=== PATIENT | male | born 1940 | race Caucasian/White ===

== ENCOUNTER → 2016-08-08 | Outpatient (CLI) | payer MEDICARE, MEDICAID ==
[~2016-08-08] MED LIST: AMLODIPINE BES2.5 MG PO; AMOXICILLIN500 MG PO; ARAVA20 MG PO; ASPIRIN81 M1 PO; ATARAX,VISTARIL10 MG PO; CLARITIN10 MG PO; CYCLOBENZAPRINE10 MG PO; DAYPRO600 M1 PO; FLOMAX0.4 MG PO; HCTZ/TRIAMTEREN1 TA2 PO; HYDROCODONE BIT1 T11 PO; INDOCIN50 MG PO; K-DUR 20MEQ20 MEQ PO; KEFLEX250 MG PO; LEUPROLIDE IM; LUPRON5 MG/M1; MAXZIDE 50 MG-71 TA1 PO; MEDROL DOSEPAK4 MG PO; METHOTREXATE2.5 M1 PO; METOPROLOL1 MG/ML PO; NATURE'S BLEND F1 MG PO; OMEPRAZOLE40 MG PO; OXYBUTYNIN5 MG PO; PERCOCET 325 MG1 TA2 PO; PREDNICOT20 MG PO; PREDNISONE10 MG PO; PREDNISONE50 MG PO; RITE AID ACID150 MG PO; ROBITUSSIN AC 110 ML PO; SINGULAIR10 MG PO; TAGAMET400 MG PO; TAMIFLU75 MG PO; TRAMADOL50 MG PO; ULTRAM50 MG PO; VENTOLIN H0.09 MG/AC INH; VESICARE5 MG PO; VITAMIN D31000 IU PO; XYZAL5 M1 PO; XYZAL5 MG PO; ZITHROMAX250 MG PO; ZYRTEC10 M3 PO
== END | disposition home or self-care (01) ==
LOC: US 12:52
DX: R39.15 Urgency of urination (principal); M54.5 Low back pain

== ENCOUNTER → 2016-12-29 | Outpatient (CLI) | payer MEDICARE, MEDICAID ==
[~2016-12-29] MED LIST changes: +PLAQUENIL200 MG PO; +PREDNISONE5 MG PO
[2016-12-29 10:48] LABS: BILIRUBIN NEGATIVE (NEGATIVE); BLOOD NEGATIVE (NEGATIVE); CLARITY CLEAR (CLEAR); COLOR YELLOW (YELLOW); GLUCOSE NEGATIVE (NEGATIVE); KETONE NEGATIVE (NEGATIVE); LEUKO ESTERASE NEGATIVE (NEGATIVE); NITRITE NEGATIVE (NEGATIVE); PROTEIN NEGATIVE (NEGATIVE); UROBILINOGEN 0.2 E.U./dl (0.2-1.0)
[2016-12-29 10:51] LABS: BASO % 0.2 % (0.0-1.0); EOS # 0.1 10*3/uL (0.0-0.4); EOS % 1.7 % (1.0-4.0); HEMATOCRIT 39.1 % (42.0-52.0); HEMOGLOBIN 13.4 g/dl (14.0-18.0); IG # 0.1 10*3/uL (0.0-0.1); LYMPH # 1.4 10*3/uL (1.3-4.4); LYMPH % 17.2 % (27.0-41.0); MEAN CELL VOLUME 92.7 fl (80.0-94.0); MEAN CORPUSCULAR HGB 31.8 pg (27.0-31.0); MEAN CORPUSCULAR HGB CONC 34.3 g/dl (33.0-37.0); MONO # 0.7 10*3/uL (0.1-1.0); NEUT % 72.1 % (47.0-73.0); PLATELET COUNT AUTOMATED 256 10*3/uL (130-400); RED BLOOD COUNT 4.22 10*6/uL (4.50-5.90); RED CELL DISTRI WIDTH 14.6 % (0-14.5); WHITE BLOOD COUNT 8.3 10*3/uL (4.8-10.8)
[2016-12-29 11:23] LABS: BUN 17 mg/dl (7-24); CARBON DIOXIDE 25 mmol/L (21-32); CHLORIDE 107 mmol/L (98-107); EST GLOM FILT AFRICAN AMERICAN > 60 ml/min; GLUCOSE 95 mg/dL (65-99); POTASSIUM 4.2 mmol/L (3.5-5.1); SODIUM 140 mmol/L (136-145)
[2016-12-29 11:29] LABS: INTERNATIONAL NORM RATIO 0.9 (2.0-3.5)
[2016-12-29 12:48] LABS: EPITHELIAL CELLS 0-2; RBC 0-2 rbc/hpf (0-2)
== END | disposition home or self-care (01) ==
LOC: LAB 09:25
PROVIDERS: Surgery
DX: Z01.818 Encounter for other preprocedural examination (principal); K40.90 Unilateral inguinal hernia, without obstruction or gangrene, not specified as recurrent; I10 Essential (primary) hypertension; J98.4 Other disorders of lung; Z98.890 Other specified postprocedural states

== ENCOUNTER → 2017-01-04 | Day surgery (SDC) | payer MEDICARE, MEDICAID ==
[2017-01-04] VITALS (7 sets, daily range): BP systolic 144–158; BP diastolic 76–85
[~2017-01-04] VITALS: Ht 180.3 cm; Wt 88.5 kg
--- NOTE | ~2017-01-04 | O ---
[place], [place] OPERATIVE NOTE NAME: MEG JACK [facility] #: [id number] UNIT #: [id number] ROOM: DOCTOR: PATRICK NIEVES MD BIRTHDATE: [birth year] DOS: 01/04/2017 PREOPERATIVE DIAGNOSIS: Recurrent right inguinal hernia. POSTOPERATIVE DIAGNOSIS: Recurrent right inguinal hernia. PROCEDURE: Repair of recurrent right inguinal hernia with plug and mesh (large). SURGEON: Patrick Nieves MD DETASSELER: MS3. ANESTHESIA: GET. INDICATIONS: This is a 76-year-old gentleman with a history of previous laparoscopic right inguinal hernia repair who is here for a recurrent right inguinal hernia repair with mesh. The procedure and its complications were explained to the patient in detail preoperatively. Complications that were discussed included but were not limited to bleeding, infection, recurrence, prolonged postoperative pain, and damage to underlying vital structures. He agreed to proceed. DESCRIPTION OF PROCEDURE: After identifying the patient, the patient was brought to the operating suite and laid in the supine position. After induction of general anesthesia, the parts were then painted and draped in the usual sterile fashion, and a time-out procedure was called. An incision was made in the right groin parallel to the right inguinal ligament. The skin and the subcutaneous tissue were incised in the line of the incision. The external oblique aponeurosis was incised with the help of a knife in the line of its fibers. The cord structures were identified and away from the underlying recurrent hernial sac with the help of a [place] drain. The cord structures were then carefully dissected away from the sac. The sac was found to be an indirect hernial sac. The sac was then allowed to retract back and a large plug was placed in the internal ring and sutured to the conjoined tendon superiorly and the upturned part of the inguinal ligament inferiorly in order to keep the plug in place. Thereafter, a flat mesh was brought in, and it was encircled around the cord and sutured superiorly to the conjoined tendon and inferiorly to the upturned part of the inguinal ligament with the help of 2-0 Prolene in a running fashion. Thereafter, the [place] drain was removed and the external oblique aponeurosis was approximated with the help of 0 Vicryl in a running fashion. The subcutaneous tissue was approximated with the help of 3-0 Vicryl in a running fashion, and the skin edges were approximated with the help of 4-0 Vicryl in a subcuticular ring fashion, and the edges of the skin were infiltrated with 1% plain lidocaine. A dressing was placed. The patient was extubated uneventfully and brought back to the recovery room in stable fashion. There were no complications. Dr. Patrick Nieves, the attending surgeon, was present throughout the operating case. [place], [place] OPERATIVE NOTE NAME: MEG JACK UNIT #: [id number] ROOM: DOCTOR: PATRICK NIEVES MD BIRTHDATE: [birth year] Patrick Nieves MD CM:OPRECORD:OPERATIVE NOTE [id number] PATRICK NIEVES MD 01/04/17 0946 interface
== END | disposition home or self-care (01) ==
LOC: SDC 12-29 09:30
DX: K40.91 Unilateral inguinal hernia, without obstruction or gangrene, recurrent (principal); I10 Essential (primary) hypertension; K21.9 Gastro-esophageal reflux disease without esophagitis; J44.9 Chronic obstructive pulmonary disease, unspecified; Z87.891 Personal history of nicotine dependence; M06.9 Rheumatoid arthritis, unspecified; Z85.46 Personal history of malignant neoplasm of prostate; Z83.3 Family history of diabetes mellitus; Z82.49 Family history of ischemic heart disease and other diseases of the circulatory system; M10.9 Gout, unspecified

== ENCOUNTER 2017-01-11 23:59 | Emergency (ER) | payer MEDICARE, MEDICAID ==
[~2017-01-11] VITALS: Ht 180.3 cm; Wt 88.5 kg
[2017-01-12 00:17] LABS: BILIRUBIN NEGATIVE (NEGATIVE); BLOOD NEGATIVE (NEGATIVE); CLARITY CLEAR (CLEAR); COLOR YELLOW (YELLOW); GLUCOSE NEGATIVE (NEGATIVE); KETONE NEGATIVE (NEGATIVE); LEUKO ESTERASE NEGATIVE (NEGATIVE); NITRITE NEGATIVE (NEGATIVE); PH 5.5 (5.0-9.0); PROTEIN NEGATIVE (NEGATIVE); UROBILINOGEN 0.2 E.U./dl (0.2-1.0)
[2017-01-12 00:25] LABS: BACTERIA 1+; URINE REFLEX COMMENT NO (NO)
[2017-01-12 00:45] LABS: BASO % 0.1 % (0.0-1.0); EOS # 0.2 10*3/uL (0.0-0.4); EOS % 2.2 % (1.0-4.0); HEMATOCRIT 34.4 % (42.0-52.0); HEMOGLOBIN 12.3 g/dl (14.0-18.0); IG # 0.1 10*3/uL (0.0-0.1); LYMPH # 1.5 10*3/uL (1.3-4.4); LYMPH % 19.9 % (27.0-41.0); MEAN CELL VOLUME 90.5 fl (80.0-94.0); MEAN CORPUSCULAR HGB 32.4 pg (27.0-31.0); MEAN CORPUSCULAR HGB CONC 35.8 g/dl (33.0-37.0); MEAN PLATELET VOLUME 8.9 fl (9.6-12.3); MONO # 0.8 10*3/uL (0.1-1.0); MONO % 11.5 % (3.0-9.0); NEUT # 4.8 10*3/uL (2.3-7.9); NEUT % 65.3 % (47.0-73.0); PLATELET COUNT AUTOMATED 238 10*3/uL (130-400); RED CELL DISTRI WIDTH 14.2 % (0-14.5); WHITE BLOOD COUNT 7.3 10*3/uL (4.8-10.8)
[2017-01-12 01:01] LABS: ALBUMIN 3.1 gm/dl (3.1-4.5); ALKALINE PHOSPHATASE 76 U/L (45-117); BILIRUBIN, TOTAL 0.5 mg/dl (0.2-1.0); BUN 15 mg/dl (7-24); CARBON DIOXIDE 23 mmol/L (21-32); CHLORIDE 104 mmol/L (98-107); EST GLOM FILT AFRICAN AMERICAN > 60 ml/min; GLUCOSE 112 mg/dL (65-99); POTASSIUM 3.9 mmol/L (3.5-5.1); SGOT/AST 20 IU/L (3-35); SGPT/ALT 23 U/L (12-78); SODIUM 137 mmol/L (136-145); TOTAL PROTEIN 6.7 gm/dL (6.4-8.2)
== END 2017-01-12 02:07 | disposition home or self-care (01) ==
LOC: ED 23:59
PROVIDERS: Emergency Medicine
DX: G89.18 Other acute postprocedural pain (principal); R10.31 Right lower quadrant pain; K21.9 Gastro-esophageal reflux disease without esophagitis; J44.9 Chronic obstructive pulmonary disease, unspecified; I10 Essential (primary) hypertension; J45.909 Unspecified asthma, uncomplicated; Z91.040 Latex allergy status; Z88.6 Allergy status to analgesic agent; Z88.8 Allergy status to other drugs, medicaments and biological substances; Z79.899 Other long term (current) drug therapy

== ENCOUNTER 2017-07-30 19:48 | Inpatient (IN) | payer MEDICARE, MEDICAID ==
[~2017-07-30] VITALS: Ht 180.3 cm; Wt 93.0 kg
--- NOTE | ~2017-07-30 | ST ---
[place], [place] EXERCISE STRESS TEST REPORT NAME: MEG JACK [facility] #: [id number] UNIT #: [id number] ROOM: 520 DOCTOR: MARYLOU MARSH,YESSICA BIRTHDATE: [birth year] DOS: 07/31/2017 EXERCISE NURCLEAR TEST. REASON FOR TEST: Chest pain. PHYSICAL EXAMINATION NECK: Supple. LUNGS: Clear anteriorly. HEART: Regular rhythm. PROTOCOL: Gildardo protocol. Total stress time 3 minutes and 17 seconds, maximum heart rate 120 which is 82% of target heart rate. Peak blood pressure 184/80, adequate response. Total mets 4.6 mets. Guan treadmill score +3. SYMPTOMS: The patient is chest pain free, developed shortness of breath and foot pain requiring premature termination of the test. EKG: Resting EKG showed sinus rhythm. Stress EKG showed no ischemia, no arrhythmias. CONCLUSION: Clinically, the patient is chest pain free, developed shortness of breath and leg pain requiring premature termination of the test. EKG showed no ischemia. POST-STRESS COMPLICATIONS: None. YESSICA HICKMAN MD CM:STRESS:EXERCISE STRESS TEST REPORT 1321 1331 YESSICA HICKMAN MD
--- NOTE | ~2017-07-30 | CON ---
[place], [place] REPORT OF CONSULTATION NAME: MEG JACK [facility] #: [id number] UNIT #: [id number] ROOM: 520 DOCTOR: YESSICA HICKMAN MD BIRTHDATE: [birth year] DOS: 07/31/2017 REASON FOR CONSULTATION: Chest pain. HISTORY OF PRESENT ILLNESS: The patient is a 77-year-old gentleman with history of hypertension, COPD, rheumatoid arthritis, who follows with Dr. Dyer, presented to the Emergency Room with left-sided chest pain. Since Dr. Dyer was out of town, [facility] asked me to see the patient in consultation. The patient was complaining of intermittent left-sided chest pain, which is sharp, sometimes heavy, mostly at rest. There is no radiation, no associated nausea, diaphoresis, or shortness of breath. This pain is intermittent and lasts for a few minutes, sometimes several minutes but he denies exertional chest pains or palpitations. No nausea, vomiting, or diarrhea. He did have similar pain a few weeks ago, but did not seek any medical attention. He denies any hemoptysis or cough. No PND or orthopnea. No edema, no palpitations, no headache, no neurological symptoms. REVIEW OF SYSTEMS: Review of the 8 systems negative except as mentioned above. PAST MEDICAL HISTORY: 1. Hypertension. 2. History of sinus bradycardia. 3. Chronic obstructive pulmonary disease. 4. Acid reflux. 5. Rheumatoid arthritis. 6. Overweight. 7. Remote tobacco use. PAST SURGICAL HISTORY: Reviewed. ALLERGIES: Reviewed including LATEX and ARTHROTEC. HOME MEDICATIONS: Reviewed. SOCIAL HISTORY: The patient does not smoke or drink. History of remote tobacco use, currently quit smoking. PHYSICAL EXAMINATION: VITAL SIGNS: Blood pressure 152/78, pulse 66, respiratory rate 20. Weight 92.98 kilos with a BMI 28.6. GENERAL: Alert, comfortable, in no acute distress, currently in some chest pain. HEENT: Pupils are round and equal. No jaundice. Tongue was moist and pharynx was clear. NECK: Supple, no distended neck veins, no carotid bruit. CHEST: Symmetrical, nontender. LUNGS: Clear to auscultation bilaterally. HEART: Regular rhythm, no S3, no palpable thrills. ABDOMEN: Benign, nontender. Bowel sounds normal. EXTREMITIES: Showed no edema. Distal pulses are palpable. [place], [place] REPORT OF CONSULTATION NAME: MEG JACK UNIT #: [id number] ROOM: 520 DOCTOR: MARYLOU MARSH,YESSICA BIRTHDATE: [birth year] SKIN: Warm and dry. No cyanosis, no clubbing. NEUROLOGIC: The patient is alert, oriented. No focal neurologic deficit. RECTAL: Deferred. GENITOURINARY: Deferred. REVIEW OF THE DIAGNOSTIC TESTS: EKG rhythm strips and medications as well as labs reviewed. EKG showed normal sinus rhythm with no acute ST-T changes. IMPRESSION: 1. Chest pain, atypical, myocardial infarction ruled out. 2. History of sinus bradycardia, currently rate stable. 3. Hypertension. 4. Chronic obstructive pulmonary disease. 5. Rheumatoid arthritis. RECOMMENDATIONS: 1. Continue current medications. 2. Exercise nuclear stress test due to his coronary artery disease risk factors. 3. Risk factor modification discussed. 4. He will follow with Dr. Dyer after the discharge. 5. If the stress test is nonischemic, he can be discharged home from the cardiac standpoint. 6. Continue to watch his heart rate and blood pressures as outpatient. YESSICA HICKMAN MD CM:CONSTR:REPORT OF CONSULTATION 1330 07/31/17 1402 interface
[~2017-07-30 19:48] MED LIST changes: +SINGULAIR10 M1 PO
[2017-07-30 19:51] VITALS: BP 150/88
[2017-07-30 20:03] LABS: BASO % 0.2 % (0.0-1.0); EOS # 0.1 10*3/uL (0.0-0.4); EOS % 1.4 % (1.0-4.0); HEMATOCRIT 34.6 % (42.0-52.0); HEMOGLOBIN 12.4 g/dl (14.0-18.0); LYMPH # 1.3 10*3/uL (1.3-4.4); LYMPH % 15.2 % (27.0-41.0); MEAN CELL VOLUME 92.3 fl (80.0-94.0); MEAN CORPUSCULAR HGB 33.1 pg (27.0-31.0); MEAN CORPUSCULAR HGB CONC 35.8 g/dl (33.0-37.0); MEAN PLATELET VOLUME 8.7 fl (9.6-12.3); MONO # 0.7 10*3/uL (0.1-1.0); MONO % 7.9 % (3.0-9.0); NEUT # 6.6 10*3/uL (2.3-7.9); NEUT % 74.7 % (47.0-73.0); PLATELET COUNT AUTOMATED 285 10*3/uL (130-400); RED BLOOD COUNT 3.75 10*6/uL (4.50-5.90); RED CELL DISTRI WIDTH 13.5 % (0-14.5); WHITE BLOOD COUNT 8.8 10*3/uL (4.8-10.8)
[2017-07-30] MEDS ORDERED: ARAVA20 MG PO (20:03)
[2017-07-30] MEDS ORDERED: TRIAMTERENE-HC1 EAC1 PO (20:04)
[2017-07-30] MEDS ORDERED: FLOVENT HFA12 GM INH (20:05)
[2017-07-30 20:06] VITALS: BP 161/83
[2017-07-30 20:13] LABS: ACT PARTIAL THROMBO TIME 25.8 SECONDS (20.8-31.5); INTERNATIONAL NORM RATIO 0.9 (2.0-3.5)
[2017-07-30 20:20] LABS: ALBUMIN 3.5 gm/dl (3.1-4.5); ALKALINE PHOSPHATASE 77 U/L (45-117); BUN 15 mg/dl (7-24); CHLORIDE 101 mmol/L (98-107); CREATININE 1.24 mg/dL (0.70-1.30); SGOT/AST 19 IU/L (3-35); SGPT/ALT 20 U/L (12-78); SODIUM 134 mmol/L (136-145); TOTAL PROTEIN 7.3 gm/dL (6.4-8.2)
[2017-07-30 20:23] LABS: TROPONIN I < 0.015 ng/ml (<0.045)
[2017-07-30 20:27] VITALS: BP 125/70
[2017-07-30 20:51] VITALS: BP 125/70
[2017-07-30 21:15] VITALS: BP 149/75
[2017-07-31 05:42] LABS: ALBUMIN 3.3 gm/dl (3.1-4.5); ALKALINE PHOSPHATASE 69 U/L (45-117); BUN 14 mg/dl (7-24); CHLORIDE 101 mmol/L (98-107); CHOLESTEROL 126 mg/dL (<200); CREATININE 0.87 mg/dL (0.70-1.30); HDL CHOLESTEROL 54 mg/dl (40-60); LDL CHOLESTEROL 55 mg/dL (9-159); PHOSPHOROUS 3.2 mg/dL (2.5-4.9); POTASSIUM 3.7 mmol/L (3.5-5.1); SGOT/AST 19 IU/L (3-35); SGPT/ALT 18 U/L (12-78); SODIUM 134 mmol/L (136-145); TOTAL PROTEIN 6.8 gm/dL (6.4-8.2); TRIGLYCERIDES 83 mg/dl (<150); VLDL CHOLESTEROL 17 mg/dL (6-40)
[2017-07-31 05:48] LABS: TROPONIN I < 0.015 ng/ml (<0.045)
[2017-07-31 06:17] LABS: ACT PARTIAL THROMBO TIME 27.1 SECONDS (20.8-31.5)
[2017-07-31 06:24] LABS: BASO % 0.5 % (0.0-1.0); EOS # 0.1 10*3/uL (0.0-0.4); EOS % 1.7 % (1.0-4.0); HEMATOCRIT 33.3 % (42.0-52.0); HEMOGLOBIN 12.2 g/dl (14.0-18.0); LYMPH # 1.2 10*3/uL (1.3-4.4); MEAN CELL VOLUME 93.3 fl (80.0-94.0); MEAN CORPUSCULAR HGB 34.2 pg (27.0-31.0); MEAN CORPUSCULAR HGB CONC 36.6 g/dl (33.0-37.0); MONO # 0.6 10*3/uL (0.1-1.0); MONO % 9.8 % (3.0-9.0); NEUT # 4.5 10*3/uL (2.3-7.9); NEUT % 68.2 % (47.0-73.0); PLATELET COUNT AUTOMATED 252 10*3/uL (130-400); RED BLOOD COUNT 3.57 10*6/uL (4.50-5.90); RED CELL DISTRI WIDTH 13.6 % (0-14.5); WHITE BLOOD COUNT 6.5 10*3/uL (4.8-10.8)
[2017-07-31 07:15] LABS: VITAMIN D, 25-HYDROXY 23.1 ng/mL (30-100)
[2017-07-31 08:00] VITALS: BP 152/78
[2017-07-31] MEDS ORDERED: LEUCOVORIN CALCI5 MG PO (13:47)
[2017-07-31 14:30] VITALS: BP 152/85
[2017-07-31 16:00] VITALS: BP 152/91
[2017-07-31 20:00] VITALS: BP 158/59
[2017-08-01] VITALS: BP 130/77
[2017-08-01 08:00] VITALS: BP 147/76
== END 2017-08-01 12:39 | disposition home or self-care (01) | DRG 206 ==
LOC: ED 19:48 → EDHOLD 20:50 → 5E 20:50
PROVIDERS: Hospitalist; Student in an Organized Health Care Education/Training Program
PROC: 4A02XM4 Measurement of Cardiac Total Activity, External Approach (ICD-10-PCS; principal; 2017-07-31)
DX: M94.0 Chondrocostal junction syndrome [Tietze] (principal); J44.9 Chronic obstructive pulmonary disease, unspecified; M06.9 Rheumatoid arthritis, unspecified; E66.3 Overweight; J30.2 Other seasonal allergic rhinitis; K21.9 Gastro-esophageal reflux disease without esophagitis; I10 Essential (primary) hypertension; Z80.8 Family history of malignant neoplasm of other organs or systems; Z82.49 Family history of ischemic heart disease and other diseases of the circulatory system; Z88.9 Allergy status to unspecified drugs, medicaments and biological substances; Z91.040 Latex allergy status; Z87.891 Personal history of nicotine dependence

== ENCOUNTER 2017-09-19 19:02 | Inpatient (IN) | payer MEDICARE, MEDICAID ==
[~2017-09-19] VITALS: Ht 180.3 cm; Wt 94.0 kg
[~2017-09-19 19:02] MED LIST changes: +FLOVENT HFA12 GM INH; +LEUCOVORIN CALCI5 MG PO; +TRIAMTERENE-HC1 EAC1 PO
[2017-09-19 19:07] VITALS: BP 151/77
[2017-09-19 20:30] VITALS: BP 160/85
[2017-09-19 20:34] LABS: BILIRUBIN NEGATIVE (NEGATIVE); BLOOD NEGATIVE (NEGATIVE); CLARITY CLEAR (CLEAR); COLOR YELLOW (YELLOW); GLUCOSE NEGATIVE (NEGATIVE); KETONE NEGATIVE (NEGATIVE); LEUKO ESTERASE NEGATIVE (NEGATIVE); NITRITE NEGATIVE (NEGATIVE); UROBILINOGEN 0.2 E.U./dl (0.2-1.0)
[2017-09-19 20:35] LABS: ACT PARTIAL THROMBO TIME 30.8 SECONDS (20.8-31.5)
[2017-09-19 20:41] LABS: ALBUMIN 3.2 gm/dl (3.1-4.5); ALKALINE PHOSPHATASE 95 U/L (45-117); BUN 14 mg/dl (7-24); CHLORIDE 91 mmol/L (98-107); CREATININE 0.93 mg/dL (0.70-1.30); LIPASE 126 U/L (73-393); POTASSIUM 3.6 mmol/L (3.5-5.1); SGOT/AST 20 IU/L (3-35); SGPT/ALT 23 U/L (12-78); SODIUM 125 mmol/L (136-145); TOTAL PROTEIN 7.1 gm/dL (6.4-8.2)
[2017-09-19 20:43] LABS: TROPONIN I < 0.015 ng/ml (<0.045)
[2017-09-19 20:44] LABS: WBC 0-2 wbc/hpf (0-5)
[2017-09-19 20:45] LABS: BACTERIA TRACE; MUCOUS 1+
[2017-09-19 20:51] LABS: BASO % 0.2 % (0.0-1.0); EOS % 0.3 % (1.0-4.0); HEMATOCRIT 32.8 % (42.0-52.0); LYMPH % 8.6 % (27.0-41.0); MEAN CELL VOLUME 91.4 fl (80.0-94.0); MEAN CORPUSCULAR HGB 33.4 pg (27.0-31.0); MEAN CORPUSCULAR HGB CONC 36.6 g/dl (33.0-37.0); MEAN PLATELET VOLUME 8.6 fl (9.6-12.3); MONO # 1.1 10*3/uL (0.1-1.0); MONO % 9.2 % (3.0-9.0); NEUT # 9.6 10*3/uL (2.3-7.9); NEUT % 80.9 % (47.0-73.0); PLATELET COUNT AUTOMATED 313 10*3/uL (130-400); RED BLOOD COUNT 3.59 10*6/uL (4.50-5.90); RED CELL DISTRI WIDTH 14.2 % (0-14.5); WHITE BLOOD COUNT 11.8 10*3/uL (4.8-10.8)
[2017-09-19 22:04] VITALS: BP 143/85
[2017-09-20 01:17] VITALS: BP 146/85
[2017-09-20 02:13] LABS: BASO % 0.3 % (0.0-1.0); EOS % 0.1 % (1.0-4.0); HEMATOCRIT 30.5 % (42.0-52.0); HEMOGLOBIN 11.2 g/dl (14.0-18.0); LYMPH # 0.8 10*3/uL (1.3-4.4); LYMPH % 7.4 % (27.0-41.0); MEAN CELL VOLUME 92.1 fl (80.0-94.0); MEAN CORPUSCULAR HGB 33.8 pg (27.0-31.0); MEAN CORPUSCULAR HGB CONC 36.7 g/dl (33.0-37.0); MEAN PLATELET VOLUME 8.2 fl (9.6-12.3); MONO # 0.9 10*3/uL (0.1-1.0); MONO % 8.1 % (3.0-9.0); NEUT % 83.5 % (47.0-73.0); PLATELET COUNT AUTOMATED 286 10*3/uL (130-400); RED BLOOD COUNT 3.31 10*6/uL (4.50-5.90); RED CELL DISTRI WIDTH 14.3 % (0-14.5); WHITE BLOOD COUNT 10.8 10*3/uL (4.8-10.8)
[2017-09-20 02:27] LABS: BUN 13 mg/dl (7-24); CHLORIDE 93 mmol/L (98-107); CREATININE 0.86 mg/dL (0.70-1.30); POTASSIUM 3.9 mmol/L (3.5-5.1); SODIUM 128 mmol/L (136-145)
[2017-09-20 02:28] LABS: PHOSPHOROUS 3.4 mg/dL (2.5-4.9)
[2017-09-20 04:00] VITALS: BP 170/86
[2017-09-20 07:56] LABS: VITAMIN D, 25-HYDROXY 16.3 ng/mL (30-100)
[2017-09-20 08:00] VITALS: BP 159/82
[2017-09-20] MEDS ORDERED: SULFASALAZINE500 M1 PO (12:59)
[2017-09-20] MEDS ORDERED: VITAMIN D-32000 UNIT PO (13:04)
== END 2017-09-20 08:45 | disposition short-term general hospital (02) | DRG 871 ==
LOC: ED 19:02 → EDHOLD 22:18 → 4E 22:35 → ICCU 09-20 05:12
PROVIDERS: Emergency Medicine Emergency Medical Services; Student in an Organized Health Care Education/Training Program
DX: A41.9 Sepsis, unspecified organism (principal); S06.5X0A Traumatic subdural hemorrhage without loss of consciousness, initial encounter; E44.1 Mild protein-calorie malnutrition; D64.9 Anemia, unspecified; E87.8 Other disorders of electrolyte and fluid balance, not elsewhere classified; E87.1 Hypo-osmolality and hyponatremia; J44.1 Chronic obstructive pulmonary disease with (acute) exacerbation; Z68.29 Body mass index [BMI] 29.0-29.9, adult; E83.51 Hypocalcemia; K21.9 Gastro-esophageal reflux disease without esophagitis; I10 Essential (primary) hypertension; D72.810 Lymphocytopenia; R73.9 Hyperglycemia, unspecified; Y92.231 Patient bathroom in hospital as the place of occurrence of the external cause; W18.39XA Other fall on same level, initial encounter; W18.30XA Fall on same level, unspecified, initial encounter; M43.22 Fusion of spine, cervical region; M06.9 Rheumatoid arthritis, unspecified; Z85.46 Personal history of malignant neoplasm of prostate; Z90.79 Acquired absence of other genital organ(s); Z87.891 Personal history of nicotine dependence; Z80.9 Family history of malignant neoplasm, unspecified; Z82.49 Family history of ischemic heart disease and other diseases of the circulatory system; Z83.3 Family history of diabetes mellitus; Y93.89 Activity, other specified; Z91.040 Latex allergy status; Z88.5 Allergy status to narcotic agent; Z91.09 Other allergy status, other than to drugs and biological substances; Y92.098 Other place in other non-institutional residence as the place of occurrence of the external cause; Z79.899 Other long term (current) drug therapy; Y99.8 Other external cause status

== ENCOUNTER 2017-10-25 10:04 | Emergency (ER) | payer MEDICARE, MEDICAID ==
[~2017-10-25] VITALS: Wt 94.8 kg
[~2017-10-25 10:04] MED LIST changes: +SULFASALAZINE500 M1 PO; +VITAMIN D-32000 UNIT PO
[2017-10-25 10:30] LABS: BASO % 0.2 % (0.0-1.0); EOS % 0.4 % (1.0-4.0); HEMATOCRIT 36.8 % (42.0-52.0); HEMOGLOBIN 13.1 g/dl (14.0-18.0); LYMPH # 1.1 10*3/uL (1.3-4.4); LYMPH % 13.6 % (27.0-41.0); MEAN CELL VOLUME 94.6 fl (80.0-94.0); MEAN CORPUSCULAR HGB 33.7 pg (27.0-31.0); MEAN CORPUSCULAR HGB CONC 35.6 g/dl (33.0-37.0); MEAN PLATELET VOLUME 8.8 fl (9.6-12.3); MONO # 1.1 10*3/uL (0.1-1.0); NEUT % 72.3 % (47.0-73.0); PLATELET COUNT AUTOMATED 235 10*3/uL (130-400); RED BLOOD COUNT 3.89 10*6/uL (4.50-5.90); RED CELL DISTRI WIDTH 14.6 % (0-14.5); WHITE BLOOD COUNT 8.3 10*3/uL (4.8-10.8)
[2017-10-25 10:38] LABS: ACT PARTIAL THROMBO TIME 26.7 SECONDS (20.8-31.5)
[2017-10-25 10:45] LABS: ALBUMIN 3.6 gm/dl (3.1-4.5); ALKALINE PHOSPHATASE 83 U/L (45-117); BUN 9 mg/dl (7-24); CHLORIDE 100 mmol/L (98-107); CREATININE 0.88 mg/dL (0.70-1.30); SGOT/AST 18 IU/L (3-35); SGPT/ALT 18 U/L (12-78); SODIUM 132 mmol/L (136-145); TOTAL PROTEIN 7.2 gm/dL (6.4-8.2)
[2017-10-25 10:50] LABS: TROPONIN I < 0.015 ng/ml (<0.045)
[2017-10-25 12:04] LABS: BILIRUBIN NEGATIVE (NEGATIVE); BLOOD NEGATIVE (NEGATIVE); CLARITY CLOUDY (CLEAR); COLOR YELLOW (YELLOW); GLUCOSE NEGATIVE (NEGATIVE); KETONE NEGATIVE (NEGATIVE); LEUKO ESTERASE NEGATIVE (NEGATIVE); NITRITE NEGATIVE (NEGATIVE); PH 5.5 (5.0-9.0); SPECIFIC GRAVITY >= 1.030 (1.005-1.030); UROBILINOGEN 0.2 E.U./dl (0.2-1.0)
[2017-10-25 12:29] LABS: BACTERIA 1+; MUCOUS 2+; WBC 0-2 wbc/hpf (0-5)
== END 2017-10-25 12:44 | disposition short-term general hospital (02) ==
LOC: ED 10:04
PROVIDERS: Student in an Organized Health Care Education/Training Program
DX: S06.5X0A Traumatic subdural hemorrhage without loss of consciousness, initial encounter (principal); J44.9 Chronic obstructive pulmonary disease, unspecified; K21.9 Gastro-esophageal reflux disease without esophagitis; I10 Essential (primary) hypertension; M06.9 Rheumatoid arthritis, unspecified; Z91.040 Latex allergy status; Z88.8 Allergy status to other drugs, medicaments and biological substances; Z79.899 Other long term (current) drug therapy; Z87.891 Personal history of nicotine dependence; X58.XXXA Exposure to other specified factors, initial encounter; Y93.89 Activity, other specified; Y92.89 Other specified places as the place of occurrence of the external cause; Y99.8 Other external cause status

== ENCOUNTER → 2017-11-14 | Outpatient (CLI) | payer MEDICARE, MEDICAID ==
[~2017-11-14] MED LIST changes: +CRESTOR20 M1 PO; +FLOVENT HFA10.6 GM IH; +ISOSORBIDE DINI30 MG PO; +LISINOPRIL10 M1 PO; +METHOTREXATE2.5 MG PO; +METOPROLOL SUCC25 M2 PO; +NASACORT16.9 ML NAS; +NORVASC2.5 MG PO; +SULFASALAZINE500 MG PO; +TRIAMTERENE & H1 CAP PO; +VITAMIN D32000 UNIT PO; +WELLCOVORIN5 MG PO
--- NOTE | ~2017-11-14 | PROC NOTE ---
[place], [place] PROCEDURE NOTE [id number] #: [id number] ROOM: DOCTOR: TR GRAY BIRTHDATE: [birth year] DOS: 11/14/2017 MODIFIED BARIUM SWALLOW ORDERING PHYSICIAN: Dr. Reyna. RADIOLOGIST: Dr. Mayberry. BACKGROUND INFORMATION: The patient is a 77-year-old male who was seen for modified barium swallow. This test was ordered to determine safety with highest level diet. This is a skilled nursing patient and he is currently receiving a pureed diet and nectar thick liquids. The patient suffered a recent traumatic subdural hemorrhage as well as acute respiratory failure necessitating ventilator placement. The patient reportedly remained on the vent for 2 days and following weaning from the ventilator has been experiencing difficulty swallowing. The patient reports he is undergoing dysphagia therapy at the current time. For today's assessment, he was alert and able to follow commands. Respiratory status was within normal limits. Oral peripheral examination revealed presence of upper and lower dentures. The patient admitted that bottom denture was loose fitting. Lingual, labial, and buccal skills were within normal limits in terms of strength, range of motion, and coordination. The patient was able to volitionally swallow. His volitional cough was weak. Vocal intensity was mildly weak as well. METHODS AND MATERIALS USED FOR THE EXAM: The patient was positioned in the lateral plane and the exam was viewed under fluoroscopy. The patient was presented with a variety of consistencies to assess swallowing skills including applesauce mixed with barium presented in half teaspoon amounts, barium-coated banana, cookie and sandwich given in bite size pieces. The patient was also given nectar thick liquid by cup and thin liquid barium by cup and straw. The patient swallowed in single sip size amounts. ORAL PHASE: Unremarkable. PHARYNGEAL PHASE: Unremarkable. ESOPHAGEAL PHASE: This phase of the swallow was not formally assessed during this exam. IMPRESSIONS AND RECOMMENDATIONS: Based upon assessment results, this 77-year-old patient presents with swallowing skills that are within normal limits in oral and pharyngeal phases. Recommend upgrade to regular diet and thin liquids. Recommend use of safe swallow strategies such as upright positioning for meals, small bites and sips and eating slowly. Results and recommendations were shared with the patient, his spouse and a written copy was provided for education of skilled nursing staff. Continuation of therapy is up to the discretion of the skilled nursing therapist. The patient and spouse verbalized understanding of information provided. Thank you very much for this referral. Should you have any questions regarding [place], [place] PROCEDURE NOTE NAME: MEG JACK Hesham UNIT #: [id number] ROOM: DOCTOR: TR GRAY BIRTHDATE: [birth year] this patient, please contact the speech pathologist at [phone]. TR GRAY CM:PROCNOTE:PROCEDURE NOTE 1536 2350 TR GRAY
--- NOTE | ~2017-11-14 | SLPIE ---
[place], [place] DYNAMICS AX TECHNICAL ARCHITECT INITIAL EVALUATION NAME: MEG JACK UNIT #: [id number] ROOM: DOCTOR: CHRISTOFER BEAL FACP, MD Speech Language Pathology Initial Evaluation Page 1 1 of Patient Name: MEG JACK Date: 11/14/2017 04:02 PM : 1940 SOC Date: 11/14/2017 [facility] Provider #: [id number] Treating Clinician: JAZMYN Salcedo-NATHANAEL Referring Physician: CHRISTOFER MCNAMARA Patient Information Address: [address] Physician: CHRISTOFER MCNAMARA Physician #: City, State, Zip: [place], [place] [address] Occupation: Unknown # of Approved Visits: 0 Gender: Male Medicaid #: [id number] Ticket Taker: ELVIA JACK Medicare #: [id number] Rehabilitation Information / History Onset Date Code Description Primary Diagnosis: 11/14/2017 A0000 NO DIAGNOSIS SENT TO THE [facility] Subjective Comments: Initial evaluation created to initiate the electronic medical record. Please see [employer] for details. Rehabilitation Information / History Clinical Findings Functional Goals Functional Limitation Reporting Swallowing G8996 - Swallowing functional limitation, current status at therapy episode outset and at reporting intervals Current Status: CH - 0 percent impaired, limited or restricted G8997 - Swallowing functional limitation, projected goal status, at therapy episode outset, at reporting intervals, and at discharge or to end reporting Goal Status: CH - 0 percent impaired, limited or restricted G8998 - Swallowing functional limitation, discharge status, at discharge from therapy or to end reporting Discharge Status: CH - 0 percent impaired, limited or restricted 11/14/2017 4:03:20 PM JAZMYN Salcedo-DYNAMICS AX TECHNICAL ARCHITECT Date/Time [place], [place] DYNAMICS AX TECHNICAL ARCHITECT INITIAL EVALUATION NAME: MEG JACK UNIT #: [id number] ROOM: DOCTOR: CHRISTOFER BEAL FACP, MD [facility] License #: [id number] CM:SLPIE 1604 1604 [facility] THER[facility]
--- NOTE | ~2017-11-14 | SLPPN ---
[place], [place] DIGITAL MEDIA INTERN PROGRESS NOTE NAME: MEG JACK UNIT #: [id number] ROOM: DOCTOR: SISSY MCNAMARA MD,CHRISTOFER Speech Language Pathology Treatment Note Page 1 1 of Patient Name: MEG JACK Date: 11/14/2017 04:03 PM : 1940 SOC Date: 11/14/2017 [facility]: [facility] Provider #: [id number] Treating Clinician: JAZMYN Salcedo-DIGITAL MEDIA INTERN Referring Physician: CHRISTOFER MCNAMARA Onset Date Description Code Primary Diagnosis: 11/14/2017 A0000 NO DIAGNOSIS SENT TO THE [facility] Time In: 02:30 PM Time Out: 03:30 PM DIGITAL MEDIA INTERN Interventions and CPT Codes Consisted of: CPT Code Modifiers Minutes Units MOTION FLUOROSCOPY/SWALLOW 75129 60 1 Total Minutes: 60 Total Timed Minutes: 0 Total Untimed Minutes: 60 Total Units: 1 Total Timed Units: 0 Total Untimed Units: 1 11/14/2017 4:04:04 PM JAZMYN Salcedo-DIGITAL MEDIA INTERN Date/Time State License #: [id number] CM:NATI 1609 1609 IS THERAPY [facility]
--- NOTE | ~2017-11-14 | SLPPOC ---
[place], [place] GARBAGE TRUCK HELPER PLAN OF CARE NAME: MEG JACK UNIT #: [id number] ROOM: DOCTOR: CHRISTOFER BEAL FACP, MD Speech Language Pathology Plan of Care Page 1 1 (Initial Evaluation) of Patient Name: MEG JACK Date: 11/14/2017 04:02 PM : 1940 SOC Date: 11/14/2017 Provider: [facility] Provider #: [id number] Treating Clinician: JAZMYN Salcedo-GARBAGE TRUCK HELPER Referring Physician: CHRISTOFER MCNAMARA Medicare #: [id number] Visits From SOC: Medicaid #: [id number] Onset Date Description Code Primary Diagnosis: 11/14/2017 A0000 NO DIAGNOSIS SENT TO THE [facility] Subjective Comments: Initial evaluation created to initiate the electronic medical record. Please see [employer] for details. Initial Level Goals Functional Limitation Reporting Swallowing G8996 - Swallowing functional limitation, current status at therapy episode outset and at reporting intervals Current Status: CH - 0 percent impaired, limited or restricted G8997 - Swallowing functional limitation, projected goal status, at therapy episode outset, at reporting intervals, and at discharge or to end reporting Goal Status: CH - 0 percent impaired, limited or restricted G8998 - Swallowing functional limitation, discharge status, at discharge from therapy or to end reporting Discharge Status: CH - 0 percent impaired, limited or restricted 11/14/2017 4:03:20 PM CHRISTOFER MCNAMARA Date/Time OLLIE Salcedo Date I certify the need for these services furnished under this plan of treatment while under my care. State License #: [id number] CM:SLPPOC 1604 1604 IS THERAPY [facility]
== END | disposition home or self-care (01) ==
LOC: RAD/SH 13:25
DX: K21.9 Gastro-esophageal reflux disease without esophagitis (principal); R13.10 Dysphagia, unspecified

== ENCOUNTER 2017-11-20 11:26 | Emergency (ER) | payer MEDICARE, MEDICAID ==
[~2017-11-20] VITALS: Ht 180.3 cm; Wt 89.8 kg
[~2017-11-20 11:26] MED LIST changes: -CRESTOR20 M1 PO; -FLOVENT HFA10.6 GM IH; -ISOSORBIDE DINI30 MG PO; -LISINOPRIL10 M1 PO; -METHOTREXATE2.5 MG PO; -METOPROLOL SUCC25 M2 PO; -NASACORT16.9 ML NAS; -NORVASC2.5 MG PO; -SULFASALAZINE500 MG PO; -TRIAMTERENE & H1 CAP PO; -VITAMIN D32000 UNIT PO; -WELLCOVORIN5 MG PO
[2017-11-20 13:08] LABS: BASO % 0.1 % (0.0-1.0); EOS % 0.1 % (1.0-4.0); HEMATOCRIT 35.1 % (42.0-52.0); HEMOGLOBIN 12.3 g/dl (14.0-18.0); LYMPH # 0.7 10*3/uL (1.3-4.4); LYMPH % 7.5 % (27.0-41.0); MEAN CELL VOLUME 95.6 fl (80.0-94.0); MEAN CORPUSCULAR HGB 33.5 pg (27.0-31.0); MEAN PLATELET VOLUME 8.7 fl (9.6-12.3); MONO # 0.5 10*3/uL (0.1-1.0); MONO % 5.8 % (3.0-9.0); NEUT # 7.7 10*3/uL (2.3-7.9); NEUT % 85.9 % (47.0-73.0); PLATELET COUNT AUTOMATED 261 10*3/uL (130-400); RED BLOOD COUNT 3.67 10*6/uL (4.50-5.90); RED CELL DISTRI WIDTH 14.6 % (0-14.5)
[2017-11-20 13:19] LABS: BILIRUBIN NEGATIVE (NEGATIVE); BLOOD NEGATIVE (NEGATIVE); CLARITY SL CLOUDY (CLEAR); COLOR YELLOW (YELLOW); GLUCOSE NEGATIVE (NEGATIVE); KETONE NEGATIVE (NEGATIVE); LEUKO ESTERASE NEGATIVE (NEGATIVE); NITRITE NEGATIVE (NEGATIVE); UROBILINOGEN 0.2 E.U./dl (0.2-1.0)
[2017-11-20 13:25] LABS: ALBUMIN 3.6 gm/dl (3.1-4.5); ALKALINE PHOSPHATASE 84 U/L (45-117); BUN 12 mg/dl (7-24); CHLORIDE 99 mmol/L (98-107); CREATININE 0.93 mg/dL (0.70-1.30); POTASSIUM 4.1 mmol/L (3.5-5.1); SGOT/AST 18 IU/L (3-35); SGPT/ALT 25 U/L (12-78); SODIUM 133 mmol/L (136-145); TOTAL PROTEIN 7.2 gm/dL (6.4-8.2)
[2017-11-20 13:28] LABS: BACTERIA TRACE; EPITHELIAL CELLS 0-2; MUCOUS 1+; WBC 0-2 wbc/hpf (0-5)
[2017-11-20] MEDS ORDERED: ASPIRIN81 M1 PO (14:42)
[2017-11-20] MEDS ORDERED: LISINOPRIL10 M1 PO (14:43)
[2017-11-20] MEDS ORDERED: ISOSORBIDE DINI30 MG PO (14:43)
[2017-11-20] MEDS ORDERED: CRESTOR20 M1 PO (14:44)
[2017-11-20] MEDS ORDERED: METOPROLOL SUCC25 M2 PO (14:44)
[2017-11-20] MEDS ORDERED: NASACORT16.9 ML NAS (14:45)
[2017-11-20] MEDS ORDERED: OMEPRAZOLE40 MG PO (14:49)
[2017-11-20] MEDS ORDERED: ARAVA20 MG PO (14:50)
[2017-11-20] MEDS ORDERED: PLAQUENIL200 MG PO (14:50)
[2017-11-20] MEDS ORDERED: FLOVENT HFA10.6 GM IH (14:51)
[2017-11-20] MEDS ORDERED: SULFASALAZINE500 MG PO (14:52)
[2017-11-20] MEDS ORDERED: VITAMIN D32000 UNIT PO (14:52)
[2017-11-20] MEDS ORDERED: WELLCOVORIN5 MG PO (14:52)
[2017-11-20] MEDS ORDERED: METHOTREXATE2.5 MG PO (14:53)
[2017-11-20] MEDS ORDERED: NORVASC2.5 MG PO (14:53)
[2017-11-20] MEDS ORDERED: TRIAMTERENE & H1 CAP PO (14:55)
== END 2017-11-20 15:12 ==
LOC: ED 11:26
PROVIDERS: Family Medicine
DX: G45.9 Transient cerebral ischemic attack, unspecified (principal); J44.9 Chronic obstructive pulmonary disease, unspecified; K21.9 Gastro-esophageal reflux disease without esophagitis; I10 Essential (primary) hypertension; M06.9 Rheumatoid arthritis, unspecified; Z85.46 Personal history of malignant neoplasm of prostate; Z98.890 Other specified postprocedural states; Z90.89 Acquired absence of other organs; Z79.899 Other long term (current) drug therapy; Z79.82 Long term (current) use of aspirin; Z91.040 Latex allergy status; Z88.6 Allergy status to analgesic agent; Z88.8 Allergy status to other drugs, medicaments and biological substances

== ENCOUNTER 2018-01-18 12:50 | Emergency (ER) | payer MEDICARE, MEDICAID ==
[~2018-01-18] VITALS: Wt 93.0 kg
[~2018-01-18 12:50] MED LIST changes: +CRESTOR20 M1 PO; +FLOVENT HFA10.6 GM IH; +ISOSORBIDE DINI30 MG PO; +LISINOPRIL10 M1 PO; +METHOTREXATE2.5 MG PO; +METOPROLOL SUCC25 M2 PO; +NASACORT16.9 ML NAS; +NORVASC2.5 MG PO; +SULFASALAZINE500 MG PO; +TRIAMTERENE & H1 CAP PO; +VITAMIN D32000 UNIT PO; +WELLCOVORIN5 MG PO
[2018-01-18 13:53] LABS: BASO % 0.3 % (0.0-1.0); EOS # 0.1 10*3/uL (0.0-0.4); EOS % 0.8 % (1.0-4.0); HEMATOCRIT 35.2 % (42.0-52.0); HEMOGLOBIN 12.6 g/dl (14.0-18.0); LYMPH # 1.4 10*3/uL (1.3-4.4); LYMPH % 19.3 % (27.0-41.0); MEAN CELL VOLUME 96.7 fl (80.0-94.0); MEAN CORPUSCULAR HGB 34.6 pg (27.0-31.0); MEAN CORPUSCULAR HGB CONC 35.8 g/dl (33.0-37.0); MEAN PLATELET VOLUME 9.2 fl (9.6-12.3); MONO # 0.4 10*3/uL (0.1-1.0); MONO % 5.7 % (3.0-9.0); NEUT # 5.2 10*3/uL (2.3-7.9); NEUT % 73.1 % (47.0-73.0); PLATELET COUNT AUTOMATED 203 10*3/uL (130-400); RED BLOOD COUNT 3.64 10*6/uL (4.50-5.90); RED CELL DISTRI WIDTH 13.9 % (0-14.5); WHITE BLOOD COUNT 7.1 10*3/uL (4.8-10.8)
[2018-01-18 14:04] LABS: ALBUMIN 3.7 gm/dl (3.1-4.5); ALKALINE PHOSPHATASE 55 U/L (45-117); BUN 23 mg/dl (7-24); CHLORIDE 107 mmol/L (98-107); CREATININE 0.99 mg/dL (0.70-1.30); POTASSIUM 4.1 mmol/L (3.5-5.1); SGOT/AST 11 IU/L (3-35); SGPT/ALT 26 U/L (12-78); SODIUM 139 mmol/L (136-145); TOTAL PROTEIN 6.8 gm/dL (6.4-8.2)
== END 2018-01-18 14:55 | disposition home or self-care (01) ==
LOC: ED 12:50
PROVIDERS: Emergency Medicine
DX: I49.3 Ventricular premature depolarization (principal); J44.9 Chronic obstructive pulmonary disease, unspecified; K21.9 Gastro-esophageal reflux disease without esophagitis; I10 Essential (primary) hypertension; E78.00 Pure hypercholesterolemia, unspecified; M06.9 Rheumatoid arthritis, unspecified; Z85.46 Personal history of malignant neoplasm of prostate; Z87.891 Personal history of nicotine dependence; Z86.73 Personal history of transient ischemic attack (TIA), and cerebral infarction without residual deficits; Z98.890 Other specified postprocedural states; Z79.899 Other long term (current) drug therapy; Z88.6 Allergy status to analgesic agent; Z91.040 Latex allergy status

== ENCOUNTER 2018-02-20 11:42 | Emergency (ER) | payer MEDICARE, MEDICAID ==
[~2018-02-20] VITALS: Ht 180.3 cm; Wt 94.3 kg
--- NOTE | ~2018-02-20 | EKG ---
[place], [place] ELECTROCARDIOGRAM REPORT NAME: MEG JACK UNIT #: [id number] ROOM: DOCTOR: EPIPHANY DRAFT REPORT BIRTHDATE: [birth year] [facility] Test Date: 2018-02-20 Test Time: 12:37:01 Pat Name: MEG JACK Department: Room: Gender: Clinical Education Manager: : 1940 Requested By: DEMETRIS PATEL PA-C Order Number: [id number] Reading MD: Genaro Pulliam MD Measurements Intervals [place] Rate: 69 P: 74 [place]: 163 QRS: 15 QRSD: 89 T: 54 QT: 442 QTc: 474 Interpretive Statements Sinus rhythm Atrial bigeminy Baseline wander in lead(s) V2 Electronically Signed On 02-22-2018 11:04:14 PDT by Genaro Pulliam MD CM:EKGRPT:ELECTROCARDIOGRAM REPORT 1237 1104 DEMETRIS PATEL PA-C EPIPHANY DRAFT REPORT DEMETRIS PATEL PA-C
[2018-02-20 12:20] LABS: BASO % 0.1 % (0.0-1.0); EOS # 0.1 10*3/uL (0.0-0.4); HEMATOCRIT 36.1 % (42.0-52.0); HEMOGLOBIN 12.8 g/dl (14.0-18.0); LYMPH # 1.1 10*3/uL (1.3-4.4); LYMPH % 15.6 % (27.0-41.0); MEAN CELL VOLUME 99.4 fl (80.0-94.0); MEAN CORPUSCULAR HGB 35.3 pg (27.0-31.0); MEAN CORPUSCULAR HGB CONC 35.5 g/dl (33.0-37.0); MEAN PLATELET VOLUME 9.1 fl (9.6-12.3); MONO # 0.5 10*3/uL (0.1-1.0); NEUT # 5.5 10*3/uL (2.3-7.9); NEUT % 75.3 % (47.0-73.0); PLATELET COUNT AUTOMATED 182 10*3/uL (130-400); RED BLOOD COUNT 3.63 10*6/uL (4.50-5.90); RED CELL DISTRI WIDTH 14.6 % (0-14.5); WHITE BLOOD COUNT 7.2 10*3/uL (4.8-10.8)
[2018-02-20 12:35] LABS: ACT PARTIAL THROMBO TIME 23.7 SECONDS (20.8-31.5)
[2018-02-20 12:37] LABS: ALBUMIN 3.9 gm/dl (3.1-4.5); ALKALINE PHOSPHATASE 50 U/L (45-117); BUN 24 mg/dl (7-24); CHLORIDE 107 mmol/L (98-107); CREATININE 1.14 mg/dL (0.70-1.30); POTASSIUM 4.4 mmol/L (3.5-5.1); SGOT/AST 10 IU/L (3-35); SGPT/ALT 24 U/L (12-78); SODIUM 139 mmol/L (136-145); TOTAL PROTEIN 6.9 gm/dL (6.4-8.2)
[2018-02-20 12:38] LABS: TROPONIN I < 0.015 ng/ml (<0.045)
[2018-02-20] MEDS ORDERED: AMLODIPINE BESYL5 MG PO (12:47)
[2018-02-20] MEDS ORDERED: CETIRIZINE10 MG PO (12:48)
[2018-02-20] MEDS ORDERED: PREDNISONE5 MG PO (12:48)
[2018-02-20] MEDS ORDERED: COREG6.25 MG PO (12:48)
[2018-02-20 12:49] LABS: BILIRUBIN NEGATIVE (NEGATIVE); BLOOD NEGATIVE (NEGATIVE); CLARITY CLEAR (CLEAR); COLOR YELLOW (YELLOW); GLUCOSE NEGATIVE (NEGATIVE); KETONE NEGATIVE (NEGATIVE); LEUKO ESTERASE NEGATIVE (NEGATIVE); NITRITE NEGATIVE (NEGATIVE); PH 5.5 (5.0-9.0); UROBILINOGEN 0.2 E.U./dl (0.2-1.0)
[2018-02-20] MEDS ORDERED: SINGULAIR10 M1 PO (12:49)
[2018-02-20] MEDS ORDERED: ENBREL50 MG/1 M1 SQ (12:50)
[2018-02-20] MEDS ORDERED: PROAIR HFA8.5 GM INH (12:52)
[2018-02-20 13:02] LABS: EPITHELIAL CELLS 0-2; RBC 0-2 rbc/hpf (0-2)
== END 2018-02-20 14:35 | disposition home or self-care (01) ==
LOC: ED 11:42
PROVIDERS: Physician Assistant
DX: R53.83 Other fatigue (principal); J44.9 Chronic obstructive pulmonary disease, unspecified; I10 Essential (primary) hypertension; Z98.890 Other specified postprocedural states; Z87.891 Personal history of nicotine dependence; Z91.040 Latex allergy status; Z88.6 Allergy status to analgesic agent; Z88.8 Allergy status to other drugs, medicaments and biological substances; Z79.899 Other long term (current) drug therapy; Z85.46 Personal history of malignant neoplasm of prostate

== ENCOUNTER 2018-04-27 10:27 | Inpatient (IN) | payer MEDICARE, MEDICAID ==
[~2018-04-27] VITALS: Ht 180.3 cm; Wt 95.8 kg
--- NOTE | ~2018-04-27 | EKG ---
[place], [place] ELECTROCARDIOGRAM REPORT NAME: MEG JACK UNIT #: [id number] ROOM: 506 DOCTOR: KIRIT DRAFT REPORT BIRTHDATE: [birth year] [facility] Test Date: 2018-04-27 Test Time: 11:01:22 Pat Name: MEG JACK Department: Room: 506 Gender: M Medical Physiologist: DW6 : 1940 Requested By: SAMANTHA WAGNER Order Number: [id number] Reading MD: Chester Soler MD Measurements Intervals [place] Rate: 78 P: 44 [place]: 152 QRS: -1 QRSD: 97 T: 36 QT: 382 QTc: 436 Interpretive Statements Sinus rhythm Supraventricular bigeminy Minimal ST depression, lateral leads Compared to ECG 04/25/2018 12:17:38 Atrial premature complex(es) now present Electronically Signed On 04-28-2018 10:31:27 PDT by Chester Soler MD CM:EKGRPT:ELECTROCARDIOGRAM REPORT 1101 1031 SAMANTHA BETH DRAFT REPORT SAMANTHA WAGNER M.D.
[~2018-04-27 10:27] MED LIST changes: +AMLODIPINE BESYL5 MG PO; +CETIRIZINE10 MG PO; +COREG6.25 MG PO; +ENBREL50 MG/1 M1 SQ; +PROAIR HFA8.5 GM INH
[2018-04-27 10:30] VITALS: BP 131/59
[2018-04-27 11:12] LABS: BASO % 0.1 % (0.0-1.0); EOS # 0.1 10*3/uL (0.0-0.4); HEMATOCRIT 33.3 % (42.0-52.0); HEMOGLOBIN 11.5 g/dl (14.0-18.0); LYMPH # 0.6 10*3/uL (1.3-4.4); LYMPH % 9.1 % (27.0-41.0); MEAN CELL VOLUME 97.9 fl (80.0-94.0); MEAN CORPUSCULAR HGB 33.8 pg (27.0-31.0); MEAN CORPUSCULAR HGB CONC 34.5 g/dl (33.0-37.0); MEAN PLATELET VOLUME 9.1 fl (9.6-12.3); MONO # 0.8 10*3/uL (0.1-1.0); MONO % 11.4 % (3.0-9.0); NEUT # 5.2 10*3/uL (2.3-7.9); NEUT % 78.1 % (47.0-73.0); PLATELET COUNT AUTOMATED 191 10*3/uL (130-400); RED CELL DISTRI WIDTH 13.2 % (0-14.5); WHITE BLOOD COUNT 6.7 10*3/uL (4.8-10.8)
[2018-04-27 11:28] LABS: ALBUMIN 3.3 gm/dl (3.1-4.5); ALKALINE PHOSPHATASE 59 U/L (45-117); BUN 12 mg/dl (7-24); CHLORIDE 103 mmol/L (98-107); POTASSIUM 3.7 mmol/L (3.5-5.1); SGOT/AST 17 IU/L (3-35); SGPT/ALT 30 U/L (12-78); SODIUM 135 mmol/L (136-145); TOTAL PROTEIN 6.5 gm/dL (6.4-8.2)
[2018-04-27 12:27] VITALS: BP 122/52
[2018-04-27 12:35] VITALS: BP 122/56
[2018-04-27 12:45] VITALS: BP 122/56
[2018-04-27] MEDS ORDERED: FLOVENT HFA12 GM INH (13:17)
[2018-04-27 16:00] VITALS: BP 121/74
[2018-04-27 20:00] VITALS: BP 137/71
[2018-04-28] VITALS: BP 129/66
[2018-04-28 06:28] LABS: BASO % 0.1 % (0.0-1.0); HEMATOCRIT 32.4 % (42.0-52.0); HEMOGLOBIN 11.6 g/dl (14.0-18.0); LYMPH # 0.7 10*3/uL (1.3-4.4); LYMPH % 9.7 % (27.0-41.0); MEAN CELL VOLUME 96.4 fl (80.0-94.0); MEAN CORPUSCULAR HGB 34.5 pg (27.0-31.0); MEAN CORPUSCULAR HGB CONC 35.8 g/dl (33.0-37.0); MEAN PLATELET VOLUME 9.5 fl (9.6-12.3); MONO # 0.2 10*3/uL (0.1-1.0); MONO % 2.9 % (3.0-9.0); NEUT # 6.3 10*3/uL (2.3-7.9); NEUT % 86.9 % (47.0-73.0); PLATELET COUNT AUTOMATED 207 10*3/uL (130-400); RED BLOOD COUNT 3.36 10*6/uL (4.50-5.90); RED CELL DISTRI WIDTH 12.6 % (0-14.5); WHITE BLOOD COUNT 7.3 10*3/uL (4.8-10.8)
[2018-04-28 06:30] LABS: BUN 17 mg/dl (7-24); CHLORIDE 105 mmol/L (98-107); CHOLESTEROL 161 mg/dL (<200); CREATININE 1.22 mg/dL (0.70-1.30); HDL CHOLESTEROL 47 mg/dl (40-60); LDL CHOLESTEROL 96 mg/dL (9-159); POTASSIUM 3.4 mmol/L (3.5-5.1); SODIUM 139 mmol/L (136-145); TRIGLYCERIDES 89 mg/dl (<150); VLDL CHOLESTEROL 18 mg/dL (6-40)
[2018-04-28 06:38] LABS: THYROID STIM HORMONE (HS) 0.342 uIU/ml (0.358-4.75)
[2018-04-28 06:52] LABS: ACT PARTIAL THROMBO TIME 24.7 SECONDS (20.8-31.5)
[2018-04-28 07:39] LABS: VITAMIN D, 25-HYDROXY 23.8 ng/mL (30-100)
[2018-04-28 08:00] VITALS: BP 142/72
[2018-04-28 12:00] VITALS: BP 112/56
[2018-04-28 16:00] VITALS: BP 134/58
[2018-04-28 20:00] VITALS: BP 148/68
[2018-04-29] VITALS: BP 136/57
[2018-04-29 06:17] LABS: BASO % 0.1 % (0.0-1.0); HEMOGLOBIN 11.3 g/dl (14.0-18.0); LYMPH # 0.8 10*3/uL (1.3-4.4); LYMPH % 6.2 % (27.0-41.0); MEAN CELL VOLUME 98.2 fl (80.0-94.0); MEAN CORPUSCULAR HGB 34.7 pg (27.0-31.0); MEAN CORPUSCULAR HGB CONC 35.3 g/dl (33.0-37.0); MEAN PLATELET VOLUME 9.6 fl (9.6-12.3); MONO # 0.6 10*3/uL (0.1-1.0); MONO % 4.2 % (3.0-9.0); NEUT % 88.8 % (47.0-73.0); PLATELET COUNT AUTOMATED 223 10*3/uL (130-400); RED BLOOD COUNT 3.26 10*6/uL (4.50-5.90); RED CELL DISTRI WIDTH 12.8 % (0-14.5); WHITE BLOOD COUNT 13.5 10*3/uL (4.8-10.8)
[2018-04-29 06:33] LABS: CHLORIDE 110 mmol/L (98-107); CREATININE 1.07 mg/dL (0.70-1.30); POTASSIUM 3.9 mmol/L (3.5-5.1); SODIUM 142 mmol/L (136-145)
[2018-04-29 06:36] LABS: BUN 21 mg/dl (7-24)
[2018-04-29 08:00] VITALS: BP 140/98
[2018-04-29 12:00] VITALS: BP 125/58
[2018-04-29 16:00] VITALS: BP 137/61
[2018-04-29 20:00] VITALS: BP 124/63
[2018-04-30] VITALS: BP 142/59
[2018-04-30 06:15] LABS: BASO % 0.2 % (0.0-1.0); HEMATOCRIT 33.5 % (42.0-52.0); HEMOGLOBIN 11.7 g/dl (14.0-18.0); LYMPH # 0.9 10*3/uL (1.3-4.4); MEAN CELL VOLUME 97.7 fl (80.0-94.0); MEAN CORPUSCULAR HGB 34.1 pg (27.0-31.0); MEAN CORPUSCULAR HGB CONC 34.9 g/dl (33.0-37.0); MEAN PLATELET VOLUME 9.5 fl (9.6-12.3); MONO # 0.5 10*3/uL (0.1-1.0); MONO % 4.2 % (3.0-9.0); NEUT # 11.2 10*3/uL (2.3-7.9); NEUT % 86.7 % (47.0-73.0); PLATELET COUNT AUTOMATED 243 10*3/uL (130-400); RED BLOOD COUNT 3.43 10*6/uL (4.50-5.90); RED CELL DISTRI WIDTH 12.8 % (0-14.5); WHITE BLOOD COUNT 12.9 10*3/uL (4.8-10.8)
[2018-04-30 06:38] LABS: BUN 22 mg/dl (7-24); CHLORIDE 107 mmol/L (98-107); CREATININE 1.06 mg/dL (0.70-1.30); POTASSIUM 3.9 mmol/L (3.5-5.1); SODIUM 139 mmol/L (136-145)
[2018-04-30] MEDS ORDERED: ZITHROMAX250 MG PO (07:58)
[2018-04-30] MEDS ORDERED: PREDNISONE10 MG PO (07:58)
[2018-04-30 08:00] VITALS: BP 136/68
[2018-04-30 12:00] VITALS: BP 153/76
== END 2018-04-30 12:55 | disposition home health service (06) | DRG 193 ==
LOC: ED 10:27 → 5E 11:40 → EDHOLD 11:40 → 5E 12:03
PROVIDERS: Emergency Medicine; Internal Medicine
DX: J18.9 Pneumonia, unspecified organism (principal); J96.01 Acute respiratory failure with hypoxia; J44.0 Chronic obstructive pulmonary disease with (acute) lower respiratory infection; E44.1 Mild protein-calorie malnutrition; J44.1 Chronic obstructive pulmonary disease with (acute) exacerbation; R73.9 Hyperglycemia, unspecified; D64.9 Anemia, unspecified; E87.6 Hypokalemia; I49.3 Ventricular premature depolarization; I49.9 Cardiac arrhythmia, unspecified; E55.9 Vitamin D deficiency, unspecified; I10 Essential (primary) hypertension; K21.9 Gastro-esophageal reflux disease without esophagitis; F17.210 Nicotine dependence, cigarettes, uncomplicated; M06.9 Rheumatoid arthritis, unspecified; Z86.73 Personal history of transient ischemic attack (TIA), and cerebral infarction without residual deficits; Z88.8 Allergy status to other drugs, medicaments and biological substances; Z88.6 Allergy status to analgesic agent; Z91.040 Latex allergy status; Z92.3 Personal history of irradiation; Z85.46 Personal history of malignant neoplasm of prostate; Z90.49 Acquired absence of other specified parts of digestive tract; Z82.49 Family history of ischemic heart disease and other diseases of the circulatory system; Z83.3 Family history of diabetes mellitus; Z80.9 Family history of malignant neoplasm, unspecified; Z87.440 Personal history of urinary (tract) infections; Z68.29 Body mass index [BMI] 29.0-29.9, adult

== ENCOUNTER 2018-05-15 06:29 | Inpatient (IN) | payer OTHER ==
[2018-05-15] VITALS (8 sets, daily range): BP systolic 102–149; BP diastolic 58–87
[~2018-05-15] VITALS: Ht 180.3 cm; Wt 96.2 kg
--- NOTE | ~2018-05-15 | PR ---
[place], [place] PROGRESS NOTE NAME: MEG JACK UNIT #: [id number] ROOM: 510 DOCTOR: JEAN-PAUL STEWART MD BIRTHDATE: [birth year] DOS: 05/19/2018 I agree with the assessment and plan made by the nurse practitioner, Katelyn Pulliam. I reviewed the labs, imaging and made the necessary changes in the note. Ana Stewart MD CM:PNTRANS 1647 2229 JEAN-PAUL STEWART MD 05/22/18 0458 interface
--- NOTE | ~2018-05-15 | PR ---
[place], [place] PROGRESS NOTE [id number] UN[facility] #: [id number] ROOM: 510 DOCTOR: BILL VIGIL BIRTHDATE: [birth year] DOS: SUBJECTIVE: The patient is a 78-year-old male being followed for an ESBL E. coli septicemia with positive urine and blood cultures. He remains on Zosyn. He is tolerating the antibiotic. Denies fever, chills, nausea, vomiting or diarrhea. No cough or shortness of breath. He is not having dysuria and he does not feel that he is having urinary retention, although he does state since his prostate radiation approximately 10 years ago, he has retained small amounts of urine, but he has not had issues with recurrent urinary infections and does not feel that he is retaining at this point. He denies any pelvic pain. He has been afebrile. VITAL SIGNS: Temperature 96.9, pulse 108, respirations 20, BP 125/72. LABORATORY DATA: WBC 6.2, platelets 111. BUN 22, creatinine 1.0. IMAGING: Renal ultrasound showed no acute abnormality. PHYSICAL EXAMINATION: GENERAL: A 78-year-old male, in no acute distress, nontoxic in appearance. HEENT: Normocephalic. No thrush. LUNGS: Clear to auscultation bilaterally. HEART: Irregular rhythm, no murmur appreciated. ABDOMEN: Soft, nontender, mild distention. EXTREMITIES: No edema, deformity or cyanosis. Does have varicosities of the lower extremities. SKIN: Warm, dry, free of rashes. ASSESSMENT: Urinary tract infection with an extended-spectrum beta-lactamase Escherichia coli bacteremia. PLAN: At this point, we will check a PSA. His states that it is normally low to rule out prostatitis. Continue the Zosyn and is to be changed to ertapenem upon discharge. He is to go to rehab. NOVEMBER YARITZA KHAN [place], [place] PROGRESS NOTE NAME: MEG JACK Hesham UNIT #: [id number] ROOM: 510 DOCTOR: BILL VIGIL BIRTHDATE: [birth year] Ana Dowd MD CM:PNJESSE 1559 21 [facility] 05/19/18 1619 interface
--- NOTE | ~2018-05-15 | EKG ---
[place], [place] ELECTROCARDIOGRAM REPORT NAME: MEG JACK UNIT #: [id number] ROOM: 510 DOCTOR: KIRIT DRAFT REPORT BIRTHDATE: [birth year] [facility] Test Date: 2018-05-15 Test Time: 06:53:06 Pat Name: MEG JACK Department: Room: 510 Gender: M Non Profit Job Titles: Nidia Serrano : 1940 Requested By: ELIZABETH KRAUSE Order Number: [id number] Reading MD: Trino Nogueira MD Measurements Intervals [place] Rate: 105 P: 67 FL: 147 QRS: 27 QRSD: 87 T: 40 QT: 342 QTc: 453 Interpretive Statements Sinus tachycardia Minimal ST depression, lateral leads Compared to ECG 04/27/2018 11:01:22 Sinus rhythm no longer present Atrial premature complex(es) no longer present ST (T wave) deviation still present Electronically Signed On 05-15-2018 18:39:19 PDT by Trino Nogueira MD CM:EKGRPT:ELECTROCARDIOGRAM REPORT [id number] 1839 ELIZABETH VAN DRAFT REPORT ELIZABETH KRAUSE DO
[2018-05-15 07:06] LABS: BASO % 0.1 % (0.0-1.0); EOS % 0.1 % (1.0-4.0); HEMATOCRIT 38.3 % (42.0-52.0); HEMOGLOBIN 13.8 g/dl (14.0-18.0); LYMPH # 1.1 10*3/uL (1.3-4.4); LYMPH % 6.3 % (27.0-41.0); MEAN CELL VOLUME 97.2 fl (80.0-94.0); MEAN PLATELET VOLUME 9.6 fl (9.6-12.3); MONO # 0.8 10*3/uL (0.1-1.0); MONO % 4.7 % (3.0-9.0); NEUT # 14.8 10*3/uL (2.3-7.9); NEUT % 88.2 % (47.0-73.0); PLATELET COUNT AUTOMATED 126 10*3/uL (130-400); RED BLOOD COUNT 3.94 10*6/uL (4.50-5.90); RED CELL DISTRI WIDTH 13.6 % (0-14.5); WHITE BLOOD COUNT 16.8 10*3/uL (4.8-10.8)
[2018-05-15 07:28] LABS: ALBUMIN 3.1 gm/dl (3.1-4.5); ALKALINE PHOSPHATASE 65 U/L (45-117); BUN 15 mg/dl (7-24); CHLORIDE 105 mmol/L (98-107); CREATININE 1.32 mg/dL (0.70-1.30); POTASSIUM 3.4 mmol/L (3.5-5.1); SGOT/AST 10 IU/L (3-35); SGPT/ALT 30 U/L (12-78); SODIUM 138 mmol/L (136-145); TOTAL PROTEIN 6.6 gm/dL (6.4-8.2)
[2018-05-15 07:33] LABS: TROPONIN I < 0.015 ng/ml (<0.045)
[2018-05-15 08:29] LABS: BILIRUBIN NEGATIVE (NEGATIVE); BLOOD 3+ (NEGATIVE); CLARITY CLOUDY (CLEAR); COLOR YELLOW (YELLOW); GLUCOSE NEGATIVE (NEGATIVE); KETONE NEGATIVE (NEGATIVE); LEUKO ESTERASE 3+ (NEGATIVE); NITRITE POSITIVE (NEGATIVE); SPECIFIC GRAVITY 1.015 (1.005-1.030); UROBILINOGEN 0.2 E.U./dl (0.2-1.0)
[2018-05-15 08:33] LABS: WBC TNTC wbc/hpf (0-5)
[2018-05-15] MEDS ORDERED: OMEPRAZOLE40 MG PO (13:07)
[2018-05-15] MEDS ORDERED: SYMB160 INH (13:30)
[2018-05-16] VITALS: BP 111/63
[2018-05-16 06:26] LABS: HEMATOCRIT 32.7 % (42.0-52.0); MEAN CELL VOLUME 96.5 fl (80.0-94.0); MEAN CORPUSCULAR HGB 34.2 pg (27.0-31.0); MEAN CORPUSCULAR HGB CONC 35.5 g/dl (33.0-37.0); MEAN PLATELET VOLUME 9.9 fl (9.6-12.3); RED BLOOD COUNT 3.39 10*6/uL (4.50-5.90); RED CELL DISTRI WIDTH 13.5 % (0-14.5); WHITE BLOOD COUNT 11.8 10*3/uL (4.8-10.8)
[2018-05-16 06:38] LABS: ALBUMIN 2.4 gm/dl (3.1-4.5); ALKALINE PHOSPHATASE 61 U/L (45-117); BUN 17 mg/dl (7-24); CHLORIDE 109 mmol/L (98-107); CHOLESTEROL 105 mg/dL (<200); CREATININE 1.19 mg/dL (0.70-1.30); FREE T4 1.25 ng/dl (0.76-1.46); HDL CHOLESTEROL 12 mg/dl (40-60); LDL CHOLESTEROL 54 mg/dL (9-159); PHOSPHOROUS 2.7 mg/dL (2.5-4.9); POTASSIUM 3.5 mmol/L (3.5-5.1); SGOT/AST 13 IU/L (3-35); SGPT/ALT 23 U/L (12-78); SODIUM 141 mmol/L (136-145); TOTAL PROTEIN 5.8 gm/dL (6.4-8.2); TRIGLYCERIDES 194 mg/dl (<150); VLDL CHOLESTEROL 39 mg/dL (6-40)
[2018-05-16 06:40] LABS: HEMOGLOBIN 11.6 g/dl (14.0-18.0); PLATELET COUNT AUTOMATED 84 10*3/uL (130-400)
[2018-05-16 06:43] LABS: THYROID STIM HORMONE (HS) 0.381 uIU/ml (0.358-4.75)
[2018-05-16 07:06] LABS: ACT PARTIAL THROMBO TIME 26.6 SECONDS (20.8-31.5); INTERNATIONAL NORM RATIO 1.1 (2.0-3.5)
[2018-05-16 07:24] LABS: PLATELET SUFFICIENCY LOW (NORMAL); TOTAL CELLS COUNTED 100 #CELLS
[2018-05-16 07:54] LABS: VITAMIN D, 25-HYDROXY 14.1 ng/mL (30-100)
[2018-05-16 08:00] VITALS: BP 126/72
[2018-05-16 12:00] VITALS: BP 140/85
[2018-05-16 16:00] VITALS: BP 114/65
[2018-05-16 20:00] VITALS: BP 131/62
[2018-05-17] VITALS: BP 142/75
[2018-05-17 08:00] VITALS: BP 138/72
[2018-05-17 12:00] VITALS: BP 142/76
[2018-05-17] MEDS ORDERED: ERTAPENEM1 GM IV (12:03)
[2018-05-17 16:00] VITALS: BP 132/62
[2018-05-17 20:00] VITALS: BP 135/68
[2018-05-18] VITALS: BP 156/79
[2018-05-18 05:58] LABS: BASO % 0.2 % (0.0-1.0); HEMATOCRIT 30.8 % (42.0-52.0); HEMOGLOBIN 10.7 g/dl (14.0-18.0); LYMPH # 0.3 10*3/uL (1.3-4.4); LYMPH % 2.5 % (27.0-41.0); MEAN CELL VOLUME 97.8 fl (80.0-94.0); MEAN CORPUSCULAR HGB CONC 34.7 g/dl (33.0-37.0); MEAN PLATELET VOLUME 10.6 fl (9.6-12.3); MONO # 0.5 10*3/uL (0.1-1.0); MONO % 4.5 % (3.0-9.0); NEUT # 9.1 10*3/uL (2.3-7.9); PLATELET COUNT AUTOMATED 88 10*3/uL (130-400); RED BLOOD COUNT 3.15 10*6/uL (4.50-5.90); RED CELL DISTRI WIDTH 13.4 % (0-14.5); WHITE BLOOD COUNT 10.2 10*3/uL (4.8-10.8)
[2018-05-18 06:21] LABS: BUN 19 mg/dl (7-24); CHLORIDE 108 mmol/L (98-107); POTASSIUM 3.7 mmol/L (3.5-5.1); SODIUM 139 mmol/L (136-145)
[2018-05-18 08:00] VITALS: BP 145/67
[2018-05-18 12:00] VITALS: BP 136/60
[2018-05-18 16:00] VITALS: BP 132/74
[2018-05-18 20:00] VITALS: BP 143/79
[2018-05-19] VITALS: BP 159/69
[2018-05-19 07:54] LABS: BASO % 0.2 % (0.0-1.0); HEMOGLOBIN 11.8 g/dl (14.0-18.0); LYMPH # 0.5 10*3/uL (1.3-4.4); LYMPH % 7.6 % (27.0-41.0); MEAN CELL VOLUME 96.9 fl (80.0-94.0); MEAN CORPUSCULAR HGB 33.6 pg (27.0-31.0); MEAN CORPUSCULAR HGB CONC 34.7 g/dl (33.0-37.0); MONO # 0.2 10*3/uL (0.1-1.0); MONO % 3.2 % (3.0-9.0); NEUT # 5.4 10*3/uL (2.3-7.9); NEUT % 88.4 % (47.0-73.0); PLATELET COUNT AUTOMATED 111 10*3/uL (130-400); RED BLOOD COUNT 3.51 10*6/uL (4.50-5.90); RED CELL DISTRI WIDTH 13.1 % (0-14.5); WHITE BLOOD COUNT 6.2 10*3/uL (4.8-10.8)
[2018-05-19 08:00] VITALS: BP 144/82
[2018-05-19 08:08] LABS: BUN 22 mg/dl (7-24); CHLORIDE 107 mmol/L (98-107); SODIUM 139 mmol/L (136-145)
[2018-05-19] MEDS ORDERED: FLONASE ALLERG9.9 ML NAS (11:01)
[2018-05-19 12:00] VITALS: BP 125/72
[2018-05-19 16:00] VITALS: BP 154/94
[2018-05-19 20:00] VITALS: BP 148/89
[2018-05-20] VITALS: BP 160/85
[2018-05-20 06:39] LABS: BASO % 0.2 % (0.0-1.0); HEMATOCRIT 35.8 % (42.0-52.0); HEMOGLOBIN 12.3 g/dl (14.0-18.0); LYMPH # 0.7 10*3/uL (1.3-4.4); LYMPH % 10.8 % (27.0-41.0); MEAN CELL VOLUME 97.8 fl (80.0-94.0); MEAN CORPUSCULAR HGB 33.6 pg (27.0-31.0); MEAN CORPUSCULAR HGB CONC 34.4 g/dl (33.0-37.0); MEAN PLATELET VOLUME 10.2 fl (9.6-12.3); MONO # 0.4 10*3/uL (0.1-1.0); MONO % 6.7 % (3.0-9.0); NEUT # 5.1 10*3/uL (2.3-7.9); NEUT % 81.2 % (47.0-73.0); RED BLOOD COUNT 3.66 10*6/uL (4.50-5.90); RED CELL DISTRI WIDTH 13.1 % (0-14.5); WHITE BLOOD COUNT 6.3 10*3/uL (4.8-10.8)
[2018-05-20 06:42] LABS: PLATELET COUNT AUTOMATED 145 10*3/uL (130-400)
[2018-05-20 07:13] LABS: ALBUMIN 2.8 gm/dl (3.1-4.5); ALKALINE PHOSPHATASE 66 U/L (45-117); BUN 23 mg/dl (7-24); CHLORIDE 103 mmol/L (98-107); CREATININE 1.18 mg/dL (0.70-1.30); POTASSIUM 4.5 mmol/L (3.5-5.1); SGOT/AST 14 IU/L (3-35); SGPT/ALT 39 U/L (12-78); SODIUM 137 mmol/L (136-145); TOTAL PROTEIN 6.3 gm/dL (6.4-8.2)
[2018-05-20 08:00] VITALS: BP 150/90
[2018-05-20 12:00] VITALS: BP 116/85
[2018-05-20 16:00] VITALS: BP 146/68
[2018-05-20 20:00] VITALS: BP 130/84
[2018-05-21] VITALS: BP 138/88
[2018-05-21 06:50] LABS: HEMATOCRIT 37.2 % (42.0-52.0); HEMOGLOBIN 13.2 g/dl (14.0-18.0); MEAN CELL VOLUME 96.1 fl (80.0-94.0); MEAN CORPUSCULAR HGB 34.1 pg (27.0-31.0); MEAN CORPUSCULAR HGB CONC 35.5 g/dl (33.0-37.0); MEAN PLATELET VOLUME 10.1 fl (9.6-12.3); RED BLOOD COUNT 3.87 10*6/uL (4.50-5.90); WHITE BLOOD COUNT 7.4 10*3/uL (4.8-10.8)
[2018-05-21 06:59] LABS: PLATELET COUNT AUTOMATED 209 10*3/uL (130-400)
[2018-05-21 07:04] LABS: ALBUMIN 2.8 gm/dl (3.1-4.5); ALKALINE PHOSPHATASE 64 U/L (45-117); BUN 22 mg/dl (7-24); CHLORIDE 102 mmol/L (98-107); CREATININE 1.07 mg/dL (0.70-1.30); POTASSIUM 4.2 mmol/L (3.5-5.1); SGOT/AST 9 IU/L (3-35); SGPT/ALT 42 U/L (12-78); SODIUM 136 mmol/L (136-145); TOTAL PROTEIN 6.6 gm/dL (6.4-8.2)
[2018-05-21 07:38] LABS: ATYPICAL LYMPHS 3 % (0-0); TOTAL CELLS COUNTED 100 #CELLS
[2018-05-21 07:39] LABS: PLATELET SUFFICIENCY NORMAL (NORMAL)
[2018-05-21 08:00] VITALS: BP 154/78
[2018-05-21 12:00] VITALS: BP 127/72
[2018-05-21 16:00] VITALS: BP 136/67
[2018-05-21 20:00] VITALS: BP 118/68
[2018-05-22] VITALS: BP 124/71
[2018-05-22 06:09] LABS: HEMATOCRIT 39.5 % (42.0-52.0); HEMOGLOBIN 13.8 g/dl (14.0-18.0); MEAN CELL VOLUME 96.8 fl (80.0-94.0); MEAN CORPUSCULAR HGB 33.8 pg (27.0-31.0); MEAN CORPUSCULAR HGB CONC 34.9 g/dl (33.0-37.0); MEAN PLATELET VOLUME 9.5 fl (9.6-12.3); PLATELET COUNT AUTOMATED 215 10*3/uL (130-400); RED BLOOD COUNT 4.08 10*6/uL (4.50-5.90); WHITE BLOOD COUNT 11.2 10*3/uL (4.8-10.8)
[2018-05-22 06:31] LABS: ALBUMIN 2.8 gm/dl (3.1-4.5); ALKALINE PHOSPHATASE 63 U/L (45-117); BUN 19 mg/dl (7-24); CHLORIDE 99 mmol/L (98-107); CREATININE 1.06 mg/dL (0.70-1.30); POTASSIUM 3.7 mmol/L (3.5-5.1); SGOT/AST 10 IU/L (3-35); SGPT/ALT 42 U/L (12-78); SODIUM 136 mmol/L (136-145)
[2018-05-22 07:03] LABS: PLATELET SUFFICIENCY NORMAL (NORMAL); TOTAL CELLS COUNTED 100 #CELLS
[2018-05-22 07:04] LABS: TOXIC GRANULATION MODERATE
[2018-05-22 08:00] VITALS: BP 150/73
[2018-05-22 12:00] VITALS: BP 155/89
[2018-05-22 16:00] VITALS: BP 120/81
[2018-05-22 20:00] VITALS: BP 119/78
[2018-05-23] VITALS: BP 110/82
[2018-05-23 06:22] LABS: HEMATOCRIT 38.8 % (42.0-52.0); HEMOGLOBIN 13.4 g/dl (14.0-18.0); MEAN CELL VOLUME 98.7 fl (80.0-94.0); MEAN CORPUSCULAR HGB 34.1 pg (27.0-31.0); MEAN CORPUSCULAR HGB CONC 34.5 g/dl (33.0-37.0); MEAN PLATELET VOLUME 9.6 fl (9.6-12.3); PLATELET COUNT AUTOMATED 196 10*3/uL (130-400); RED BLOOD COUNT 3.93 10*6/uL (4.50-5.90); RED CELL DISTRI WIDTH 13.5 % (0-14.5)
[2018-05-23 06:42] LABS: ALBUMIN 2.6 gm/dl (3.1-4.5); ALKALINE PHOSPHATASE 64 U/L (45-117); BUN 17 mg/dl (7-24); CHLORIDE 101 mmol/L (98-107); POTASSIUM 3.8 mmol/L (3.5-5.1); SGOT/AST 11 IU/L (3-35); SGPT/ALT 35 U/L (12-78); SODIUM 138 mmol/L (136-145); TOTAL PROTEIN 5.9 gm/dL (6.4-8.2)
[2018-05-23 07:28] LABS: PLATELET SUFFICIENCY NORMAL (NORMAL); TOTAL CELLS COUNTED 100 #CELLS; TOXIC GRANULATION SLIGHT
[2018-05-23 08:00] VITALS: BP 125/89
[2018-05-23 12:00] VITALS: BP 119/88
[2018-05-23 17:03] VITALS: BP 123/86
== END 2018-05-23 17:35 | disposition other institution (70) | DRG 871 ==
LOC: ED 06:29 → 5E 09:05 → EDHOLD 09:05 → 5E 09:30
PROVIDERS: Emergency Medicine; Internal Medicine; Nurse Practitioner; Student in an Organized Health Care Education/Training Program
DX: A41.51 Sepsis due to Escherichia coli [E. coli] (principal); G93.41 Metabolic encephalopathy; N17.0 Acute kidney failure with tubular necrosis; N39.0 Urinary tract infection, site not specified; J44.0 Chronic obstructive pulmonary disease with (acute) lower respiratory infection; E44.1 Mild protein-calorie malnutrition; J44.1 Chronic obstructive pulmonary disease with (acute) exacerbation; R65.20 Severe sepsis without septic shock; J20.9 Acute bronchitis, unspecified; R31.9 Hematuria, unspecified; D69.6 Thrombocytopenia, unspecified; D53.9 Nutritional anemia, unspecified; K21.9 Gastro-esophageal reflux disease without esophagitis; I10 Essential (primary) hypertension; M06.9 Rheumatoid arthritis, unspecified; E87.6 Hypokalemia; E55.9 Vitamin D deficiency, unspecified; R73.9 Hyperglycemia, unspecified; Z16.12 Extended spectrum beta lactamase (ESBL) resistance; Z82.49 Family history of ischemic heart disease and other diseases of the circulatory system; Z80.9 Family history of malignant neoplasm, unspecified; Z86.73 Personal history of transient ischemic attack (TIA), and cerebral infarction without residual deficits; Z87.891 Personal history of nicotine dependence; Z88.8 Allergy status to other drugs, medicaments and biological substances; Z88.6 Allergy status to analgesic agent; Z91.040 Latex allergy status; Z79.899 Other long term (current) drug therapy; Z68.29 Body mass index [BMI] 29.0-29.9, adult

== ENCOUNTER 2018-06-03 17:27 | Inpatient (IN) | payer OTHER ==
[~2018-06-03] VITALS: Ht 180.3 cm; Wt 94.9 kg
--- NOTE | ~2018-06-03 | EKG ---
[place], [place] ELECTROCARDIOGRAM REPORT NAME: MEG JACK UNIT #: [id number] ROOM: 521 DOCTOR: KIRIT DRAFT REPORT BIRTHDATE: [birth year] [facility] Test Date: 2018-06-05 Test Time: 19:01:15 Pat Name: MEG JACK Department: Room: 521 1 Gender: M Iap Displays Analyst: Ellen Pulliam : 1940 Requested By: EB SPRING Order Number: [id number] Reading MD: Ray Molina MD Measurements Intervals [place] Rate: 68 P: 49 NV: 140 QRS: 26 QRSD: 88 T: 33 QT: 431 QTc: 459 Interpretive Statements Sinus rhythm Multiple ventricular premature complexes Compared to ECG 06/03/2018 18:18:13 Ventricular premature complex(es) now present Sinus tachycardia no longer present Atrial premature complex(es) no longer present T-wave abnormality no longer present Electronically Signed On 06-06-2018 8:30:27 PDT by Ray Molina MD CM:EKGRPT:ELECTROCARDIOGRAM REPORT [id number] EB VAN DRAFT REPORT EB SPRING DO
--- NOTE | ~2018-06-03 | EKG ---
[place], [place] ELECTROCARDIOGRAM REPORT NAME: MEG JACK UNIT #: [id number] ROOM: 521 DOCTOR: KIRIT DRAFT REPORT BIRTHDATE: [birth year] [facility] Test Date: 2018-06-03 Test Time: 18:18:13 Pat Name: MEG JACK Department: 5E Room: 521 Gender: M Mineral Engineer: Trino Olivares : 1940 Requested By: AKASH FAJARDO Order Number: [id number] Reading MD: Trino Nogueira MD Measurements Intervals [place] Rate: 121 P: 61 [place]: 136 QRS: 9 QRSD: 78 T: 96 QT: 312 QTc: 443 Interpretive Statements Sinus tachycardia Atrial premature complexes Nonspecific T abnormalities, lateral leads Compared to ECG 05/15/2018 06:53:06 Atrial premature complex(es) now present T-wave abnormality now present Electronically Signed On 06-04-2018 7:56:18 PDT by Trino Nogueira MD CM:EKGRPT:ELECTROCARDIOGRAM REPORT [id number] 0756 AKASH FAJARDO EPIPHANY DRAFT REPORT AKASH FAJARDO
[~2018-06-03 17:27] MED LIST changes: +ERTAPENEM1 GM IV; +FLONASE ALLERG9.9 ML NAS; +SYMB160 INH
[2018-06-03 17:29] VITALS: BP 154/87
[2018-06-03 17:51] LABS: BILIRUBIN NEGATIVE (NEGATIVE); BLOOD 2+ (NEGATIVE); CLARITY CLOUDY (CLEAR); COLOR YELLOW (YELLOW); GLUCOSE NEGATIVE (NEGATIVE); KETONE NEGATIVE (NEGATIVE); LEUKO ESTERASE 2+ (NEGATIVE); NITRITE POSITIVE (NEGATIVE); UROBILINOGEN 0.2 E.U./dl (0.2-1.0)
[2018-06-03 18:04] LABS: WBC TNTC wbc/hpf (0-5)
[2018-06-03 18:05] LABS: BACTERIA 4+
[2018-06-03 18:36] VITALS: BP 140/65
[2018-06-03 18:36] LABS: BASO % 0.2 % (0.0-1.0); EOS % 0.2 % (1.0-4.0); HEMATOCRIT 37.1 % (42.0-52.0); HEMOGLOBIN 12.5 g/dl (14.0-18.0); LYMPH # 0.9 10*3/uL (1.3-4.4); LYMPH % 6.6 % (27.0-41.0); MEAN CELL VOLUME 98.4 fl (80.0-94.0); MEAN CORPUSCULAR HGB 33.2 pg (27.0-31.0); MEAN CORPUSCULAR HGB CONC 33.7 g/dl (33.0-37.0); MONO # 0.5 10*3/uL (0.1-1.0); MONO % 3.6 % (3.0-9.0); NEUT # 11.4 10*3/uL (2.3-7.9); NEUT % 88.5 % (47.0-73.0); PLATELET COUNT AUTOMATED 236 10*3/uL (130-400); RED BLOOD COUNT 3.77 10*6/uL (4.50-5.90); RED CELL DISTRI WIDTH 14.5 % (0-14.5); WHITE BLOOD COUNT 12.8 10*3/uL (4.8-10.8)
[2018-06-03 19:07] VITALS: BP 133/59
[2018-06-03 19:38] LABS: ALBUMIN 3.1 gm/dl (3.1-4.5); ALKALINE PHOSPHATASE 97 U/L (45-117); BUN 16 mg/dl (7-24); CHLORIDE 104 mmol/L (98-107); CREATININE 1.21 mg/dL (0.70-1.30); POTASSIUM 4.4 mmol/L (3.5-5.1); SGOT/AST 21 IU/L (3-35); SGPT/ALT 43 U/L (12-78); SODIUM 137 mmol/L (136-145); TOTAL PROTEIN 7.4 gm/dL (6.4-8.2)
[2018-06-03 19:41] LABS: TROPONIN I < 0.015 ng/ml (<0.045)
[2018-06-03 20:00] VITALS: BP 133/67
[2018-06-03 20:50] VITALS: BP 133/67
[2018-06-04] VITALS: BP 92/61
[2018-06-04 07:00] LABS: BASO % 0.2 % (0.0-1.0); EOS % 0.1 % (1.0-4.0); LYMPH # 1.6 10*3/uL (1.3-4.4); LYMPH % 15.3 % (27.0-41.0); MEAN CELL VOLUME 99.7 fl (80.0-94.0); MEAN CORPUSCULAR HGB 33.2 pg (27.0-31.0); MEAN CORPUSCULAR HGB CONC 33.3 g/dl (33.0-37.0); MEAN PLATELET VOLUME 9.3 fl (9.6-12.3); MONO # 1.1 10*3/uL (0.1-1.0); MONO % 10.7 % (3.0-9.0); NEUT # 7.8 10*3/uL (2.3-7.9); PLATELET COUNT AUTOMATED 189 10*3/uL (130-400); RED BLOOD COUNT 3.07 10*6/uL (4.50-5.90); RED CELL DISTRI WIDTH 14.9 % (0-14.5); WHITE BLOOD COUNT 10.7 10*3/uL (4.8-10.8)
[2018-06-04 07:22] LABS: HEMATOCRIT 30.6 % (42.0-52.0); HEMOGLOBIN 10.2 g/dl (14.0-18.0)
[2018-06-04 07:30] LABS: CHLORIDE 107 mmol/L (98-107); SODIUM 140 mmol/L (136-145)
[2018-06-04 07:40] LABS: BUN 17 mg/dl (7-24); CREATININE 1.17 mg/dL (0.70-1.30)
[2018-06-04 08:00] VITALS: BP 128/74
[2018-06-04] MEDS ORDERED: GOOD NEIGHBOR650 MG PO (09:32)
[2018-06-04] MEDS ORDERED: BIOFREEZE118 ML T (09:33)
[2018-06-04] MEDS ORDERED: Ipratropium Brom3 ML INH (09:35)
[2018-06-04] MEDS ORDERED: ENBREL50 MG/1 ML SQ (09:36)
[2018-06-04] MEDS ORDERED: NYST SUSP PO (09:39)
[2018-06-04 12:00] VITALS: BP 136/62
[2018-06-04 16:00] VITALS: BP 119/47
[2018-06-04 20:00] VITALS: BP 151/69
[2018-06-05] VITALS: BP 112/90
[2018-06-05 06:27] LABS: BASO % 0.1 % (0.0-1.0); EOS % 0.2 % (1.0-4.0); HEMATOCRIT 27.3 % (42.0-52.0); HEMOGLOBIN 9.5 g/dl (14.0-18.0); LYMPH # 1.7 10*3/uL (1.3-4.4); LYMPH % 20.4 % (27.0-41.0); MEAN CORPUSCULAR HGB 33.5 pg (27.0-31.0); MEAN CORPUSCULAR HGB CONC 34.8 g/dl (33.0-37.0); MEAN PLATELET VOLUME 9.5 fl (9.6-12.3); MONO # 1.1 10*3/uL (0.1-1.0); NEUT # 5.4 10*3/uL (2.3-7.9); NEUT % 65.7 % (47.0-73.0); PLATELET COUNT AUTOMATED 186 10*3/uL (130-400); RED BLOOD COUNT 2.84 10*6/uL (4.50-5.90); RED CELL DISTRI WIDTH 14.2 % (0-14.5); WHITE BLOOD COUNT 8.2 10*3/uL (4.8-10.8)
[2018-06-05 06:31] LABS: MEAN CELL VOLUME 96.1 fl (80.0-94.0)
[2018-06-05 06:38] LABS: BUN 12 mg/dl (7-24); CHLORIDE 107 mmol/L (98-107); CREATININE 0.95 mg/dL (0.70-1.30); POTASSIUM 3.8 mmol/L (3.5-5.1); SODIUM 138 mmol/L (136-145)
[2018-06-05 08:00] VITALS: BP 144/70
[2018-06-05 13:33] VITALS: BP 124/69
[2018-06-05 16:00] VITALS: BP 145/64
[2018-06-05 18:35] LABS: BUN 13 mg/dl (7-24); CHLORIDE 107 mmol/L (98-107); CREATININE 0.96 mg/dL (0.70-1.30); POTASSIUM 4.7 mmol/L (3.5-5.1); SODIUM 138 mmol/L (136-145)
[2018-06-05 20:00] VITALS: BP 149/68
[2018-06-06] VITALS: BP 114/53; BP 138/70
[2018-06-06 08:00] VITALS: BP 152/72
[2018-06-06 12:00] VITALS: BP 164/70
[2018-06-06 16:00] VITALS: BP 138/69
[2018-06-06 20:00] VITALS: BP 138/72
[2018-06-07] VITALS: BP 160/83
[2018-06-07] MEDS ORDERED: ACETAMINOPHEN325 M2 PO (02:47)
[2018-06-07 06:31] LABS: BASO % 0.3 % (0.0-1.0); EOS % 0.5 % (1.0-4.0); HEMATOCRIT 30.1 % (42.0-52.0); HEMOGLOBIN 10.1 g/dl (14.0-18.0); LYMPH # 2.2 10*3/uL (1.3-4.4); LYMPH % 28.5 % (27.0-41.0); MEAN CELL VOLUME 95.9 fl (80.0-94.0); MEAN CORPUSCULAR HGB 32.2 pg (27.0-31.0); MEAN CORPUSCULAR HGB CONC 33.6 g/dl (33.0-37.0); MEAN PLATELET VOLUME 9.2 fl (9.6-12.3); MONO # 0.8 10*3/uL (0.1-1.0); MONO % 10.7 % (3.0-9.0); NEUT # 4.6 10*3/uL (2.3-7.9); NEUT % 58.9 % (47.0-73.0); PLATELET COUNT AUTOMATED 220 10*3/uL (130-400); RED BLOOD COUNT 3.14 10*6/uL (4.50-5.90); WHITE BLOOD COUNT 7.9 10*3/uL (4.8-10.8)
[2018-06-07 07:03] LABS: BUN 11 mg/dl (7-24); CHLORIDE 107 mmol/L (98-107); POTASSIUM 3.9 mmol/L (3.5-5.1); SODIUM 141 mmol/L (136-145)
[2018-06-07 08:00] VITALS: BP 152/78
[2018-06-07 12:00] VITALS: BP 118/82
[2018-06-07 16:00] VITALS: BP 126/57
[2018-06-07 20:00] VITALS: BP 130/62
[2018-06-08] VITALS: BP 132/65
[2018-06-08 06:39] LABS: BASO % 0.5 % (0.0-1.0); EOS # 0.1 10*3/uL (0.0-0.4); EOS % 1.5 % (1.0-4.0); HEMATOCRIT 33.5 % (42.0-52.0); HEMOGLOBIN 11.6 g/dl (14.0-18.0); LYMPH # 1.9 10*3/uL (1.3-4.4); LYMPH % 24.9 % (27.0-41.0); MEAN CELL VOLUME 96.3 fl (80.0-94.0); MEAN CORPUSCULAR HGB 33.3 pg (27.0-31.0); MEAN CORPUSCULAR HGB CONC 34.6 g/dl (33.0-37.0); MEAN PLATELET VOLUME 9.2 fl (9.6-12.3); MONO # 0.9 10*3/uL (0.1-1.0); MONO % 11.7 % (3.0-9.0); NEUT # 4.3 10*3/uL (2.3-7.9); NEUT % 58.4 % (47.0-73.0); PLATELET COUNT AUTOMATED 261 10*3/uL (130-400); RED BLOOD COUNT 3.48 10*6/uL (4.50-5.90); RED CELL DISTRI WIDTH 14.2 % (0-14.5); WHITE BLOOD COUNT 7.4 10*3/uL (4.8-10.8)
[2018-06-08 06:53] LABS: BUN 12 mg/dl (7-24); CHLORIDE 104 mmol/L (98-107); CREATININE 0.93 mg/dL (0.70-1.30); POTASSIUM 4.1 mmol/L (3.5-5.1); SODIUM 139 mmol/L (136-145)
[2018-06-08 08:00] VITALS: BP 124/67
[2018-06-08 12:00] VITALS: BP 116/60
[2018-06-08 16:00] VITALS: BP 137/69
[2018-06-08 20:00] VITALS: BP 148/83
[2018-06-09] VITALS: BP 135/76
[2018-06-09 08:00] VITALS: BP 146/74
[2018-06-09 12:00] VITALS: BP 109/61
[2018-06-09 16:00] VITALS: BP 141/63
[2018-06-09 20:00] VITALS: BP 130/66
[2018-06-10] VITALS: BP 123/47
[2018-06-10 08:00] VITALS: BP 148/75
[2018-06-10 12:00] VITALS: BP 135/71
[2018-06-10] MEDS ORDERED: ERTAPENEM1 GM IV (13:31)
[2018-06-10 16:00] VITALS: BP 159/73
[2018-06-10 20:00] VITALS: BP 115/67
[2018-06-11] VITALS: BP 141/69
[2018-06-11 06:25] LABS: HEMATOCRIT 34.6 % (42.0-52.0); HEMOGLOBIN 11.8 g/dl (14.0-18.0); MEAN CELL VOLUME 94.8 fl (80.0-94.0); MEAN CORPUSCULAR HGB 32.3 pg (27.0-31.0); MEAN CORPUSCULAR HGB CONC 34.1 g/dl (33.0-37.0); PLATELET COUNT AUTOMATED 291 10*3/uL (130-400); RED BLOOD COUNT 3.65 10*6/uL (4.50-5.90); RED CELL DISTRI WIDTH 14.5 % (0-14.5); WHITE BLOOD COUNT 6.8 10*3/uL (4.8-10.8)
[2018-06-11 06:52] LABS: ATYPICAL LYMPHS 1 % (0-0); TOTAL CELLS COUNTED 100 #CELLS
[2018-06-11 06:53] LABS: PLATELET SUFFICIENCY NORMAL (NORMAL); POLYCHROMASIA SLIGHT
[2018-06-11 08:00] VITALS: BP 129/80
[2018-06-11 12:00] VITALS: BP 115/67
[2018-06-11 16:00] VITALS: BP 126/78
[2018-06-11 20:00] VITALS: BP 137/70
[2018-06-12] VITALS: BP 147/86
[2018-06-12 07:54] LABS: BASO # 0.1 10*3/uL (0.0-0.1); BASO % 0.7 % (0.0-1.0); EOS # 0.1 10*3/uL (0.0-0.4); EOS % 1.1 % (1.0-4.0); HEMATOCRIT 34.5 % (42.0-52.0); HEMOGLOBIN 11.6 g/dl (14.0-18.0); MEAN CELL VOLUME 95.6 fl (80.0-94.0); MEAN CORPUSCULAR HGB 32.1 pg (27.0-31.0); MEAN CORPUSCULAR HGB CONC 33.6 g/dl (33.0-37.0); MEAN PLATELET VOLUME 9.2 fl (9.6-12.3); MONO # 0.8 10*3/uL (0.1-1.0); MONO % 10.9 % (3.0-9.0); NEUT # 4.4 10*3/uL (2.3-7.9); NEUT % 57.9 % (47.0-73.0); PLATELET COUNT AUTOMATED 307 10*3/uL (130-400); RED BLOOD COUNT 3.61 10*6/uL (4.50-5.90); RED CELL DISTRI WIDTH 14.6 % (0-14.5); WHITE BLOOD COUNT 7.5 10*3/uL (4.8-10.8)
[2018-06-12 08:00] VITALS: BP 144/75
[2018-06-12 08:12] LABS: BUN 18 mg/dl (7-24); CHLORIDE 103 mmol/L (98-107); CREATININE 0.99 mg/dL (0.70-1.30); POTASSIUM 3.9 mmol/L (3.5-5.1); SODIUM 139 mmol/L (136-145)
[2018-06-12 12:00] VITALS: BP 137/72
== END 2018-06-12 14:43 | disposition other institution (70) | DRG 871 ==
LOC: ED 17:27 → 5E 20:00 → EDHOLD 20:00 → 5E 20:22
PROVIDERS: Emergency Medicine; Family Medicine; Internal Medicine; Nurse Practitioner Family; Student in an Organized Health Care Education/Training Program
DX: A41.9 Sepsis, unspecified organism (principal); J96.00 Acute respiratory failure, unspecified whether with hypoxia or hypercapnia; G93.41 Metabolic encephalopathy; B37.0 Candidal stomatitis; N30.01 Acute cystitis with hematuria; D53.9 Nutritional anemia, unspecified; R65.20 Severe sepsis without septic shock; D72.9 Disorder of white blood cells, unspecified; D72.810 Lymphocytopenia; R73.9 Hyperglycemia, unspecified; R80.9 Proteinuria, unspecified; M06.9 Rheumatoid arthritis, unspecified; J45.909 Unspecified asthma, uncomplicated; K21.9 Gastro-esophageal reflux disease without esophagitis; Z16.12 Extended spectrum beta lactamase (ESBL) resistance; I10 Essential (primary) hypertension; B96.20 Unspecified Escherichia coli [E. coli] as the cause of diseases classified elsewhere; E55.9 Vitamin D deficiency, unspecified; E78.1 Pure hyperglyceridemia; Z88.8 Allergy status to other drugs, medicaments and biological substances; Z88.6 Allergy status to analgesic agent; Z91.040 Latex allergy status; Z92.3 Personal history of irradiation; Z85.46 Personal history of malignant neoplasm of prostate; Z86.73 Personal history of transient ischemic attack (TIA), and cerebral infarction without residual deficits; Z87.891 Personal history of nicotine dependence; Z82.49 Family history of ischemic heart disease and other diseases of the circulatory system; Z80.9 Family history of malignant neoplasm, unspecified; Z83.3 Family history of diabetes mellitus; Z79.899 Other long term (current) drug therapy; Z79.52 Long term (current) use of systemic steroids

== ENCOUNTER → 2018-08-07 | Outpatient (CLI) | payer OTHER ==
[~2018-08-07] MED LIST changes: +ACETAMINOPHEN325 M2 PO; +BACTRIM 400-801 EACH PO; +BIOFREEZE118 ML T; +ENBREL50 MG/1 ML SQ; +GOOD NEIGHBOR650 MG PO; +IMODIUM A-D2 M2 PO; +Ipratropium Brom3 ML INH; +METFORMIN HYDR500 MG PO; +NORVASC5 MG PO; +NOVOLOG10 ML SQ; +NYST SUSP PO; +RAPAFLO8 MG PO
[2018-08-07 13:27] LABS: PTH INTACT 101.5 pg/mL (18.5-88.0); VITAMIN D, 25-HYDROXY 28.2 ng/mL (30-100)
== END | disposition home or self-care (01) ==
PROVIDERS: Nurse Practitioner Family
DX: R05 Cough (principal); R06.02 Shortness of breath; R53.83 Other fatigue; M06.9 Rheumatoid arthritis, unspecified; E83.51 Hypocalcemia; J34.89 Other specified disorders of nose and nasal sinuses

== ENCOUNTER 2018-08-17 14:34 | Emergency (ER) | payer OTHER ==
[~2018-08-17] VITALS: Ht 180.3 cm; Wt 95.3 kg
[~2018-08-17 14:34] MED LIST changes: -BACTRIM 400-801 EACH PO; -IMODIUM A-D2 M2 PO; -METFORMIN HYDR500 MG PO; -NORVASC5 MG PO; -NOVOLOG10 ML SQ; -RAPAFLO8 MG PO
[2018-10-19] MEDS ORDERED: METFORMIN HYDR500 MG PO (16:22)
[2018-10-19] MEDS ORDERED: PREDNISONE5 MG PO (20:07)
[2018-10-19] MEDS ORDERED: RAPAFLO8 MG PO (20:08)
[2018-10-19] MEDS ORDERED: NATURE'S BLEND F1 MG PO (20:08)
== END 2018-08-17 15:44 | disposition home or self-care (01) ==
LOC: ED 14:34
DX: R51 Headache (principal); R06.02 Shortness of breath; R35.8 Other polyuria; R26.9 Unspecified abnormalities of gait and mobility; I10 Essential (primary) hypertension; J44.9 Chronic obstructive pulmonary disease, unspecified; M06.9 Rheumatoid arthritis, unspecified; K21.9 Gastro-esophageal reflux disease without esophagitis; F17.200 Nicotine dependence, unspecified, uncomplicated; Z91.040 Latex allergy status; Z88.9 Allergy status to unspecified drugs, medicaments and biological substances; Z88.8 Allergy status to other drugs, medicaments and biological substances; Z79.899 Other long term (current) drug therapy; Z86.718 Personal history of other venous thrombosis and embolism

== ENCOUNTER 2018-11-26 20:16 | Inpatient (IN) | payer OTHER ==
[~2018-11-26] VITALS: Ht 180.3 cm; Wt 95.8 kg
--- NOTE | ~2018-11-26 | EKG ---
[place], [place] ELECTROCARDIOGRAM REPORT NAME: MEG JACK UNIT #: [id number] ROOM: 425 DOCTOR: KRIIT DRAFT REPORT BIRTHDATE: [birth year] [facility] Test Date: 2018-11-26 Test Time: 20:48:33 Pat Name: MEG JACK Department: Room: 425 Gender: M Billiard Table Repairer: Christie Benitez : 1940 Requested By: CARRIE BRIGGS Order Number: [id number] Reading MD: Kimberly Arriaza MD Measurements Intervals [place] Rate: 116 P: 37 DC: 134 QRS: 10 QRSD: 77 T: 152 QT: 265 QTc: 369 Interpretive Statements Sinus tachycardia Borderline repolarization abnormality Compared to ECG 10/19/2018 22:32:29 Sinus rhythm no longer present Electronically Signed On 11-27-2018 16:04:34 PDT by Kimberly Arriaza MD CM:EKGRPT:ELECTROCARDIOGRAM REPORT [id number] 1604 CARRIE VAN DRAFT REPORT CARRIE BRIGGS DO
[~2018-11-26 20:16] MED LIST changes: +METFORMIN HYDR500 MG PO; +RAPAFLO8 MG PO
--- NOTE | 2018-11-26 20:20 | NUR ---
PT DENIES URGE TO VOID AT THIS TIME
[2018-11-26 20:24] VITALS: BP 155/95
[2018-11-26 20:54] LABS: HEMATOCRIT 45.5 % (42.0-52.0); MEAN CELL VOLUME 98.1 fl (80.0-94.0); MEAN CORPUSCULAR HGB 34.5 pg (27.0-31.0); MEAN CORPUSCULAR HGB CONC 35.2 g/dl (33.0-37.0); PLATELET COUNT AUTOMATED 166 10*3/uL (130-400); RED BLOOD COUNT 4.64 10*6/uL (4.50-5.90); RED CELL DISTRI WIDTH 13.7 % (0-14.5); WHITE BLOOD COUNT 10.5 10*3/uL (4.8-10.8)
[2018-11-26 21:00] VITALS: BP 190/110
[2018-11-26 21:08] LABS: ALBUMIN 3.4 gm/dl (3.1-4.5); ALKALINE PHOSPHATASE 55 U/L (45-117); BUN 23 mg/dl (7-24); CHLORIDE 101 mmol/L (98-107); CREATININE 1.02 mg/dL (0.70-1.30); SGOT/AST 17 IU/L (3-35); SGPT/ALT 49 U/L (12-78); SODIUM 135 mmol/L (136-145); TOTAL PROTEIN 6.6 gm/dL (6.4-8.2)
[2018-11-26 21:14] LABS: TROPONIN I < 0.015 ng/ml (<0.045)
[2018-11-26 21:16] LABS: TOTAL CELLS COUNTED 100 #CELLS
[2018-11-26 21:17] LABS: BURR CELLS FEW; PLATELET SUFFICIENCY NORMAL (NORMAL); VACUOLATION OF NEUTROPHILS SLIGHT
[2018-11-26 22:00] VITALS: BP 175/103
[2018-11-26 22:11] LABS: BILIRUBIN NEGATIVE (NEGATIVE); BLOOD NEGATIVE (NEGATIVE); CLARITY CLEAR (CLEAR); COLOR YELLOW (YELLOW); GLUCOSE NEGATIVE (NEGATIVE); KETONE NEGATIVE (NEGATIVE); LEUKO ESTERASE NEGATIVE (NEGATIVE); NITRITE NEGATIVE (NEGATIVE); UROBILINOGEN 0.2 E.U./dl (0.2-1.0)
[2018-11-26 22:30] VITALS: BP 170/89
[2018-11-26 22:44] LABS: EPITHELIAL CELLS 0-5
[2018-11-26 23:05] VITALS: BP 180/86
[2018-11-26 23:36] VITALS: BP 190/77
[2018-11-27] VITALS (7 sets, daily range): BP systolic 105–164; BP diastolic 57–90
--- NOTE | 2018-11-27 00:15 | NUR ---
A 78, admitted to , under the services of OLI Santos DO with a diagnosis of AMBULATORY DYSFUNCTION, GEN WEAKNESS, HTN URGENCY. Chief complaint is AMS, GEN WEAKNESS. Patient arrived via bed from ER. Monitor applied. Initial assessment completed. Vital signs taken and recorded. OLI SANTOS DO notified of admission to the unit. Orders received. See assessment for past medical history, medications and allergies. Patient and/or family oriented to unit. [facility] visitation policy reviewed. Clothing/patient valuable form completed. AMY PAYTON
--- NOTE | 2018-11-27 00:39 | NUR ---
MED REC COMPLETED WITH LIST FROM HOME
--- NOTE | 2018-11-27 01:24 | NUR ---
NOTIFIED DR SPRING OF PATIENTS HR STAYING 125S AND APPEARS AGGITATED. PATIENT DENIES SOB/PAIN OR OTHER SYMPTOMS. 2L NC APPLIED FOR COMFORT. STATED HE WILL PUT IN FOT A CTA. WILL CONTINUE TO MONITOR.
--- NOTE | 2018-11-27 01:53 | NUR ---
20 G IV STARTED IN PATIENTS RIGHT AC AT THIS TIME.
--- NOTE | 2018-11-27 03:21 | NUR ---
NOTIFIED DR SPRING OF PATIENT INCONTINENT AND UNABLE TO OBTAIN URINE FOR URINE DRUG SCREEN AND WONDERING IF NEEDING TO STRAIGHT CATH. NO NEW ORDERS AT THIS TIME.
[2018-11-27 06:23] LABS: BASO % 0.3 % (0.0-1.0); EOS % 0.1 % (1.0-4.0); HEMATOCRIT 45.5 % (42.0-52.0); HEMOGLOBIN 16.2 g/dl (14.0-18.0); LYMPH % 10.1 % (27.0-41.0); MEAN CELL VOLUME 96.2 fl (80.0-94.0); MEAN CORPUSCULAR HGB 34.2 pg (27.0-31.0); MEAN CORPUSCULAR HGB CONC 35.6 g/dl (33.0-37.0); MEAN PLATELET VOLUME 9.6 fl (9.6-12.3); MONO # 0.5 10*3/uL (0.1-1.0); MONO % 5.7 % (3.0-9.0); NEUT # 7.8 10*3/uL (2.3-7.9); NEUT % 82.8 % (47.0-73.0); PLATELET COUNT AUTOMATED 172 10*3/uL (130-400); RED BLOOD COUNT 4.73 10*6/uL (4.50-5.90); RED CELL DISTRI WIDTH 13.4 % (0-14.5); WHITE BLOOD COUNT 9.4 10*3/uL (4.8-10.8)
[2018-11-27 06:48] LABS: ALBUMIN 3.1 gm/dl (3.1-4.5); ALKALINE PHOSPHATASE 53 U/L (45-117); BUN 22 mg/dl (7-24); CHLORIDE 103 mmol/L (98-107); CHOLESTEROL 160 mg/dL (<200); FREE T4 1.26 ng/dl (0.76-1.46); HDL CHOLESTEROL 44 mg/dl (40-60); LDL CHOLESTEROL 74 mg/dL (9-159); PHOSPHOROUS 2.4 mg/dL (2.5-4.9); POTASSIUM 3.7 mmol/L (3.5-5.1); SGOT/AST 19 IU/L (3-35); SGPT/ALT 43 U/L (12-78); SODIUM 136 mmol/L (136-145); TOTAL PROTEIN 6.3 gm/dL (6.4-8.2); TRIGLYCERIDES 211 mg/dl (<150); VLDL CHOLESTEROL 42 mg/dL (6-40)
[2018-11-27 07:56] LABS: VITAMIN D, 25-HYDROXY 17.5 ng/mL (30-100)
--- NOTE | 2018-11-27 09:00 | NUR ---
Patient Resource Specialist in to talk to patient. Patient states lives at home with . There are few steps in the home. Physician: beto galloway [facility] Home health services: none Patient's level of ADLs: MINIMAL ASSIST Patient has working utilities: all working DME: walker, cane and wheelchair Follow-up physician's appointment after d/c: will be made by hospitalist nurse director upon discharge Does patient want to access PORTAL?: no Discharge plan discussed with patient, patient lives at home with , he is having difficulty ambulating at home. discussed with them a short term fpc for rehab prior to going back home, both were inagreement, given choice of facilities they chose [facility]. asked for a second choice in case [facility] did not have an available bed, she stated she would think about a second choice. field service coordinator will send referral to [facility] for when patient is medically stable for discharge. patient will need an insurance precert prior to discharging to a SNF. NERI CORBIN
[2018-11-27 10:16] LABS: ABG BASE EXCESS -1.7 mmol/L (-2.0-2.0); ABG HCO3 20.1 mmol/l (22-26); ABG O2 SATURATION 96.9 % (95-97); ARTERIAL BLOOD GAS PCO2 28.6 mmHg (35-45); ARTERIAL BLOOD GAS PH 7.463 (7.35-7.45); ARTERIAL BLOOD GAS PO2 83.1 mmHg (80-90)
[2018-11-27 10:31] LABS: URINE AMPHETAMINES < 1000 (1000ng/ml); URINE BARBITURATES < 200 (200ng/ml); URINE BENZODIAZEPINES < 200 (200ng/ml); URINE CANNABINOIDS (THC) < 50 (50ng/ml); URINE COCAINE < 300 (300ng/ml); URINE METHADONE < 300 (300ng/ml); URINE OPIATES < 300 (300ng/ml)
[2018-11-27 10:34] LABS: URINE PHENCYCLIDINE < 25 (25ng/ml)
--- NOTE | 2018-11-27 11:27 | NUR ---
reports that patient is not able to participate in OT evaluation as patient only remains awake for a minute or so and falls back asleep. OTR will attempt at a later time. Sydni Riggins OTR/L
--- NOTE | 2018-11-27 12:26 | NUR ---
SPEECH PATHOLOGY Swallowing evaluation completed as per orders. Patient was admitted with weakness, ambulatory dysfunction and metabolic encephalopathy. Medical history is also significant for COPD, GERD, subdural hematoma and TIA. Patient was alert, answered questions appropriately and followed commands throughout assessment. He was noted to be sweaty and complained of feeling too warm. Family members were present and reported that he has recently been displaying what appeared to be difficulty swallowing food and liquid. Pt. is ordered a regular diet and thin liquids and was assessed with puree, coarse solid and thin liquid by straw. Patient displayed safe swallowing for all items given. He swallowed within a timely manner with no cough, wet vocal quality or residue. He had no reports of difficulty swallowing. Recommend that patient remain on regular diet and thin liquid. Also recommend universal safe swallow precautions to ensure safety such as upright positioning for meals, small bites and sips and eating slowly. Short term follow up is recommended to ensure safe tolerance of meal as patient's medical status places him at risk for aspiration. Results and damaris. were shared with patient and family and they verbalized understanding. Nursing was also informed of recommendations and medical condition during the assessment. Refer to report in [employer] for further information. Thank you for this referral. TR GRAY MSCCC-THREAD SEPARATOR
--- NOTE | 2018-11-27 13:16 | NUR ---
TALKED TO REGARDING PATIENT AT THIS TIME; PATIENT HAS DROP IN BLOOD PRESSURE FROM THIS MORNING AND APPEARS VERY DIAPHORETIC AND LETHARGIC. PT'S BP 105/66. BSG WAS 191. NO NEW ORDERS AT THIS TIME.
--- NOTE | 2018-11-27 14:16 | NUR ---
Patient requesting referral to the [facility]. (Rehab suites is full). Contacted facility and faxed referral, will require PT and OT evals when available. Also requires precert. waiting on review/acceptance.
--- NOTE | 2018-11-27 14:20 | NUR ---
Patient not available for Occupational Therapy evaluation. and family present and patient is asleep and reports he has not been able to remain awake more that a few minutes at a time since admission. OTR will attempt at a later date. Sydni Riggins OTR/reyes
--- NOTE | 2018-11-27 15:50 | NUR ---
NOTIFIED PHYSICIAN THAT PT FAMILY IS CONCERNED REGARDING PT INTAKE AND OUTPUT. PHYSICIAN STATES THAT HE WILL TAKE A LOOK AT THINGS.
--- NOTE | 2018-11-27 20:00 | NUR ---
PATIENT RESTING IN BED. FAMILY STATES PATIENT IS MUCH MORE ALERT THIS EVENING THEN FROM LAST NIGHT AND THIS MORNING. PATIENTS FAMILY WAS EDUCATED ON THE PATIENTS CONDITION AND TREATMENT PLAN.
[2018-11-28] VITALS (7 sets, daily range): BP systolic 115–169; BP diastolic 58–80
--- NOTE | 2018-11-28 04:23 | NUR ---
PATIENT RESTING IN BED WITH EYES CLOSED RESPIRATIONS ARE EASY AND REGULAR. NO DISTRESS IS NOTED. CALL LIGHT IS WITHIN REACH. WILL MONITOR.
[2018-11-28 06:43] LABS: BASO % 0.2 % (0.0-1.0); HEMATOCRIT 40.7 % (42.0-52.0); LYMPH # 0.6 10*3/uL (1.3-4.4); LYMPH % 9.5 % (27.0-41.0); MEAN CELL VOLUME 97.8 fl (80.0-94.0); MEAN CORPUSCULAR HGB 33.7 pg (27.0-31.0); MEAN CORPUSCULAR HGB CONC 34.4 g/dl (33.0-37.0); MEAN PLATELET VOLUME 9.5 fl (9.6-12.3); MONO # 0.3 10*3/uL (0.1-1.0); NEUT # 5.4 10*3/uL (2.3-7.9); NEUT % 85.5 % (47.0-73.0); PLATELET COUNT AUTOMATED 144 10*3/uL (130-400); RED BLOOD COUNT 4.16 10*6/uL (4.50-5.90); RED CELL DISTRI WIDTH 13.5 % (0-14.5); WHITE BLOOD COUNT 6.3 10*3/uL (4.8-10.8)
[2018-11-28 06:46] LABS: BUN 17 mg/dl (7-24); CHLORIDE 101 mmol/L (98-107); SODIUM 136 mmol/L (136-145)
[2018-11-28 06:47] LABS: CREATININE 0.95 mg/dL (0.70-1.30); PHOSPHOROUS 3.7 mg/dL (2.5-4.9)
[2018-11-28 06:54] LABS: POTASSIUM 4.7 mmol/L (3.5-5.1)
--- NOTE | 2018-11-28 09:00 | NUR ---
case management visits with patient, patient will be going to [facility] when insurance precert is approved and patient is medically stable for discharge, no other needs at this time
--- NOTE | 2018-11-28 09:34 | NUR ---
SPEECH PATHOLOGY Patient was seen for treatment this am. Patient was alert and oriented in all spheres. He reported that he felt much better today. Clinician reviewed results from yesterday's clinical swallowing evaluation and safety precautions recommended. He verbalized understanding of information provided and denied any difficulty swallowing during breakfast meal. He was able to state what he had eaten for breakfast and reported good intake. His tray was present and the information he provided was found to be correct. Patient swallowed thin liquids by straw during therapy session. No overt difficulty was displayed. He has been afebrile and WBC is within normal range. Patient demonstrates safe tolerance for regular foods and thin liquids and implements safe swallow precautions. Patient has improved overall. No further speech services are warranted at this time. Patient will be discharged. Thank you for this referral. TR GRAY MSCCC-AUTOMOTIVE SERVICE PROFESSIONAL
--- NOTE | 2018-11-28 10:50 | NUR ---
Patient not available for Occupational Therapy evaluation as the ultrasonic hand solderer is visiting with the patient and then housekeeping was waiting to clean the room. OTR will recheck at a later time. Sydni Riggins OTR/l
--- NOTE | 2018-11-28 10:53 | NUR ---
PHYSICAL THERAPY PAtient with patoral care and housekeeping mopping floor. Belén Foy,PT
--- NOTE | 2018-11-28 11:15 | NUR ---
PHYSICAL THERAPY Patient evaluated on 4, full evaluation to follow. Continue with PT as per plan of care with fall, 02, alarm, confusion at times and acute debility precautions. Will require SNF. PAtient is moderate complexity via chart review, tests and evaluation: [id number]. Thank you for this referral. Belén Foy,PT
--- NOTE | 2018-11-28 12:00 | NUR ---
Occupational Therapy evaluation completed on 4 with full eval to follow. Precautions include fall risk history with bed/chair alarm, unsteady in standing,lethargy until today, slow rate of response at times, RA, moderate complexity level 04800 via chart review, testing and evaluation. Recommend OT per POC and SNF to enable max safety and ADls for return home w/ . Thank you for this referral. Sydni Tatum OTR/L
--- NOTE | 2018-11-28 13:39 | NUR ---
Patient has been accepted to the [facility], (rehab suites is full). Faxed referral with PT/OT/speech and asked to start precert. waiting for auth.
[2018-11-29] VITALS: BP 134/66
[2018-11-29 08:00] VITALS: BP 148/76
--- NOTE | 2018-11-29 10:05 | NUR ---
PHYSICAL THERAPY informed consent given, pt identified by name and . pt presented supine in bed. supine to sit SBA. sitting EOB spO2 97% 1L.STS and stand to sit from EOB CGA. static standing balance 1min without AD SBA pt able to correct self with LOB. Walked 60ft x2, 20ft x1 wh walker CGA seated rests in between. STS and stand to sit from chair x2 trials Jonathan. TUG test 43 sec CGA v/c for direction, spO2 97% 1L. Ended treatment pt sitting in chair spO2 98% 1L, call light and belongings in reach, chair alarm on. 1:1 treatment with FABRIC CUTTER 15min. HAJA ALVAREZ FABRIC CUTTER
[2018-11-29 12:00] VITALS: BP 137/54
--- NOTE | 2018-11-29 12:18 | NUR ---
OT NOTE PATIENT IDENTIFIED BY NAME AND DATE OF THIS DATE. PATIENT TREATED 1:1 OT THIS DATE FOR 30 MINUTES. PATIENT IN BED. COMPLETED SUPINE TO SIT EOB MIN A. COMPLETED FUNCTIONAL AMBULATION TO BATHROOM WITH PORTAL 02 TANK MIN A AND USE FWW VERBAL CUES SAFETY. PATIENT COMPLETED TOILETING TASK MOD A CLOTHES MANAGAMENT. COMPLETED SIT TO STAND FROM TOILET MIN A USE GRABBAR. COMPLETED FUNCTIONAL AMBULATION FROM BATHROOM TO BED MIN A. COMPLETED SIT TO SUPINE MIN A. PATIENT'S LUNCH ARRIVED AND PATIENT REQUESTED TO SIT UP IN RECLINER WITH MIN A STAND PIVOT TRANSFER BED TO RECLINER THIS DATE. PATIENT SEATED IN RECLINER WITH CALLIGHT WITHIN REACH, O2 DONNED, AND CHAIR ALARM IN TACT.CONSULTED NURSING REGARDING PATIENT WOULD BENEFIT FROM BEDSIDE COMMODE WHEN A BEDSIDE COMMODE IS AVAILABLE.NO FURTHER NEEDS VERBALIZED.PATIENT'S PRESENT THROUGHOUT SESSION THIS DATE CONTINUE TOWARDS PLAN OF CARE. MEGAN COON
--- NOTE | 2018-11-29 14:00 | NUR ---
Patient has received auth to go to [facility]. Patient is ok to go if medically stable for discharge.
[2018-11-29] MEDS ORDERED: PREDNISONE10 MG PO (14:49)
--- NOTE | 2018-11-29 15:11 | NUR ---
Patient is discharged to [facility]. [place] info faxed. intake clerk, nursing, all notified. Transportation scheduled for 5 PM with [facility]
--- NOTE | 2018-11-29 16:26 | NUR ---
REPORT GIVEN TO DEMETRIS AT [facility].
--- NOTE | 2018-11-29 17:00 | NUR ---
PATIENT DISCHARGED TO [facility]. IV DISCONTINUED. [facility] PACKET GIVEN TO [facility]. ALL PERSONAL BELONGINGS SENT WITH PATIENT.
--- NOTE | 2018-12-02 17:21 | NUR ---
OCCUPATIONAL THERAPY CO-SIGN I approve of the Occupational Therapy notes written above. VIMAL RIGGS OTR/Yosi
[2018-12-06] MEDS ORDERED: ERTAPENEM1 GM IV ×2 (09:28→11:01)
[2018-12-06] MEDS ORDERED: BACTRIM 400-801 EACH PO (12:28)
[2018-12-06] MEDS ORDERED: PREDNISONE10 MG PO (12:28)
[2018-12-14] MEDS ORDERED: NOVOLOG10 ML SQ (09:05)
[2018-12-18] MEDS ORDERED: PREDNISONE10 MG PO (14:31)
== END 2018-11-29 17:00 | disposition other institution (70) | DRG 304 ==
LOC: ED 20:16 → 4E 21:52 → EDHOLD 21:52 → 4E 23:56
PROVIDERS: Internal Medicine; Student in an Organized Health Care Education/Training Program; ADMIT Internal Medicine
DX: I16.1 Hypertensive emergency (principal); G93.41 Metabolic encephalopathy; E87.1 Hypo-osmolality and hyponatremia; E44.1 Mild protein-calorie malnutrition; J44.9 Chronic obstructive pulmonary disease, unspecified; K21.9 Gastro-esophageal reflux disease without esophagitis; I10 Essential (primary) hypertension; R26.2 Difficulty in walking, not elsewhere classified; I16.0 Hypertensive urgency; M06.9 Rheumatoid arthritis, unspecified; R00.0 Tachycardia, unspecified; E55.9 Vitamin D deficiency, unspecified; E11.65 Type 2 diabetes mellitus with hyperglycemia; Z91.040 Latex allergy status; Z88.9 Allergy status to unspecified drugs, medicaments and biological substances; Z91.09 Other allergy status, other than to drugs and biological substances; Z85.46 Personal history of malignant neoplasm of prostate; Z87.891 Personal history of nicotine dependence; Z82.49 Family history of ischemic heart disease and other diseases of the circulatory system; Z80.8 Family history of malignant neoplasm of other organs or systems; Z83.3 Family history of diabetes mellitus; Z68.29 Body mass index [BMI] 29.0-29.9, adult; Z79.84 Long term (current) use of oral hypoglycemic drugs

== ENCOUNTER 2018-12-28 17:28 | Inpatient (IN) | payer OTHER ==
[~2018-12-28] VITALS: Ht 180.3 cm; Wt 97.1 kg
--- NOTE | ~2018-12-28 | CON ---
[place], [place] REPORT OF CONSULTATION NAME: MEG JACK UNIT #: [id number] ROOM: 427 DOCTOR: BILL VIGIL,NOVEMBER BIRTHDATE: [birth year] DOS: 12/29/2018 HISTORY OF PRESENT ILLNESS: The patient is a 78-year-old male who was admitted from an area rehab facility with fever and chills, which came on abruptly according to his . He was fine yesterday morning. She left the facility, came back and he had shaking chills at that point in time. His temperature topped out at 102.9 at the time of admission with tachycardia at 120, lactic acid of 3.9. His urinalysis showed pyuria. He now has positive blood cultures for gram-negative rods. The antibiotics ordered are Merrem. He has also been receiving Bactrim as an outpatient. Reviewing his old charts, the patient has had positive blood cultures for ESBL E. coli on 05/15/2018, 06/03/2018, 12/02/2018 and now again he has positive blood cultures for gram-negative rods have yet to be identified. I also reviewed older charts. Radiology studies, he did have a CT of the abdomen and pelvis on the December 12 that was unremarkable. No stones or hydronephrosis, etc. His only implanted device is an E-stim bladder stimulator that was implanted by Dr. Guillen in 2017. He has nothing else implanted. He had been having some issues with lower extremity edema at his rehab facility a week or so ago that has since improved according to his . He denies any pain, denies any dysuria. He is usually incontinent of urine. The bladder stimulator was originally put in for recurrent nocturia, but at this point, he is mostly continent. Urine cultures currently is pending. Historically, his urine cultures have also grown ESBL E. coli. Again, he denies any pain. He also states he feels that he is emptying, although his states that Dr. Guillen has advised he does have some urinary retention. PAST MEDICAL HISTORY: As above as well as bigeminy, COPD, GERD, radiation, hypertension, prostate CA, rheumatoid arthritis for which he is on chronic prednisone, seasonal allergies, subdural hematoma, TIA, diabetes, vitamin D deficiency, hernia repair, left spermatocelectomy. SOCIAL HISTORY: Has history of heavy drinking, but no longer, a reformed smoker, smoked 3-4 packs a day for 40 years. No illicit drug use. He is . FAMILY MEDICAL HISTORY: Father in his 60s due to cancer. Mother in her 60s due to heart attack. ALLERGIES: Include DICLOFENAC, MISOPROSTOL, LATEX and NATURAL RUBBER, which causes itching. LABORATORY DATA: Cultures as reviewed above. WBC is 13.5, platelets 148. BUN 16, creatinine 1.09. His last lactic acid was 2.4 that was last night. Urinalysis, positive nitrites, +1 leukocyte esterase, wbc's too numerous to count per high power field. REVIEW OF SYSTEMS: As above in history of present illness, otherwise unremarkable. PHYSICAL EXAMINATION: [place], [place] REPORT OF CONSULTATION NAME: MEG JACK UNIT #: [id number] ROOM: 427 DOCTOR: BILL VIGILNOVEMBER BIRTHDATE: [birth year] VITAL SIGNS: Temperature 98.0, pulse 68, respirations 20, BP 116/58. GENERAL: A 78-year-old male, in no acute distress, nontoxic in appearance. HEAD, EYES, EARS, NOSE AND THROAT: Normocephalic. Pupils equal and reactive to light. Mouth: No thrush. Edentulous. NECK: Supple. LUNGS: Clear to auscultation bilaterally. Respirations even and unlabored. HEART: Regular rhythm. No murmur appreciated. ABDOMEN: Soft, mild distention, positive bowel sounds, nontender. GENITOURINARY: Scrotum and genitalia are grossly unremarkable. EXTREMITIES: No edema or deformity. He does have varicosities noted of lower extremities. SKIN: Warm, dry, free of rashes. BACK: No CVA tenderness below the right CVA area. He does have a site where his E-stimulator is, is nontender. There is no erythema. 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 If this again proves to be extended-spectrum beta-lactamases Escherichia coli, which I suspect it will, he needs to be worked up further for more deep seated infection than a simple urinary tract infection. There is possibility that his E-stimulator could be infected. WBC tagged ceretec scan may be of benefit to help localize an infection. I would also recommend a 2D echocardiogram given his recurrent bacteremia and recent peripheral edema, etc. It also may be that he has significant prostatitis, which can also cause a recurrence. We will check a PSA. ADDENDUM I agree with the assessment and plan made by the nurse practitioner, Katelyn Khan. I reviewed the labs and imaging and made the necessary changes in the note. KATELYN KHAN, INDUSTRIAL CLEANING TECHNICIAN Antonette Dowd MD CM:CONSTR:REPORT OF CONSULTATION 1826 01/12/19 0437 interface
--- NOTE | ~2018-12-28 | EKG ---
[place], [place] ELECTROCARDIOGRAM REPORT NAME: MEG JACK UNIT #: [id number] ROOM: 427 DOCTOR: KIRIT DRAFT REPORT BIRTHDATE: [birth year] [facility] Test Date: 2018-12-28 Test Time: 19:14:24 Pat Name: EMG JACK Department: ER Room: 427 Gender: M Cotton Chopper: EKGBearIA : 1940 Requested By: AKASH FAJARDO Order Number: [id number] Reading MD: Chester Soler Measurements Intervals [place] Rate: 106 P: 44 UT: 142 QRS: 39 QRSD: 89 T: 34 QT: 331 QTc: 440 Interpretive Statements Sinus tachycardia Compared to ECG 12/12/2018 20:15:35 Sinus arrhythmia no longer present Electronically Signed On 01-01-2019 13:05:41 PDT by Chester Soler CM:EKGRPT:ELECTROCARDIOGRAM REPORT 13 1305 AKASH FAJARDO EPIPHANY DRAFT REPORT AKASH FAJARDO
[~2018-12-28 17:28] MED LIST changes: +BACTRIM 400-801 EACH PO; +NOVOLOG10 ML SQ
[2018-12-28 17:35] VITALS: BP 135/83
[2018-12-28 18:01] LABS: HEMATOCRIT 41.8 % (42.0-52.0); HEMOGLOBIN 14.5 g/dl (14.0-18.0); MEAN CORPUSCULAR HGB 33.6 pg (27.0-31.0); MEAN CORPUSCULAR HGB CONC 34.7 g/dl (33.0-37.0); PLATELET COUNT AUTOMATED 213 10*3/uL (130-400); RED BLOOD COUNT 4.31 10*6/uL (4.50-5.90); RED CELL DISTRI WIDTH 13.5 % (0-14.5); WHITE BLOOD COUNT 12.3 10*3/uL (4.8-10.8)
[2018-12-28 18:13] LABS: ACT PARTIAL THROMBO TIME 21.4 SECONDS (20.0-32.1); INTERNATIONAL NORM RATIO 0.9 (2.0-3.5)
[2018-12-28 18:19] LABS: ALBUMIN 3.3 gm/dl (3.1-4.5); ALKALINE PHOSPHATASE 96 U/L (45-117); BUN 20 mg/dl (7-24); CHLORIDE 103 mmol/L (98-107); CREATININE 1.23 mg/dL (0.70-1.30); LIPASE 68 U/L (73-393); POTASSIUM 4.2 mmol/L (3.5-5.1); SGOT/AST 54 IU/L (3-35); SGPT/ALT 66 U/L (12-78); SODIUM 135 mmol/L (136-145); TOTAL PROTEIN 6.6 gm/dL (6.4-8.2)
[2018-12-28 18:50] LABS: PLATELET SUFFICIENCY NORMAL (NORMAL); POLYCHROMASIA SLIGHT; TOTAL CELLS COUNTED 100 #CELLS
--- NOTE | 2018-12-28 19:00 | NUR ---
PT NOTED TO HAVE SLIGHT REDDENED EXCORIATION TO PENILE AREA.
[2018-12-28 19:08] VITALS: BP 138/79
--- NOTE | 2018-12-28 19:48 | NUR ---
PT PROVIDED URINAL AND PROMPTED FOR URINE SPECIMEN.FAMILY AT BEDSIDE.SECOND LITER NS INFUSING AT THIS TIME.
[2018-12-28 19:49] VITALS: BP 112/64
--- NOTE | 2018-12-28 20:08 | NUR ---
LAB CALLED WITH LACTIC ACID LEVEL 3.2.FLORENCIO ACHARYA NOTIFIED.
[2018-12-28 21:13] VITALS: BP 107/71
--- NOTE | 2018-12-28 21:13 | NUR ---
PT LINENS AND BRIEF CHANGED.
[2018-12-28 21:22] LABS: BILIRUBIN NEGATIVE (NEGATIVE); BLOOD NEGATIVE (NEGATIVE); CLARITY CLEAR (CLEAR); COLOR YELLOW (YELLOW); GLUCOSE NEGATIVE (NEGATIVE); KETONE NEGATIVE (NEGATIVE); LEUKO ESTERASE 1+ (NEGATIVE); NITRITE POSITIVE (NEGATIVE); UROBILINOGEN 0.2 E.U./dl (0.2-1.0)
[2018-12-28 21:27] LABS: BACTERIA 2+; EPITHELIAL CELLS 0-2; RBC 0-2 rbc/hpf (0-2); WBC TNTC wbc/hpf (0-5)
[2018-12-28 22:51] VITALS: BP 137/79
--- NOTE | 2018-12-28 22:51 | NUR ---
CRITICAL LAB LACTIC ACID 2.4. YOBANI NAVARRETE NOTIFIED AND NOTIFIED
[2018-12-29] VITALS (14 sets, daily range): BP systolic 88–179; BP diastolic 50–91
--- NOTE | 2018-12-29 01:51 | NUR ---
SERVICENOW ADMINISTRATOR CONTACTED FOR EMAR ORDER OF VANCOMYCIN.
--- NOTE | 2018-12-29 02:37 | NUR ---
SECOND DOSE OF MEROPENEM INITIATED.
--- NOTE | 2018-12-29 02:50 | NUR ---
PT LINENS CHANGED.
--- NOTE | 2018-12-29 03:23 | NUR ---
MRSA SWAB SENT TO LAB.
--- NOTE | 2018-12-29 04:06 | NUR ---
PT SHAKING AND STATES HE IS COLD.PT PROVIDED WARM BLANKETS.TEMP REASSESSED WITH ORAL TEMP OF 97.7.LUNGS ARE CLEAR.
--- NOTE | 2018-12-29 04:06 | NUR ---
PT SHAKING AND STATES HE IS COLD.PT PROVIDED WARM BLANKETS.TEMP REASSESSED WITH ORAL TEMP 97.7.LUNGS CLEAR.
--- NOTE | 2018-12-29 04:14 | NUR ---
MD KRAUSE AT BEDSIDE TO ASSESS PT WITH THIS RN.DR SOTO CONTACTED.
--- NOTE | 2018-12-29 04:21 | NUR ---
DR SOTO AT BEDSIDE TO ASSESS PT.PER DR OSTO VERBAL ORDER, HOLD ATIVAN AT THIS TIME.CHEST XRAY BEING ORDERED AT THIS TIME.
--- NOTE | 2018-12-29 04:25 | NUR ---
PER DR SOTO VERBAL ORDER,VANCOMYCIN ON HOLD AT THIS TIME.
--- NOTE | 2018-12-29 04:36 | NUR ---
PT RESTLESS AND THIS RN HAVING TO REORIENT PT.PT REPOSITIONED IN BED.XRAY AT BEDSIDE.
--- NOTE | 2018-12-29 04:45 | NUR ---
PER MD SOTO VERBAL ORDER, PT MEDICATED 0.5MG ATIVAN IV AND 3RD LITER NS INFUSING AT THIS TIME.
--- NOTE | 2018-12-29 05:17 | NUR ---
PT RESTING MORE COMFORTABLY IN BED.WILL CONTINUE TO MONITOR.
--- NOTE | 2018-12-29 05:40 | NUR ---
3rd liter ns completed.
[2018-12-29 05:47] LABS: BUN 16 mg/dl (7-24); CHLORIDE 108 mmol/L (98-107); CREATININE 1.09 mg/dL (0.70-1.30); PHOSPHOROUS 3.7 mg/dL (2.5-4.9); POTASSIUM 4.6 mmol/L (3.5-5.1); SODIUM 138 mmol/L (136-145)
[2018-12-29 06:13] LABS: BASO % 0.2 % (0.0-1.0); EOS % 0.1 % (1.0-4.0); HEMATOCRIT 40.6 % (42.0-52.0); HEMOGLOBIN 13.6 g/dl (14.0-18.0); LYMPH # 0.8 10*3/uL (1.3-4.4); LYMPH % 5.6 % (27.0-41.0); MEAN CORPUSCULAR HGB 33.5 pg (27.0-31.0); MEAN CORPUSCULAR HGB CONC 33.5 g/dl (33.0-37.0); MEAN PLATELET VOLUME 9.5 fl (9.6-12.3); MONO # 0.6 10*3/uL (0.1-1.0); MONO % 4.6 % (3.0-9.0); NEUT # 11.9 10*3/uL (2.3-7.9); NEUT % 88.3 % (47.0-73.0); NUCLEATED RED BLOOD CELL 0.1 % (0.0-0.0); RED BLOOD COUNT 4.06 10*6/uL (4.50-5.90); RED CELL DISTRI WIDTH 13.8 % (0-14.5); WHITE BLOOD COUNT 13.5 10*3/uL (4.8-10.8)
[2018-12-29 06:15] LABS: PLATELET COUNT AUTOMATED 148 10*3/uL (130-400)
--- NOTE | 2018-12-29 07:27 | NUR ---
DR SOTO NOTIFIED OF +BLOOD CULTURES.
--- NOTE | 2018-12-29 07:58 | NUR ---
BREAKFAST TRAY ORDERED FAMILY AT BEDSIDE.
--- NOTE | 2018-12-29 08:00 | NUR ---
VANC THAT WAS ORIGINALLY SCANNED IN AT 0356 BY ROSALBA, PREVIOUS RN WAS ACTUALLY INITIATED AND STARTED AT 0800 AM.
--- NOTE | 2018-12-29 08:12 | NUR ---
TEMP 103.0 RECTALLY, PT WAS HOT TO TOUCH WHILE CHANGING HIS BRIEF AND LINENS. EVERYTHING CHANGED AND PT CLEANSED AFTER INC URINE.
--- NOTE | 2018-12-29 08:24 | NUR ---
MEDICATED PER EMAR WITH PRN TYLENOL FOR FEVER. HE IS SITTING UP RIGHT IN BED, MORE ALERT. FAMILY IS AT BEDSIDE. VSS. JAYSON WAS HELD OVER NIGHT PER ROSALBA BERNARD RN AND DR. SOTO. WILL START THIS .
--- NOTE | 2018-12-29 09:06 | NUR ---
CALL PLACED TO INFECTIOUS DISEASE ANSWERING SERVICE FOR CONSULT. PER ANSWERING SERVICE, DR. NAYLOR IS COVERING.
--- NOTE | 2018-12-29 13:19 | NUR ---
PT IS MUCH MORE ALERT AT THIS TIME. HE HAS HAD LUNCH. BGL 176, WHICH REQUIRES 2 UNITS OF COVERAGE. WILL PASS THIS ON TO INPATIENT NURSE. PT IS STABLE AND READY FOR ADMISSION.
--- NOTE | 2018-12-29 14:30 | NUR ---
A 78, admitted to , under the services of OLI Santos DO with a diagnosis of UTI. Chief complaint is sepsis. Patient arrived via stretcher from ER. Monitor applied. Initial assessment completed. Vital signs taken and recorded. OLI SANTOS DO notified of admission to the unit. Orders received. See assessment for past medical history, medications and allergies. Patient and/or family oriented to unit. [address] visitation policy reviewed. Clothing/patient valuable form completed. ZECHARIAH LAMBERT
[2018-12-29] MEDS ORDERED: NORVASC5 MG PO (18:16)
[2018-12-29] MEDS ORDERED: IMODIUM A-D2 M2 PO (18:17)
--- NOTE | 2018-12-29 18:21 | NUR ---
Notified Dr. Ha that patients medication reconciliation is up to date and complete.
--- NOTE | 2018-12-29 19:50 | NUR ---
RESTING IN BED ON LEFT SIDE. DROWSY, PULSE OX 100% ON 2L. NO EDEMA NOTED.
[2018-12-30] VITALS: BP 135/70
--- NOTE | 2018-12-30 00:58 | NUR ---
RESTING IN BED ON RIGHT SIDE. AWAKENS EASILY. RESPONDS APPROPRIATELY. FALLS BACK ASLEEP QUICKLY. RESPIRATIONS ARE EASY AND REGULAR. O2 IN USE VIA NC. BED ALARM IS ACTIVE. BED IS IN LOWEST POSITION WITH WHEELS LOCKED. SIDE RAILS UP X2. CALL LIGHT IS WITHIN REACH. ENCOURAGED TO USE CALL LIGHT FOR NEEDS. WILL CONTINUE TO MONITOR.
[2018-12-30 06:40] LABS: BASO % 0.2 % (0.0-1.0); HEMATOCRIT 36.2 % (42.0-52.0); HEMOGLOBIN 12.3 g/dl (14.0-18.0); LYMPH # 0.6 10*3/uL (1.3-4.4); LYMPH % 8.8 % (27.0-41.0); MEAN CELL VOLUME 97.8 fl (80.0-94.0); MEAN CORPUSCULAR HGB 33.2 pg (27.0-31.0); MEAN PLATELET VOLUME 9.5 fl (9.6-12.3); MONO # 0.4 10*3/uL (0.1-1.0); MONO % 5.6 % (3.0-9.0); NEUT # 5.6 10*3/uL (2.3-7.9); NEUT % 83.7 % (47.0-73.0); PLATELET COUNT AUTOMATED 146 10*3/uL (130-400); RED CELL DISTRI WIDTH 13.2 % (0-14.5); WHITE BLOOD COUNT 6.6 10*3/uL (4.8-10.8)
[2018-12-30 06:51] LABS: BUN 13 mg/dl (7-24); CHLORIDE 105 mmol/L (98-107); CREATININE 0.86 mg/dL (0.70-1.30); POTASSIUM 4.7 mmol/L (3.5-5.1); SODIUM 138 mmol/L (136-145)
[2018-12-30 08:00] VITALS: BP 114/59
--- NOTE | 2018-12-30 08:45 | NUR ---
PHYSICAL THERAPY Patient evaluated on 4, full evaluation to follow. Continue with PT as per plan of care with fall, 02 and acute debility precautions. Will require SNF. PAtient is moderate complexity via chart review, tests and evaluation: [id number]. Thank you for this referral. Belén Foy,PT
[2018-12-30 08:50] VITALS: BP 122/66
[2018-12-30 12:00] VITALS: BP 121/67
--- NOTE | 2018-12-30 12:03 | NUR ---
Grupo Ramirez was evaluated by occupational therapy on 12/30/18. He requires increased assist with ADL's and functional transfers secondary to decreased balance, decreased endurance, and decreased strength. Continued occupational therapy is recommended in a SNF when Grupo is D/C. Milka Downing OTR/Yosi
[2018-12-30 16:00] VITALS: BP 119/64
--- NOTE | 2018-12-30 19:43 | NUR ---
Shift chart check completed.24 HR chart check completed.
[2018-12-30 20:00] VITALS: BP 133/65
[2018-12-31] VITALS: BP 140/76
--- NOTE | 2018-12-31 03:38 | NUR ---
SLEEPING AT LONG INTERVALS. NO RESPIRATORY DISTRESS. BED EXIT ALARM IS ACTIVATED.
[2018-12-31 06:19] LABS: BASO % 0.1 % (0.0-1.0); HEMOGLOBIN 12.5 g/dl (14.0-18.0); LYMPH # 0.9 10*3/uL (1.3-4.4); LYMPH % 10.9 % (27.0-41.0); MEAN CELL VOLUME 96.6 fl (80.0-94.0); MEAN CORPUSCULAR HGB 32.6 pg (27.0-31.0); MEAN CORPUSCULAR HGB CONC 33.8 g/dl (33.0-37.0); MEAN PLATELET VOLUME 9.9 fl (9.6-12.3); MONO # 0.6 10*3/uL (0.1-1.0); MONO % 7.2 % (3.0-9.0); NEUT # 6.7 10*3/uL (2.3-7.9); NEUT % 81.1 % (47.0-73.0); PLATELET COUNT AUTOMATED 160 10*3/uL (130-400); RED BLOOD COUNT 3.83 10*6/uL (4.50-5.90); RED CELL DISTRI WIDTH 13.1 % (0-14.5); WHITE BLOOD COUNT 8.3 10*3/uL (4.8-10.8)
[2018-12-31 06:22] LABS: BUN 20 mg/dl (7-24); CHLORIDE 104 mmol/L (98-107); CREATININE 0.85 mg/dL (0.70-1.30); POTASSIUM 4.3 mmol/L (3.5-5.1); SODIUM 138 mmol/L (136-145)
--- NOTE | 2018-12-31 07:39 | NUR ---
DR RODRIGUEZ NOTIFIED OF POSITIVE BLOOD CULTURES ESBL.
--- NOTE | 2018-12-31 07:46 | NUR ---
DR RODRIGUEZ INFORMED OF ESBL BLOOD CULTURES DRAWN 12/28
[2018-12-31 08:00] VITALS: BP 146/82
--- NOTE | 2018-12-31 08:39 | NUR ---
Patient comes from the [facility] where he is short term care. He requires a precert to return.
[2018-12-31 12:00] VITALS: BP 127/69
--- NOTE | 2018-12-31 12:09 | NUR ---
Updated clinicals/therapy evals and notes all faxed to the [facility] for review and precert. Patient is short term and requires auth to return.
--- NOTE | 2018-12-31 14:33 | NUR ---
case management visits with patient, present, stated patient is from [facility] and will be returning when medically stable, community development planner will contact [facility] and ensure patient can return when stable
[2018-12-31 16:00] VITALS: BP 149/75
--- NOTE | 2018-12-31 18:22 | NUR ---
SPOKE WITH DR STEWART ABOUT CT ORDERS, PT HAS JUST EATEN DINNER. STATES OK TO DO FIRST THING IN AM.
[2018-12-31 20:00] VITALS: BP 108/55
[2019-01-01] VITALS: BP 140/75
[2019-01-01 07:07] LABS: BASO % 0.2 % (0.0-1.0); EOS % 0.1 % (1.0-4.0); LYMPH # 2.1 10*3/uL (1.3-4.4); LYMPH % 22.6 % (27.0-41.0); MEAN CORPUSCULAR HGB 32.9 pg (27.0-31.0); MEAN CORPUSCULAR HGB CONC 33.9 g/dl (33.0-37.0); MEAN PLATELET VOLUME 9.7 fl (9.6-12.3); MONO # 0.7 10*3/uL (0.1-1.0); MONO % 7.9 % (3.0-9.0); NEUT # 6.4 10*3/uL (2.3-7.9); NEUT % 68.3 % (47.0-73.0); RED BLOOD COUNT 4.71 10*6/uL (4.50-5.90); RED CELL DISTRI WIDTH 13.1 % (0-14.5); WHITE BLOOD COUNT 9.4 10*3/uL (4.8-10.8)
[2019-01-01 07:08] LABS: HEMATOCRIT 45.7 % (42.0-52.0); HEMOGLOBIN 15.5 g/dl (14.0-18.0); PLATELET COUNT AUTOMATED 241 10*3/uL (130-400)
[2019-01-01 07:13] LABS: BUN 19 mg/dl (7-24); CHLORIDE 101 mmol/L (98-107); POTASSIUM 3.9 mmol/L (3.5-5.1); SODIUM 135 mmol/L (136-145)
--- NOTE | 2019-01-01 07:40 | NUR ---
PT OFF FLOOR FOR CT AT THIS TIME.
[2019-01-01 08:00] VITALS: BP 139/87
--- NOTE | 2019-01-01 09:00 | NUR ---
case management visits with patient, patient will be going back to [facility] when medically stable, product planner will follow
--- NOTE | 2019-01-01 09:08 | NUR ---
Patient is short term at the [facility]. Requires precert to return.
--- NOTE | 2019-01-01 11:10 | NUR ---
PHYSICAL THERAPY Patient seen this am 1:1 for therapy visit and was resting supine in bed upon therapist arrival. Patient was very pleasant, reporting no new c/o's at this time. Patient transfers supine to sit EOB with MIN A and needed a minute or so to collect himself. Patient then performed several sit to stand transfers at bedside CGA, demonstrating slow rise and WBOS. Patient ambulates with use of wh walker, Min A, 40'x 1, demonstating very slow coy, "slouched" upright posture and decreased stride. Patient also unsteady during 180 turns and needed v/c for improved walker safety / navigation. Patient returned to bedside chair with mild fatigue noted and remained with call light, tray table, telephone and body alarm. Will continue per POC as tolerated, total treatment time 14 minutes. Sampson Cheema, GRANITE CUTTER APPRENTICE
--- NOTE | 2019-01-01 11:30 | NUR ---
OT NOTE Pt was seen this A.M. 1:1 for 15 minute OT session. Upon arrival pt was supine in bed. Pt identified by name and and had no complaints at this time other than generalized weakness and fatigue. Pt transferred supine to sit EOB with SBA. While sitting EOB pt donned B socks and slippers with SBA. Multiple sit to stand transfers completed from bed level with Jonathan and use of w/w for UE support. Pt's rise from bed level was completed with quick movements and attempting to "go" as soon as he stood. Educated pt on importance and benefits of a slow rise and "collecting" himself before completing task. Challenged pt's static standing tolerance needed for increased I in self care tasks and functional transfers needed for increased I in self care tasks and functional transfers. Pt was able to tolerate aprox 3 minutes at a time before sitting due to fatigue. Functional mobility completed to the recliner with CGA and use of w/w. There he was left sitting upright in recliner with call light in hand, tray table in place, and body alarm on for safety. Continue with rec D/C plan to SNF. CHARLY Vila/Yosi
[2019-01-01 12:00] VITALS: BP 115/97
--- NOTE | 2019-01-01 14:07 | NUR ---
PT OFF FLOOR FOR NUCLEAR WHOLE BODY SCAN.
[2019-01-01 16:00] VITALS: BP 120/66
--- NOTE | 2019-01-01 17:10 | NUR ---
PT UNHAPPY ABOUT BEING PLACED ON DIABETIC DIET, ASKING IF I COULD CHECK WITH DOCTOR ABOUT GOING BACK TO REGULAR DIET. SPOKE WITH DR RODRIGUEZ REGARDING THIS, STATES FOR PT TO REMAIN ON DIABETIC DIET.
[2019-01-01 20:00] VITALS: BP 132/61
[2019-01-02] VITALS: BP 149/82
[2019-01-02 08:00] VITALS: BP 136/80
--- NOTE | 2019-01-02 08:00 | NUR ---
PT UP IN CHAIR, DENIES ANY COMPLAINTS, STATES DIARRHEA FROM YESTERDAY HAS SUBSIDED. STATES HE FEELS BETTER THAN HE HAS IN DAYS. CALL LIGHT WITHIN REACH.
--- NOTE | 2019-01-02 10:00 | NUR ---
IV SITE IN RIGHT HAND LEAKING, D/C.
--- NOTE | 2019-01-02 10:05 | NUR ---
PT COMPLAINING OF A SORE MOUTH, DR DE LEÓN NOTIFIED.
--- NOTE | 2019-01-02 14:08 | NUR ---
OT Note Pt was seen this PM 1:1 for 15 minute OT session. Upon arrival pt was supine in bed with bed alarm on. Pt was identified by name and and had no complaints at this time. Throughout entire session, pt was impulsive due to rushing and had poor safety with w/w. Pt completed supine-sit bed mobility with stand by assist. LB dressing performed at bedside consisting of donning slippers with stand by assist. Sit-to stand completed from EOB with contact guard due to being impulsive. Contact guard assist required for functional mobility with w/w into bathroom due to safety precations due to picking w/w off all four corners to get over ledges. Self-care task completed at sink side tolerating approximately 3 minutes while washing hands. Pt required verbal and tactile prompts to bring w/w with him to sink side for safety. Pt performed functional mobility to recliner chair where he was left sitting with bed alarm on and tray table and call light within reach. Continue with rec D/C to SNF. Zeeshan SANTACRUZ/student CHARLY Vila/Yosi
--- NOTE | 2019-01-02 14:10 | NUR ---
PHYSICAL THERAPY Patient seen this pm 1:1 for therapy visit and was supine in bed upon therapist arrival. Patient voices no c/o's pain and records SpO2 97% on RA and HR 72 bpm prior to treatment. Patient transfers supine to sit EOB, Min A and sit to stand CGA, then ambulates with use of wh walker, 10'x 1 to bathroom, CGA. Patient completed additional gait 40'x 1, CGA, wh walker, demonstrating decreased stride due to WBOS. Patient received v/c to take BIG steps and returned to bedside chair with increased fatigue. Patient also was a little impulsive with intial gait, but was able to focus on task to control gait velocity to promote increased safety awareness. Patient remained in bedside chair with call light, tray table, telephone and body alarm for safety. Will continue per POC as toleratated, total treatment time 14 minutes. Sampson Cheema, HUMAN RESOURCES INTERN
[2019-01-02 16:00] VITALS: BP 141/72
--- NOTE | 2019-01-02 17:34 | NUR ---
SPOKE WITH DR RODRIGUEZ REGARDING D/C ORDER. STATES PT WILL NOT BE GOING TO [facility] AND SHE WILL SPEAK WITH DR DE LEÓN.
[2019-01-02 20:00] VITALS: BP 140/84
[2019-01-03] VITALS: BP 135/72
[2019-01-03 08:00] VITALS: BP 132/82
--- NOTE | 2019-01-03 08:32 | NUR ---
Received auth for patient to return to the [facility]. Patient can go today if medically stable for discharge.
[2019-01-03 12:00] VITALS: BP 136/84
--- NOTE | 2019-01-03 12:00 | NUR ---
ATTEMPTED TO CALL ID REGARDING CHANGE TO ANTIBIOTIC REGIMEN, AWAITING RETURN PHONECALL.
--- NOTE | 2019-01-03 14:18 | NUR ---
Patients auth was only good until end of day today (Sunday01/03/19) and then precert must be restarted. Patient is unable to return to [facility] the [place] 3 times per day for 4 weeks due to the expense of the medication. Vangie JACINTO is looking into this patient for the long goods drier antibiotics. Will follow
--- NOTE | 2019-01-03 15:27 | NUR ---
Patient is discharged to the [facility]. Transportation scheduled for 6 PM with [facility]. NH, nursing notified.
[2019-01-03 16:00] VITALS: BP 150/76
--- NOTE | 2019-01-03 17:33 | NUR ---
REPORT CALLED TO [facility].
--- NOTE | 2019-01-03 18:09 | NUR ---
PATIENT TAKEN BY AMBULANCE COMPANY TO [facility]. PATIENT BELONGINGS WITH SPOUSE, IV REMOVED. PICC INTACT. READING RECOVERY TEACHER REMOVED.
--- NOTE | 2019-01-06 07:36 | NUR ---
PHYSICAL THERAPY CO-SIGN I approve of the Phyical Therapy notes written above. JANETH GRANDA PT
--- NOTE | 2019-01-06 08:08 | NUR ---
OCCUPATIONAL THERAPY CO-SIGN I approve of the Occupational Therapy notes written above. VIMAL RIGGS OTR/Yosi
--- NOTE | 2019-01-06 12:54 | NUR ---
patient was admitted from [facility] where he was skilled care. patient did not wear oxygen at [facility]
== END 2019-01-03 18:13 | disposition other institution (70) | DRG 698 ==
LOC: ED 17:28 → EDHOLD 22:58 → 4E 22:58
PROVIDERS: Internal Medicine; Nurse Practitioner Family; Student in an Organized Health Care Education/Training Program; ADMIT Internal Medicine
PROC: 02H633Z Insertion of Infusion Device into Right Atrium, Percutaneous Approach (ICD-10-PCS; principal; 2019-01-03)
DX: T83.590A Infection and inflammatory reaction due to implanted urinary neurostimulation device, initial encounter (principal); A41.51 Sepsis due to Escherichia coli [E. coli]; R65.20 Severe sepsis without septic shock; E87.1 Hypo-osmolality and hyponatremia; E44.0 Moderate protein-calorie malnutrition; N30.00 Acute cystitis without hematuria; Z68.41 Body mass index [BMI] 40.0-44.9, adult; Z16.12 Extended spectrum beta lactamase (ESBL) resistance; B95.2 Enterococcus as the cause of diseases classified elsewhere; D75.89 Other specified diseases of blood and blood-forming organs; R74.0 Nonspecific elevation of levels of transaminase and lactic acid dehydrogenase [LDH]; M06.9 Rheumatoid arthritis, unspecified; J41.0 Simple chronic bronchitis; K21.9 Gastro-esophageal reflux disease without esophagitis; E55.9 Vitamin D deficiency, unspecified; E11.65 Type 2 diabetes mellitus with hyperglycemia; I25.10 Atherosclerotic heart disease of native coronary artery without angina pectoris; K76.0 Fatty (change of) liver, not elsewhere classified; K57.30 Diverticulosis of large intestine without perforation or abscess without bleeding; I11.9 Hypertensive heart disease without heart failure; Y83.8 Other surgical procedures as the cause of abnormal reaction of the patient, or of later complication, without mention of misadventure at the time of the procedure; Y92.89 Other specified places as the place of occurrence of the external cause; Z92.3 Personal history of irradiation; Z85.46 Personal history of malignant neoplasm of prostate; Z86.73 Personal history of transient ischemic attack (TIA), and cerebral infarction without residual deficits; Z82.49 Family history of ischemic heart disease and other diseases of the circulatory system; Z87.891 Personal history of nicotine dependence; Z80.8 Family history of malignant neoplasm of other organs or systems; Z91.040 Latex allergy status; Z88.8 Allergy status to other drugs, medicaments and biological substances; Z91.09 Other allergy status, other than to drugs and biological substances; Z79.899 Other long term (current) drug therapy; Z83.3 Family history of diabetes mellitus; Z87.440 Personal history of urinary (tract) infections

== ENCOUNTER → 2019-02-10 | Outpatient (CLI) | payer OTHER ==
[~2019-02-10] MED LIST changes: +COREG12.5 M1 PO; +GABAPENTIN100 M2 PO; +GLUCOPHAGE500 M1 PO; +IMODIUM A-D2 M2 PO; +LASIX20 MG PO; +LEVAQUIN500 M2 PO; +LOPRESSOR25 MG PO; +LOSARTAN POTAS100 M1 PO; +LOSARTAN POTASS25 M1 PO; +Lidoderm 5% Patch T; +MYRBETRIQ50 M1 PO; +NORVASC5 MG PO; +POTASSIUM CHLOR8 MEQ PO; +PROPAFENONE HC150 MG PO; +TRULICITY0.75 MG/0. SC
== END | disposition home or self-care (01) ==
LOC: LAB 11:10
DX: N30.00 Acute cystitis without hematuria (principal)

== ENCOUNTER → 2019-02-26 | Outpatient (CLI) | payer OTHER | END | disposition home or self-care (01) | LOC: RAD 12:15 | DX: J44.9 Chronic obstructive pulmonary disease, unspecified (principal) ==

== ENCOUNTER 2019-03-26 11:11 | Inpatient (IN) | payer OTHER ==
[~2019-03-26] VITALS: Ht 180.3 cm; Wt 96.7 kg
--- NOTE | ~2019-03-26 | EKG ---
[place], [place] ELECTROCARDIOGRAM REPORT NAME: MEG JACK UNIT #: [id number] ROOM: 401 DOCTOR: KIRIT DRAFT REPORT BIRTHDATE: [birth year] [place] Test Date: 2019-03-26 Test Time: 11:13:08 Pat Name: MEG JACK Department: Room: 401 Gender: M Creative Services Designer: Christie Benitez : 1940 Requested By: LAMAR FERNANDEZ Order Number: [id number] Reading MD: Chester Sloer Measurements Intervals [place] Rate: 93 P: 63 NM: 134 QRS: 30 QRSD: 90 T: 56 QT: 351 QTc: 437 Interpretive Statements Sinus rhythm Compared to ECG 12/28/2018 19:14:24 Sinus tachycardia no longer present Electronically Signed On 03-27-2019 4:18:42 PDT by Chester Soler CM:EKGRPT:ELECTROCARDIOGRAM REPORT [id number] LAMAR VAN DRAFT REPORT LAMAR FERNANDEZ DO
--- NOTE | ~2019-03-26 | EKG ---
[place], [place] ELECTROCARDIOGRAM REPORT NAME: MEG JACK UNIT #: [id number] ROOM: 401 DOCTOR: KIRIT DRAFT REPORT BIRTHDATE: [birth year] [facility] Test Date: 2019-03-26 Test Time: 17:46:02 Pat Name: MEG JACK Department: Room: 401 Gender: M Global Logistics Analyst: ANT : 1940 Requested By: LAMAR FERNANDEZ Order Number: [id number] Reading MD: Chester Soler Measurements Intervals [place] Rate: 96 P: 65 [place]: 143 QRS: 44 QRSD: 86 T: 59 QT: 355 QTc: 449 Interpretive Statements Sinus rhythm Atrial premature complex Abnormal R-wave progression, early transition Compared to ECG 12/28/2018 19:14:24 Atrial premature complex(es) now present Sinus tachycardia no longer present Electronically Signed On 03-27-2019 4:19:43 PDT by Chester Soler CM:EKGRPT:ELECTROCARDIOGRAM REPORT [id number] LAMAR VAN DRAFT REPORT LAMAR FERNANDEZ DO
--- NOTE | ~2019-03-26 | EKG ---
[place], [place] ELECTROCARDIOGRAM REPORT NAME: MEG JACK UNIT #: [id number] ROOM: 401 DOCTOR: KIRIT DRAFT REPORT BIRTHDATE: [birth year] [facility] Test Date: 2019-03-26 Test Time: 14:34:37 Pat Name: MEG JACK Department: Room: 401 Gender: M Preservationist: ANT : 1940 Requested By: LAMAR FERNANDEZ Order Number: [id number] Reading MD: Chester Soler Measurements Intervals [place] Rate: 73 P: 65 [place]: 136 QRS: 22 QRSD: 91 T: 38 QT: 392 QTc: 432 Interpretive Statements Sinus rhythm Atrial premature complexes Baseline wander in lead(s) V6 Compared to ECG 12/28/2018 19:14:24 Atrial premature complex(es) now present Sinus tachycardia no longer present Electronically Signed On 03-27-2019 4:19:32 PDT by Chester Soler CM:EKGRPT:ELECTROCARDIOGRAM REPORT [id number] LAMAR VAN DRAFT REPORT LAMAR FERNANDEZ DO
[~2019-03-26 11:11] MED LIST changes: -COREG12.5 M1 PO; -GABAPENTIN100 M2 PO; -GLUCOPHAGE500 M1 PO; -LASIX20 MG PO; -LEVAQUIN500 M2 PO; -LOPRESSOR25 MG PO; -LOSARTAN POTAS100 M1 PO; -LOSARTAN POTASS25 M1 PO; -Lidoderm 5% Patch T; -MYRBETRIQ50 M1 PO; -POTASSIUM CHLOR8 MEQ PO; -PROPAFENONE HC150 MG PO; -TRULICITY0.75 MG/0. SC
[2019-03-26 11:35] LABS: BASO % 0.4 % (0.0-1.0); EOS % 0.1 % (1.0-4.0); HEMATOCRIT 36.1 % (42.0-52.0); HEMOGLOBIN 12.8 g/dl (14.0-18.0); LYMPH # 1.4 10*3/uL (1.3-4.4); LYMPH % 19.1 % (27.0-41.0); MEAN CELL VOLUME 96.8 fl (80.0-94.0); MEAN CORPUSCULAR HGB 34.3 pg (27.0-31.0); MEAN CORPUSCULAR HGB CONC 35.5 g/dl (33.0-37.0); MEAN PLATELET VOLUME 9.6 fl (9.6-12.3); MONO # 0.6 10*3/uL (0.1-1.0); MONO % 7.6 % (3.0-9.0); NEUT # 5.1 10*3/uL (2.3-7.9); NEUT % 70.2 % (47.0-73.0); PLATELET COUNT AUTOMATED 183 10*3/uL (130-400); RED BLOOD COUNT 3.73 10*6/uL (4.50-5.90); RED CELL DISTRI WIDTH 15.1 % (0-14.5); WHITE BLOOD COUNT 7.3 10*3/uL (4.8-10.8)
[2019-03-26 11:37] VITALS: BP 163/71
[2019-03-26 11:52] LABS: ALBUMIN 3.4 gm/dl (3.1-4.5); ALKALINE PHOSPHATASE 45 U/L (45-117); BUN 21 mg/dl (7-24); CHLORIDE 106 mmol/L (98-107); CREATININE 1.25 mg/dL (0.70-1.30); LIPASE 111 U/L (73-393); POTASSIUM 3.7 mmol/L (3.5-5.1); SGOT/AST 13 IU/L (3-35); SGPT/ALT 43 U/L (12-78); SODIUM 137 mmol/L (136-145); TOTAL PROTEIN 6.3 gm/dL (6.4-8.2); TROPONIN I 0.031 ng/ml (<0.045)
[2019-03-26 11:53] LABS: ACT PARTIAL THROMBO TIME 21.4 SECONDS (20.0-32.1); INTERNATIONAL NORM RATIO 0.9 (2.0-3.5)
[2019-03-26 12:40] VITALS: BP 156/78
--- NOTE | 2019-03-26 13:10 | NUR ---
ADMISSION ORDER PLACED, AWAITING BED ASSIGNMENT.
--- NOTE | 2019-03-26 13:50 | NUR ---
BED ASSIGNED 401. AWAITING OPPORTUNITY TO CALL NURSE REPORT/TRANSPORT.
--- NOTE | 2019-03-26 14:03 | NUR ---
[facility] REQUESTS 15 DELAY FOR TRANSPORT OF PT. DONE. NO CHANGE IN CONDITION OR COMPLAINT. VITALS STABLE (SEE).
[2019-03-26 14:28] VITALS: BP 130/80
[2019-03-26] MEDS ORDERED: LASIX20 MG PO (14:53)
[2019-03-26] MEDS ORDERED: TRULICITY0.75 MG/0. SC (14:56)
[2019-03-26] MEDS ORDERED: POTASSIUM CHLOR8 MEQ PO (14:56)
[2019-03-26] MEDS ORDERED: LOSARTAN POTAS100 M1 PO (14:57)
--- NOTE | 2019-03-26 15:02 | NUR ---
A 79, admitted to 4E, under the services of JETT Grace DO with a diagnosis of COPD EXACERBATION. Chief complaint is SHORTNESS OF BREATH. Patient arrived via ambulatory from ER. Monitor applied. Initial assessment completed. Vital signs taken and recorded. JETT GRACE DO notified of admission to the unit. Orders received. See assessment for past medical history, medications and allergies. Patient and/or family oriented to unit. [facility] visitation policy reviewed. Clothing/patient valuable form completed. OZZY HANNAH
[2019-03-26 16:00] VITALS: BP 135/61
--- NOTE | 2019-03-26 17:51 | NUR ---
LACTIC ACID 4.2 DR FELDMAN NOTIFIED.
[2019-03-26 20:00] VITALS: BP 109/52
--- NOTE | 2019-03-26 22:00 | NUR ---
PATIENT IS RESTIING IN BED WITH EASY AND REGULAR RESPERS ON ROOM AIR. ASSESSMENT IS COMPLETE WITH NO C/O OR S/S OF DISTRESS NOTED AT THIS TIME. BED IS LOW, LOCKED, ALARMED, AND CALL LIGHT IS WITHIN REACH. WILL CONTINUE TO MONITOR, SEE SHIFT ASSESSMENT.
[2019-03-27] VITALS: BP 120/63
--- NOTE | 2019-03-27 02:16 | NUR ---
24 HR chart check completed.
[2019-03-27 06:50] LABS: HEMATOCRIT 32.5 % (42.0-52.0); HEMOGLOBIN 11.4 g/dl (14.0-18.0); MEAN CELL VOLUME 96.7 fl (80.0-94.0); MEAN CORPUSCULAR HGB 33.9 pg (27.0-31.0); MEAN CORPUSCULAR HGB CONC 35.1 g/dl (33.0-37.0); MEAN PLATELET VOLUME 9.9 fl (9.6-12.3); PLATELET COUNT AUTOMATED 162 10*3/uL (130-400); RED BLOOD COUNT 3.36 10*6/uL (4.50-5.90); RED CELL DISTRI WIDTH 14.7 % (0-14.5); WHITE BLOOD COUNT 7.3 10*3/uL (4.8-10.8)
--- NOTE | 2019-03-27 07:00 | NUR ---
ARRIVED ON SHIFT, INTRODUCED TO PATIENT, BEDSIDE REPORT RECEIVED, WHITE BOARD UPDATED NO NEEDS VOICED AT THIS TIME.
[2019-03-27 07:25] LABS: ALBUMIN 2.9 gm/dl (3.1-4.5); CHLORIDE 106 mmol/L (98-107); SODIUM 138 mmol/L (136-145)
[2019-03-27 07:39] LABS: ALKALINE PHOSPHATASE 43 U/L (45-117); BUN 19 mg/dl (7-24); CREATININE 1.13 mg/dL (0.70-1.30); PHOSPHOROUS 2.5 mg/dL (2.5-4.9); SGOT/AST 15 IU/L (3-35); SGPT/ALT 42 U/L (12-78); THYROID STIM HORMONE (HS) 0.194 uIU/ml (0.358-4.75); TOTAL PROTEIN 5.5 gm/dL (6.4-8.2)
[2019-03-27 07:50] LABS: PLATELET SUFFICIENCY NORMAL (NORMAL); TOTAL CELLS COUNTED 100 #CELLS
[2019-03-27 08:00] VITALS: BP 120/70
--- NOTE | 2019-03-27 08:55 | NUR ---
PHYSICAL THERAPY Physical therapy evaluation complete, 4E. Full evaluation/details to follow. Low evaluation complexity per chart review and evaluation, [id number]. PT to progress with transfers, gait, and LE strength per POC. Recommend home with home health PT services at discharge. Thank you. Sowmya Elizondo,PT,DPT.
--- NOTE | 2019-03-27 08:55 | NUR ---
Occupational Therapy evaluation completed on 4 with full eval to follow.PRecautions include fall risk, SOB w/ min exertion, h/o MRSA nares,IV UE, moderate complexity level 79307 via chart review, testing and evaluation. Recommend OT per POC and rethrn home w/ and home health SN, OT,PT. Thank you. Sydni Riggins OTR/l
--- NOTE | 2019-03-27 09:00 | NUR ---
Store Stocker in to talk to patient. Patient states lives at home with . There are few steps in the home. Physician: beto galloway Pharmacy: [facility] health services: [facility] Patient's level of ADLs: MINIMAL ASSIST Patient has working utilities: all working DME: walker, cane and wheelchair Follow-up physician's appointment after d/c: will be made by hospitalist nurse director upon discharge Does patient want to access PORTAL?: no Discharge plan discussed with patient, he lives at home with , he requires minimal assistance with ambulation, has a a cane, walker and wheelchair, he is independent in adls. he currently has OV, phyiscal therapy at home. patient stated he would be returning home and would like current services resumed, was present in room and agreed with patient's decision, case management will follow, will notify [facility] when patient is medically stable for discharge. NERI CORBIN
--- NOTE | 2019-03-27 09:46 | NUR ---
Shift chart check completed.
[2019-03-27 12:00] VITALS: BP 120/60
--- NOTE | 2019-03-27 12:10 | NUR ---
Spoke to Farzana Rico, palliative care nurse practitioner, who states palliative care will follow on discharge.
--- NOTE | 2019-03-27 14:22 | NUR ---
Pt was seen for OT x 15 minutes beginning sit to stand from bedside chair with CGA. Pt transferred to bed with CGA due to hx of falls. Supine to sit to EOB without difficulty. Educated/demonstration of breathing techniques to enhance ADL tasks follwed by pt performing exercises with 2 cues for correct procedures. present. Call light within reach & O2 in place. Continue with OT POC. Also, continue with recommendations for discharge plan to SNF. Dorothy SANTACRUZ/Yosi
--- NOTE | 2019-03-27 15:48 | NUR ---
SPOKE WITH DR. UMAÑA, REGARDING PATIENT WANTING TO SHOWER, PER DR UMAÑA IT WAS OKAY TO SHOWER, WIRH DRESSING TO BE CHAMGED AFTER SHOWER. PATIENT IS ALSO ON TELEMETRY AND WILL NEED ORDER FROM [facility].
[2019-03-27 16:00] VITALS: BP 116/64
--- NOTE | 2019-03-27 19:30 | NUR ---
24 HOUR CHART CHECK COMPLETE.
[2019-03-27 20:00] VITALS: BP 140/68
[2019-03-28] VITALS: BP 155/79
[2019-03-28 08:00] VITALS: BP 148/82
--- NOTE | 2019-03-28 09:00 | NUR ---
case management visits with patient, patient states he will be discharged home today. he will have [facility] resume services, no other needs at this time, case management notified [facility] that patient is being discharged to home today
--- NOTE | 2019-03-28 10:42 | NUR ---
PT WAS ASSESSED FOR HOME OXYGEN. PT DID NOT QUALIFY PT AT REST SPO2 96% RA, HR 85, RR 16, B/P 139/74 PT AMBULATED SPO2 92-97% RA PT AT REST SPO2 98% RA, HR 67, RR 22, B/ 142/72 RN NOTIFIED AND NOTIFIED
[2019-03-28] MEDS ORDERED: LEVAQUIN500 M2 PO (10:47)
[2019-03-28] MEDS ORDERED: BACTRIM 400-801 EACH PO (10:47)
[2019-03-28] MEDS ORDERED: PREDNISONE10 MG PO ×2 (10:47)
--- NOTE | 2019-03-28 12:30 | NUR ---
Discharge instructions reviewed with patient/family. Patient receptive and verbalizes understanding. Follow-up care arranged. Written instructions given to patient/family. KATARINA MARLEY
--- NOTE | 2019-03-31 16:34 | NUR ---
PHYSICAL THERAPY CO-SIGN I approve of the Physical Therapy notes written above. JOANNA HALL, PT,DPT
== END 2019-03-28 12:30 | disposition home health service (06) | DRG 190 ==
LOC: ED 11:11 → 4E 13:06 → EDHOLD 13:06 → 4E 13:42
PROVIDERS: Emergency Medicine; Student in an Organized Health Care Education/Training Program; ADMIT Internal Medicine
DX: J44.1 Chronic obstructive pulmonary disease with (acute) exacerbation (principal); N17.0 Acute kidney failure with tubular necrosis; E87.2 Acidosis; E44.1 Mild protein-calorie malnutrition; M06.9 Rheumatoid arthritis, unspecified; K21.9 Gastro-esophageal reflux disease without esophagitis; I10 Essential (primary) hypertension; E78.5 Hyperlipidemia, unspecified; E78.1 Pure hyperglyceridemia; E55.9 Vitamin D deficiency, unspecified; E11.65 Type 2 diabetes mellitus with hyperglycemia; D64.9 Anemia, unspecified; E66.3 Overweight; R23.3 Spontaneous ecchymoses; Z79.52 Long term (current) use of systemic steroids; Z86.73 Personal history of transient ischemic attack (TIA), and cerebral infarction without residual deficits; Z85.46 Personal history of malignant neoplasm of prostate; Z87.891 Personal history of nicotine dependence; Z80.8 Family history of malignant neoplasm of other organs or systems; Z82.49 Family history of ischemic heart disease and other diseases of the circulatory system; Z88.6 Allergy status to analgesic agent; Z91.040 Latex allergy status; Z88.8 Allergy status to other drugs, medicaments and biological substances; Z91.048 Other nonmedicinal substance allergy status; Z79.899 Other long term (current) drug therapy; Z68.29 Body mass index [BMI] 29.0-29.9, adult

== ENCOUNTER 2019-03-30 21:01 | Inpatient (IN) | payer OTHER ==
[~2019-03-30] VITALS: Ht 180.3 cm; Wt 100.4 kg
--- NOTE | ~2019-03-30 | PR ---
[place], [place] PROGRESS NOTE [id number] UNIT #: [id number] ROOM: 524 DOCTOR: DARA DASILVA MD BIRTHDATE: [birth year] DOS: 04/08/2019 SUBJECTIVE: The patient was seen and evaluated, alert, awake, responsive, not in any acute distress. No nausea, vomiting, diarrhea, lightheadedness or dizziness. The patient was seen by transportation aid yesterday, saturation is excellent. OBJECTIVE: VITAL SIGNS: Blood pressure is 114/60, 117/52 repeat, heart rate is 72 and regular, I's and O's positive 1470. HEAD, EYES, EARS, NOSE, AND THROAT: Unremarkable. Mild distress. NECK: Supple, no JVD. LUNGS: Diminished air entry. HEART: No gallops. EXTREMITIES: No edema. ABDOMEN: Soft, nontender. NEUROLOGIC: Significantly improved. Gross intact. No deficits. LABORATORY DATA: Hemoglobin 10.2, hematocrit 29.6. Electrolytes are normal. Creatinine is 1.1. IMPRESSION: Lactic acidosis, hyperglycemia, dyspnea, tachycardia, paroxysmal atrial fibrillation, diabetes mellitus and hypertension. RECOMMENDATIONS: Continue the present medications. Urine cultures have a Gram-negative bacteria. Continue the metoprolol as ordered. Neurontin has been increased. Antibiotics have been started. Lopressor has been decreased. Heart rate and blood pressure are much better. Continue the present care and we will follow up. DARA DASILVA MD CM:PNTRANS [id number] DARA DASILVA MD 04/08/19 1645 interface
--- NOTE | ~2019-03-30 | PR ---
[place], [place] PROGRESS NOTE [id number] UNIT #: [id number] ROOM: 518 DOCTOR: PENNY LARSEN MD,SHANTELL BIRTHDATE: [birth year] DOS: 04/01/2019 PULMONARY PROGRESS NOTE SUBJECTIVE: The patient was complaining of some shortness of breath this morning. Denies symptoms of fever, chills, coughing or any hemoptysis at present time. Denies any pain of the lower extremities. He was currently lying in the bed this morning of assessment. OBJECTIVE: VITAL SIGNS: Normal temperature, respiratory rate of 18, heart rate 64, blood pressure 120/74. Pulse oxygen saturation on room air 95% saturation. HEENT: Moderate obesity. Head was atraumatic. Eyes nonicterus. NECK: Supple. CARDIOVASCULAR: S1, S2 audible. LUNGS: The patient was noted with decreased breath sounds, mild to moderately without any wheezing or crackles. ABDOMEN: Soft, nontender. Bowel sounds present. EXTREMITIES: No new change. LABORATORY DATA: BNP was noted as normal. BMP: Glucose 103. IMPRESSION: 1. The patient with shortness of breath, multifactorial, seem to be stable at the present time, uncontrolled diabetes, resolving progressively and gradually. Other medical illnesses, the patient remains stable. 2. The pulmonary nodule, most likely benign. PLAN OF MANAGEMENT: No changes in plan of management, continue the patient on current therapy as in progress. All other previous treatment changes will be made based on progression of the illness. Usual care. P.r.n. short-acting bronchodilators. SHANTELL FRANCIS MD CM:PNTRANS 1121 08 SHANTELL LARSEN MD 04/01/19 180 interface
--- NOTE | ~2019-03-30 | PR ---
[place], [place] PROGRESS NOTE NAME: MEG JACK [facility] #: [id number] UNIT #: [id number] ROOM: 524 DOCTOR: PENNY LARSEN MD,SHANTELL BIRTHDATE: [birth year] DOS: 04/10/2019 PULMONARY PROGRESS NOTE SUBJECTIVE: The patient noted comfortable, resting in the bed, stated reduction in respiratory symptoms of patient's shortness of breath. Overall, strength, which was described physically was somewhat better. Denies symptoms of chest pain. There were no symptoms of coughing stated by the patient. OBJECTIVE: GENERAL: This morning, the patient is lying in the bed this morning of assessment with normal temperature, respiratory rate 20, heart rate 63, blood pressure 142/60 recorded. Pulse oxygen saturation recorded on 2 liters nasal cannula 96% saturation. HEENT: Examination shows head was atraumatic. Eyes nonicterus. NECK: Supple. CARDIOVASCULAR: S1, S2 audible. LUNGS: Noted without any wheeze or crackles at the present time. ABDOMEN: Soft, nontender. EXTREMITIES: Mild edema. IMPRESSION: Urinary tract infection, generally weak and fatigued, muscle decondition, which is improving. Stable respiratory status otherwise noted. PLAN OF MANAGEMENT: The patient has been considered possible discharge today by the primary care physician. No additional recommendation or changes in the treatment will be needed. SHANTELL FRANCIS MD CM:PNTRANS 1127 [id number] SHANTELL LARSEN MD 04/10/19 1255 interface
--- NOTE | ~2019-03-30 | PR ---
[place], [place] PROGRESS NOTE [id number] UNIT #: [id number] ROOM: 518 DOCTOR: PENNY LARSEN MD,SHANTELL BIRTHDATE: [birth year] DOS: 04/03/2019 PULMONARY PROGRESS NOTE SUBJECTIVE: The patient has been still noted with general weakness and fatigue. Does not have any specific respiratory complaints except shortness of breath at times. Denies symptoms of chest pain or hemoptysis. There were no symptoms of coughing or wheezing stated by the patient. OBJECTIVE: VITAL SIGNS: This morning noted normal temperature, respiratory rate 18, heart rate 64, pulse 138/66. The pulse oxygen saturation on 2 liters nasal cannula 93% saturation. HEENT: Examination shows head was atraumatic. Eyes nonicterus. NECK: Supple. CARDIOVASCULAR: S1, S2 audible. LUNGS: Noted clear. ABDOMEN: Soft, nontender. Bowel sounds present. EXTREMITIES: Without any new changes. LABORATORY DATA: Arterial blood gas this morning on 2 liters, pH of 7.42, pCO2 of 38, pO2 of 55.6. IMPRESSION: The patient with shortness of breath, muscle deconditioned and other medical illnesses. Overall debility remains persistent. Elevation of CRP suggestive of inflammatory condition in the body at the present time. PLAN OF MANAGEMENT: Physical therapy, occupational therapy to maximize the cardiac management. Other therapy, plan of management, and additional treatment changes will be made based on progression of his illness. SHANTELL FRANCIS MD CM:PNTRANS [id number] SHANTELL LARSEN MD 04/03/19 1338 interface
--- NOTE | ~2019-03-30 | PR ---
[place], [place] PROGRESS NOTE NAME: [facility]G [facility] [id number] UNIT #: [id number] ROOM: 524 DOCTOR: PENNY LARSEN MD,SHANTELL BIRTHDATE: [birth year] DOS: 04/09/2019 SUBJECTIVE: The patient noted comfortable at this time, resting in the bed. The patient was noted partial reduction of the overt debility. Denies any specific complaints. There were no symptoms of shortness of breath, stated by the patient. OBJECTIVE: VITAL SIGNS: Normal temperature, respiratory rate 20, heart rate 74, blood pressure 136/74. Pulse oxygen saturation recorded on 2 liters nasal cannula 98% saturation. HEAD, EYES, EARS, NOSE, AND THROAT: Examination shows head was atraumatic. Eyes nonicterus. NECK: Supple. CARDIOVASCULAR SYSTEM: S1, S2 audible. LUNGS: Without any wheeze or crackles at the present time. Lungs are noted clear to auscultation bilaterally. ABDOMEN: Soft, nontender. Bowel sounds present. EXTREMITIES: No acute change. IMPRESSION: The patient with ongoing acute urinary tract infection or debility with stable chronic obstructive pulmonary disease. PLAN OF MANAGEMENT: No changes in plan of care at this time. Continue the patient's current plan of management, therapy care and other treatments. SHANTELL FRANCIS MD CM:PNTRANS 1031 [id number] SHANTELL LARSEN MD 04/09/19 1609 interface
--- NOTE | ~2019-03-30 | PR ---
[place], [place] PROGRESS NOTE [id number] UNIT #: [id number] ROOM: 524 DOCTOR: PENNY LARSEN MD,SHANTELL BIRTHDATE: [birth year] DOS: 04/11/2019 SUBJECTIVE: He has been noted comfortable at this time. Reported reduction in symptoms of shortness of breath. Severe debility of patient still remains. Denies symptoms of fever, chills, coughing or sputum expectoration this morning. OBJECTIVE: VITAL SIGNS: This morning, normal temperature, respiratory rate 20, blood pressure 124/59. Pulse oxygen saturation on 2 liters nasal cannula was 92-96% saturation. HEENT: Examination shows head was atraumatic. Eyes nonicterus. NECK: Supple. CARDIOVASCULAR: S1, S2 is audible. LUNGS: Noted without any wheezing or crackles. ABDOMEN: Soft, nontender. EXTREMITIES: Shows mild edema. IMPRESSION: Stable respiratory status, urinary tract infection, general weakness and fatigue, which has been gradually improving and resolving. PLAN OF MANAGEMENT: No changes in the plan of care at this time. Continuation of the current plan of treatment as in progress. Usual care, other supportive plan of management as well. SHANTELL FRANCIS MD CM:PNTRANS 1009 [id number] SHANTELL LARSEN MD 04/11/19 1724 interface
--- NOTE | ~2019-03-30 | CON ---
[place], [place] REPORT OF CONSULTATION NAME: MEG JACK UNIT #: [id number] ROOM: 518 DOCTOR: DARA DASILVA MD BIRTHDATE: [birth year] DOS: 04/01/2019 HISTORY OF PRESENT ILLNESS: The patient is very well known to me with a known history of atrial fibrillation in the past and history of intracerebral bleed a year ago. Unfortunately, I am not able to anticoagulate, admitted with increasing shortness of breath and the patient went into rapid atrial fibrillation. Hence, I was consulted. I have started the patient on a Cardizem drip and the patient converted back into sinus rhythm. The patient denies any chest discomfort. Does have significant progressive shortness of breath. CT of the chest showed no pulmonary embolism. PAST MEDICAL HISTORY: Significant for hypertension, COPD, hyperlipidemia, paroxysmal atrial fibrillation, history of a subdural hematoma, TIA, and type 2 diabetes mellitus. SOCIAL HISTORY: Previous history of significant alcohol abuse, smoked 3-4 packs per day for 40 years, a former smoker. FAMILY HISTORY: Positive for coronary artery disease. ALLERGIES: LATEX AND DICLOFENAC. HOME MEDICATIONS: Amlodipine, losartan, metformin, and omeprazole. PHYSICAL EXAMINATION: GENERAL: The patient is alert, oriented x 3. REVIEW OF SYSTEMS: CONSTITUTIONAL: No fever, no chills. HEENT: No visual disturbances. CARDIOVASCULAR: No chest pain. RESPIRATORY: Does have shortness of breath. GASTROINTESTINAL: No nausea, no vomiting. GENITOURINARY: No dysuria. PHYSICAL EXAMINATION: VITAL SIGNS: Blood pressure is 104/70, heart rate is 70. HEENT: Unremarkable. NECK: Supple, no JVD. LUNGS: Diminished breath sounds. HEART: Sounds are regular. NEUROLOGICAL: Stable. DIAGNOSTIC DATA: EKG, sinus with PACs. LABORATORY DATA: Electrolytes are normal. Creatinine is normal. Hemoglobin 12 and hematocrit 34. IMPRESSION: The patient admitted with paroxysmal atrial fibrillation, significant dyspnea on exertion, history of chronic obstructive pulmonary [place], [place] REPORT OF CONSULTATION NAME: MEG JACK UNIT #: [id number] ROOM: 518 DOCTOR: DARA DASILVA MD BIRTHDATE: [birth year] disease, hypertension, and tobacco abuse. RECOMMENDATIONS: Agree with a small dose of selective beta blockers. Unfortunately, unable to anticoagulate. Continue the baby aspirin. We will get an echocardiogram and I will follow up. DARA DASILVA MD CM:CONSTR:REPORT OF CONSULTATION 1056 04/01/19 1621 interface
--- NOTE | ~2019-03-30 | PR ---
[place], [place] PROGRESS NOTE NAME: MEG JACK [facility] #: [id number] UNIT #: [id number] ROOM: 518 DOCTOR: PENNY LARSEN MDSHANTELL BIRTHDATE: [birth year] DOS: 04/02/2019 SUBJECTIVE: He was complaining of generalized weakness, fatigue with mild shortness of breath that occurs with exertion. There were no symptoms of fever or chills or hemoptysis stated by the patient. He has not been reporting any symptoms of nausea or vomiting. Denies symptoms of abdominal pain. Denies symptoms of coughing or any sputum expectoration. He denies symptoms of headache or diplopia. Denies symptoms of headache. Remaining systems were reviewed, they were noted all negative. OBJECTIVE: GENERAL: A 79-year-old white male patient currently comfortably lying in the bed. The patient was complaining general weakness, fatigue without any distress this morning of assessment. VITAL SIGNS: Normal temperature, respiratory rate 18, heart rate 104, blood pressure 122/75 were recorded. Pulse ox saturation on room air was 94-100% saturation. HEAD, EYES, EARS, NOSE, AND THROAT: Examination shows head was atraumatic. Eyes nonicterus. NECK: Supple. CARDIOVASCULAR SYSTEM: S1, S2 is audible. LUNGS: Noted with decreased breath sounds in the lungs bilaterally. ABDOMEN: Soft, nontender. Bowel sounds present. EXTREMITIES: No acute change. MUSCULOSKELETAL: Without acute deformities. CENTRAL NERVOUS SYSTEM: Intact. LABORATORY DATA: BMP this morning noted normal BUN and creatinine. CBC this morning: WBC count normal, hemoglobin 13.2. Platelet count was normal. IMPRESSION: 1. General weakness and fatigue at this time stated by unclear etiology. 2. The patient with paroxysmal atrial fibrillation. 3. Chronic obstructive pulmonary disease, which has been noted stable. Pulmonary embolism exclude current cause of assessment. Shortness of breath on this admission with a CTA of the chest, which was completed on 03/30/2019. 4. Pulmonary nodule at this time significance unknown, most likely benign intraparenchymal lymph node. PLAN OF MANAGEMENT: The patient needs to be assessed for physical therapy, occupation therapy possibly. Continue other therapy, plan of management as in progress. Usual care, other therapy, plan of management. Additional treatment changes will be made based on the progression of the illness. [place], [place] PROGRESS NOTE NAME: MEG JACK UNIT #: [id number] ROOM: 518 DOCTOR: SHANTELL CHUNG MD BIRTHDATE: [birth year] SHANTELL FRANCIS MD CM:PNJESSE [phone] SHANTELL LARSEN MD 04/04/19 1355 interface
--- NOTE | ~2019-03-30 | PR ---
[place], [place] PROGRESS NOTE [id number] UN[facility] #: [id number] ROOM: 518 DOCTOR: SRIRAM CEDILLO MD BIRTHDATE: [birth year] DOS: SUBJECTIVE: The patient's daughter believes he is in the room. He is alert, comfortable. He has not had any chest pain or any fever or chills, no palpitations. He has been eating reasonably well. The patient has not been sat much in the chair and has been walked at all for the last 4 days and this elderly man normally walks around at home. PHYSICAL EXAMINATION: GENERAL: This is a patient who is alert, fairly oriented. He is pale looking. VITAL SIGNS: Temperature is 98.3 degrees, pulse is 80 and regular, blood pressure 137/61. NECK: JVP is normal. EXTREMITIES: He has 1+ left leg and trace right leg edema. These are both much less than 3 days ago. LUNGS: Left lung is fairly clear. Right-sided crackles with reduced breath sounds are noted in the lower zone. LABORATORY DATA: Monitor shows normal sinus rhythm with a heart rate in the 60s and 70s. IMPRESSION: This patient has paroxysmal atrial fibrillation, was placed on propafenone 150 every 8 hours 7 days ago and he is maintaining normal sinus rhythm. He is still on I believe Cardizem drip and this can be discontinued. There is no evidence of cardiac decompensation at this time. RECOMMENDATIONS: Continue with propafenone. Anticoagulation is contraindicated. SRIRAM CEDILLO MD CM:PNTRANS [phone] SRIRAM CEDILLO MD 04/05/19 0117 interface
--- NOTE | ~2019-03-30 | PR ---
[place], [place] PROGRESS NOTE NAME: MEG JACK [facility] #: [id number] UNIT #: [id number] ROOM: 518 DOCTOR: PENNY LARSEN MD,SHANTELL BIRTHDATE: [birth year] DOS: 04/04/2019 SUBJECTIVE: somewhat better yesterday without any symptoms of acute shortness of breath, still noted significant fatigue and tired. As per spouse the patient has not been ambulating, the patient noted general weakness and fatigue. He does have symptoms of chest pain. OBJECTIVE: GENERAL: The patient this morning, currently resting comfortably on the bed. He has not been noted any symptoms of hemoptysis or headache. VITAL SIGNS: This morning, blood pressure 98/58, respiratory rate of 18, heart rate 78, temperature normal. Pulse oxygen saturation recorded on 2 liters at 100% saturation. HEENT: Examination shows head was atraumatic. Eyes nonicterus. NECK: Supple. CARDIOVASCULAR: S1, S2 is audible. LUNGS: The patient without any wheeze or crackles. ABDOMEN: Soft, nontender. EXTREMITIES: Mild edema of the upper extremity. IMPRESSION: The patient with finding of congestive heart failure, general weakness and fatigue, history of obstructive lung disease without any acute exacerbation. PLAN OF THERAPY: No changes from the pulmonary standpoint. Continue the patient's current therapy, plan of management as in progress and other treatment of nonrespiratory illnesses. SHANTELL FRANCIS MD CM:PNTRANS [phone] SHANTELL LARSEN MD 04/04/19 1733 interface
--- NOTE | ~2019-03-30 | PR ---
[place], [place] PROGRESS NOTE NAME: MEG JACK UNIT #: [id number] ROOM: 518 DOCTOR: SRIRAM CEDILLO MD BIRTHDATE: [birth year] DOS: 04/02/2019 I am seeing this patient for Dr. Dyer. SUBJECTIVE: This patient was admitted with increasing shortness of breath and breathing difficulty. He was in atrial fibrillation with rapid ventricular rate. He was given IV Cardizem and heart rate slowed down and then he went into normal sinus rhythm with PACs. He does not complain of any chest pain or palpitations. His main complaint is difficulty breathing, which is chronic with some exacerbation. No fever or chills. Appetite is poor. Daughter was in the room and I discussed this with her too. PHYSICAL EXAMINATION: GENERAL: This is a patient who is alert. He is moderately tachypneic and was receiving his bronchodilator treatment. He is not cyanotic, not jaundiced. VITAL SIGNS: Pulse is irregular, rate about 76 beats per minute, blood pressure 112/82. NECK: Normal JVP. EXTREMITIES: There is no carotid bruit. He had 1+ edema in the lower extremity with some varicosities. RESPIRATORY: Breath sounds are severely diminished with crackles and rhonchi. LABORATORY DATA: I reviewed his chest x-ray done 2 days ago, which did not demonstrate any acute changes, i.e., no pulmonary edema. Monitor shows a normal sinus rhythm with intermittent PACs. IMPRESSION: This patient has recurrent/paroxysmal atrial fibrillation and anticoagulation is contraindicated because of previous intracranial hemorrhage and now that he is in normal sinus rhythm with PACs, I think the best thing would be to start an antiarrhythmic drug to maintain normal sinus rhythm, which is likely to reduce the risk of embolic event. He had an echocardiogram in December 2018, which demonstrated an LV ejection fraction of 65%. I discussed this plan with the patient's nurse. [place], [place] PROGRESS NOTE NAME: GUEROMEG Hesham UNIT #: [id number] ROOM: 518 DOCTOR: SRIRAM CEDILLO MD BIRTHDATE: [birth year] SRIRAM CEDILLO MD CM:PNTRANS [phone] SRIRAM CEDILLO MD 04/03/19 0144 interface
--- NOTE | ~2019-03-30 | PR ---
[place], [place] PROGRESS NOTE NAME: MEG JACK [facility] #: [id number] UNIT #: [id number] ROOM: 524 DOCTOR: SRRIAM CEDILLO MD BIRTHDATE: [birth year] DOS: 04/09/2019 SUBJECTIVE: The patient has been in the hospital many days now. He had paroxysmal atrial fibrillation and anticoagulation is contraindicated. I placed him on amiodarone because he had been in normal sinus rhythm and has maintained rhythm. He has not had any problems with the medication. No nausea, vomiting or breathing difficulty, has swelling in the legs, more so on the left one and he has not been able to weight on his left leg that much at home. He does walk with a walker. PHYSICAL EXAMINATION: GENERAL: He is alert, pale looking. VITAL SIGNS: Pulse is 76 with occasional irregularity. Blood pressure 105/88. NECK: Normal JVP. LUNGS: Few crackles in the lungs with reduced breath sounds. EXTREMITIES: He has trace right leg and 1 to 2+ left leg edema. IMPRESSION: 1. The patient has paroxysmal atrial fibrillation. He is in normal sinus rhythm now. 2. Edema in the lower extremities is noncardiac. No new recommendations. SRIRAM CEDILLO MD CM:PNTRANS [phone] SRIRAM CEDILLO MD 04/10/19 0117 interface
--- NOTE | ~2019-03-30 | PR ---
[place], [place] PROGRESS NOTE [id number] UN[facility] #: [id number] ROOM: 518 DOCTOR: PENNY LARSEN MD,SHANTELL BIRTHDATE: [birth year] DOS: 04/07/2019 SUBJECTIVE: The patient has been noted with some improvement in the overall general weakness, still complaining of some weakness, which was more in the lower extremity including the right lower extremity per . He has been getting physical therapy. Denies symptoms of acute shortness of breath, chest pain. Shortness of breath, previously seemed to be resolving. OBJECTIVE: VITAL SIGNS: Normal temperature, respiratory rate , . Pulse ox saturation on 2 liters nasal cannula 98% saturation noted at rest. HEENT: Examination shows head was atraumatic. Eyes nonicterus. NECK: Supple. CARDIOVASCULAR: S1, S2 audible. LUNGS: Without any wheeze or crackles. ABDOMEN: Soft, nontender. Bowel sounds present. EXTREMITIES: No new change. LABORATORY DATA: Urine culture noted heavy growth of Gram-negative bacilli with pending identification, sensitivities of the organisms. IMPRESSION: Overall, general weakness and fatigue with congestive heart failure, possible urinary tract infection, stable chronic obstructive pulmonary disease without any evidence of acute exacerbation. PLAN OF MANAGEMENT: Continue current plan of management, the adjustments in antibiotic and others per primary care physician. Continue bronchodilators, physical therapy, other plan of management and care plan. SHANTELL FRANCIS MD CM:PNTRANS [phone] SHANTELL LARSEN MD 04/07/19 1724 interface
--- NOTE | ~2019-03-30 | EKG ---
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
--- NOTE | ~2019-03-30 | PR ---
[place], [place] PROGRESS NOTE [id number] #: [id number] ROOM: 524 DOCTOR: DARA DASILVA MD BIRTHDATE: [birth year] DOS: 04/11/2019 SUBJECTIVE: A 24-hour events noted. Discussed with the nursing staff. The patient is hemodynamically stable. PHYSICAL EXAMINATION: VITAL SIGNS: Blood pressure today is 130/50, heart rate is 66. I's and O's is positive 1380. The patient is in sinus rhythm. NECK: Supple, no JVD. LUNGS: Diminished breath sounds. HEART: Sounds are regular. NEUROLOGIC: Stable. LABORATORY DATA: Shows last hemoglobin 10.2, hematocrit of 29.6. Electrolytes are normal. Unfortunately, unable to anticoagulate, history of intracerebral bleed. IMPRESSION AND PLAN: Paroxysmal atrial fibrillation, now in sinus rhythm. Continue the metoprolol as ordered. Continue the Lasix as ordered. The patient is already on losartan also. The patient is on propafenone 150 q. 8 hours and he is maintaining sinus rhythm. Hemodynamically much more stable. Infectious Disease was consulted, requested to see if further discharge plans are made, seen by the Infectious Disease doctors today and the recommendations are still pending and we will follow up. DARA DASILVA MD CM:PNTRANS [phone] DARA DASILVA MD 04/11/19 1618 interface
--- NOTE | ~2019-03-30 | PR ---
[place], [place] PROGRESS NOTE [id number] UNIT #: [id number] ROOM: 524 DOCTOR: PENNY LARSEN MD,SHANTELL BIRTHDATE: [birth year] DOS: 04/08/2019 PULMONARY PROGRESS NOTE SUBJECTIVE: The patient has been noted comfortable at this time without any acute distress this morning of assessment, has not been reported any symptoms of fever or chills at the present time. General weakness and fatigue for the patient was still noted. Urine culture was noted positive for ESBL species. He has been started on meropenem yesterday for the management of current ESBL UTI. OBJECTIVE: VITAL SIGNS: This morning, normal temperature, respiratory rate 16, heart rate of 61, blood pressure 115/70, pulse oxygen saturation on 2 liters nasal cannula 95% saturation recorded. HEENT: Examination shows head was atraumatic. Eyes nonicterus. NECK: Supple. CARDIOVASCULAR: S1, S2 is audible. LUNGS: The patient was noted clear of any wheezing or crackles. ABDOMEN: Soft, nontender. EXTREMITIES: Mild edema. IMPRESSION: Extended-spectrum beta-lactamase urinary tract infection, noted general weakness and fatigue with symptoms of shortness of breath, most likely related to that and stable chronic obstructive pulmonary disease. PLAN OF MANAGEMENT: No change in plan of treatment. Continue antibiotics, bronchodilators, physical therapy, other plan of management. SHANTELL FRANCIS MD CM:PNJESSE [phone] SHANTELL LARSEN MD 04/08/192046 interface
--- NOTE | ~2019-03-30 | CON ---
[place], [place] REPORT OF CONSULTATION NAME: MEG JACK [facility] #: [id number] UNIT #: [id number] ROOM: 515 DOCTOR: PENNY LARSEN MDSHANTELL BIRTHDATE: [birth year] DOS: 03/31/2019 PULMONARY CONSULTATION, EVALUATION AND MANAGEMENT CONSULTATION REQUESTED BY: Hospitalist services. REASON FOR CONSULTATION: For the assessment of acute on chronic respiratory failure management. HISTORY OF PRESENT ILLNESS: This is a 79-year-old white male patient who has been known from the office with history of chronic obstructive pulmonary disease, uncomplicated moderate persistent bronchial asthma, has been regularly managed in the office for his current pulmonary illness. The patient has been noted stable for current disease. He has been admitted to the hospital by the hospitalist services on the date of 03/31/2019. He has been admitted to the hospital previously as well from 03/26/2019 until 03/28/2019 and treated for acute exacerbation of chronic obstructive pulmonary disease on that admission. He presented back to the Emergency Room after the recent discharge on 03/28/2019, as he has been reporting increased symptoms of shortness of breath that occurs with exertion. The symptoms of shortness of breath has been noted with gradual worsening. He was also complaining of rash, which was noted previously on his last admission as well. He does have some symptoms of nonproductive cough. There were no symptoms of wheezing or chest pain reported by the patient. During the hospitalization, the patient underwent a CT of the chest as well for the assessment of symptoms of shortness of breath. He has reported no significant changes in the respiratory symptom since admission to the hospital. REVIEW OF SYSTEMS: CONSTITUTIONAL: Fatigue and tiredness reported without any fever or chills. EYES: Denied burning, redness, discharge or diplopia. EAR, NOSE, THROAT SYMPTOMS: No sore throat, hoarseness, otalgia, postnasal drainage or epistaxis. CARDIOVASCULAR: Denies angina pain, palpitation, noted edema of the lower extremity on previous admission, which has been resolved. GASTROINTESTINAL: Denies dysphagia, nausea, vomiting, diarrhea, abdominal pain, hematemesis, melena, or hematochezia. SKIN: Denies abnormal lesions. Noted a skin rash, which was itching. GENITOURINARY SYMPTOMS: No dysuria, suprapubic pain, or hematuria. CENTRAL NERVOUS SYSTEM: No dizziness, headache, diplopia or syncopal episode. MUSCULOSKELETAL: No acute joint pain, redness, or tenderness. Remaining systems were reviewed with the patient, they were noted all negative. PAST MEDICAL HISTORY: Reported with history of: 1. Uncomplicated moderate persistent bronchial asthma. 2. Chronic obstructive pulmonary disease. 3. Allergic rhinitis. 4. Type 2 diabetes mellitus. 5. Rheumatoid arthritis. [place], [place] REPORT OF CONSULTATION NAME: MEG JACK UNIT #: [id number] ROOM: [facility] DOCTOR: DUSTIN CHUNG MDM BIRTHDATE: [birth year] 6. Moderate obesity. PAST SURGICAL HISTORY: 1. Umbilical hernia repair. 2. Bilateral inguinal hernia repair as well. SOCIAL HISTORY: The patient is , has no children, lives at home. He has been noted tobacco use from the age of [age] years old, smoked up to 4 packs of cigarettes per day, discontinued in 1998. 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 No history of alcohol use, illicit drug use. FAMILY HISTORY: History about father was unknown. Mother at age 71-year-old with complications related to myocardial infarction. MEDICATIONS: From home listed as use of Coreg, Singulair, omeprazole, Flonase, Norvasc, Lasix, trulicity shots, potassium chloride, losartan, vitamin D, Symbicort, DuoNeb, folic acid, and some other p.r.n. meds. He has been recently prescribed tapering prednisone upon discharge on 03/28/2019. He was also started on Bactrim in the past. CURRENT MEDICATIONS: Administered were noted as omeprazole, Singulair, Coreg, losartan, amlodipine, folic acid, vitamin D, Lovenox for DVT prophylaxis, Pulmicort Respules, DuoNeb q. 8 hours, albuterol sulfate and some other p.r.n. medications. DRUG ALLERGIES: NOTED WITH ALLERGIES OF ARTHROTEC. PHYSICAL EXAMINATION: GENERAL: A 79-year-old male patient who was currently sitting comfortably on the bed without distress this morning of assessment. Height for the patient recorded as 5 feet 11 inches. Weight for this patient was recorded as ____. VITAL SIGNS: The patient's temperature was noted as normal. The respiratory rate 18, heart rate 79, blood pressure 140/83-148/82. Pulse ox saturation on room air was 92-97% saturation, rest was recorded. HEENT: Examination shows head was atraumatic. Eyes nonicterus. NECK: Supple. CARDIOVASCULAR: S1, S2 audible. LUNGS: Noted clear to auscultation bilaterally. ABDOMEN: Soft, nontender. EXTREMITIES: Without any edema, clubbing or cyanosis. MUSCULOSKELETAL: Without acute deformities. CENTRAL NERVOUS SYSTEM: Intact. VISIBLE SKIN: Noted scattered area of macular rash noted in the anterior abdominal wall. LABORATORY DATA: Assessed. Serum ketones were noted negative at 25. Blood glucose was elevated 565 on admission in the ER. The CMP, glucose 565, BUN 27, creatinine 1.44. Sodium 135, chloride of 104, CO2 was 21. Albumin 2.9. Anion gap was noted as 13. The CBC of 03/26/2019, WBC count normal, hemoglobin 12.1, platelet count was normal. The lactic acid noted 4.0, then 3.6. BMP that was [place], [place] REPORT OF CONSULTATION NAME: MEG JACK UNIT #: [id number] ROOM: [facility] DOCTOR: PENNY LARSEN MD,[facility] BIRTHDATE: [birth year] done this morning, normal BUN and creatinine, glucose 232. Chest x-ray was noted without any acute pulmonary infiltration. CT of the chest that was done on 03/30/2019 was personally reviewed for this patient, does not show any significant nodule, which is of any concern. A small nodule in the superior segment of the right lower lobe, which has been seen on previous study as well for the patient comparison to CT scan of 11/27/2018. Dependent area of atelectasis noted in the lower portion of the lungs. Mild centrilobular emphysema changes noted in the upper lungs. There were no significant enlargement of lymph nodes. IMPRESSION: 1. The patient who has been currently admitted to the hospital with symptoms of shortness of breath. The patient does not have any significant acute exacerbation of chronic obstructive pulmonary disease on physical examination. Mild lactic acidosis noted of unclear etiology. 2. Uncontrolled diabetes ____ was noted at that time on admission as well as gradually being controlled, improving. Troponin noted minimally elevated at 0.52 on admission. 3. Shortness of breath, which has been noted assessed for the patient's cardiac etiology with shortness of breath at this time. 4. Pulmonary nodule, right upper lobe. Most likely, intrafissural node for the patient will be considered than to pulmonary nodules. PLAN OF MANAGEMENT: 1. Continue to maximize the management of diabetes mellitus. Advised assessment of the patient by the Cardiology Services. He would not require any corticosteroids at the present time, needs to be just monitored, simple bronchodilators will be advised. The patient will be started on the nebulized bronchodilator, albuterol sulfate q. 4 hours p.r.n. use. Other treatment changes will be made based on progression of the illness. Continue other previous plan of management, care plan from pulmonary standpoint. Pulmonary nodule noted and to be considered benign at this present time. 2. Pulmonary nodules. SHANTELL FRANCIS MD CM:CONSTR:REPORT OF CONSULTATION 1027 04/01/19 0034 interface
--- NOTE | ~2019-03-30 | EKG ---
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
[~2019-03-30 21:01] MED LIST changes: +LASIX20 MG PO; +LEVAQUIN500 M2 PO; +LOSARTAN POTAS100 M1 PO; +POTASSIUM CHLOR8 MEQ PO; +TRULICITY0.75 MG/0. SC
[2019-03-30 21:04] VITALS: BP 143/83
[2019-03-30 21:37] LABS: HEMOGLOBIN 12.1 g/dl (14.0-18.0); MEAN CELL VOLUME 97.4 fl (80.0-94.0); MEAN CORPUSCULAR HGB 34.7 pg (27.0-31.0); MEAN CORPUSCULAR HGB CONC 35.6 g/dl (33.0-37.0); MEAN PLATELET VOLUME 9.5 fl (9.6-12.3); NUCLEATED RED BLOOD CELL 0.4 % (0.0-0.0); PLATELET COUNT AUTOMATED 162 10*3/uL (130-400); RED BLOOD COUNT 3.49 10*6/uL (4.50-5.90); RED CELL DISTRI WIDTH 15.3 % (0-14.5); WHITE BLOOD COUNT 5.5 10*3/uL (4.8-10.8)
[2019-03-30 21:48] LABS: ACT PARTIAL THROMBO TIME 21.4 SECONDS (20.0-32.1); INTERNATIONAL NORM RATIO 0.9 (2.0-3.5)
[2019-03-30 21:54] LABS: ALBUMIN 2.9 gm/dl (3.1-4.5); ALKALINE PHOSPHATASE 63 U/L (45-117); BUN 27 mg/dl (7-24); CHLORIDE 104 mmol/L (98-107); CREATININE 1.44 mg/dL (0.70-1.30); LIPASE 147 U/L (73-393); POTASSIUM 4.5 mmol/L (3.5-5.1); SGOT/AST 47 IU/L (3-35); SGPT/ALT 145 U/L (12-78); SODIUM 135 mmol/L (136-145); TOTAL PROTEIN 5.5 gm/dL (6.4-8.2)
[2019-03-30 21:59] LABS: BILIRUBIN NEGATIVE (NEGATIVE); BLOOD NEGATIVE (NEGATIVE); CLARITY CLEAR (CLEAR); COLOR YELLOW (YELLOW); GLUCOSE 3+ (NEGATIVE); KETONE NEGATIVE (NEGATIVE); LEUKO ESTERASE NEGATIVE (NEGATIVE); NITRITE NEGATIVE (NEGATIVE); PH 5.5 (5.0-9.0); SPECIFIC GRAVITY <= 1.005 (1.005-1.030); UROBILINOGEN 0.2 E.U./dl (0.2-1.0)
[2019-03-30 21:59] LABS: TOTAL CELLS COUNTED 100 #CELLS
[2019-03-30 22:02] LABS: TROPONIN I 0.051 ng/ml (<0.045)
[2019-03-30 22:03] LABS: PLATELET SUFFICIENCY NORMAL (NORMAL)
[2019-03-30 22:06] LABS: RBC 0-2 rbc/hpf (0-2); WBC 0-2 wbc/hpf (0-5)
[2019-03-31] MEDS ORDERED: COREG12.5 M1 PO (01:09)
[2019-03-31] MEDS ORDERED: GLUCOPHAGE500 M1 PO (01:10)
[2019-03-31 06:44] LABS: BUN 22 mg/dl (7-24); CHLORIDE 110 mmol/L (98-107); CREATININE 1.03 mg/dL (0.70-1.30); POTASSIUM 3.9 mmol/L (3.5-5.1); SODIUM 141 mmol/L (136-145)
[2019-03-31 12:00] VITALS: BP 129/94
[2019-03-31 16:00] VITALS: BP 102/65
[2019-03-31 20:00] VITALS: BP 116/75
[2019-04-01] VITALS (8 sets, daily range): BP systolic 100–137; BP diastolic 50–84
[2019-04-01 07:23] LABS: BUN 20 mg/dl (7-24); CHLORIDE 107 mmol/L (98-107); POTASSIUM 3.9 mmol/L (3.5-5.1); SODIUM 143 mmol/L (136-145)
[2019-04-01 07:26] LABS: CREATININE 0.95 mg/dL (0.70-1.30); PHOSPHOROUS 3.9 mg/dL (2.5-4.9)
[2019-04-01 08:07] LABS: HEPATITIS B SURFACE AG Negative (Negative); HEPATITIS C VIRUS ANTIBODY <0.1 s/co (0.0-0.9)
[2019-04-02] VITALS: BP 110/87
[2019-04-02 06:32] LABS: BASO % 0.2 % (0.0-1.0); EOS # 0.1 10*3/uL (0.0-0.4); EOS % 0.6 % (1.0-4.0); HEMATOCRIT 37.8 % (42.0-52.0); HEMOGLOBIN 13.2 g/dl (14.0-18.0); LYMPH # 2.4 10*3/uL (1.3-4.4); MEAN CELL VOLUME 97.9 fl (80.0-94.0); MEAN CORPUSCULAR HGB 34.2 pg (27.0-31.0); MEAN CORPUSCULAR HGB CONC 34.9 g/dl (33.0-37.0); MEAN PLATELET VOLUME 9.7 fl (9.6-12.3); MONO # 0.8 10*3/uL (0.1-1.0); MONO % 8.7 % (3.0-9.0); NEUT # 5.5 10*3/uL (2.3-7.9); NEUT % 61.8 % (47.0-73.0); PLATELET COUNT AUTOMATED 165 10*3/uL (130-400); RED BLOOD COUNT 3.86 10*6/uL (4.50-5.90); RED CELL DISTRI WIDTH 15.3 % (0-14.5); WHITE BLOOD COUNT 8.9 10*3/uL (4.8-10.8)
[2019-04-02 06:43] LABS: BUN 16 mg/dl (7-24); CHLORIDE 104 mmol/L (98-107); CREATININE 1.16 mg/dL (0.70-1.30); POTASSIUM 3.9 mmol/L (3.5-5.1); SODIUM 139 mmol/L (136-145)
[2019-04-02 08:00] VITALS: BP 112/82; BP 123/75
[2019-04-02 12:00] VITALS: BP 109/59
[2019-04-02] MEDS ORDERED: MYRBETRIQ50 M1 PO (12:19)
[2019-04-02 16:00] VITALS: BP 118/71
[2019-04-02 20:00] VITALS: BP 92/48
[2019-04-02 21:00] VITALS: BP 100/64
[2019-04-03] VITALS (7 sets, daily range): BP systolic 86–153; BP diastolic 51–74
[2019-04-03 06:20] LABS: BASO % 0.1 % (0.0-1.0); EOS % 0.4 % (1.0-4.0); HEMATOCRIT 35.1 % (42.0-52.0); HEMOGLOBIN 12.4 g/dl (14.0-18.0); LYMPH # 1.4 10*3/uL (1.3-4.4); LYMPH % 18.7 % (27.0-41.0); MEAN CELL VOLUME 96.4 fl (80.0-94.0); MEAN CORPUSCULAR HGB 34.1 pg (27.0-31.0); MEAN CORPUSCULAR HGB CONC 35.3 g/dl (33.0-37.0); MEAN PLATELET VOLUME 9.5 fl (9.6-12.3); MONO # 0.7 10*3/uL (0.1-1.0); MONO % 9.6 % (3.0-9.0); NEUT # 5.2 10*3/uL (2.3-7.9); NEUT % 69.9 % (47.0-73.0); PLATELET COUNT AUTOMATED 126 10*3/uL (130-400); RED BLOOD COUNT 3.64 10*6/uL (4.50-5.90); WHITE BLOOD COUNT 7.5 10*3/uL (4.8-10.8)
[2019-04-03 06:45] LABS: BUN 12 mg/dl (7-24); CHLORIDE 103 mmol/L (98-107); CREATININE 1.03 mg/dL (0.70-1.30); POTASSIUM 3.6 mmol/L (3.5-5.1); SODIUM 138 mmol/L (136-145)
[2019-04-03 09:18] LABS: ABG BASE EXCESS 1.1 mmol/L (-2.0-2.0); ABG HCO3 25.1 mmol/l (22-26); ABG O2 SATURATION 90.1 % (95-97); ARTERIAL BLOOD GAS PCO2 38.8 mmHg (35-45); ARTERIAL BLOOD GAS PH 7.424 (7.35-7.45); ARTERIAL BLOOD GAS PO2 55.6 mmHg (80-90)
[2019-04-04] VITALS: BP 93/57
[2019-04-04 06:31] VITALS: BP 94/56
[2019-04-04 07:17] LABS: BASO % 0.1 % (0.0-1.0); EOS % 0.4 % (1.0-4.0); HEMATOCRIT 31.5 % (42.0-52.0); HEMOGLOBIN 11.1 g/dl (14.0-18.0); LYMPH # 1.5 10*3/uL (1.3-4.4); LYMPH % 21.2 % (27.0-41.0); MEAN CELL VOLUME 96.6 fl (80.0-94.0); MEAN CORPUSCULAR HGB CONC 35.2 g/dl (33.0-37.0); MONO # 0.7 10*3/uL (0.1-1.0); MONO % 10.1 % (3.0-9.0); NEUT # 4.6 10*3/uL (2.3-7.9); NEUT % 67.3 % (47.0-73.0); PLATELET COUNT AUTOMATED 153 10*3/uL (130-400); RED BLOOD COUNT 3.26 10*6/uL (4.50-5.90); RED CELL DISTRI WIDTH 15.3 % (0-14.5); WHITE BLOOD COUNT 6.9 10*3/uL (4.8-10.8)
[2019-04-04 07:44] LABS: ALBUMIN 2.4 gm/dl (3.1-4.5); ALKALINE PHOSPHATASE 59 U/L (45-117); BUN 14 mg/dl (7-24); CHLORIDE 102 mmol/L (98-107); CREATININE 1.31 mg/dL (0.70-1.30); POTASSIUM 3.5 mmol/L (3.5-5.1); SGOT/AST 28 IU/L (3-35); SGPT/ALT 82 U/L (12-78); SODIUM 134 mmol/L (136-145)
[2019-04-04 07:45] LABS: TOTAL PROTEIN 5.2 gm/dL (6.4-8.2)
[2019-04-04 08:00] VITALS: BP 98/50
[2019-04-04 12:00] VITALS: BP 95/51
[2019-04-04 16:00] VITALS: BP 137/61
[2019-04-04 20:00] VITALS: BP 111/61
[2019-04-05] VITALS: BP 97/50
[2019-04-05 08:00] VITALS: BP 110/78
[2019-04-05 08:16] VITALS: BP 107/89
[2019-04-05 12:00] VITALS: BP 119/66
[2019-04-05 16:00] VITALS: BP 130/58
[2019-04-05 20:00] VITALS: BP 122/69
[2019-04-06] VITALS: BP 99/55
[2019-04-06 06:23] LABS: BASO % 0.2 % (0.0-1.0); EOS % 0.8 % (1.0-4.0); HEMATOCRIT 26.7 % (42.0-52.0); HEMOGLOBIN 9.4 g/dl (14.0-18.0); LYMPH % 21.5 % (27.0-41.0); MEAN CELL VOLUME 96.7 fl (80.0-94.0); MEAN CORPUSCULAR HGB 34.1 pg (27.0-31.0); MEAN CORPUSCULAR HGB CONC 35.2 g/dl (33.0-37.0); MEAN PLATELET VOLUME 9.4 fl (9.6-12.3); MONO # 0.5 10*3/uL (0.1-1.0); MONO % 10.4 % (3.0-9.0); NEUT # 3.1 10*3/uL (2.3-7.9); NEUT % 65.4 % (47.0-73.0); PLATELET COUNT AUTOMATED 158 10*3/uL (130-400); RED BLOOD COUNT 2.76 10*6/uL (4.50-5.90); RED CELL DISTRI WIDTH 15.4 % (0-14.5); WHITE BLOOD COUNT 4.8 10*3/uL (4.8-10.8)
[2019-04-06 06:56] LABS: ALBUMIN 2.2 gm/dl (3.1-4.5); BUN 8 mg/dl (7-24); CHLORIDE 104 mmol/L (98-107); CREATININE 1.14 mg/dL (0.70-1.30); POTASSIUM 3.8 mmol/L (3.5-5.1); SGOT/AST 22 IU/L (3-35); SGPT/ALT 60 U/L (12-78); SODIUM 135 mmol/L (136-145); TOTAL PROTEIN 5.2 gm/dL (6.4-8.2)
[2019-04-06 06:58] LABS: ALKALINE PHOSPHATASE 66 U/L (45-117)
[2019-04-06 08:00] VITALS: BP 118/60
[2019-04-06 12:00] VITALS: BP 132/82
[2019-04-06 14:19] LABS: BILIRUBIN NEGATIVE (NEGATIVE); BLOOD NEGATIVE (NEGATIVE); CLARITY CLOUDY (CLEAR); COLOR YELLOW (YELLOW); GLUCOSE NEGATIVE (NEGATIVE); KETONE NEGATIVE (NEGATIVE); LEUKO ESTERASE NEGATIVE (NEGATIVE); NITRITE POSITIVE (NEGATIVE)
[2019-04-06 14:36] LABS: BACTERIA 4+
[2019-04-06 16:00] VITALS: BP 107/68
[2019-04-06 20:00] VITALS: BP 101/66
[2019-04-07] VITALS: BP 114/63
[2019-04-07 06:58] LABS: BUN 9 mg/dl (7-24); CHLORIDE 102 mmol/L (98-107); CREATININE 1.18 mg/dL (0.70-1.30); POTASSIUM 3.7 mmol/L (3.5-5.1); SODIUM 134 mmol/L (136-145)
[2019-04-07 07:00] LABS: BASO % 0.2 % (0.0-1.0); EOS # 0.1 10*3/uL (0.0-0.4); EOS % 1.1 % (1.0-4.0); HEMATOCRIT 28.3 % (42.0-52.0); HEMOGLOBIN 9.9 g/dl (14.0-18.0); LYMPH # 1.3 10*3/uL (1.3-4.4); LYMPH % 23.7 % (27.0-41.0); MEAN CELL VOLUME 97.9 fl (80.0-94.0); MEAN CORPUSCULAR HGB 34.3 pg (27.0-31.0); MEAN PLATELET VOLUME 9.6 fl (9.6-12.3); MONO # 0.6 10*3/uL (0.1-1.0); MONO % 10.7 % (3.0-9.0); NEUT # 3.4 10*3/uL (2.3-7.9); NEUT % 63.2 % (47.0-73.0); RED BLOOD COUNT 2.89 10*6/uL (4.50-5.90); RED CELL DISTRI WIDTH 15.6 % (0-14.5); WHITE BLOOD COUNT 5.3 10*3/uL (4.8-10.8)
[2019-04-07 07:02] LABS: PLATELET COUNT AUTOMATED 213 10*3/uL (130-400)
[2019-04-07 08:00] VITALS: BP 100/58
[2019-04-07 12:00] VITALS: BP 108/57
[2019-04-07 16:00] VITALS: BP 112/62
[2019-04-07 20:00] VITALS: BP 116/69
[2019-04-08] VITALS: BP 117/52
[2019-04-08 06:42] LABS: EOS # 0.1 10*3/uL (0.0-0.4); EOS % 1.1 % (1.0-4.0); HEMATOCRIT 29.6 % (42.0-52.0); HEMOGLOBIN 10.2 g/dl (14.0-18.0); LYMPH # 1.1 10*3/uL (1.3-4.4); LYMPH % 16.4 % (27.0-41.0); MEAN CELL VOLUME 99.3 fl (80.0-94.0); MEAN CORPUSCULAR HGB 34.2 pg (27.0-31.0); MEAN CORPUSCULAR HGB CONC 34.5 g/dl (33.0-37.0); MEAN PLATELET VOLUME 9.6 fl (9.6-12.3); MONO # 0.6 10*3/uL (0.1-1.0); MONO % 9.4 % (3.0-9.0); NEUT # 4.6 10*3/uL (2.3-7.9); NEUT % 72.2 % (47.0-73.0); RED BLOOD COUNT 2.98 10*6/uL (4.50-5.90); RED CELL DISTRI WIDTH 15.7 % (0-14.5); WHITE BLOOD COUNT 6.4 10*3/uL (4.8-10.8)
[2019-04-08 06:48] LABS: PLATELET COUNT AUTOMATED 288 10*3/uL (130-400)
[2019-04-08 08:00] VITALS: BP 115/70
[2019-04-08 12:00] VITALS: BP 141/60
[2019-04-08 16:00] VITALS: BP 131/62
[2019-04-08 20:00] VITALS: BP 143/69
[2019-04-09] VITALS: BP 119/51
[2019-04-09 08:00] VITALS: BP 136/74
[2019-04-09 12:00] VITALS: BP 105/88
[2019-04-09 16:00] VITALS: BP 116/51
[2019-04-09 20:00] VITALS: BP 124/58
[2019-04-10] VITALS: BP 110/47
[2019-04-10 06:15] VITALS: BP 130/60
[2019-04-10 08:00] VITALS: BP 142/60
[2019-04-10 12:00] VITALS: BP 139/89
[2019-04-10 16:00] VITALS: BP 121/66
[2019-04-10 20:00] VITALS: BP 128/82
[2019-04-11] VITALS: BP 100/82
[2019-04-11 08:00] VITALS: BP 134/59
[2019-04-11 12:00] VITALS: BP 144/64
[2019-04-11] MEDS ORDERED: PROPAFENONE HC150 MG PO (14:13)
[2019-04-11] MEDS ORDERED: LOSARTAN POTASS25 M1 PO (14:14)
[2019-04-11] MEDS ORDERED: GABAPENTIN100 M2 PO (14:14)
[2019-04-11] MEDS ORDERED: Lidoderm 5% Patch T (14:14)
[2019-04-11] MEDS ORDERED: BACTRIM 400-801 EACH PO (14:14)
[2019-04-11] MEDS ORDERED: LOPRESSOR25 MG PO (14:14)
[2019-04-11] MEDS ORDERED: PREDNISONE5 MG PO (14:14)
== END 2019-04-11 17:20 | disposition other institution (70) | DRG 637 ==
LOC: ED 21:01 → EDHOLD 03-31 00:18 → 5E 03-31 00:18
PROVIDERS: Internal Medicine; Physician Assistant; Student in an Organized Health Care Education/Training Program; ADMIT Emergency Medicine
DX: E11.65 Type 2 diabetes mellitus with hyperglycemia (principal); N17.0 Acute kidney failure with tubular necrosis; E87.2 Acidosis; N39.0 Urinary tract infection, site not specified; J96.10 Chronic respiratory failure, unspecified whether with hypoxia or hypercapnia; I13.0 Hypertensive heart and chronic kidney disease with heart failure and stage 1 through stage 4 chronic kidney disease, or unspecified chronic kidney disease; J45.909 Unspecified asthma, uncomplicated; J44.9 Chronic obstructive pulmonary disease, unspecified; K21.9 Gastro-esophageal reflux disease without esophagitis; F17.210 Nicotine dependence, cigarettes, uncomplicated; E78.5 Hyperlipidemia, unspecified; M06.9 Rheumatoid arthritis, unspecified; R23.3 Spontaneous ecchymoses; R00.0 Tachycardia, unspecified; E78.1 Pure hyperglyceridemia; D64.9 Anemia, unspecified; I48.0 Paroxysmal atrial fibrillation; Z16.12 Extended spectrum beta lactamase (ESBL) resistance; I50.9 Heart failure, unspecified; I49.1 Atrial premature depolarization; R91.1 Solitary pulmonary nodule; M79.605 Pain in left leg; E11.40 Type 2 diabetes mellitus with diabetic neuropathy, unspecified; R41.0 Disorientation, unspecified; B96.89 Other specified bacterial agents as the cause of diseases classified elsewhere; I49.3 Ventricular premature depolarization; B96.20 Unspecified Escherichia coli [E. coli] as the cause of diseases classified elsewhere; N18.3 Chronic kidney disease, stage 3 (moderate); E11.22 Type 2 diabetes mellitus with diabetic chronic kidney disease; Z86.73 Personal history of transient ischemic attack (TIA), and cerebral infarction without residual deficits; Z88.8 Allergy status to other drugs, medicaments and biological substances; Z91.040 Latex allergy status; Z79.899 Other long term (current) drug therapy; Z87.440 Personal history of urinary (tract) infections; Z82.49 Family history of ischemic heart disease and other diseases of the circulatory system; Z83.3 Family history of diabetes mellitus; Z80.8 Family history of malignant neoplasm of other organs or systems; Z79.84 Long term (current) use of oral hypoglycemic drugs; Z92.3 Personal history of irradiation; Z85.46 Personal history of malignant neoplasm of prostate

== ENCOUNTER 2019-06-08 13:41 | Emergency (ER) | payer OTHER ==
[~2019-06-08] VITALS: Ht 182.8 cm; Wt 99.3 kg
[~2019-06-08 13:41] MED LIST changes: +COREG12.5 M1 PO; +GABAPENTIN100 M2 PO; +GLUCOPHAGE500 M1 PO; +LOPRESSOR25 MG PO; +LOSARTAN POTASS25 M1 PO; +Lidoderm 5% Patch T; +MYRBETRIQ50 M1 PO; +PROPAFENONE HC150 MG PO
[2019-06-08 14:10] LABS: BASO % 0.2 % (0.0-1.0); EOS % 0.1 % (1.0-4.0); HEMATOCRIT 41.1 % (42.0-52.0); HEMOGLOBIN 14.6 g/dl (14.0-18.0); MEAN CORPUSCULAR HGB 34.1 pg (27.0-31.0); MEAN CORPUSCULAR HGB CONC 35.5 g/dl (33.0-37.0); MEAN PLATELET VOLUME 9.1 fl (9.6-12.3); MONO # 0.5 10*3/uL (0.1-1.0); NEUT # 6.8 10*3/uL (2.3-7.9); NEUT % 79.5 % (47.0-73.0); PLATELET COUNT AUTOMATED 190 10*3/uL (130-400); RED BLOOD COUNT 4.28 10*6/uL (4.50-5.90); RED CELL DISTRI WIDTH 13.9 % (0-14.5); WHITE BLOOD COUNT 8.5 10*3/uL (4.8-10.8)
[2019-06-08 14:26] LABS: ALBUMIN 3.5 gm/dl (3.1-4.5); ALKALINE PHOSPHATASE 60 U/L (45-117); BUN 22 mg/dl (7-24); CHLORIDE 101 mmol/L (98-107); CREATININE 1.32 mg/dL (0.70-1.30); POTASSIUM 4.1 mmol/L (3.5-5.1); SGOT/AST 23 IU/L (3-35); SGPT/ALT 54 U/L (12-78); SODIUM 135 mmol/L (136-145); TOTAL PROTEIN 6.5 gm/dL (6.4-8.2)
[2019-06-08 14:29] LABS: ACT PARTIAL THROMBO TIME 23.1 SECONDS (20.0-32.1); INTERNATIONAL NORM RATIO 0.9 (2.0-3.5)
== END 2019-06-08 15:10 | disposition short-term general hospital (02) ==
LOC: ED 13:41
PROVIDERS: Emergency Medicine
DX: I82.412 Acute embolism and thrombosis of left femoral vein (principal); J44.9 Chronic obstructive pulmonary disease, unspecified; K21.9 Gastro-esophageal reflux disease without esophagitis; I10 Essential (primary) hypertension; E78.5 Hyperlipidemia, unspecified; E11.40 Type 2 diabetes mellitus with diabetic neuropathy, unspecified; I48.91 Unspecified atrial fibrillation; M19.90 Unspecified osteoarthritis, unspecified site; Z79.899 Other long term (current) drug therapy; Z88.8 Allergy status to other drugs, medicaments and biological substances; Z91.040 Latex allergy status; Z87.891 Personal history of nicotine dependence

== ENCOUNTER 2019-07-11 11:50 | Emergency (ER) | payer OTHER ==
[~2019-07-11] VITALS: Ht 180.3 cm; Wt 95.3 kg
--- NOTE | ~2019-07-11 | EKG ---
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1940 Requested By: SAMANTHA WAGNER Order Number: [id number] Reading MD: Zaire Best MD Measurements Intervals [place] Rate: 71 P: 44 MD: 170 QRS: 9 QRSD: 100 T: 82 QT: 398 QTc: 433 Interpretive Statements Sinus rhythm Ventricular premature complex Nonspecific T abnormalities, lateral leads Compared to ECG 04/01/2019 06:13:19 Ventricular premature complex(es) now present T-wave abnormality now present Atrial fibrillation no longer present ST (T wave) deviation no longer present Electronically Signed On 07-12-2019 6:00:22 PST by Zaire Best MD CM:EKGRPT:ELECTROCARDIOGRAM REPORT [id number] SAMANTHA BETH DRAFT REPORT SAMANTHA WAGNER M.D.
[2019-07-11 12:04] LABS: BASO % 0.3 % (0.0-1.0); EOS % 0.1 % (1.0-4.0); HEMOGLOBIN 15.9 g/dl (14.0-18.0); LYMPH # 1.4 10*3/uL (1.3-4.4); LYMPH % 15.1 % (27.0-41.0); MEAN CELL VOLUME 97.9 fl (80.0-94.0); MEAN CORPUSCULAR HGB 33.8 pg (27.0-31.0); MEAN CORPUSCULAR HGB CONC 34.6 g/dl (33.0-37.0); MEAN PLATELET VOLUME 9.6 fl (9.6-12.3); MONO # 0.6 10*3/uL (0.1-1.0); MONO % 6.3 % (3.0-9.0); NEUT % 76.3 % (47.0-73.0); PLATELET COUNT AUTOMATED 222 10*3/uL (130-400); RED CELL DISTRI WIDTH 14.8 % (0-14.5); WHITE BLOOD COUNT 9.1 10*3/uL (4.8-10.8)
[2019-07-11 12:13] LABS: ACT PARTIAL THROMBO TIME 25.3 SECONDS (20.0-32.1); INTERNATIONAL NORM RATIO 0.9 (2.0-3.5)
[2019-07-11 12:19] LABS: ALBUMIN 3.8 gm/dl (3.1-4.5); ALKALINE PHOSPHATASE 59 U/L (45-117); BUN 22 mg/dl (7-24); CHLORIDE 104 mmol/L (98-107); CREATININE 1.22 mg/dL (0.70-1.30); SGOT/AST 28 IU/L (3-35); SGPT/ALT 61 U/L (12-78); SODIUM 139 mmol/L (136-145); TOTAL PROTEIN 7.3 gm/dL (6.4-8.2)
[2019-07-11 12:20] LABS: POTASSIUM 4.5 mmol/L (3.5-5.1); TROPONIN I < 0.015 ng/ml (<0.045)
[2019-07-11 13:09] LABS: BILIRUBIN NEGATIVE (NEGATIVE); BLOOD NEGATIVE (NEGATIVE); CLARITY CLEAR (CLEAR); COLOR YELLOW (YELLOW); GLUCOSE NEGATIVE (NEGATIVE); KETONE NEGATIVE (NEGATIVE); LEUKO ESTERASE NEGATIVE (NEGATIVE); NITRITE NEGATIVE (NEGATIVE); PH 5.5 (5.0-9.0); SPECIFIC GRAVITY <= 1.005 (1.005-1.030); UROBILINOGEN 0.2 E.U./dl (0.2-1.0)
[2019-07-11 13:18] LABS: BACTERIA TRACE; EPITHELIAL CELLS 0-2; RBC 0-2 rbc/hpf (0-2); WBC 0-2 wbc/hpf (0-5)
== END 2019-07-11 17:15 | disposition home or self-care (01) ==
LOC: ED 11:50
PROVIDERS: Emergency Medicine
DX: J44.9 Chronic obstructive pulmonary disease, unspecified (principal); K21.9 Gastro-esophageal reflux disease without esophagitis; E78.5 Hyperlipidemia, unspecified; I10 Essential (primary) hypertension; I48.0 Paroxysmal atrial fibrillation; E11.43 Type 2 diabetes mellitus with diabetic autonomic (poly)neuropathy; Z91.040 Latex allergy status; Z88.6 Allergy status to analgesic agent; Z88.8 Allergy status to other drugs, medicaments and biological substances; Z79.899 Other long term (current) drug therapy; Z86.718 Personal history of other venous thrombosis and embolism; Z87.891 Personal history of nicotine dependence

== ENCOUNTER 2019-07-13 13:17 | Emergency (ER) | payer OTHER ==
--- NOTE | ~2019-07-13 | EKG ---
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: : 1940 Requested By: RYAN MICHEL Order Number: [id number] Reading MD: Jacque Chamberlain MD Measurements Intervals [place] Rate: 68 P: 39 [place]: 174 QRS: 9 QRSD: 108 T: 3 QT: 419 QTc: 446 Interpretive Statements Sinus rhythm Ventricular trigeminy Low voltage, precordial leads Probable left ventricular hypertrophy Borderline abnrm T, anterolateral leads Compared to ECG 07/11/2019 11:50:22 Low QRS voltage now present T-wave abnormality no longer present Electronically Signed On 07-14-2019 13:45:25 PST by Jacque Chamberlain MD CM:EKGRPT:ELECTROCARDIOGRAM REPORT [id number] RYAN MICHEL MD EPIPHANY DRAFT REPORT RYAN MICHEL MD
[2019-07-13 14:10] LABS: BASO % 0.3 % (0.0-1.0); EOS % 0.3 % (1.0-4.0); HEMATOCRIT 41.2 % (42.0-52.0); HEMOGLOBIN 14.2 g/dl (14.0-18.0); LYMPH # 1.1 10*3/uL (1.3-4.4); MEAN CELL VOLUME 96.5 fl (80.0-94.0); MEAN CORPUSCULAR HGB 33.3 pg (27.0-31.0); MEAN CORPUSCULAR HGB CONC 34.5 g/dl (33.0-37.0); MEAN PLATELET VOLUME 9.5 fl (9.6-12.3); MONO # 0.6 10*3/uL (0.1-1.0); MONO % 7.7 % (3.0-9.0); NEUT # 5.7 10*3/uL (2.3-7.9); NEUT % 75.4 % (47.0-73.0); PLATELET COUNT AUTOMATED 194 10*3/uL (130-400); RED BLOOD COUNT 4.27 10*6/uL (4.50-5.90); RED CELL DISTRI WIDTH 14.7 % (0-14.5); WHITE BLOOD COUNT 7.5 10*3/uL (4.8-10.8)
[2019-07-13 14:26] LABS: INTERNATIONAL NORM RATIO 0.9 (2.0-3.5)
[2019-07-13 14:27] LABS: ALBUMIN 3.2 gm/dl (3.1-4.5); ALKALINE PHOSPHATASE 55 U/L (45-117); BUN 21 mg/dl (7-24); CHLORIDE 102 mmol/L (98-107); CREATININE 1.18 mg/dL (0.70-1.30); POTASSIUM 3.9 mmol/L (3.5-5.1); SGOT/AST 15 IU/L (3-35); SGPT/ALT 49 U/L (12-78); SODIUM 138 mmol/L (136-145); TOTAL PROTEIN 6.2 gm/dL (6.4-8.2)
[2019-07-13 14:29] LABS: TROPONIN I < 0.015 ng/ml (<0.045)
== END 2019-07-13 16:08 | disposition home or self-care (01) ==
LOC: ED 13:17
PROVIDERS: Emergency Medicine
DX: R06.00 Dyspnea, unspecified (principal); R09.89 Other specified symptoms and signs involving the circulatory and respiratory systems; R60.0 Localized edema; R51 Headache; R06.02 Shortness of breath; J44.9 Chronic obstructive pulmonary disease, unspecified; K21.9 Gastro-esophageal reflux disease without esophagitis; E78.5 Hyperlipidemia, unspecified; I10 Essential (primary) hypertension; M10.9 Gout, unspecified; E11.9 Type 2 diabetes mellitus without complications; Z88.6 Allergy status to analgesic agent; Z88.8 Allergy status to other drugs, medicaments and biological substances; Z91.040 Latex allergy status; Z79.899 Other long term (current) drug therapy; Z86.718 Personal history of other venous thrombosis and embolism; Z87.891 Personal history of nicotine dependence

== ENCOUNTER 2019-07-30 17:15 | Emergency (ER) | payer OTHER ==
[~2019-07-30] VITALS: Ht 180.3 cm; Wt 96.6 kg
[2019-07-30 19:11] LABS: BILIRUBIN NEGATIVE (NEGATIVE); BLOOD NEGATIVE (NEGATIVE); CLARITY CLEAR (CLEAR); COLOR YELLOW (YELLOW); GLUCOSE NEGATIVE (NEGATIVE); KETONE NEGATIVE (NEGATIVE); LEUKO ESTERASE NEGATIVE (NEGATIVE); NITRITE NEGATIVE (NEGATIVE); UROBILINOGEN 0.2 E.U./dl (0.2-1.0)
[2019-07-30 19:29] LABS: BASO % 0.1 % (0.0-1.0); HEMOGLOBIN 12.7 g/dl (14.0-18.0); LYMPH # 1.4 10*3/uL (1.3-4.4); LYMPH % 16.8 % (27.0-41.0); MEAN CELL VOLUME 97.8 fl (80.0-94.0); MEAN CORPUSCULAR HGB 34.5 pg (27.0-31.0); MEAN CORPUSCULAR HGB CONC 35.3 g/dl (33.0-37.0); MEAN PLATELET VOLUME 9.4 fl (9.6-12.3); MONO # 0.7 10*3/uL (0.1-1.0); MONO % 8.2 % (3.0-9.0); NEUT # 6.2 10*3/uL (2.3-7.9); NEUT % 73.7 % (47.0-73.0); PLATELET COUNT AUTOMATED 178 10*3/uL (130-400); RED BLOOD COUNT 3.68 10*6/uL (4.50-5.90); RED CELL DISTRI WIDTH 14.9 % (0-14.5); WHITE BLOOD COUNT 8.4 10*3/uL (4.8-10.8)
[2019-07-30 19:36] LABS: BACTERIA 3+; WBC 16-20 wbc/hpf (0-5)
[2019-07-30 19:42] LABS: ACT PARTIAL THROMBO TIME 25.9 SECONDS (20.0-32.1); INTERNATIONAL NORM RATIO 0.9 (2.0-3.5)
[2019-07-30 19:45] LABS: ALKALINE PHOSPHATASE 53 U/L (45-117); BUN 29 mg/dl (7-24); CHLORIDE 107 mmol/L (98-107); CREATININE 1.27 mg/dL (0.70-1.30); LIPASE 80 U/L (73-393); POTASSIUM 4.1 mmol/L (3.5-5.1); SGOT/AST 17 IU/L (3-35); SGPT/ALT 46 U/L (12-78); SODIUM 139 mmol/L (136-145); TOTAL PROTEIN 5.8 gm/dL (6.4-8.2); TROPONIN I < 0.015 ng/ml (<0.045)
[2019-07-30] MEDS ORDERED: DOXYCYCLINE100 M3 PO (22:21)
== END 2019-07-30 22:46 | disposition home or self-care (01) ==
LOC: ED 17:15
PROVIDERS: Emergency Medicine; Nurse Practitioner Family
DX: S51.812A Laceration without foreign body of left forearm, initial encounter (principal); S51.811A Laceration without foreign body of right forearm, initial encounter; L08.9 Local infection of the skin and subcutaneous tissue, unspecified; I48.91 Unspecified atrial fibrillation; I10 Essential (primary) hypertension; J44.9 Chronic obstructive pulmonary disease, unspecified; K21.9 Gastro-esophageal reflux disease without esophagitis; E11.9 Type 2 diabetes mellitus without complications; Z88.8 Allergy status to other drugs, medicaments and biological substances; Z91.040 Latex allergy status; Z79.899 Other long term (current) drug therapy; Z79.01 Long term (current) use of anticoagulants; Z86.73 Personal history of transient ischemic attack (TIA), and cerebral infarction without residual deficits; Z87.891 Personal history of nicotine dependence; W01.198A Fall on same level from slipping, tripping and stumbling with subsequent striking against other object, initial encounter; Y93.89 Activity, other specified; Y92.098 Other place in other non-institutional residence as the place of occurrence of the external cause; Y99.8 Other external cause status

== ENCOUNTER 2019-08-04 13:43 | Emergency (ER) | payer OTHER ==
[~2019-08-04] VITALS: Ht 180.3 cm; Wt 96.2 kg
[~2019-08-04 13:43] MED LIST changes: +DOXYCYCLINE100 M3 PO
[2019-08-04 14:06] LABS: BASO % 0.2 % (0.0-1.0); EOS % 0.1 % (1.0-4.0); HEMATOCRIT 37.8 % (42.0-52.0); HEMOGLOBIN 13.3 g/dl (14.0-18.0); LYMPH # 1.2 10*3/uL (1.3-4.4); LYMPH % 14.2 % (27.0-41.0); MEAN CELL VOLUME 97.4 fl (80.0-94.0); MEAN CORPUSCULAR HGB 34.3 pg (27.0-31.0); MEAN CORPUSCULAR HGB CONC 35.2 g/dl (33.0-37.0); MEAN PLATELET VOLUME 9.4 fl (9.6-12.3); MONO # 0.5 10*3/uL (0.1-1.0); MONO % 5.3 % (3.0-9.0); NEUT # 6.8 10*3/uL (2.3-7.9); NEUT % 77.8 % (47.0-73.0); PLATELET COUNT AUTOMATED 249 10*3/uL (130-400); RED BLOOD COUNT 3.88 10*6/uL (4.50-5.90); RED CELL DISTRI WIDTH 15.4 % (0-14.5); WHITE BLOOD COUNT 8.7 10*3/uL (4.8-10.8)
[2019-08-04 14:21] LABS: ALBUMIN 3.3 gm/dl (3.1-4.5); ALKALINE PHOSPHATASE 58 U/L (45-117); BUN 27 mg/dl (7-24); CHLORIDE 102 mmol/L (98-107); POTASSIUM 4.2 mmol/L (3.5-5.1); SGOT/AST 24 IU/L (3-35); SGPT/ALT 53 U/L (12-78); SODIUM 137 mmol/L (136-145); TOTAL PROTEIN 6.4 gm/dL (6.4-8.2)
[2019-08-04 14:22] LABS: TROPONIN I < 0.015 ng/ml (<0.045)
[2019-08-04] MEDS ORDERED: PREDNISONE50 MG PO (15:47)
[2019-08-04] MEDS ORDERED: CEPHALEXIN500 M1 PO (15:47)
== END 2019-08-04 15:52 | disposition home or self-care (01) ==
LOC: ED 13:43
PROVIDERS: Emergency Medicine
DX: J44.9 Chronic obstructive pulmonary disease, unspecified (principal); K21.9 Gastro-esophageal reflux disease without esophagitis; I10 Essential (primary) hypertension; E78.5 Hyperlipidemia, unspecified; M06.9 Rheumatoid arthritis, unspecified; I48.0 Paroxysmal atrial fibrillation; E11.43 Type 2 diabetes mellitus with diabetic autonomic (poly)neuropathy; M19.90 Unspecified osteoarthritis, unspecified site; M10.9 Gout, unspecified; Z91.040 Latex allergy status; Z88.8 Allergy status to other drugs, medicaments and biological substances; Z79.899 Other long term (current) drug therapy; Z86.718 Personal history of other venous thrombosis and embolism; Z87.891 Personal history of nicotine dependence; Z86.73 Personal history of transient ischemic attack (TIA), and cerebral infarction without residual deficits

== ENCOUNTER 2019-08-18 17:10 | Inpatient (IN) | payer OTHER ==
[~2019-08-18] VITALS: Ht 180.3 cm; Wt 98.2 kg
[~2019-08-18 17:10] MED LIST changes: +CEPHALEXIN500 M1 PO
[2019-08-18 17:11] VITALS: BP 115/63
[2019-08-18 18:05] LABS: BASO % 0.1 % (0.0-1.0); EOS % 0.1 % (1.0-4.0); HEMATOCRIT 34.8 % (42.0-52.0); HEMOGLOBIN 12.1 g/dl (14.0-18.0); LYMPH # 0.8 10*3/uL (1.3-4.4); LYMPH % 6.9 % (27.0-41.0); MEAN CORPUSCULAR HGB 34.1 pg (27.0-31.0); MEAN CORPUSCULAR HGB CONC 34.8 g/dl (33.0-37.0); MEAN PLATELET VOLUME 9.6 fl (9.6-12.3); MONO # 0.8 10*3/uL (0.1-1.0); NEUT % 84.5 % (47.0-73.0); PLATELET COUNT AUTOMATED 219 10*3/uL (130-400); RED BLOOD COUNT 3.55 10*6/uL (4.50-5.90); RED CELL DISTRI WIDTH 15.5 % (0-14.5); WHITE BLOOD COUNT 11.8 10*3/uL (4.8-10.8)
[2019-08-18 18:39] LABS: ALBUMIN 2.8 gm/dl (3.1-4.5); ALKALINE PHOSPHATASE 69 U/L (45-117); BUN 24 mg/dl (7-24); CHLORIDE 100 mmol/L (98-107); CREATININE 1.36 mg/dL (0.70-1.30); SGOT/AST 26 IU/L (3-35); SGPT/ALT 70 U/L (12-78); SODIUM 134 mmol/L (136-145); TOTAL PROTEIN 6.3 gm/dL (6.4-8.2)
[2019-08-18 18:41] LABS: TROPONIN I < 0.015 ng/ml (<0.045)
[2019-08-18 18:49] VITALS: BP 114/68
[2019-08-18 20:25] VITALS: BP 108/66
[2019-08-18 20:55] VITALS: BP 166/66
--- NOTE | 2019-08-18 20:55 | NUR ---
A 79, admitted to , under the services of JETT Grace DO with a diagnosis of COPD EXACERBATION. Chief complaint is SHORTNESS OF BREATH. Patient arrived via bed from ER. Monitor applied. Initial assessment completed. Vital signs taken and recorded. JETT GRACE DO notified of admission to the unit. Orders received. See assessment for past medical history, medications and allergies. Patient and/or family oriented to unit. [address] visitation policy reviewed. Clothing/patient valuable form completed. PT VACCINATED FOR FLU THIS SEASON, WON'T BE RECEIVING DURING HIS STAY. MULTIPLE WOUNDS RIGHT UPPER ARM, RIGHT FOREARM, RIGHT GREAT TOE, LEFT FOREARM. PICTURES TAKEN IN ER. MEASUREMENTS TAKEN ON ARRIVAL TO FLOOR. DRESSINGS REINFORCED. GENERALIZED SCABS/BRUISING ALSO NOTED ON ADMISSION. NEELAM ARCE
[2019-08-18] MEDS ORDERED: FUROSEMIDE40 MG PO (21:10)
[2019-08-18] MEDS ORDERED: PROPAFENONE HC150 MG PO (21:12)
[2019-08-18] MEDS ORDERED: ELIQUIS5 M1 PO (21:13)
[2019-08-18] MEDS ORDERED: OXYBUTYNIN10 MG PO (21:14)
[2019-08-18] MEDS ORDERED: ADVAIR 250/501 EA INH (21:16)
[2019-08-18] MEDS ORDERED: NOVOLOG100 UNIT/1 SQ (21:20)
[2019-08-18 22:31] LABS: BILIRUBIN NEGATIVE (NEGATIVE); BLOOD TRACE-INTACT (NEGATIVE); CLARITY SL CLOUDY (CLEAR); COLOR YELLOW (YELLOW); GLUCOSE NEGATIVE (NEGATIVE); KETONE NEGATIVE (NEGATIVE); LEUKO ESTERASE 2+ (NEGATIVE); NITRITE POSITIVE (NEGATIVE); UROBILINOGEN 0.2 E.U./dl (0.2-1.0)
[2019-08-18 22:42] LABS: BACTERIA 3+
[2019-08-18 22:43] LABS: WBC TNTC wbc/hpf (0-5)
--- NOTE | 2019-08-18 23:30 | NUR ---
DR PEÑA NOTIFIED OF UPDATED MED REC.
--- NOTE | 2019-08-18 23:30 | NUR ---
DR PEÑA NOTIFIED OF NEED FOR WOUND ORDERS. PT COMES TO THE WOUND CARE CLINIC HERE AT [facility]. HE HAS AN APPOINTMENT SCHEDULED FOR TOMORROW AT 9:30 AM.
[2019-08-19] VITALS: BP 146/77
--- NOTE | 2019-08-19 06:06 | NUR ---
ALL WOUNDS CLEANED & REDRESSED AT THIS TIME. PT TOLERATED WELL.
[2019-08-19 06:44] LABS: HEMATOCRIT 34.2 % (42.0-52.0); HEMOGLOBIN 11.7 g/dl (14.0-18.0); MEAN CELL VOLUME 99.1 fl (80.0-94.0); MEAN CORPUSCULAR HGB 33.9 pg (27.0-31.0); MEAN CORPUSCULAR HGB CONC 34.2 g/dl (33.0-37.0); MEAN PLATELET VOLUME 9.7 fl (9.6-12.3); PLATELET COUNT AUTOMATED 214 10*3/uL (130-400); RED BLOOD COUNT 3.45 10*6/uL (4.50-5.90); RED CELL DISTRI WIDTH 15.4 % (0-14.5); WHITE BLOOD COUNT 8.6 10*3/uL (4.8-10.8)
--- NOTE | 2019-08-19 07:14 | NUR ---
WOUND CARE NURSE, DEMETRIS NOTIFIED OF PTS APPOINTMENT IN WOUND CARE CLINIC FOR TODAY AT 0930. STATES SHE WILL TAKE CARE OF IT.
[2019-08-19 07:21] LABS: CHLORIDE 101 mmol/L (98-107); POTASSIUM 4.1 mmol/L (3.5-5.1); SODIUM 136 mmol/L (136-145)
[2019-08-19 07:36] LABS: ALBUMIN 2.6 gm/dl (3.1-4.5); ALKALINE PHOSPHATASE 67 U/L (45-117); BUN 23 mg/dl (7-24); CHOLESTEROL 168 mg/dL (<200); FREE T4 1.19 ng/dl (0.76-1.46); HDL CHOLESTEROL 54 mg/dl (40-60); LDL CHOLESTEROL 91 mg/dL (9-159); PHOSPHOROUS 3.2 mg/dL (2.5-4.9); SGOT/AST 22 IU/L (3-35); SGPT/ALT 73 U/L (12-78); THYROID STIM HORMONE (HS) 0.287 uIU/ml (0.358-4.75); TOTAL PROTEIN 6.2 gm/dL (6.4-8.2); TRIGLYCERIDES 117 mg/dl (<150); VLDL CHOLESTEROL 23 mg/dL (6-40)
--- NOTE | 2019-08-19 07:36 | NUR ---
MEG JACK [id number] Please refer to the physician's history and physical for past medical history, comorbid conditions, and allergies. Diagnosis: COPD EXACERBATION Vincent Score: 16,AT RISK WOUND DESCRIPTIONS: Wound Number: 1 Location of the wound: right upper arm Type of wound: skin tear Thickness: Partial Size: 3.8cm x 3.5cm x 0.1cm Tunneling: none Undermining: none Sinus Tract: none Presence of Exudate: Serosanguineous Amount: Light Color: Red Odor: None Periwound Skin Appearance: Normal Wound edges: approximated Pain (associated with wound): none at time of assessment How does patient state this happened? pt stated this was from his fall Wound Number: 2 Location of the wound: right forearm Type of wound: skin tear Thickness: Partial Size: 2.1cm x 1.4cm x 0.1cm Tunneling: none Undermining: none Sinus Tract: none Presence of Exudate: Serosanguineous Amount: Light Color: Red Odor: None Periwound Skin Appearance: Normal Wound edges: approximated Pain (associated with wound): none at time of assessment How does patient state this happened? pt stated this was from his fall Wound Number: 3 Location of the wound: right great toe Type of wound: abrasion Thickness: Full Size: 2.5cm x 3.0cm x 0.1cm Tunneling: none Undermining: none Sinus Tract: none Presence of Exudate: Serosanguineous Amount: Light Color: Red, yellow Odor: None Periwound Skin Appearance: Normal Wound edges: approximated Pain (associated with wound): none at time of assessment How does patient state this happened? pt stated this was from his fall Wound Number: 4 Location of the wound: left forearm Type of wound: skin tear Thickness: Partial Size: 2.6cm x 3.5cm x 0.1cm Tunneling: none Undermining: none Sinus Tract: none Presence of Exudate: Serosanguineous Amount: Light Color: Red Odor: None Periwound Skin Appearance: Normal Wound edges: approximated Pain (associated with wound): none at time of assessment How does patient state this happened? pt stated this was from his fall Wound Number: 5 Location of the wound: right elbow Type of wound: scab Thickness: Partial Size: 5.3cm x 0.9cm x <0.1cm Tunneling: none Undermining: none Sinus Tract: none Presence of Exudate: none Amount: None Color: Brown, red Odor: None Periwound Skin Appearance: Normal Wound edges: approximated Pain (associated with wound): none at time of assessment How does patient state this happened? pt stated this was from his fall Wound Number: 6 Location of the wound: left forearm Type of wound: scab Thickness: Partial Size: 0.6cm x 1.2cm x <0.1cm Tunneling: none Undermining: none Sinus Tract: none Presence of Exudate: none Amount: None Color: Brown, red Odor: None Periwound Skin Appearance: Normal Wound edges: approximated Pain (associated with wound): none at time of assessment How does patient state this happened? pt stated this was from his fall Surface the patient is resting on: Isoflex SKIN PREVENTION RECOMMENDATION: 1. Pressure redistribution support surface as appropriate 2. Elevate heels 3. Remove boots/TEDS every shift and reapply 4. Head of bed 30 degrees as tolerated 5. Assess nutrition and hydration 6. Manage moisture 7. Avoid the use of containment devices while in bed 8. Use absorptive products on surfaces limit layers of linens on bed 9. Turn and reposition every 1-2 hours in bed and every 1 hour in chair as tolerated 10. Weight shifts every 15 minutes while up in chair 11. Offloading with pillows or device to keep heels elevated off bed 12. Monitor skin at least every shift 13. Inspect under medical devices twice a day WOUND TREATMENT RECOMMENDATIONS: Clarify skin tear guidelines: Cleanse right upper arm. right forearm, left forearm with nss and apply sureprep around the wound hydrogel to wound bed and cover with optifoam gentle. Full thickness guidelines: Cleanse right great toe with nss and apply sureprep around the wound therahoney to wound bed and cover with bandaid daily and prn for soiling. Patient wants to follow up in the wound care center next week same time as this week if able.
[2019-08-19 07:38] LABS: TOTAL CELLS COUNTED 100 #CELLS; TOXIC GRANULATION MODERATE
[2019-08-19 07:39] LABS: PLATELET SUFFICIENCY NORMAL (NORMAL); POLYCHROMASIA SLIGHT
--- NOTE | 2019-08-19 07:55 | NUR ---
PHYSICAL THERAPY Screen and PT eval received will follow Chantal Tapia PT
[2019-08-19 08:12] LABS: VITAMIN D, 25-HYDROXY 24.5 ng/mL (30-100)
--- NOTE | 2019-08-19 08:42 | NUR ---
Dr. Avila notified of wound care recommendations.
--- NOTE | 2019-08-19 08:49 | NUR ---
FOLLOW UP IN THE WOUND CARE CENTER WITH WANDER ESTEVEZ ON 08/26/19 AT 9:30AM CALL [phone] WITH ANY QUESTIONS OR CONCERNS
--- NOTE | 2019-08-19 09:00 | NUR ---
Game Tester in to talk to patient. Patient states lives at home with . There are few steps in the home. Physician: beto galloway [facility] Home health services: states doesn't remember what company Patient's level of ADLs: MINIMAL ASSIST Patient has working utilities: all working DME: cane, walker, wheelchair Follow-up physician's appointment after d/c: will be made by hospitalist nurse director upon discharge Does patient want to access PORTAL?: no Discharge plan discussed with patient, he lives at home with and daughter he uses a cane or walker for ambulation, he also has a wheelchair, he states he has home health but doesn't remember name of company, will contact patient's regarding this and to discuss a discharge plan, case management will follow. NERI CORBIN
[2019-08-19 12:00] VITALS: BP 165/69
--- NOTE | 2019-08-19 15:56 | NUR ---
Nursing screen received as well as occupational therapy orders. Will follow up with patient. Thank you. Lu Espinoza, OTR/L
[2019-08-19 16:00] VITALS: BP 149/70
[2019-08-19 20:00] VITALS: BP 145/58
[2019-08-20] VITALS: BP 134/62
[2019-08-20 07:07] LABS: BASO % 0.1 % (0.0-1.0); HEMATOCRIT 35.3 % (42.0-52.0); HEMOGLOBIN 11.9 g/dl (14.0-18.0); LYMPH # 0.6 10*3/uL (1.3-4.4); LYMPH % 6.3 % (27.0-41.0); MEAN CELL VOLUME 100.6 fl (80.0-94.0); MEAN CORPUSCULAR HGB 33.9 pg (27.0-31.0); MEAN CORPUSCULAR HGB CONC 33.7 g/dl (33.0-37.0); MEAN PLATELET VOLUME 9.6 fl (9.6-12.3); MONO # 0.5 10*3/uL (0.1-1.0); MONO % 5.6 % (3.0-9.0); NEUT # 8.1 10*3/uL (2.3-7.9); NEUT % 86.7 % (47.0-73.0); PLATELET COUNT AUTOMATED 257 10*3/uL (130-400); RED BLOOD COUNT 3.51 10*6/uL (4.50-5.90); RED CELL DISTRI WIDTH 15.2 % (0-14.5); WHITE BLOOD COUNT 9.4 10*3/uL (4.8-10.8)
[2019-08-20 07:44] LABS: CREATININE 1.44 mg/dL (0.70-1.30)
--- NOTE | 2019-08-20 08:15 | NUR ---
PHYSICAL THERAPY Screen and PT eval received will follow Chantal Tapia PT
--- NOTE | 2019-08-20 08:47 | NUR ---
MEG JACK [id number] Please refer to the physician's history and physical for past medical history, comorbid conditions, and allergies. Diagnosis: COPD EXACERBATION Vincent Score: 16,AT RISK WOUND DESCRIPTIONS: Patient has sling intact to left arm at time of assessment. Ecchymotic areas noted to left arm at time of assessment extending toward patient's neck. Patient stated he fell and has an open area underneath the sling. Unable to view at time of assessment due to sling intact. Ortho, PT/OT is consulted and pending at this time. Surface the patient is resting on: Isoflex SKIN PREVENTION RECOMMENDATION: 1. Pressure redistribution support surface as appropriate 2. Elevate heels 3. Remove boots/TEDS every shift and reapply 4. Head of bed 30 degrees as tolerated 5. Assess nutrition and hydration 6. Manage moisture 7. Avoid the use of containment devices while in bed 8. Use absorptive products on surfaces limit layers of linens on bed 9. Turn and reposition every 1-2 hours in bed and every 1 hour in chair as tolerated 10. Weight shifts every 15 minutes while up in chair 11. Offloading with pillows or device to keep heels elevated off bed 12. Monitor skin at least every shift 13. Inspect under medical devices twice a day WOUND TREATMENT RECOMMENDATIONS:
--- NOTE | 2019-08-20 09:00 | NUR ---
case management visits with patient, he will return home when home health company, no other needs at this time
[2019-08-20] MEDS ORDERED: PREDNISONE5 MG PO (10:17)
[2019-08-20] MEDS ORDERED: VITAMIN D32000 UNI1 PO (10:17)
[2019-08-20] MEDS ORDERED: LEVAQUIN750 M1 PO (10:17)
[2019-08-20] MEDS ORDERED: PREDNISONE10 MG PO (10:17)
[2019-08-20 12:00] VITALS: BP 142/70
--- NOTE | 2019-08-20 13:17 | NUR ---
PT REFUSED D/C PHOTOS BECAUSE DRESSING WERE COMPLETED THIS MORNING
--- NOTE | 2019-08-20 13:37 | NUR ---
Discharge instructions reviewed with patient/family. Patient receptive and verbalizes understanding. Follow-up care arranged. Written instructions given to patient/family. ROD GONSALVES
== END 2019-08-20 13:22 | disposition home or self-care (01) | DRG 871 ==
LOC: ED 17:10 → EDHOLD 18:47 → 4E 18:47
PROVIDERS: Emergency Medicine; Family Medicine; Internal Medicine; ADMIT Internal Medicine
DX: A41.9 Sepsis, unspecified organism (principal); J18.9 Pneumonia, unspecified organism; N17.0 Acute kidney failure with tubular necrosis; E43 Unspecified severe protein-calorie malnutrition; J44.1 Chronic obstructive pulmonary disease with (acute) exacerbation; E87.1 Hypo-osmolality and hyponatremia; I48.20 Chronic atrial fibrillation, unspecified; D68.59 Other primary thrombophilia; N39.0 Urinary tract infection, site not specified; M06.9 Rheumatoid arthritis, unspecified; K21.9 Gastro-esophageal reflux disease without esophagitis; I10 Essential (primary) hypertension; E11.65 Type 2 diabetes mellitus with hyperglycemia; E66.3 Overweight; E78.5 Hyperlipidemia, unspecified; E11.42 Type 2 diabetes mellitus with diabetic polyneuropathy; M54.9 Dorsalgia, unspecified; D53.9 Nutritional anemia, unspecified; E83.41 Hypermagnesemia; R65.20 Severe sepsis without septic shock; J30.2 Other seasonal allergic rhinitis; B96.89 Other specified bacterial agents as the cause of diseases classified elsewhere; Z88.8 Allergy status to other drugs, medicaments and biological substances; Z91.040 Latex allergy status; Z87.891 Personal history of nicotine dependence; Z80.9 Family history of malignant neoplasm, unspecified; Z82.49 Family history of ischemic heart disease and other diseases of the circulatory system; Z79.899 Other long term (current) drug therapy; Z79.4 Long term (current) use of insulin; Z68.30 Body mass index [BMI] 30.0-30.9, adult; Z86.73 Personal history of transient ischemic attack (TIA), and cerebral infarction without residual deficits; Z85.46 Personal history of malignant neoplasm of prostate; Z86.718 Personal history of other venous thrombosis and embolism; Z79.01 Long term (current) use of anticoagulants

== ENCOUNTER 2019-09-27 20:35 | Emergency (ER) | payer OTHER ==
[~2019-09-27] VITALS: Ht 180.3 cm; Wt 94.3 kg
[~2019-09-27 20:35] MED LIST changes: +ADVAIR 250/501 EA INH; +ASPIR LOW81 MG PO; +ELIQUIS5 M1 PO; +FUROSEMIDE40 MG PO; +GOOD NEIGHBOR L10 MG PO; +LEVAQUIN750 M1 PO; +NOVOLOG100 UNIT/1 SQ; +OXYBUTYNIN10 MG PO; +PLAVIX75 M1 PO; +VENTOLIN 02.5 MG/3 M NEB; +VITAMIN D32000 UNI1 PO
[2019-09-27 20:55] LABS: BASO % 0.2 % (0.0-1.0); EOS % 0.2 % (1.0-4.0); HEMATOCRIT 32.3 % (42.0-52.0); LYMPH # 1.7 10*3/uL (1.3-4.4); LYMPH % 21.5 % (27.0-41.0); MEAN CELL VOLUME 103.5 fl (80.0-94.0); MEAN CORPUSCULAR HGB 35.3 pg (27.0-31.0); MEAN CORPUSCULAR HGB CONC 34.1 g/dl (33.0-37.0); MEAN PLATELET VOLUME 10.6 fl (9.6-12.3); MONO # 0.6 10*3/uL (0.1-1.0); MONO % 6.8 % (3.0-9.0); NEUT # 5.7 10*3/uL (2.3-7.9); NEUT % 70.1 % (47.0-73.0); PLATELET COUNT AUTOMATED 283 10*3/uL (130-400); RED BLOOD COUNT 3.12 10*6/uL (4.50-5.90); RED CELL DISTRI WIDTH 16.7 % (0-14.5); WHITE BLOOD COUNT 8.1 10*3/uL (4.8-10.8)
[2019-09-27 21:05] LABS: ACT PARTIAL THROMBO TIME 24.2 SECONDS (20.0-32.1); INTERNATIONAL NORM RATIO 0.9 (2.0-3.5)
[2019-09-27 21:12] LABS: ALBUMIN 2.7 gm/dl (3.1-4.5); ALKALINE PHOSPHATASE 74 U/L (45-117); BUN 22 mg/dl (7-24); CHLORIDE 103 mmol/L (98-107); CREATININE 1.43 mg/dL (0.70-1.30); POTASSIUM 4.9 mmol/L (3.5-5.1); SGOT/AST 67 IU/L (3-35); SGPT/ALT 46 U/L (12-78); SODIUM 137 mmol/L (136-145)
[2019-09-27 21:15] LABS: TROPONIN I < 0.015 ng/ml (<0.045)
[2019-09-28 00:34] LABS: BILIRUBIN NEGATIVE (NEGATIVE); BLOOD NEGATIVE (NEGATIVE); CLARITY CLEAR (CLEAR); COLOR YELLOW (YELLOW); GLUCOSE NEGATIVE (NEGATIVE); KETONE NEGATIVE (NEGATIVE); LEUKO ESTERASE NEGATIVE (NEGATIVE); NITRITE NEGATIVE (NEGATIVE); UROBILINOGEN 0.2 E.U./dl (0.2-1.0)
[2019-09-28 00:42] LABS: WBC 0-2 wbc/hpf (0-5)
== END 2019-09-28 02:38 | disposition other institution (70) ==
LOC: ED 20:35
PROVIDERS: Emergency Medicine Emergency Medical Services
DX: J44.9 Chronic obstructive pulmonary disease, unspecified (principal); R41.81 Age-related cognitive decline; I10 Essential (primary) hypertension; E78.1 Pure hyperglyceridemia; G62.9 Polyneuropathy, unspecified; I48.0 Paroxysmal atrial fibrillation; E11.40 Type 2 diabetes mellitus with diabetic neuropathy, unspecified; Z88.8 Allergy status to other drugs, medicaments and biological substances; Z91.040 Latex allergy status; Z79.899 Other long term (current) drug therapy; Z79.2 Long term (current) use of antibiotics; Z86.73 Personal history of transient ischemic attack (TIA), and cerebral infarction without residual deficits; Z87.891 Personal history of nicotine dependence

== ENCOUNTER 2019-10-11 12:57 | Inpatient (IN) | payer OTHER ==
[~2019-10-11] VITALS: Ht 180.3 cm; Wt 94.9 kg
[2019-10-11 13:07] VITALS: BP 112/76
[2019-10-11 13:36] LABS: HEMATOCRIT 34.6 % (42.0-52.0); HEMOGLOBIN 11.2 g/dl (14.0-18.0); MEAN CELL VOLUME 108.1 fl (80.0-94.0); MEAN CORPUSCULAR HGB CONC 32.4 g/dl (33.0-37.0); MEAN PLATELET VOLUME 9.2 fl (9.6-12.3); PLATELET COUNT AUTOMATED 251 10*3/uL (130-400); RED CELL DISTRI WIDTH 15.5 % (0-14.5); WHITE BLOOD COUNT 6.2 10*3/uL (4.8-10.8)
[2019-10-11 13:46] LABS: ACT PARTIAL THROMBO TIME 26.5 SECONDS (20.0-32.1); INTERNATIONAL NORM RATIO 0.9 (2.0-3.5)
[2019-10-11 13:50] LABS: ALBUMIN 2.8 gm/dl (3.1-4.5); ALKALINE PHOSPHATASE 69 U/L (45-117); BUN 13 mg/dl (7-24); CHLORIDE 107 mmol/L (98-107); CREATININE 1.21 mg/dL (0.70-1.30); POTASSIUM 3.7 mmol/L (3.5-5.1); SGOT/AST 12 IU/L (3-35); SGPT/ALT 33 U/L (12-78); SODIUM 142 mmol/L (136-145); TOTAL PROTEIN 5.9 gm/dL (6.4-8.2)
[2019-10-11 13:55] LABS: PLATELET SUFFICIENCY NORMAL (NORMAL); TOTAL CELLS COUNTED 100 #CELLS
[2019-10-11 14:50] VITALS: BP 116/70
--- NOTE | 2019-10-11 15:00 | NUR ---
SKIN TEAR TO LEFT ARM BELOW ELBOW PHOTOGRAPHED, PER PT NO WOUNDS TO BUTTOCK AREA, MULTIPLE INTACT SCAB AREAS NOTED TO BILATERAL ARMS AND LOWER EXTREMITITES.
--- NOTE | 2019-10-11 15:45 | NUR ---
Time: 1544 A 79 year old MALE admitted to 5E under services of MAYNOR TOMAS DO. Pt. arrived via bed from ER. Chief complaint: ANAL BLEEDING. ATUL RALPH
[2019-10-11 16:08] VITALS: BP 129/71
[2019-10-11] MEDS ORDERED: COLACE100 MG PO (16:19)
[2019-10-11] MEDS ORDERED: HUMALOG100 UNIT/2 SC (16:23)
[2019-10-11] MEDS ORDERED: OCEAN104 ML NAS (16:25)
--- NOTE | 2019-10-11 18:04 | NUR ---
PHYSICIAN WAS NOTIFIED OF DR. STONE CONSULT. RESPONSE OF NOTIFICATION WAS DR MURILLO STATED SHE WILL SEE TOMORROW AND NEW ORDERS FOR B/L LE ARTERIAL US AND XRAY LEFT FOOT.. ATUL RALPH
--- NOTE | 2019-10-11 18:08 | NUR ---
PHYSICIAN WAS NOTIFIED OF DR. NUNEZ CONSULT. RESPONSE OF NOTIFICATION WAS CALL HIM WITH RESULTS OF H&H TONIGHT AT 1999. ATUL RALPH
[2019-10-11 19:22] LABS: HEMATOCRIT 33.1 % (42.0-52.0); HEMOGLOBIN 10.5 g/dl (14.0-18.0)
--- NOTE | 2019-10-11 19:25 | NUR ---
ARRIVED ON SHIFT, INTRODUCED TO PATIENT AND FAMILY, BED IN LOW POSITION, WHEEL LOCKS INGAGED, BED ALARM ON, NO NEEDS VOICED AT THIS TIME, WHITE BOARD UPDATED.
--- NOTE | 2019-10-11 19:40 | NUR ---
CALL PLACED TO DR. NUNEZ, REVIEWED H&H RESULTS OF 10.5/33.1 ORDER RECEIVED TO REPEAT IN AM AND CALL DR. NUNEZ WITH RESULTS.
[2019-10-11 20:00] VITALS: BP 122/69; BP 128/70
--- NOTE | 2019-10-11 20:44 | NUR ---
24 HR chart check completed.
[2019-10-12] VITALS: BP 118/57
[2019-10-12 06:29] LABS: HEMATOCRIT 27.2 % (42.0-52.0); HEMOGLOBIN 8.7 g/dl (14.0-18.0); MEAN CELL VOLUME 109.7 fl (80.0-94.0); MEAN CORPUSCULAR HGB 35.1 pg (27.0-31.0); MEAN PLATELET VOLUME 9.2 fl (9.6-12.3); PLATELET COUNT AUTOMATED 213 10*3/uL (130-400); RED BLOOD COUNT 2.48 10*6/uL (4.50-5.90); RED CELL DISTRI WIDTH 15.8 % (0-14.5)
[2019-10-12 06:42] LABS: ACT PARTIAL THROMBO TIME 25.6 SECONDS (20.0-32.1); INTERNATIONAL NORM RATIO 0.9 (2.0-3.5)
[2019-10-12 07:13] LABS: ALBUMIN 2.4 gm/dl (3.1-4.5); BUN 13 mg/dl (7-24); CHLORIDE 111 mmol/L (98-107); CHOLESTEROL 161 mg/dL (<200); CREATININE 0.94 mg/dL (0.70-1.30); FREE T4 1.03 ng/dl (0.76-1.46); POTASSIUM 4.2 mmol/L (3.5-5.1); SGOT/AST 11 IU/L (3-35); SGPT/ALT 26 U/L (12-78); SODIUM 144 mmol/L (136-145); TOTAL PROTEIN 4.8 gm/dL (6.4-8.2); TRIGLYCERIDES 165 mg/dl (<150); VLDL CHOLESTEROL 33 mg/dL (6-40)
[2019-10-12 07:22] LABS: ALKALINE PHOSPHATASE 54 U/L (45-117); HDL CHOLESTEROL 38 mg/dl (40-60); LDL CHOLESTEROL 90 mg/dL (9-159); PHOSPHOROUS 3.7 mg/dL (2.5-4.9); THYROID STIM HORMONE (HS) 0.689 uIU/ml (0.358-4.75)
[2019-10-12 07:24] LABS: PLATELET SUFFICIENCY NORMAL (NORMAL); POLYCHROMASIA SLIGHT; TOTAL CELLS COUNTED 100 #CELLS
[2019-10-12 07:31] LABS: VITAMIN D, 25-HYDROXY 35.2 ng/mL (30-100)
--- NOTE | 2019-10-12 07:55 | NUR ---
CALLED DR NUNEZ AND NOTIFIED OF H&H RESULTS. ORDERS RECEIVED FOR H&H AT 6PM AND CALL WITH RESULTS.
[2019-10-12 08:00] VITALS: BP 110/66
[2019-10-12 11:48] LABS: EOS % 0.3 % (1.0-4.0); HEMATOCRIT 28.6 % (42.0-52.0); HEMOGLOBIN 9.1 g/dl (14.0-18.0); LYMPH # 1.1 10*3/uL (1.3-4.4); LYMPH % 13.9 % (27.0-41.0); MEAN CELL VOLUME 107.9 fl (80.0-94.0); MEAN CORPUSCULAR HGB 34.3 pg (27.0-31.0); MEAN CORPUSCULAR HGB CONC 31.8 g/dl (33.0-37.0); MEAN PLATELET VOLUME 9.2 fl (9.6-12.3); MONO # 0.5 10*3/uL (0.1-1.0); MONO % 6.5 % (3.0-9.0); NEUT % 78.3 % (47.0-73.0); PLATELET COUNT AUTOMATED 235 10*3/uL (130-400); RED BLOOD COUNT 2.65 10*6/uL (4.50-5.90); RED CELL DISTRI WIDTH 15.8 % (0-14.5); WHITE BLOOD COUNT 7.7 10*3/uL (4.8-10.8)
[2019-10-12 12:00] VITALS: BP 107/95
[2019-10-12 16:00] VITALS: BP 130/81
[2019-10-12 18:30] LABS: HEMATOCRIT 24.9 % (42.0-52.0)
--- NOTE | 2019-10-12 18:50 | NUR ---
DR NUNEZ CALLED WITH HH RESULTS, NEW ORDERS RECEIVED
--- NOTE | 2019-10-12 18:58 | NUR ---
PT AND FAMILY NOTIFIED OF ORDERS FOR BLOOD TRANSFUSION. PT AGREEABLE.
[2019-10-12 20:00] VITALS: BP 115/80
--- NOTE | 2019-10-12 20:08 | NUR ---
24 HR chart check completed.
--- NOTE | 2019-10-12 20:55 | NUR ---
Patient is AAOX3 resting in bed with easy and regular respers on 2L O2 via NC. Assessment is complete with no c/o or s/s of distress noted at this time. Bed is low, locked, alarmed, and call light is within reach. Will continue to monitor, see shift assessment.
--- NOTE | 2019-10-12 23:00 | NUR ---
ASSUMED CARE FOR THIS PT AT THIS TIME. PT RESTING QUIETLY IN BED W/EYES CLOSED. MOIST CORRECTIONS SERGEANT COUGH NOTED. SKIN PALE/WARM/DRY W/MULTIPLE SKIN TEARS & ECCHYMOTIC AREAS. GENERALIZED PITTING. TUBIGRIPS TO ALL EXTREMETIES INTACT. PT DENIES PAIN & NO S/S OF DISTRESS NOTED. CALL LIGHT IN REACH W/BED ALARM ON.
[2019-10-13] VITALS (13 sets, daily range): BP systolic 93–163; BP diastolic 49–81
[2019-10-13 00:55] LABS: BASO % 0.2 % (0.0-1.0); EOS % 0.2 % (1.0-4.0); HEMATOCRIT 24.7 % (42.0-52.0); HEMOGLOBIN 7.7 g/dl (14.0-18.0); LYMPH # 0.8 10*3/uL (1.3-4.4); LYMPH % 16.6 % (27.0-41.0); MEAN CELL VOLUME 107.4 fl (80.0-94.0); MEAN CORPUSCULAR HGB 33.5 pg (27.0-31.0); MEAN CORPUSCULAR HGB CONC 31.2 g/dl (33.0-37.0); MEAN PLATELET VOLUME 9.7 fl (9.6-12.3); MONO # 0.3 10*3/uL (0.1-1.0); MONO % 5.8 % (3.0-9.0); NEUT # 3.6 10*3/uL (2.3-7.9); NEUT % 76.1 % (47.0-73.0); PLATELET COUNT AUTOMATED 194 10*3/uL (130-400); RED CELL DISTRI WIDTH 15.6 % (0-14.5); WHITE BLOOD COUNT 4.7 10*3/uL (4.8-10.8)
--- NOTE | 2019-10-13 06:53 | NUR ---
MEG JACK [id number] Please refer to the physician's history and physical for past medical history, comorbid conditions, and allergies. Diagnosis: GI BLEED Vincent Score: 13,MODERATE RISK WOUND DESCRIPTIONS: Wound Number: 1 Location of the wound: Left elbow proximal Type of wound: Skintear Thickness: Partial Size: 1.0CM X 1.0CM X 0.1CM Tunneling: none Undermining: none Sinus Tract: none Presence of Exudate: Serosanguineous Amount: Light Color: Red Odor: None Periwound Skin Appearance: Normal Wound edges: approximated Pain (associated with wound): none at time of assessment How does patient state this happened? pt stated he hit his arm on the bathroom door Wound Number: 2 Location of the wound: Left elbow distal Type of wound: Skintear Thickness: Partial Size: 2.7CM X 1.8CM X 0.1CM Tunneling: none Undermining: none Sinus Tract: none Presence of Exudate: Serosanguineous Amount: Light Color: Red Odor: None Periwound Skin Appearance: Normal Wound edges: approximated Pain (associated with wound): none at time of assessment How does patient state this happened? pt stated he hit his arm on the bathroom door Wound Number: 3 Location of the wound: Left lower extremity Type of wound: Scattered scabs areas Thickness: Partial Size: 11.4CM X 3.0CM X <0.1CM Tunneling: none Undermining: none Sinus Tract: none Presence of Exudate: none Amount: none Color: Red, brown Odor: None Periwound Skin Appearance: Normal Wound edges: erythema Pain (associated with wound): none at time of assessment How does patient state this happened? pt stated he has had these areas for quite sometime and follows with Dr. Gallardo Wound Number: 4 Location of the wound: right great toe lateral Type of wound: unstageable Thickness: Full Size: 0.6CM X 1.4CM X <0.1CM Tunneling: none Undermining: none Sinus Tract: none Presence of Exudate: none Amount: none Color: brown, yellow Odor: None Periwound Skin Appearance: Normal Wound edges: approximated Pain (associated with wound): none at time of assessment How does patient state this happened? pt stated he has had these areas for quite sometime and follows with Dr. Gallardo Wound Number: 5 Location of the wound: Right 3rd toe lateral aspect Type of wound: unstagable Thickness: Full Size: 0.3CM X 0.5CM X 0.1CM Tunneling: none Undermining: none Sinus Tract: none Presence of Exudate: Serosanguineous Amount: Light Color: Red, yellow Odor: None Periwound Skin Appearance: Erythema Wound edges: approximated Pain (associated with wound): none at time of assessment How does patient state this happened? pt stated he has had these areas for quite sometime and follows with Dr. Gallardo Intact scabs areas noted to bilateral upper extremities. No open areas at time of assessment. No drainage noted at time of assessment. Left foot ecchymotic areas noted at time of assessment. No open areas noted at time of assessment. No drainage noted at time of assessment. Patient stated he loss the fight with his walker and tripped and fell a couple of weeks ago. Surface the patient is resting on: Isoflex SKIN PREVENTION RECOMMENDATION: 1. Pressure redistribution support surface as appropriate 2. Elevate heels 3. Remove boots/TEDS every shift and reapply 4. Head of bed 30 degrees as tolerated 5. Assess nutrition and hydration 6. Manage moisture 7. Avoid the use of containment devices while in bed 8. Use absorptive products on surfaces limit layers of linens on bed 9. Turn and reposition every 1-2 hours in bed and every 1 hour in chair as tolerated 10. Weight shifts every 15 minutes while up in chair 11. Offloading with pillows or device to keep heels elevated off bed 12. Monitor skin at least every shift 13. Inspect under medical devices twice a day WOUND TREATMENT RECOMMENDATIONS: Heel raiser pro boots to bilateral feet while in bed. Elbow protector to bilateral elbows for protection. Cleanse right lateral aspect of great toe and right 3rd toe lateral aspect with betadine and cover area with dsd daily and prn for soiling. Continue skin tear guidelines to left elbow. Arterial studies ordered but not completed at this time. Podiatry is already on consult and will follow when discharge pt states already has appointment Patient states he will care for the skin tears when he returns home and doesn't want to follow up in an outpatient setting at this time. Patient states he follow with Dr. Gallardo outpatient.
--- NOTE | 2019-10-13 07:05 | NUR ---
ARRIVED ON SHIFT, INTRODUCED TO PATIENT, BED IN LOW POSITION, WHEEL LOCKS ENGAGED, SR UP X 2 FOR TURNING AND REPOSITIONING, CALL LIGHT WITHIN REACH, NO NEEDS VOICED AT THIS TIME. WHITE BOARD UPDATED.
[2019-10-13 07:08] LABS: EOS % 0.6 % (1.0-4.0); HEMATOCRIT 28.1 % (42.0-52.0); HEMOGLOBIN 9.2 g/dl (14.0-18.0); LYMPH # 1.3 10*3/uL (1.3-4.4); MEAN CELL VOLUME 102.6 fl (80.0-94.0); MEAN CORPUSCULAR HGB 33.6 pg (27.0-31.0); MEAN CORPUSCULAR HGB CONC 32.7 g/dl (33.0-37.0); MONO # 0.4 10*3/uL (0.1-1.0); MONO % 8.5 % (3.0-9.0); NEUT # 3.1 10*3/uL (2.3-7.9); NEUT % 63.5 % (47.0-73.0); PLATELET COUNT AUTOMATED 190 10*3/uL (130-400); RED BLOOD COUNT 2.74 10*6/uL (4.50-5.90); RED CELL DISTRI WIDTH 16.7 % (0-14.5); WHITE BLOOD COUNT 4.9 10*3/uL (4.8-10.8)
[2019-10-13 07:19] LABS: BUN 12 mg/dl (7-24); CHLORIDE 106 mmol/L (98-107); POTASSIUM 4.1 mmol/L (3.5-5.1); SODIUM 140 mmol/L (136-145)
[2019-10-13 07:22] LABS: CREATININE 0.94 mg/dL (0.70-1.30)
--- NOTE | 2019-10-13 08:50 | NUR ---
CALLED DR. NUNEZ ADVISED OF CURRENT H/H RESULTS OF .10/03.1
--- NOTE | 2019-10-13 08:52 | NUR ---
Shift chart check completed.
--- NOTE | 2019-10-13 09:00 | NUR ---
Railway Track Worker in to see patient. He is sitting up in bed eating breakfast. and family are at his bedside. He states he is short term at [facility] and plans to return there upon discharge. When medically stable he will be discharged to [facility]. animal care service worker following.
--- NOTE | 2019-10-13 09:41 | NUR ---
PHYSICAL THERAPY Screen and PT eval received will follow thank you. Chantal Tapia PT
--- NOTE | 2019-10-13 10:41 | NUR ---
Dr. Booker notified of wound care recommendations. Dr. Booker states to leave printouts in the Hospitalist office.
--- NOTE | 2019-10-13 10:45 | NUR ---
Patient not available for occupational therapy as he is in need of nursing care. DEVELOPER EVANGELIST informed. OTR will recheck at a later time. Sydni Riggins OTR/
--- NOTE | 2019-10-13 10:45 | NUR ---
PHYSICAL THERAPY Attempted to see pt for evaluation needing assist/nursing care. Care attendants notified will follow later in the day. Chantal Tapia PT
--- NOTE | 2019-10-13 11:03 | NUR ---
SOCIAL WORKER PALLIATIVE CARE spoke with [facility]. They will take patient back. Updates faxed to [facility] on this date. SOCIAL WORKER PALLIATIVE CARE will continue to follow and address needs as they arise.
--- NOTE | 2019-10-13 11:30 | NUR ---
Occupational Therapy evaluation completed on 5 with full evaluation to follow. Recommend occupational therapy per plan of care and SNF upon discharge. Thank you for this referral. Sydni Riggins OTR/l
--- NOTE | 2019-10-13 11:40 | NUR ---
Physical Therapy evaluation completed with full evaluation to follow. Recommend physical therapy per plan of care and SNF upon discharge. Thank you for this referral. Chantal Tapia PT
--- NOTE | 2019-10-13 13:40 | NUR ---
PHYSICAL THERAPY Patient seen this pm 1;1 for therapy visit and was sitting up in bedside chair upon therapist arrival. Patient identified by name / and presented with continuos O2-2L via NC. Patient request use of BSC and performed sit to stand from low chair surface, MOD A, use of wh walker standing support. Patient demonstrated very slow rise, needing v/c to improve B UE support. Patient MIN A to complete SPT to BSC secondary to increased difficulty picking his feet up and POOR walker safety / navigation. Patient also very impulsive transfering back to bedside chair, secondary to attempting transfer without therapist warning. Patient became very unsteady upon standing and while reaching for bedside chair armrest, experienced LOB x 1, requiring therapist immediate response to prevent risk of falling. When asking patient why he attempted transfer without assistance, patient became very confused and unable to respond. Patient was assisted safely back to bedside chair and remained with call light, tray table, telephone, body alarm for safety. Will continue per POC as tolerated, total treatment time 14 minutes. Sampson Cheema, WAREHOUSE TEAM MEMBER
--- NOTE | 2019-10-13 15:46 | NUR ---
Nursing screen and occupational therapy referral received. Thank you. Sydni Riggins OTR/l
--- NOTE | 2019-10-13 17:30 | NUR ---
RECEIVED CALL FROM DR. NUNEZ, HE CANCELED PATIENTS EGD FOR NOW, AND GAVE ORDERS FOR GERD DIET AND H&H IN AM AND CALL HIM WITH RESULTS.
[2019-10-14] VITALS: BP 125/76
[2019-10-14 04:00] VITALS: BP 148/80
--- NOTE | 2019-10-14 04:40 | NUR ---
24 HR chart check completed.
[2019-10-14 06:33] LABS: BASO % 0.1 % (0.0-1.0); EOS % 0.3 % (1.0-4.0); HEMATOCRIT 28.7 % (42.0-52.0); HEMOGLOBIN 9.5 g/dl (14.0-18.0); LYMPH # 0.9 10*3/uL (1.3-4.4); LYMPH % 13.2 % (27.0-41.0); MEAN CELL VOLUME 103.6 fl (80.0-94.0); MEAN CORPUSCULAR HGB 34.3 pg (27.0-31.0); MEAN CORPUSCULAR HGB CONC 33.1 g/dl (33.0-37.0); MEAN PLATELET VOLUME 9.4 fl (9.6-12.3); MONO # 0.4 10*3/uL (0.1-1.0); MONO % 5.2 % (3.0-9.0); NEUT # 5.4 10*3/uL (2.3-7.9); NEUT % 80.2 % (47.0-73.0); PLATELET COUNT AUTOMATED 221 10*3/uL (130-400); RED BLOOD COUNT 2.77 10*6/uL (4.50-5.90); RED CELL DISTRI WIDTH 16.5 % (0-14.5); WHITE BLOOD COUNT 6.7 10*3/uL (4.8-10.8)
[2019-10-14 07:03] LABS: BUN 12 mg/dl (7-24); CHLORIDE 105 mmol/L (98-107); CREATININE 1.02 mg/dL (0.70-1.30); PHOSPHOROUS 3.3 mg/dL (2.5-4.9); POTASSIUM 3.5 mmol/L (3.5-5.1); SODIUM 139 mmol/L (136-145)
[2019-10-14 08:00] VITALS: BP 141/57
--- NOTE | 2019-10-14 08:00 | NUR ---
Patient resting quietly with no c/o discomfort. Respirations easy and regular. Vital signs stable. No overt distress. AKASH MILLER
--- NOTE | 2019-10-14 09:30 | NUR ---
Tank Wagon Operator in to see patient. No new needs or request at this time. When medically stable and auth is received he will be discharged to [facility]. advertising layout worker following.
--- NOTE | 2019-10-14 09:55 | NUR ---
Nutritional Support Services Note: Pt advanced from a liquid diet to a bland liberal diet. Dx of a GI bleed. Multiple wounds noted. CBW: 209# Ht: 5'10. Recommended glucerna os TID w/ meals. Encourage good PO intakes to support wound healing. Will follow if needed. ROJELIO Sheikh email marketing intern
--- NOTE | 2019-10-14 10:24 | NUR ---
OT NOTE Pt was seen this A.M. 1:1 for 24 minute OT session. Upon arrival pt was supine in bed. Pt identfied by name and and had no complaints at this time. Pt presented to therapy with continuous 2L-O2 via NC which he remained on throughout the entire session. Pt transferred supine to sit EOB with SBA. While seated requested for pt to faviola B socks and pt was unable to complete task due to being unable to forward flex. Educated pt on compensatory technique of bringing his leg up to his knee level and pt was unable complete resulting in maxA for donning of B socks. Pt completed sit to stand transfer from bed level with Jonathan X 2 and use of w/w for UE support. Standing pivot then completed from the EOB to the recliner with Jonathan and use of w/w. Pt then completed multiple sit to stand transfers from chair level with modA X 2 and use of w/w for UE support. Challenged pt's static standing tolerance needed for increased I in self care tasks and functional transfers, pt was able to tolerate aprox 4 minutes then 1 minute before sitting due to fatigue. Standing pivot completed from the recliner <> bedside commode with Jonathan and use of w/w with constant verbal and tactile prompts for safety concerns. Clothing management completed with modA and toilet hygiene completed with Jonathan. Pt was left sitting upright in the recliner with call light in hand, tray table in place, and bed alarm activated for safety. Continue with rec D/C plan to return to SNF. CHARLY Jarquin/Yosi
--- NOTE | 2019-10-14 10:26 | NUR ---
PHYSICAL THERAPY TREATMENT TIME: 10:00 AM - 10:24 AM 24 MINUTES TOTAL Patient presented to therapy in supine with 2 liters of spO2 VIA NASAL CANULA and report of pain in the L foot/toe. Patient gives informed consent for treatment. Patient was identified by name and on wristband. Patient performed supine to sitting on EOB SBA. Patient sat on EOB with SBA. Patient completed sit to stand from EOB with MIN A X 2 and verbal cues for pushing off the bed with hands. Patient stood and SPT with CGA X 2 in front of bedside chair. Patient sat in bedside chair with MIN A X 1 and verbal cues for putting hands back on armrests of chair to slow descent into chair. Patient sit to stand out of bedside chair with MOD A X 2. Patient stood at Walker with CGA for 4 minutes total with verbal cues for upright posture and locking knees into extension to prevent knees from buckling. Patient sit to stand the 2 nd attempt with MOD A X 2 out of bedside chair. Patient stood for < 1 minute with CGA and then had to SPT to the bedside commode with MIN A X 2. Patient transferred sit to stand from BEDSIDE COMMODE with MOD A X 2. Patient SPT into bedside chair with MIN A X 2. Patient was left in bedside chair with call light within reach, chair alarm tested and attached to patient and LEs in low position. 02 connected to wall outlet with 3 liters of spO2. Patient was 1:1 with this STITCHER FEEDER for 24 minutes total. HAJA ALVAREZ STITCHER FEEDER
[2019-10-14 12:00] VITALS: BP 103/50
[2019-10-14 16:00] VITALS: BP 129/66
[2019-10-14 20:00] VITALS: BP 145/83
--- NOTE | 2019-10-14 20:00 | NUR ---
PT. HAS HAD MULTIPLE LOOSE BROWN STOOLS.
--- NOTE | 2019-10-14 22:00 | NUR ---
BLOOD SUGAR 205; COVERAGE PER EMAR.
[2019-10-15] VITALS (9 sets, daily range): BP systolic 91–152; BP diastolic 39–82
--- NOTE | 2019-10-15 00:30 | NUR ---
PT. HAS HAD SEVERAL MORE LOOSE BROWN STOOLS; INCONTINENT CARE PROVIDED.
--- NOTE | 2019-10-15 01:00 | NUR ---
PT. SET OFF BED ALARM; SOMEWHAT CONFUSED AT THIS TIME. REORIENTED & PT. LAID BACK DOWN IN BED. BED ALARM ON; BED IN LOW LOCKED POSITON. CALLL LIGHT WITHIN REACH.
--- NOTE | 2019-10-15 06:00 | NUR ---
FLEETS ENEMA GIVEN. PT. TOLERATED FAIR.
--- NOTE | 2019-10-15 06:15 | NUR ---
TAP WATER ENEMA GIVEN; PT. TOLERATED FAIR.
--- NOTE | 2019-10-15 06:43 | NUR ---
BLOOD SUGAR 146; NO COVERAGE REQUIRED. PT. IS NPO ALSO.
--- NOTE | 2019-10-15 08:00 | NUR ---
Patient resting quietly with no c/o discomfort. Respirations easy and regular. Vital signs stable. No overt distress. AKASH MILLER
[2019-10-15 08:39] LABS: BASO % 0.1 % (0.0-1.0); EOS % 0.1 % (1.0-4.0); HEMOGLOBIN 10.1 g/dl (14.0-18.0); LYMPH # 1.4 10*3/uL (1.3-4.4); LYMPH % 14.3 % (27.0-41.0); MEAN CELL VOLUME 104.4 fl (80.0-94.0); MEAN CORPUSCULAR HGB CONC 32.6 g/dl (33.0-37.0); MEAN PLATELET VOLUME 8.9 fl (9.6-12.3); MONO # 0.5 10*3/uL (0.1-1.0); MONO % 5.1 % (3.0-9.0); NEUT # 7.6 10*3/uL (2.3-7.9); NEUT % 79.9 % (47.0-73.0); PLATELET COUNT AUTOMATED 229 10*3/uL (130-400); RED BLOOD COUNT 2.97 10*6/uL (4.50-5.90); RED CELL DISTRI WIDTH 16.3 % (0-14.5); WHITE BLOOD COUNT 9.5 10*3/uL (4.8-10.8)
[2019-10-15 08:56] LABS: CHLORIDE 106 mmol/L (98-107); POTASSIUM 3.4 mmol/L (3.5-5.1); SODIUM 140 mmol/L (136-145)
[2019-10-15 09:04] LABS: ALBUMIN 2.7 gm/dl (3.1-4.5); ALKALINE PHOSPHATASE 66 U/L (45-117); BUN 9 mg/dl (7-24); SGOT/AST 10 IU/L (3-35); SGPT/ALT 26 U/L (12-78); TOTAL PROTEIN 5.6 gm/dL (6.4-8.2)
--- NOTE | 2019-10-15 09:11 | NUR ---
PHYSICAL THERAPY TREATMENT TIME: OUT 9:11 AM Patient presented to therapy in supine with head of bed elevated and bed alarm activated and report of bleeding from the rectum. Patient reports no pain. Patient was identified by name and on wristband. Patient gives informed consent for treatment. Patient performed supine to sitting at EOB with SBA. Patient sat on EOB with SBA. Patient sit to stand from EOB with MIN A X 2 and verbal cues for hand placement. Patient stand-pivot to in front of bedside chair with Wh Walker and CGA X 2. Patient stood at Walker and CGA for 1 MINUTE and then patient sat in bedside chair with MIN A X 2 with verbal cues for putting hands back on armrests of chair. Patient sit-stand from bedside chair with MOD A X 2 the 1st attempt and MIN A X 2 the 2nd attempt. Patient required verbal cues for pushing off armrests of chair with hands and upright posture upon standing. Patient Standing Tolerance the 1 st attempt for 1 minute and the second attempt for 30 seconds both with CGA X 2. Patient was left in bedside chair with chair alarm tested and attached to patient, call light within reach. Patient was 1:1 with this HEAD OF INTEGRATED MEDIA for 20 minutes. Patient O2 100% and pulse 103. Patient is on 2 liters of spO2. HAJA ALVAREZ HEAD OF INTEGRATED MEDIA
--- NOTE | 2019-10-15 09:11 | NUR ---
OT NOTE Pt was seen this A.M. 1:1 for 20 minute OT session. Upon arrival pt was supine in bed. Pt identified by name and and had no complaints at this time. Pt presented to therapy with continuous 2L-O2 via NC which he remained on throughout the entire session. Pt transferred supine to sit EOB with SBA. While sitting EOB pt donned B socks with modA. Sit to stand completed from bed level with Jonathan X 2 followed by standing pivot to the recliner with Jonathan and use of w/w. Pt then completed multiple sit to stand transfers from chair level with modA X 2 and use of w/w for UE support. Challenged pt's static standing tolerance needed for increased I in self care tasks and functional transfers, pt was able to tolerate aprox 60 seconds at a time before sitting due to fatigue. Pt was left sitting upright in the recliner with call light in hand, tray table in place, and body alarm activated for safety. Continue with rec D/ Cplan to return to SNF. CHARLY Jarquin/Yosi
--- NOTE | 2019-10-15 09:41 | NUR ---
PHYSICAL THERAPY TREATMENT TIME:09:43 AM Patient needed transferred back to supine in bed with assistance of KAI RAYMUNDO. Patient sit to stand from bedside chair with MOD A X 2. Patient SPT to sitting on EOB with MIN A X 2. Patient transferred back to supine in bed with SBA. HAJA ALVAREZ HEAD LIBRARIAN
--- NOTE | 2019-10-15 11:16 | NUR ---
GRAZYNA faxed updated to [place] for precert to return on this date.
[2019-10-15 17:33] LABS: BILIRUBIN NEGATIVE (NEGATIVE); BLOOD TRACE-LYSED (NEGATIVE); CLARITY SL CLOUDY (CLEAR); COLOR YELLOW (YELLOW); GLUCOSE NEGATIVE (NEGATIVE); KETONE NEGATIVE (NEGATIVE); LEUKO ESTERASE 3+ (NEGATIVE); NITRITE POSITIVE (NEGATIVE); PH 7.5 (5.0-9.0); UROBILINOGEN 0.2 E.U./dl (0.2-1.0)
[2019-10-15 17:34] LABS: BACTERIA 3+; MUCOUS 1+; RBC 0-2 rbc/hpf (0-2); WBC 51-100 wbc/hpf (0-5)
--- NOTE | 2019-10-15 18:34 | NUR ---
DR CEDILLO AWARE OF UA.
[2019-10-16] VITALS: BP 91/57
--- NOTE | 2019-10-16 04:40 | NUR ---
24 HR chart check completed.
[2019-10-16 08:00] VITALS: BP 123/79
--- NOTE | 2019-10-16 09:00 | NUR ---
R&D Engineer in to see patient. No new needs or request at this time. When medically stable and auth is received he will be discharged to [facility]. workers compensation administrator following.
--- NOTE | 2019-10-16 10:44 | NUR ---
OT NOTE Pt was seen this A.M. 1:1 for 20 minute OT session. Upon arrival pt was supine in bed. Pt identified by name and and had no complaints at this time other than generalied weakness and fatigue. Pt transferred supine to sit EOB with SBA. While sitting EOB pt donned B socks with maxA. Multiple sit to stand transfers completed from bed level with Jonathan X 2 and use of w/w for UE support. Challenged pt's static standing tolerance needed for increased I and enhanced endurance. Pt was able to tolerate aprox 2 minutes at a time before sitting due to fatigue. Standing pivot then completed from the EOB to the recliner with Jonathan and use of w/w. Pt required constant verbal prompts for safety concerns and slowing down due to being impulsive and increasing risk of falls. Pt was left sitting upright in the recliner with call light in hand, tray table in place, and body alarm activated for safety. COntinue with rec D/C plan to return to SNF. CHARLY Jarquin/Yosi
--- NOTE | 2019-10-16 10:46 | NUR ---
PHYSICAL THERAPY TREATMENT TIME: OUT 10:44 AM 20 MINUTES Patient presented to therapy in supine in bed still in isolation on 2 liters of spO2 via nasal canula. Patient gives informed consent for treatment. Patient was identified by name and on wristband. Patient performed supine to sitting transfer to EOB with SBA. Patient sat on EOB SBA. Patient completed sit to stand from EOB with MIN A X 2. Patient SPT with Wh Walker to bedside chair with CGA. Patient sat in bedside chair with SBA. Patient completed sit to stand from bedside chair with MIN A X 2. Patient performed standing tolerance 1st attempt for 2 minutes and 2 nd attmpt was recorded as 1 min 30 seconds. Patient was left in bedside chair with chair alarm tested and attached to patient, call light within reach and LEs in low position. Patient was 1:1 with this ENVIRONMENTAL INSPECTOR for 20 minutes total. HAJA ALVAREZ ENVIRONMENTAL INSPECTOR
[2019-10-16 12:00] VITALS: BP 120/70
--- NOTE | 2019-10-16 15:19 | NUR ---
Shift chart check completed.
[2019-10-16 16:00] VITALS: BP 138/69
[2019-10-16 20:00] VITALS: BP 120/71
[2019-10-17] VITALS: BP 128/74
[2019-10-17 08:00] VITALS: BP 112/84
--- NOTE | 2019-10-17 09:00 | NUR ---
Milk Runner in to see patient. No new needs or request at this time. When medically stable and auth is received he will be discharged to [facility]. transit survey worker following.
--- NOTE | 2019-10-17 09:49 | NUR ---
PHYSICAL THERAPY TREATMENT TIME: 09:15 AM - 09:32 AM 17 MINUTES TOTAL. Patient presented to therapy in supine in bed with head of bed elevated and bed alarm activated. Patient reports feeling a little better. Patient gives informed consent for treatment. Patient was identified by name and on wristband. Patient is on 2 liters of spO2 via nasal canula. Patient performed supine to sitting on EOB transfer with SBA. Patient sat on EOB SBA. Patient completed sit to stand from EOB with MIN A X 2. Patient standing tolerance at EOB with Wh Walker and CGA X 2 for 4 min 28 seconds. Patient required verbal cues for upright posture, pushing down on walker with hands, and locking knees into extension. Patient ambulated with Wh Walker and CGA with rolling chair follow for 34' x 1 with no LOB and fatigue caused patient to have to sit in chair. Patient sat in chair with CGA with verbal cues for putting hands back on armrests of chair to slow descent into chair. Patient's O2 SAT was recorded as 97% and pulse at 78 post ambulating. Patient was left in bedside chair with call light within reach, chair alarm tested and attached to patient and LEs in low position. Patient was 1:1 with this TAX ASSESSOR for 17 minutes total. HAJA ALVAREZ TAX ASSESSOR
--- NOTE | 2019-10-17 10:23 | NUR ---
OT NOTE PATIENT SEEN 1:1 OT THIS DATE. PATIENT IDENTIFIED BY NAME AND DATE OF . COMPLETED SUPINE TO SIT EOB CGA WITH USE RAIL AND INCREASE TIME. PATIENT COMPELTED GROOMING TASK SEATED EOB THIS DATE WASH FACE SBA AFTER STAPLETON. COMPLETED SIT TO STAND FROM BED MIN A WITH MIN VERBAL CUES SAFETY USE FWW WITH TURNS. PATIENT COMPLETED STAND TOLERANCE ACTIIVITY STATIC/DYNAMIC CGA USE FWW SUPPORT 4/12 MINUTES WITH FATIGUE NOTED AND NEED SEATED REST BREAK. PATIENT DEMONSTRATES INSTABILITY AND VERBAL CUES REQUIRED INCREASE BALANCE AND BASE OF SUPPORT WITH STANDING ACTIVITY USE FWW. PATIENT 02 SATS 97 % ON ROOM AIR. PATIENT SEATED IN RECLINER END OF SESSION THIS DATE. CALL LIGHT IN REACH AND CHAIR ALARM INTACT. CONTINUE TOWARDS PLAN OF CARE. COMPLETED 18 MINUTES OT THIS DATE. MEGAN COON
[2019-10-17 12:00] VITALS: BP 106/57
--- NOTE | 2019-10-17 15:17 | NUR ---
OCCUPATIONAL THERAPY CO-SIGN I approve of the Occupational Therapy notes written above. VIMAL RIGGS OTR/Yosi
--- NOTE | 2019-10-17 15:35 | NUR ---
Dr. Booker notified of receipt of auth on patient for return to [facility].
[2019-10-17] MEDS ORDERED: GABAPENTIN100 M2 PO (15:52)
[2019-10-17] MEDS ORDERED: KLOR-CON M2020 ME1 PO (15:52)
[2019-10-17] MEDS ORDERED: NITROFURANTOIN100 M9 PO (15:52)
[2019-10-17 16:00] VITALS: BP 147/73
--- NOTE | 2019-10-17 16:04 | NUR ---
PATIENT DISCHARGED TO RETURN TO [facility] VIA [facility] @ 6940. DC INFORMATION FAXED, [place], NURSING/MACHINE INSTALLER AND FAMILY NOTIFIED.
--- NOTE | 2019-10-17 16:11 | NUR ---
REPORT CALLED TO ORCHARDS
--- NOTE | 2019-10-17 16:58 | NUR ---
PT DISCHARGED AT THIS TIME VIA AMBULANCE. IV REMOVED AND PRESSURE DRESSING APPLIED.
--- NOTE | 2019-10-20 07:47 | NUR ---
OCCUPATIONAL THERAPY CO-SIGN I approve of the Occupational Therapy notes written above. ANIKA NELSON, OTR/L
--- NOTE | 2019-10-20 07:58 | NUR ---
PHYSICAL THERAPY CO-SIGN I approve of the Physical Therapy notes written above. Chantal Tapia PT
== END 2019-10-17 16:58 | disposition other institution (70) | DRG 380 ==
LOC: ED 12:57 → 5E 15:07 → EDHOLD 15:07 → 5E 15:25
PROVIDERS: Emergency Medicine; Hospitalist; Internal Medicine; Internal Medicine Gastroenterology; Student in an Organized Health Care Education/Training Program; ADMIT Internal Medicine
DX: K22.11 Ulcer of esophagus with bleeding (principal); E43 Unspecified severe protein-calorie malnutrition; N39.0 Urinary tract infection, site not specified; K29.71 Gastritis, unspecified, with bleeding; K57.31 Diverticulosis of large intestine without perforation or abscess with bleeding; D53.9 Nutritional anemia, unspecified; M06.9 Rheumatoid arthritis, unspecified; I10 Essential (primary) hypertension; I48.0 Paroxysmal atrial fibrillation; J44.9 Chronic obstructive pulmonary disease, unspecified; K44.9 Diaphragmatic hernia without obstruction or gangrene; K21.0 Gastro-esophageal reflux disease with esophagitis; K64.9 Unspecified hemorrhoids; E86.0 Dehydration; M21.612 Bunion of left foot; B96.89 Other specified bacterial agents as the cause of diseases classified elsewhere; R58 Hemorrhage, not elsewhere classified; I70.203 Unspecified atherosclerosis of native arteries of extremities, bilateral legs; E11.42 Type 2 diabetes mellitus with diabetic polyneuropathy; E78.2 Mixed hyperlipidemia; E78.1 Pure hyperglyceridemia; M19.072 Primary osteoarthritis, left ankle and foot; M19.071 Primary osteoarthritis, right ankle and foot; M81.0 Age-related osteoporosis without current pathological fracture; E11.65 Type 2 diabetes mellitus with hyperglycemia; Z79.4 Long term (current) use of insulin; Z86.718 Personal history of other venous thrombosis and embolism; Z91.040 Latex allergy status; Z91.09 Other allergy status, other than to drugs and biological substances; Z88.8 Allergy status to other drugs, medicaments and biological substances; Z86.73 Personal history of transient ischemic attack (TIA), and cerebral infarction without residual deficits; Z91.81 History of falling; Z87.01 Personal history of pneumonia (recurrent); Z85.46 Personal history of malignant neoplasm of prostate; Z92.3 Personal history of irradiation; Z87.891 Personal history of nicotine dependence; Z80.8 Family history of malignant neoplasm of other organs or systems; Z83.3 Family history of diabetes mellitus; Z82.49 Family history of ischemic heart disease and other diseases of the circulatory system; Z79.82 Long term (current) use of aspirin; Z79.899 Other long term (current) drug therapy; Z79.02 Long term (current) use of antithrombotics/antiplatelets; Z68.29 Body mass index [BMI] 29.0-29.9, adult

== ENCOUNTER 2019-12-31 06:58 | Inpatient (IN) | payer OTHER ==
[2019-12-31] VITALS (8 sets, daily range): BP systolic 96–147; BP diastolic 57–80
[~2019-12-31] VITALS: Ht 180 cm; Wt 97.2 kg
[~2019-12-31 06:58] MED LIST changes: +COLACE100 MG PO; +HUMALOG100 UNIT/2 SC; +KLOR-CON M2020 ME1 PO; +NITROFURANTOIN100 M9 PO; +OCEAN104 ML NAS
[2019-12-31 07:33] LABS: HEMATOCRIT 36.7 % (42.0-52.0); MEAN CELL VOLUME 93.6 fl (80.0-94.0); MEAN CORPUSCULAR HGB 31.1 pg (27.0-31.0); MEAN CORPUSCULAR HGB CONC 33.2 g/dl (33.0-37.0); MEAN PLATELET VOLUME 8.6 fl (9.6-12.3); PLATELET COUNT AUTOMATED 249 10*3/uL (130-400); RED BLOOD COUNT 3.92 10*6/uL (4.50-5.90); RED CELL DISTRI WIDTH 15.4 % (0-14.5)
[2019-12-31 07:44] LABS: BILIRUBIN NEGATIVE (NEGATIVE); BLOOD 3+ (NEGATIVE); CLARITY SL CLOUDY (CLEAR); COLOR YELLOW (YELLOW); GLUCOSE NEGATIVE (NEGATIVE); KETONE NEGATIVE (NEGATIVE); LEUKO ESTERASE 2+ (NEGATIVE); NITRITE POSITIVE (NEGATIVE); SPECIFIC GRAVITY 1.015 (1.005-1.030); UROBILINOGEN 0.2 E.U./dl (0.2-1.0)
[2019-12-31 07:46] LABS: ACT PARTIAL THROMBO TIME 24.4 SECONDS (20.0-32.1)
[2019-12-31 07:47] LABS: ALBUMIN 3.3 gm/dl (3.1-4.5); ALKALINE PHOSPHATASE 60 U/L (45-117); BUN 21 mg/dl (7-24); CHLORIDE 106 mmol/L (98-107); CREATININE 1.35 mg/dL (0.70-1.30); SGOT/AST 11 IU/L (3-35); SGPT/ALT 25 U/L (12-78); SODIUM 139 mmol/L (136-145); TOTAL PROTEIN 6.4 gm/dL (6.4-8.2)
[2019-12-31 07:48] LABS: TROPONIN I < 0.015 ng/ml (<0.045)
--- NOTE | 2019-12-31 07:56 | NUR ---
CRITICAL LAB LACTIC ACID 3.6 DR FERNANDEZ NOTIFIED
[2019-12-31 08:04] LABS: PLATELET SUFFICIENCY NORMAL (NORMAL); TOTAL CELLS COUNTED 100 #CELLS
--- NOTE | 2019-12-31 08:41 | NUR ---
RAPID COVID TEST NEGATIVE
[2019-12-31 08:47] LABS: BACTERIA 3+; RBC TNTC rbc/hpf (0-2); WBC 51-100 wbc/hpf (0-5)
--- NOTE | 2019-12-31 10:40 | NUR ---
PT TRANSPORTED TO [facility] BY THE PC SUPPORT SPECIALIST, REPORT WAS CALLED TO PRINCE HILTON.
--- NOTE | 2019-12-31 11:45 | NUR ---
[facility], admitted to , under the services of FABIO Gamboa DO with a diagnosis of UTI. Chief complaint is DENIES C/O AT THIS TIME. Patient arrived via bed from ER. Monitor applied. Initial assessment completed. Vital signs taken and recorded. FABIO GAMBOA DO notified of admission to the unit. Orders received. See assessment for past medical history, medications and allergies. Patient and/or family oriented to unit. [facility] ICCU visitation policy reviewed. Clothing/patient valuable form completed. PRINCE GARCIA L
--- NOTE | 2019-12-31 12:17 | NUR ---
PATIENT IS FROM [facility] AND WILL REQUIRE PRECERT TO RETURN.
--- NOTE | 2019-12-31 13:30 | NUR ---
NOTIFIED DR. ROCHE OF CRITICAL LAB VALUE.
--- NOTE | 2019-12-31 15:58 | NUR ---
NOTIFIED DR MONTES DE OCA OF PT'S BP.
--- NOTE | 2019-12-31 16:05 | NUR ---
WAS NOTIFIED BY PA OF PT'S BP. I WENT TO CHECK PT'S BP MANUALLY. PT NOTED WITH SEVERE RIGGERS. MANUAL BP TAKEN 190/10. NOTIFIED DR. MONTES DE OCA.
--- NOTE | 2019-12-31 16:20 | NUR ---
RECTAL TEMP OF 100.9, DR. MORE AWARE.
--- NOTE | 2019-12-31 16:26 | NUR ---
TYLENOL SUPP. GIVEN. WILL MONITOR.
--- NOTE | 2019-12-31 17:08 | NUR ---
LÓPEZ CATH PLACED AND RECIEVED 400 CC DARK TEA COLORED URINE.
--- NOTE | 2019-12-31 17:15 | NUR ---
PT TAKEN TO ICCU, REPORT TO GIVEN.
--- NOTE | 2019-12-31 17:26 | NUR ---
ARRIVED VIA BED FROM . REPORT FROM PRINCE GARCIA. SEE ALL APPROPRIATE INTERVENTIONS.
--- NOTE | 2019-12-31 18:05 | NUR ---
PT TACHYPNEIC AND TACHYCARDIC, HR 130'S, RR MID 40'S. PULSE OX 95% ON 5L/NC. ATTEMPTED TO GIVE HIM HIS ORAL LOPRESSOR AND SINGULAIR BUT HE SPIT THEM BACK OUT.
--- NOTE | 2019-12-31 18:26 | NUR ---
DR ABERNATHY WALKED INTO ICCU. INFORMED HER OF PT SPITTING OUT THE LOPRESSOR. SHE SAID HIS TACHYPNEA AND TACHYCARDIA ARE UNCHANGED FROM WHEN HE WAS ON IMC. ORDERS RECEIVED FOR IV LOPRESSOR.
[2019-12-31 18:31] LABS: BILIRUBIN NEGATIVE (NEGATIVE); BLOOD 3+ (NEGATIVE); CLARITY CLOUDY (CLEAR); COLOR YELLOW (YELLOW); GLUCOSE NEGATIVE (NEGATIVE); KETONE NEGATIVE (NEGATIVE); LEUKO ESTERASE 2+ (NEGATIVE); NITRITE POSITIVE (NEGATIVE); PH 6.5 (5.0-9.0); RBC TNTC rbc/hpf (0-2); SPECIFIC GRAVITY 1.015 (1.005-1.030); UROBILINOGEN 0.2 E.U./dl (0.2-1.0); WBC TNTC wbc/hpf (0-5)
[2019-12-31 18:32] LABS: BACTERIA 3+
--- NOTE | 2019-12-31 18:47 | NUR ---
IV LOPRESSOR GIVEN. PT ON BEDPAN FOR FORMED BROWN BM. HE KEEPS STRAINING AND WHEN I ASKED WHAT HE WAS TRYING TO DO HE SAID "TRYING TO PEE". EXPLANATIONS ABOUT CATHETER AND REINFORCED NOT TO PUSH. LÓPEZ HEMATURIC.
--- NOTE | 2019-12-31 19:06 | NUR ---
NOTIFIED PT'S SPOUSE DEV THAT PT WAS MOVED TO THE ICCU.
--- NOTE | 2019-12-31 19:50 | NUR ---
DURING PT'S RESTLESSNESS, HE WAS DIGGING HIS ELBOWS INTO THE BED. HE NOW HAS A SKIN TEAR OF THE LEFT ELBOW. MEASURMENTS AND PHOTO DONE. VERSATEL/HYDROGEL/OPTIFOAM APPLIED TO THE SITE. DR Farnaz LEO NOTIFIED SKIN TEAR ORDERS NEEDED.
[2020-01-01] VITALS: BP 123/59
--- NOTE | 2020-01-01 02:12 | NUR ---
GUEROMEG Hesham [id number] Please refer to the physician's history and physical for past medical history, comorbid conditions, and allergies. Diagnosis: UTI METABOLIC ENCEPHALOPATHY SEVERE SEPSIS Vincent Score: 12,HIGH RISK WOUND DESCRIPTIONS: Wound Number: 1 Location of the wound: Left elbow Type of wound: skin tear Thickness: Partial Size: 1.0cm x 0.7cm x 0.1cm Tunneling: none Undermining: none Sinus Tract: none Presence of Exudate: Serous sanguineous Amount: Light Color: Red Odor: None Periwound Skin Appearance: Normal Wound edges: approximated Pain (associated with wound): none at time of assessment How does patient state this happened? pt bumped his arm while moving in bed Surface the patient is resting on: Isoflex SKIN PREVENTION RECOMMENDATION: 1. Pressure redistribution support surface as appropriate 2. Elevate heels 3. Remove boots/TEDS every shift and reapply 4. Head of bed 30 degrees as tolerated 5. Assess nutrition and hydration 6. Manage moisture 7. Avoid the use of containment devices while in bed 8. Use absorptive products on surfaces limit layers of linens on bed 9. Turn and reposition every 1-2 hours in bed and every 1 hour in chair as tolerated 10. Weight shifts every 15 minutes while up in chair 11. Offloading with pillows or device to keep heels elevated off bed 12. Monitor skin at least every shift 13. Inspect under medical devices twice a day WOUND TREATMENT RECOMMENDATIONS: Continue skin tear guidelines to right elbow.
[2020-01-01 04:00] VITALS: BP 132/67
[2020-01-01 05:29] LABS: BUN 23 mg/dl (7-24); CHLORIDE 110 mmol/L (98-107); CREATININE 1.39 mg/dL (0.70-1.30); POTASSIUM 3.6 mmol/L (3.5-5.1); SODIUM 141 mmol/L (136-145)
--- NOTE | 2020-01-01 06:15 | NUR ---
PATIENT INCONTINENT OF A SMALL BROWN FORMED BOWEL MOVEMENT. PATIENT CLEANED AND CHANGED. PATIENT ABLE TO ANSWER QUESTIONS APPROPRIATELY AND IS ASKING FOR CALL LIGHT TO TURN ON THE TV. HOB ELEVATED. SEE ASSESSMENT.
[2020-01-01 06:20] LABS: BASO % 0.1 % (0.0-1.0); EOS % 0.3 % (1.0-4.0); HEMATOCRIT 31.6 % (42.0-52.0); LYMPH # 1.4 10*3/uL (1.3-4.4); LYMPH % 11.8 % (27.0-41.0); MEAN CELL VOLUME 94.9 fl (80.0-94.0); MEAN CORPUSCULAR HGB 30.9 pg (27.0-31.0); MEAN CORPUSCULAR HGB CONC 32.6 g/dl (33.0-37.0); MEAN PLATELET VOLUME 9.4 fl (9.6-12.3); MONO # 0.9 10*3/uL (0.1-1.0); MONO % 7.4 % (3.0-9.0); NEUT # 9.6 10*3/uL (2.3-7.9); NEUT % 79.8 % (47.0-73.0); PLATELET COUNT AUTOMATED 212 10*3/uL (130-400); RED BLOOD COUNT 3.33 10*6/uL (4.50-5.90); RED CELL DISTRI WIDTH 15.5 % (0-14.5); WHITE BLOOD COUNT 12.1 10*3/uL (4.8-10.8)
--- NOTE | 2020-01-01 07:53 | NUR ---
PHYSICAL THERAPY Screen and PT eval received will follow thank you. Chantal Tapia PT
--- NOTE | 2020-01-01 07:57 | NUR ---
OT NOTE Occupational therapy order received when patient was admitted to the fourth floor. Patient was transferred to the ICCU due to a change in medical status. OT will need new orders when medically appropriate for an OT evaluation. Thank you. Lu Espinoza OTR/L
[2020-01-01 08:00] VITALS: BP 118/61
--- NOTE | 2020-01-01 08:00 | NUR ---
PHYSICAL THERAPY Noted in chart pt moved from fourth floor room 408 to ICCU-4. Will need new Physical Therapy orders when pt medically stable/appropriate, thank you. Chantal Tapia PT
--- NOTE | 2020-01-01 08:00 | NUR ---
PLACED UP INTO CHAIR WITH ASIST TIMES TWO. CONFUSED TO TIME. LÓPEZ INTACT AND DRAINING BLOODY URINE. HEP LOCK INTACT TO RIGHT UPPER ARM AND FLUSES EASILY. LUNGS CLEAR BILATERALLY. PITTING EDEMA NOTED TO BILATERAL LOWER LEGS. DR. LUKE HERE TO SEE PATIENT.
--- NOTE | 2020-01-01 08:30 | NUR ---
Dr. Rosario notified of wound care recommendations
--- NOTE | 2020-01-01 09:57 | NUR ---
SPEECH PATHOLOGY Nursing screen completed. This dept. will be available for consult as needed. TR GRAY MSCCC-BARROW WORKER
--- NOTE | 2020-01-01 10:45 | NUR ---
PHYSICAL THERAPY Physical Therapy evaluation completed on ICCU with full evaluation to follow. Moderate complexity per chart review and evaluation, [address]. Recommend physical therapy per plan of care and SNF upon discharge. Thank you for this referral. Sowmya Elizondo,PT,DPT
--- NOTE | 2020-01-01 11:08 | NUR ---
STAFF NUCLEAR WEAPONS OFFICER RECEIVED CALL FROM [facility] COORDINATOR, AND ASKED FOR UPDATES. STAFF NUCLEAR WEAPONS OFFICER PROVIDED UPDATES.
--- NOTE | 2020-01-01 11:42 | NUR ---
Occupational Therapy evaluation completed on ICCU with full evaluation to follow. Recommend occupational therapy per plan of care and SNF upon discharge. Thank you for this referral. Shital Villagran OTR/L
[2020-01-01 12:00] VITALS: BP 101/69
--- NOTE | 2020-01-01 14:21 | NUR ---
Medical Record Administrator in to see patient. He states he is short term at [facility] and plans to return there upon discharge. When medically stable he will be discharged to [facility]. community mental health social worker following.
[2020-01-01 16:00] VITALS: BP 94/71
--- NOTE | 2020-01-01 17:46 | NUR ---
MEDICATED WITH NORCO FOR COMPLAINTS OF ALL OVER PAIN
--- NOTE | 2020-01-01 18:40 | NUR ---
VOICES THAT NORCO WAS EFFECTIVE FOR PAIN.
[2020-01-01 20:00] VITALS: BP 93/63
[2020-01-02] VITALS: BP 106/62
--- NOTE | 2020-01-02 00:35 | NUR ---
PATIENT REPORT GIVEN TO GABBI HILTON ON 4E. I ALSO CALLED PATIENT AND INFORMED HER OF THE MOVE AND WHAT ROOM HE WAS GOING TO
--- NOTE | 2020-01-02 00:41 | NUR ---
PATIENT MOVED INTO ROOM 408-2 FROM [facility] AT THIS TIME. RECEIVED REPORT FROM CHRISTIANO HILTON. PATIENT ALERT AND ORIENTED AT THIS TIME. RESPIRATIONS REGULAR AND NON-LABORED ON 4L N/C. DENIES COMPLAINTS OF PAIN OR DISCOMFORT AT THIS TIME. LUNGS DIMINISHED. BED ALARM ON AND FUNCTIONING. WILL CONTINUE TO MONITOR. CALL LIGHT IN REACH.
--- NOTE | 2020-01-02 04:13 | NUR ---
Upon discharge recommend patient to follow up for wound care in outpatient setting continue current wound care orders at discharging facility.
[2020-01-02 06:09] LABS: ALBUMIN 2.4 gm/dl (3.1-4.5); ALKALINE PHOSPHATASE 64 U/L (45-117); BUN 18 mg/dl (7-24); CHLORIDE 106 mmol/L (98-107); CREATININE 1.04 mg/dL (0.70-1.30); POTASSIUM 3.4 mmol/L (3.5-5.1); SGOT/AST 14 IU/L (3-35); SGPT/ALT 25 U/L (12-78); SODIUM 139 mmol/L (136-145); TOTAL PROTEIN 5.8 gm/dL (6.4-8.2)
[2020-01-02 06:12] LABS: BASO % 0.1 % (0.0-1.0); EOS # 0.1 10*3/uL (0.0-0.4); EOS % 0.9 % (1.0-4.0); HEMATOCRIT 33.6 % (42.0-52.0); LYMPH # 1.1 10*3/uL (1.3-4.4); LYMPH % 12.5 % (27.0-41.0); MEAN CELL VOLUME 94.4 fl (80.0-94.0); MEAN CORPUSCULAR HGB 30.6 pg (27.0-31.0); MEAN CORPUSCULAR HGB CONC 32.4 g/dl (33.0-37.0); MEAN PLATELET VOLUME 9.4 fl (9.6-12.3); MONO # 0.9 10*3/uL (0.1-1.0); NEUT # 6.5 10*3/uL (2.3-7.9); NEUT % 75.8 % (47.0-73.0); PLATELET COUNT AUTOMATED 214 10*3/uL (130-400); RED BLOOD COUNT 3.56 10*6/uL (4.50-5.90); RED CELL DISTRI WIDTH 15.2 % (0-14.5); WHITE BLOOD COUNT 8.6 10*3/uL (4.8-10.8)
--- NOTE | 2020-01-02 07:50 | NUR ---
NOTIFIED OF BLOOD CULTURES
[2020-01-02 08:00] VITALS: BP 129/59
--- NOTE | 2020-01-02 08:25 | NUR ---
PHYSICAL THERAPY Physical therapy treatment attempted. Patient restless. Dr. Davis in room and requesting PT hold AM session and return at a later time/date for PT services. Thank you. Sowmya Elizondo,PT,DPT.
--- NOTE | 2020-01-02 08:30 | NUR ---
OT NOTE Attempted to see pt this A.M. for OT session and upon arrival pt was supine in bed and very restless. was in the room as therapist arrived and requesting to hold OT services this A.M. Will check back at a later time/date and continue with POC as able. CHARLY Jarquin/Yosi
--- NOTE | 2020-01-02 08:58 | NUR ---
FISHERIES ENFORCEMENT OFFICER ASKED JODIE THAT THE PRECERT BE STARTED. FISHERIES ENFORCEMENT OFFICER INFORMED JODIE THAT THE PATIENT IS NOW ESBL POSITIVE. FISHERIES ENFORCEMENT OFFICER FAXED CLINICAL UPDATES TO HER.
--- NOTE | 2020-01-02 09:00 | NUR ---
Body Builder in to see patient. No new needs or request at this time. When medically stable he will be discharged to [facility]. orchid worker following.
--- NOTE | 2020-01-02 11:40 | NUR ---
Dr. Ko stopped in office. Patient will need Ertapenem 1 GM IV daily for 12 days at [facility]. log raft worker notified.
[2020-01-02 12:00] VITALS: BP 149/73
--- NOTE | 2020-01-02 14:56 | NUR ---
PT MOANING AND THRASHING ABOUT MED, SOB, PRN MORPHINE GIVEN PER ORDER
--- NOTE | 2020-01-02 15:11 | NUR ---
OCCUPATIONAL THERAPY CO-SIGN I approve of the Occupational Therapy notes written above. Shital Villagran OTR/L
--- NOTE | 2020-01-02 15:30 | NUR ---
PT RESTING IN BED WITH EYES CLOSED
[2020-01-02 16:00] VITALS: BP 125/86
[2020-01-02 20:00] VITALS: BP 147/75
--- NOTE | 2020-01-02 20:36 | NUR ---
RAISE MINER CALLED AND SAID PATIENT WAS OFF MONITOR. WALKED IN PATIENT'S ROOM AND PATIENT HAD MONITOR ON THE FLOOR WITH ALL THE LEADS OFF, O2 ON THE FLOOR AND HAD HIS PICC LINE PULLED OUT WITH BLOOD EVERYWHERE. PATIENT CLEANED UP AND BED LINENS CHANGED. MONITOR AND O2 REAPPLIED. DR. LEO NOTIFIED THAT PATIENT PULLED HIS PICC OUT. PATIENT STILL HAS A PERIPHERAL IN HIS RIGHT SHOULDER. WILL CONTINUE TO MONITOR.
--- NOTE | 2020-01-02 21:33 | NUR ---
PATIENT MEDICATED WITH ATIVAN 1MG IV FOR AGITATION. WILL MONITOR FOR EFFECTIVENESS. CALL LIGHT IN REACH.
[2020-01-03] VITALS: BP 132/63
[2020-01-03 06:11] LABS: BASO % 0.2 % (0.0-1.0); EOS # 0.1 10*3/uL (0.0-0.4); EOS % 1.5 % (1.0-4.0); HEMATOCRIT 31.1 % (42.0-52.0); LYMPH # 0.9 10*3/uL (1.3-4.4); LYMPH % 17.7 % (27.0-41.0); MEAN CELL VOLUME 93.4 fl (80.0-94.0); MEAN CORPUSCULAR HGB 30.6 pg (27.0-31.0); MEAN CORPUSCULAR HGB CONC 32.8 g/dl (33.0-37.0); MEAN PLATELET VOLUME 9.5 fl (9.6-12.3); MONO # 0.7 10*3/uL (0.1-1.0); MONO % 13.6 % (3.0-9.0); NEUT # 3.5 10*3/uL (2.3-7.9); NEUT % 66.4 % (47.0-73.0); PLATELET COUNT AUTOMATED 197 10*3/uL (130-400); RED BLOOD COUNT 3.33 10*6/uL (4.50-5.90); WHITE BLOOD COUNT 5.2 10*3/uL (4.8-10.8)
[2020-01-03 06:37] LABS: BUN 17 mg/dl (7-24); CHLORIDE 107 mmol/L (98-107); CREATININE 0.94 mg/dL (0.70-1.30); POTASSIUM 3.8 mmol/L (3.5-5.1); SODIUM 140 mmol/L (136-145)
[2020-01-03 08:00] VITALS: BP 140/67
[2020-01-03 08:52] LABS: ABG BASE EXCESS 2.7 mmol/L (-2.0-2.0); ARTERIAL BLOOD GAS PH 7.494 (7.35-7.45)
[2020-01-03 12:00] VITALS: BP 122/84
[2020-01-03 16:00] VITALS: BP 132/56
--- NOTE | 2020-01-03 16:24 | NUR ---
PT MEDICATED WITH NORCO FOR RESTLESSNESS, PT APPEARS TO BE IN PAIN WILL MONITOR
--- NOTE | 2020-01-03 16:56 | NUR ---
PT RESTING IN BED QUIETLY, PT APPEARS TO BE RESTING . NORCO APPEARS TO BE HELPING WILL MONITOR
--- NOTE | 2020-01-03 17:35 | NUR ---
PT MEDICATED WITH MORPHINE FOR RESTLESSNES WILL MONITOR
--- NOTE | 2020-01-03 18:30 | NUR ---
MORPHINE HELPED PT RESTING QUIETLY IN BED WILL MONITOR
[2020-01-03 20:00] VITALS: BP 142/65
--- NOTE | 2020-01-03 20:10 | NUR ---
PATIENT ASSESSMENT COMPLETED AT THIS TIME WITHOUT INCIDENT. PATIENT RESTING IN BED IN A POSITION OF COMFORT AT THIS TIME, PATIENT DENIES ANY SHORTNESS OF BREATH OR CHEST PAIN AT THIS TIME. NC 2LPM INTACT AND IN USE. CALL LIGHT WITHIN REACH WILL CONTINUE TO MONITOR.
--- NOTE | 2020-01-03 22:15 | NUR ---
PATIENT CALLED AT THIS TIME REQUESTING AN UPDATE ON PATIENT CONDITION AT THIS TIME. ALL QUESTIONS ANSWERED TO HER SATISFACTION AND SHE ASKED THAT HE BE TOLD THAT SHE CALLED. THIS RN RELAYED TO PATIENT HIS HAD CALLED. WILL CONTINUE TO MONITOR.
[2020-01-04] VITALS: BP 142/71
[2020-01-04 06:58] LABS: BASO % 0.2 % (0.0-1.0); EOS # 0.1 10*3/uL (0.0-0.4); EOS % 2.3 % (1.0-4.0); HEMATOCRIT 32.8 % (42.0-52.0); LYMPH # 0.9 10*3/uL (1.3-4.4); LYMPH % 20.1 % (27.0-41.0); MEAN CELL VOLUME 90.9 fl (80.0-94.0); MEAN CORPUSCULAR HGB 30.2 pg (27.0-31.0); MEAN CORPUSCULAR HGB CONC 33.2 g/dl (33.0-37.0); MEAN PLATELET VOLUME 9.5 fl (9.6-12.3); MONO # 0.6 10*3/uL (0.1-1.0); MONO % 13.8 % (3.0-9.0); NEUT # 2.8 10*3/uL (2.3-7.9); NEUT % 63.1 % (47.0-73.0); PLATELET COUNT AUTOMATED 234 10*3/uL (130-400); RED BLOOD COUNT 3.61 10*6/uL (4.50-5.90); WHITE BLOOD COUNT 4.4 10*3/uL (4.8-10.8)
--- NOTE | 2020-01-04 07:00 | NUR ---
IN TO SEE PATIENT. PATIENT ALERT TO SELF ONLY. PERIODS OF CONFUSION. ASSESSMENT COMPLETE. 2L NC IN PLACE. NO SIGNS/SYMPTOMS OF DISTRESS NOTED. CALL LIGHT IN REACH. WILL MONITOR.
[2020-01-04 07:28] LABS: CHLORIDE 106 mmol/L (98-107); POTASSIUM 3.5 mmol/L (3.5-5.1); SODIUM 140 mmol/L (136-145)
[2020-01-04 07:43] LABS: BUN 13 mg/dl (7-24); CREATININE 0.99 mg/dL (0.70-1.30)
[2020-01-04 08:00] VITALS: BP 155/75
--- NOTE | 2020-01-04 09:30 | NUR ---
NOTIFIED PATIENT IS HAVING SOME TROUBLE SWALLOWING.
--- NOTE | 2020-01-04 11:51 | NUR ---
UPDATED (ELVIA) ON HOW PATIENT IS DOING. STATES SHE HASN'T BEEN ABLE TO SPEAK TO ANY OF THE DOCTORS AND WOULD REALLY LIKE TO SPEAK WITH ONE. NOTIFIED.
[2020-01-04 12:00] VITALS: BP 143/67
--- NOTE | 2020-01-04 12:41 | NUR ---
MEDICATED WITH PRN MORPHINE FOR RESTLESSNESS. WILL ASSESS EFFECTIVENESS.
--- NOTE | 2020-01-04 13:41 | NUR ---
PATIENT RESTING CALMLY WITH EYES CLOSED. MORPHINE EFFECTIVE.
[2020-01-04 16:00] VITALS: BP 125/56
[2020-01-04 20:00] VITALS: BP 125/65
--- NOTE | 2020-01-04 20:55 | NUR ---
PT SLEEPING IN BED, AWAKENS EASILY. BSG-163, SEE EMAR. ALERT TO SELF ONLY. BED ALARM ON. ECCYMOTIC AREAS TO BILATERAL ARMS. OPTIFOAM TO LEFT ELBOW. ABD SOFTLY DISTENDED, HYPO BS. LÓPEZ PATENT FOR ADITYA URINE. HELD PT COVERAGE, PT NOT EATING WELL. TOLERATED ROUTINE MEDS WITH APPLESAUCE. CALL LIGHT IN [facility]. BED ALARM ON.
[2020-01-05] VITALS: BP 120/70
--- NOTE | 2020-01-05 00:25 | NUR ---
PT SLEEPING IN BED. RESP-EASY AND REGULAR. AWAKENS EASILY. RESP-EASY AND REGULAR. OXYGEN IN USE. NO C/O AT THIS TIME. CALL LIGHT IN REACH. SEE SHIFT ASSESSMENT.
--- NOTE | 2020-01-05 04:00 | NUR ---
PT LYING ON RIGHT SIDE WITH EYES CLOSED. RESP-EASY AND REGULAR. CALL LIGHT IN REACH. BED ALARM ON.
[2020-01-05 05:20] VITALS: BP 116/60
--- NOTE | 2020-01-05 05:20 | NUR ---
PT SLEEPING IN BED, AWAKENS EASILY. TOLERATED ROUTINE MED WITH APPLESAUCE. BP 116/60 MANUALLY. BSG-142, SEE EMAR. CALL LIGHT IN REACH. BED ALARM ON.
[2020-01-05 05:58] LABS: BASO % 0.2 % (0.0-1.0); EOS # 0.1 10*3/uL (0.0-0.4); EOS % 1.7 % (1.0-4.0); LYMPH # 0.8 10*3/uL (1.3-4.4); LYMPH % 19.9 % (27.0-41.0); MEAN CELL VOLUME 90.4 fl (80.0-94.0); MEAN CORPUSCULAR HGB 30.1 pg (27.0-31.0); MEAN CORPUSCULAR HGB CONC 33.3 g/dl (33.0-37.0); MEAN PLATELET VOLUME 9.7 fl (9.6-12.3); MONO # 0.7 10*3/uL (0.1-1.0); MONO % 15.8 % (3.0-9.0); NEUT # 2.6 10*3/uL (2.3-7.9); NEUT % 61.7 % (47.0-73.0); PLATELET COUNT AUTOMATED 226 10*3/uL (130-400); RED BLOOD COUNT 3.32 10*6/uL (4.50-5.90); RED CELL DISTRI WIDTH 14.8 % (0-14.5); WHITE BLOOD COUNT 4.2 10*3/uL (4.8-10.8)
[2020-01-05 06:06] LABS: BUN 12 mg/dl (7-24); CHLORIDE 106 mmol/L (98-107); CREATININE 0.93 mg/dL (0.70-1.30); POTASSIUM 3.3 mmol/L (3.5-5.1); SODIUM 141 mmol/L (136-145)
--- NOTE | 2020-01-05 07:00 | NUR ---
ASSUMED CARE OF PATIENT AT THIS TIME. PATIENT ALERT AND ORIENTED. UNABLE TO ANSWER CERTAIN QUESTIONS. DENIES THE NEED FOR ANYTHING AT THIS TIME. ASSESSMENT COMPLETE. CALL LIGHT IN REACH. WILL CONTINUE TO MONITOR.
[2020-01-05 08:00] VITALS: BP 107/60
--- NOTE | 2020-01-05 08:00 | NUR ---
SPOKE TO PATIENTS , ELVIA AND UPDATED HER ON PATIENTS CONDITION. ALSO OBTAINED CONSENT FOR PICC.
--- NOTE | 2020-01-05 08:22 | NUR ---
DATA ENTRY MANAGER FAXED UPDATES TO JODIE.
--- NOTE | 2020-01-05 08:53 | NUR ---
SPEECH PATHOLOGY Clinical swallowing evaluation completed as per orders due to difficulty swallowing. Patient's medical history includes UTI, HTN, CA, COPD, TIA, gout and falls. [facility]. He receives a regular diet and thin liquid. He was seen this am, alert and cooperative. He was able to follow commands given. Oral peripheral exam revealed edentulous status. Decreased lingual ROM and weak cough were displayed. He was easily SOB when eating. He was assessed with puree, coarse solid and thin liquid. Paitent tolerated items with no overt difficulty. A mild amount of residue with solid was observed, most likely to dry oral cavity. The residue cleared with liquid wash. Recommend patient remain on present diet with use of safety precautions such as upright positioning with meals, small bites/sips, taking breaks as needed when SOB occurs and alternating liquid and solid. Patient and his nurse were educated on results and damaris. and verbalized understanding. Refer to report in [email or web address] for further information. Thank you for this referral. TR GRAY MSCCC-ROOF PROMENADE TILE SETTER
--- NOTE | 2020-01-05 08:55 | NUR ---
Notified Dr. Davis of [facility] unable to take ertapenem or merrem for IV antibiotics.
--- NOTE | 2020-01-05 09:00 | NUR ---
PHYSICAL THERAPY Patient seen this am 1;1 for therapy visit and was supine in bed folowing breakfast as therapist arrived. Patient identified by name / and presented with continuos O2-3L via NC. OT regional administrative assistant was also present for observation only as patient transfers supine to sit EOB with MOD A. Patient tolerated several minutes static EOB sit, CGA, demonstrating "slouched" seated posture. Patient performed several sit to stand transfers, MIN A x 2, use of wh walker standing support, tolerating approx 2 minutes static stand first trial and 1 minute second attempt, demonstrating increased SOB / fatigue, requiring v/c for purse lip breathinng technique. SpO2 following initial transfer was 99%, HR 86 bpm. Patient completed all treatment voicing no new c/o's and demonstrated bouts of increased confusion. Patient SpO2 98%, HR 89 b[facility] Patient remained in bed with call light, tray table, telephone and bed alarm for safety. Will continue per POC as tolerated, total treatment time 16 minutes. Sampson Cheema, URBAN AND REGIONAL PLANNER
--- NOTE | 2020-01-05 09:03 | NUR ---
THERAPY IN TO WORK WITH PATIENT AT THIS TIME.
--- NOTE | 2020-01-05 09:14 | NUR ---
NEWBORN HEARING SCREENER SPOKE WITH [facility], THEY WILL NOT ACCEPT ERTAPENEM, NEWBORN HEARING SCREENER ASKED ABOUT MEROPENEM, [facility] WOULD PREFER IT NOT TO BE THIS MED EITHER NEWBORN HEARING SCREENER NOTIFIED POULTRY HUSBANDMAN JOANNA.
--- NOTE | 2020-01-05 09:18 | NUR ---
OT NOTE Pt was seen this A.M. 1:1 for 18 minute OT session. Upon arrival pt was supine in bed. Pt identified by name and and had no complaints at this time. Pt presented to therapy with continuous 3L-O2 via NC which he remained on throughout the entire session. Pt's resting SpO2 was 99% and heart rate 89 bpm. Pt transferred supine to sit EOB with modA X 2 and constant verbal and tactile prompts for following commands. While sitting EOB challenged pt's dynamic sitting balance while weight shifting, crossing midline, and reaching over all planes needed for increased I and enhanced safety. Pt was able to maintain F-/F sitting balance throughout. Pt then completed multiple sit to stand transfers from bed level with Jonathan x 2 and use of w/w for UE support. Challenged pt's static standing tolerance needed for increased I and enhanced endurance, pt was able to tolerate aprox 1-2 minutes at a time before sitting due to fatigue. Throughout static standing pt required constant verbal prompts for pursed lip breathing and correcting his posture. With activity pt's SpO2 dropped to 97% and heart rate 95 bpm. Pt then transferred back into bed sit to supine with Jonathan. There he was left with call light in hand, tray table in place, and bed alarm activated for safety. Continue with rec D/C plan to SNF. CHARLY Jarquin/Yosi
--- NOTE | 2020-01-05 10:16 | NUR ---
SURGERY IN TO DO PICC AT BEDSIDE AND MEDICATED WITH PRN MORPHINE PER SURGERY.
--- NOTE | 2020-01-05 10:40 | NUR ---
TRIED TO REACH ID TO SEE ABOUT PATIENTS ABX. AWAITING A CALL BACK.
--- NOTE | 2020-01-05 11:55 | NUR ---
JOSE JUAN RECEIVED CALL FROM [facility] STAFF FORESTER SADE- [phone]. SHE REQUESTED PATIENTS MED LIST AND DISCHARGE ORDERS WHEN PATIENT IS DISCHARGED FROM THIS FACILITY.
[2020-01-05 12:00] VITALS: BP 148/88
--- NOTE | 2020-01-05 14:27 | NUR ---
UPDATED ON PATIENT AND POC.
[2020-01-05 16:00] VITALS: BP 136/68
[2020-01-05 20:00] VITALS: BP 117/75
--- NOTE | 2020-01-05 20:15 | NUR ---
PT RESTING IN BED. RESP-EASY AND REGULAR. POSITIONED SELF WITH HELP. NO C/O AT THIS TIME. CALL LIGHT IN REACH. SEE SHIFT ASSESSMENT.
--- NOTE | 2020-01-05 21:22 | NUR ---
PT RESTING IN BED. RESP-EASY AND REGULAR. REPOSITIONED IN BED. BSG-195, SEE EMAR. OXYGEN IN USE. NO C/O AT THIS TIME. TOLERATED ROUTINE MED WITH NO PROBLEM. CALL LIGHT IN REACH.
--- NOTE | 2020-01-05 23:09 | NUR ---
PT C/O LEFT LEG PAIN, MEDICATED WITH NORCO PO PER PRN ORDER, SEE EMAR. CALL LIGHT IN REACH. BED ALARM ON.
[2020-01-06] VITALS: BP 118/60
--- NOTE | 2020-01-06 | NUR ---
PT SLEEPING IN BED. RESP-EASY AND REGULAR. OXYGEN IN USE. MEDICATION SEEMS TO BE EFFECIVE. CALL LIGHT IN REACH. SEE SHIFT ASSESSMENT.
--- NOTE | 2020-01-06 04:10 | NUR ---
SLEEPING IN BED. RESP-EASY AND REGULAR. OXYGEN IN USE. CALL LIGHT IN REACH.
--- NOTE | 2020-01-06 04:50 | NUR ---
PT BATHED AND REPOSITIONED. TEDS REMOVED WITH BRUISED,PURPLE/RED AREA TO LEFT ANKLE AND LOWER LEG AREAS, LEFT HEEL RED AND MUSHY, HEEL PROTECTORS APPLIED. ALSO BLISTER NOTED UNDER WRIST BAND OF PT LEFT FOREARM, BAND REMOVED WAS NOT TIGHT ABLE TO GET FINGERS UNDER. OXYGEN IN USE. BED ALARM ON.
--- NOTE | 2020-01-06 05:16 | NUR ---
CALLED DR. SPRING MADE AWARE PT LEFT LEG/ANKLE AREA SMALL BRUISE/PURPLE/RED AREA AND MUSHY HEELS. ALSO AWARE BLISTER TO LEFT FOREARM. OK TO APPLY OPTIFOAM TO PAD AREA AND LEAVE TEDS OFF.
--- NOTE | 2020-01-06 05:37 | NUR ---
PT TOLERATED ROUTINE MED WITH NO PROBLEM. BSG-129, SEE EMAR. NO COVERAGE ORDERED. REPOSITIONED. CALL LIGHT IN REACH.
[2020-01-06 06:12] LABS: BASO % 0.2 % (0.0-1.0); EOS # 0.1 10*3/uL (0.0-0.4); EOS % 2.7 % (1.0-4.0); HEMATOCRIT 29.3 % (42.0-52.0); LYMPH # 1.2 10*3/uL (1.3-4.4); LYMPH % 29.3 % (27.0-41.0); MEAN CORPUSCULAR HGB 29.8 pg (27.0-31.0); MEAN CORPUSCULAR HGB CONC 32.8 g/dl (33.0-37.0); MEAN PLATELET VOLUME 9.6 fl (9.6-12.3); MONO # 0.8 10*3/uL (0.1-1.0); MONO % 18.7 % (3.0-9.0); NEUT % 48.4 % (47.0-73.0); PLATELET COUNT AUTOMATED 243 10*3/uL (130-400); RED BLOOD COUNT 3.22 10*6/uL (4.50-5.90); RED CELL DISTRI WIDTH 15.1 % (0-14.5); WHITE BLOOD COUNT 4.1 10*3/uL (4.8-10.8)
[2020-01-06 06:24] LABS: CHLORIDE 105 mmol/L (98-107); POTASSIUM 3.2 mmol/L (3.5-5.1); SODIUM 140 mmol/L (136-145)
[2020-01-06 06:28] LABS: BUN 11 mg/dl (7-24); CREATININE 0.89 mg/dL (0.70-1.30)
--- NOTE | 2020-01-06 06:34 | NUR ---
MEG JACK [id number] Please refer to the physician's history and physical for past medical history, comorbid conditions, and allergies. Diagnosis: UTI METABOLIC ENCEPHALOPATHY SEVERE SEPSIS Vincent Score: 13,MODERATE RISK WOUND DESCRIPTIONS: This nurse along with with Misty Mckeon RN evaluated patient for skin impairments. Wound Number: 1 Location of the wound: Left elbow Type of wound: skin tear Thickness: Partial Size: 0.9cm x 0.5cm x 0.1cm Tunneling: none Undermining: none Sinus Tract: none Presence of Exudate: Serousanguineous Amount: Light Color: Red Odor: None Periwound Skin Appearance: Normal Wound edges: approximated Pain (associated with wound): none at time of assessment How does patient state this happened? pt bumped his arm while moving in bed Wound Number: 2 Location of the wound: left forearm Thickness: Partial Size: 3.0cm x 4.5cm x <0.1cm Tunneling: none Undermining: none Sinus Tract: none Presence of Exudate: none Amount: none Color: Red, purple Odor: None Periwound Skin Appearance: normal Wound edges: intact blood filled blister Pain (associated with wound): none at time of assessment How does patient state this happened? nurse caring for patient stated found this area underneath name band Wound Number: 3 Location of the wound: left distal anterior ankle Type of wound: DTI Size: 1.4cm x 5.7cm x <0.1cm Tunneling: none Undermining: none Sinus Tract: none Presence of Exudate: none Amount: none Color: Red, purple Odor: None Periwound Skin Appearance: Normal Wound edges: closed Pain (associated with wound): none at time of assessment How does patient state this happened? nurse caring for patient stated found these areas when removed indra hose Wound Number: 4 Location of the wound: left proximal lower lef/ankle Type of wound: DTI Size: 1.6cm x 1.8cm x <0.1cm Tunneling: none Undermining: none Sinus Tract: none Presence of Exudate: none Amount: none Color: Red, purple Odor: None Periwound Skin Appearance: Normal Wound edges: closed Pain (associated with wound): none at time of assessment How does patient state this happened? nurse caring for patient stated found these areas when removed indra hose Wound Number: 5 Location of the wound: left heel Type of wound: stage 1 Size: 4.5cm x 5.7cm x <0.1cm Tunneling: none Undermining: none Sinus Tract: none Presence of Exudate: none Amount: none Color: Red Odor: None Periwound Skin Appearance: Normal Wound edges: closed Pain (associated with wound): none at time of assessment How does patient state this happened? nurse caring for patient stated found these areas when removed indra hose Wound Number: 6 Location of the wound: right proximal ankle Type of wound: DTI Size: 1.5cm x 0.8cm x <0.1cm Tunneling: none Undermining: none Sinus Tract: none Presence of Exudate: none Amount: none Color: Red, purple Odor: None Periwound Skin Appearance: Normal Wound edges: closed Pain (associated with wound): none at time of assessment How does patient state this happened? nurse caring for patient stated found these areas when removed indra hose Surface the patient is resting on: Isoflex SKIN PREVENTION RECOMMENDATION: 1. Pressure redistribution support surface as appropriate 2. Elevate heels 3. Remove boots/TEDS every shift and reapply 4. Head of bed 30 degrees as tolerated 5. Assess nutrition and hydration 6. Manage moisture 7. Avoid the use of containment devices while in bed 8. Use absorptive products on surfaces limit layers of linens on bed 9. Turn and reposition every 1-2 hours in bed and every 1 hour in chair as tolerated 10. Weight shifts every 15 minutes while up in chair 11. Offloading with pillows or device to keep heels elevated off bed 12. Monitor skin at least every shift 13. Inspect under medical devices twice a day WOUND TREATMENT RECOMMENDATIONS: DTI guidelines: Apply sureprep to left distal anterior ankle, left proximal lower leg/ankle, left heel, and right proximal ankle allow areas to dry then cover with optifoam gentle every 2 days and prn for soiling Partial thickness guidelines: Apply sureprep to left forearm allow time to dry then cover with optifoam gentle every 2 days and prn for soiling. Heel raiser pro boots to bilateral feet while in bed Continue skin tear guidelines to left elbow.
--- NOTE | 2020-01-06 07:50 | NUR ---
BRACELET AND BROOCH MAKER RECEIVED THE FOLLOWING MESSAGE FROM JODIE"THE MEROPENUM AND TRANSPORTING BACK AND FORTH FOR 14 DAYS IS GOING TO BE A NO GO (I'M SURE D/T COST). IF THEY CHANGE TO THE TOBRA OR GENTAMICIN, HE IS ABLE TO RETURN. HIS AUTH WAS APPROVED YESTERDAY AND IS TYPICALLY GOOD FOR 72 HOURS". [facility] [facility] [facility] FAXED REFERRAL TO [facility] FOR REVIEW/CONSIDERATION.
[2020-01-06 08:00] VITALS: BP 125/73
--- NOTE | 2020-01-06 08:00 | NUR ---
Dr. Long notified of [facility] referral.
--- NOTE | 2020-01-06 08:27 | NUR ---
PHYSICAL THERAPY Screen received pt has been evaluated by PT and is currently on caseload. Chantal Tapia PT
--- NOTE | 2020-01-06 08:31 | NUR ---
Nursing screen received this date. Patient is currently on OT caseload. Thank you. Lu Espinoza, OTR/L
--- NOTE | 2020-01-06 08:45 | NUR ---
Dr. Avila notified of wound care recommendations
--- NOTE | 2020-01-06 09:26 | NUR ---
SPEECH PATHOLOGY Patient was seen for treatment this am, conducted during breakfast meal. He was alert and cooperative. He fed himself following tray set up. Patient consumed a variety of solid food items. Residue was observed post swallow. Patient required mild cues during the meal to alternate food and liquid in order to clear mouth before taking more food. Patient ate slowly and took rest breaks as he becomes easily SOB. He was observed taking his morning meds and was able to take them all with sips of liquid. No difficulty with meds was observed. Continue therapy plan short term to ensure safe tolerance of diet with adherence to safe swallow precautions. TR GRAY MSCCC-ASSOCIATE DRAFTER
--- NOTE | 2020-01-06 09:39 | NUR ---
PIT TANNER RECEIVED PHONE CALL FROM ALTHEA. SHE IS GOING TO CHECK AND SEE IF THE PATIENT CAN GO TO THEIR FACILITY UNDER A SHORT TERM STAY. PATIENT WOULD REQUIRE PRECERT. WILL AWAIT TO HEAR FROM SAUL.
--- NOTE | 2020-01-06 10:31 | NUR ---
ALTHEA STATED THAT PATIENTS INSURANCE DOES NOT PRECERT FOR SHORT STAYS AND WILL NOT BE ABLE TO ACCEPT THE PATIENT.
--- NOTE | 2020-01-06 10:55 | NUR ---
PHYSICAL THERAPY Patient seen this am 1;1 for therapy visit and was supine in bed upon therapist arrival. Patient identified by name / and presented with continuso O2-3L via NC. OT education administrative assistant was present this session for observatin only as patient reported upset stomach with increased "bloating". Patient trasnfers supine to sit EOB with MOD A, tolerating several minutes static EOB sit, CGA x 1, demonstrating "slouched" posture. Patient instructed to sit up straight with v/c for purse lip breathing technique as patient demonstrated mild SOB. Patient was also very disoriented this session and needed multiple v/c's to focus on task in completing all treatment this morning. Patient performed sit to stand transfer MIN A and completed SPT to BSC, use of wh walker standing support. Patient fatigues quickly while demonstrating POOR standing posture during pivot phase of transfer and returned to supine in bed with MOD A x 2. Patient reported no change in abdominal pain c/o and remained in bed with call light, tray table, telephone, bed side rails raised and bed alarm for safety. Will continue per POC as tolerated, total treatment time 14 minutes. Sampson Cheema, TRACTOR TECHNICIAN
--- NOTE | 2020-01-06 11:00 | NUR ---
OT NOTE Pt was seen this A.M. 1:1 for 20 minute OT session. Upon arrival pt was supine in bed. Pt was oriented to name and only and was slow to respond/follow commands. Pt presented to therapy with continuous 3L-O2 via NC which he remained on throughout the entire session and had complaints of an "upset stomach". Pt transferred supine to sit EOB with modA and use of bed rail for UE support. Pt completed sit to stand from bed level with Jonathan and use of w/w for UE support followed by standing pivot to the bedside commode with Jonathan and use of w/w. Pt transferred on/off bedside commode with Jonathan. Clothing management completed with maxA due to LOB occuring while standing without UE support requiring modA to correct LOB. While sitting on the bedside pt required SBA/CGA due to poor command follow, forward flexed posture, and poor safety awareness. Standing pivot then transferred back to the EOB with Jonathan and use of w/w for UE support. Due to quick onset of fatigue no other tasks were completed at this time. Pt transferred back into bed sit to supine with modA where he was left with call light in hand, tray table in place, and bed alarm activated for safety. Continue with rec D/C plan to SNF. JAYMIE Jarquin
--- NOTE | 2020-01-06 11:35 | NUR ---
ADMINISTERED VT DULCOLAX FOR CONSTIPATION; PATIENT C/O ABDOMINAL DISCOMFORT AND HAD 2 SMALL HARD BM'S, UNABLE TO EVACUATE ADEQUATLY.
[2020-01-06 12:00] VITALS: BP 111/83
--- NOTE | 2020-01-06 13:31 | NUR ---
Spoke to Dr. Long who states patient needs 7 more days of ertapenem or merrepenem. Reached out to Karina at the [facility] regarding a carve out for either ertapenem or merrepenem as infectious disease states patient needs to be on one or the other. Karina is reaching out to the computer systems security administrator. Awaiting return call.
--- NOTE | 2020-01-06 14:04 | NUR ---
Spoke to Karina at the [facility] regarding their it systems administrator agreeable for the patient to return to [facility] for the remaining 7 days of either merrem or ertapenem. She is checking to make sure auth is still good. utility worker production and hospitalist nurse director notified.
--- NOTE | 2020-01-06 14:16 | NUR ---
Received call from Karina at the [facility]. His auth is still good and can discharge to [facility] when medically stable. Hospitalist nurse director notified.
--- NOTE | 2020-01-06 14:21 | NUR ---
Hospitalist nurse notified of need for new ertapenem prescription as the prescription currently says 12 days and patient needs 7 more days. Notified Karina at the [facility] patient will be discharging tristian.
--- NOTE | 2020-01-06 14:33 | NUR ---
Received prescription from Dr. Avila for ertapenem 1 gm IV daily for 7 days. Given to nurse and notified hospitalist nurse director.
--- NOTE | 2020-01-06 14:43 | NUR ---
PROCESS CONSULTANT NOTIFIED OF PATIENT DISCHARGE. PROCESS CONSULTANT SPOKE WITH YOBANI GARCÍA. PROCESS CONSULTANT SPOKE WITH EVELYN GARCIA. PROCESS CONSULTANT ARRANGED FOR A 6PM PEARL FISHERMAN. PROCESS CONSULTANT NOTIFIED DAYRON-HESHAM, JODIE, AND PATIENT ELVIA. PROCESS CONSULTANT TO FAX DISCHARGE ORDERS TO J[facility].
[2020-01-06 16:00] VITALS: BP 135/78
--- NOTE | 2020-01-06 16:52 | NUR ---
LÓPEZ CATHETER REMOVED AND DISCHARGE WOUND PHOTOS TAKEN.
--- NOTE | 2020-01-06 17:34 | NUR ---
REPORT CALLED TO RECEIVING NURSE AT [facility]. PREPARING FOR DISCHARGE TO THE FACILITY BY [facility] AT 1800.
--- NOTE | 2020-01-06 18:00 | NUR ---
PATIENT DISCHARGED TO [facility] BY [facility] AT THIS TIME.
--- NOTE | 2020-01-07 07:35 | NUR ---
OCCUPATIONAL THERAPY CO-SIGN I approve of the Occupational Therapy notes written above. ANIKA NELSON, OTR/L
--- NOTE | 2020-01-07 07:59 | NUR ---
PHYSICAL THERAPY CO-SIGN I approve of the Physical Therapy notes written above. JOANNA HALL PT, DPT
== END 2020-01-06 18:00 | disposition other institution (70) | DRG 871 ==
LOC: ED 06:58 → EDHOLD 10:03 → ICCU 10:03 → 4E 10:29 → ICCU 17:38 → 4E 01-02 00:25
PROVIDERS: Emergency Medicine; Family Medicine; Internal Medicine; Student in an Organized Health Care Education/Training Program; ADMIT Family Medicine
PROC: 02HV33Z Insertion of Infusion Device into Superior Vena Cava, Percutaneous Approach (ICD-10-PCS; principal; 2020-01-02)
DX: A41.51 Sepsis due to Escherichia coli [E. coli] (principal); G93.41 Metabolic encephalopathy; J96.01 Acute respiratory failure with hypoxia; N17.0 Acute kidney failure with tubular necrosis; E43 Unspecified severe protein-calorie malnutrition; R65.21 Severe sepsis with septic shock; N12 Tubulo-interstitial nephritis, not specified as acute or chronic; Z16.12 Extended spectrum beta lactamase (ESBL) resistance; N13.4 Hydroureter; S37.30XA Unspecified injury of urethra, initial encounter; M06.9 Rheumatoid arthritis, unspecified; J45.20 Mild intermittent asthma, uncomplicated; K21.9 Gastro-esophageal reflux disease without esophagitis; J30.2 Other seasonal allergic rhinitis; I10 Essential (primary) hypertension; E55.9 Vitamin D deficiency, unspecified; E11.65 Type 2 diabetes mellitus with hyperglycemia; E78.5 Hyperlipidemia, unspecified; I48.0 Paroxysmal atrial fibrillation; R29.6 Repeated falls; D53.9 Nutritional anemia, unspecified; N20.0 Calculus of kidney; E11.40 Type 2 diabetes mellitus with diabetic neuropathy, unspecified; E87.6 Hypokalemia; N21.0 Calculus in bladder; E86.0 Dehydration; J44.9 Chronic obstructive pulmonary disease, unspecified; B96.20 Unspecified Escherichia coli [E. coli] as the cause of diseases classified elsewhere; Z20.828 Contact with and (suspected) exposure to other viral communicable diseases; E11.51 Type 2 diabetes mellitus with diabetic peripheral angiopathy without gangrene; X58.XXXA Exposure to other specified factors, initial encounter; Y92.238 Other place in hospital as the place of occurrence of the external cause; Y99.8 Other external cause status; Y93.89 Activity, other specified; Z88.8 Allergy status to other drugs, medicaments and biological substances; Z91.040 Latex allergy status; Z87.891 Personal history of nicotine dependence; Z82.49 Family history of ischemic heart disease and other diseases of the circulatory system; Z80.8 Family history of malignant neoplasm of other organs or systems; Z83.3 Family history of diabetes mellitus; Z86.73 Personal history of transient ischemic attack (TIA), and cerebral infarction without residual deficits; Z86.718 Personal history of other venous thrombosis and embolism; Z85.46 Personal history of malignant neoplasm of prostate; Z79.899 Other long term (current) drug therapy; Z79.82 Long term (current) use of aspirin; Z68.29 Body mass index [BMI] 29.0-29.9, adult

== ENCOUNTER 2020-03-03 16:05 | Emergency (ER) | payer OTHER ==
[~2020-03-03] VITALS: Ht 180.3 cm; Wt 95.3 kg
[2020-03-03 18:14] LABS: BASO % 0.2 % (0.0-1.0); EOS % 0.1 % (1.0-4.0); HEMATOCRIT 33.2 % (42.0-52.0); LYMPH # 1.9 10*3/uL (1.3-4.4); LYMPH % 19.6 % (27.0-41.0); MEAN CELL VOLUME 86.9 fl (80.0-94.0); MEAN CORPUSCULAR HGB 27.2 pg (27.0-31.0); MEAN CORPUSCULAR HGB CONC 31.3 g/dl (33.0-37.0); MEAN PLATELET VOLUME 8.8 fl (9.6-12.3); MONO % 10.5 % (3.0-9.0); NEUT # 6.7 10*3/uL (2.3-7.9); NEUT % 68.8 % (47.0-73.0); PLATELET COUNT AUTOMATED 322 10*3/uL (130-400); RED BLOOD COUNT 3.82 10*6/uL (4.50-5.90); RED CELL DISTRI WIDTH 15.8 % (0-14.5); WHITE BLOOD COUNT 9.7 10*3/uL (4.8-10.8)
[2020-03-03 18:28] LABS: ALBUMIN 3.1 gm/dl (3.1-4.5); ALKALINE PHOSPHATASE 66 U/L (45-117); BUN 18 mg/dl (7-24); CHLORIDE 103 mmol/L (98-107); CREATININE 1.07 mg/dL (0.70-1.30); SGOT/AST 13 IU/L (3-35); SGPT/ALT 34 U/L (12-78); SODIUM 138 mmol/L (136-145); TOTAL PROTEIN 7.1 gm/dL (6.4-8.2)
[2020-03-03 18:54] LABS: CLARITY CLEAR (CLEAR); COLOR YELLOW (YELLOW); GLUCOSE NEGATIVE (NEGATIVE)
[2020-03-03 18:55] LABS: BACTERIA 4+; BILIRUBIN 1+ (NEGATIVE); BLOOD NEGATIVE (NEGATIVE); KETONE NEGATIVE (NEGATIVE); LEUKO ESTERASE 1+ (NEGATIVE); NITRITE NEGATIVE (NEGATIVE); RBC 0-2 rbc/hpf (0-2); SPECIFIC GRAVITY 1.015 (1.005-1.030); UROBILINOGEN 0.2 E.U./dl (0.2-1.0)
[2020-03-03] MEDS ORDERED: SEPTDS PO (19:31)
== END 2020-03-03 21:06 | disposition other institution (70) ==
LOC: ED 16:05
PROVIDERS: Nurse Practitioner Family
DX: N39.0 Urinary tract infection, site not specified (principal); J44.9 Chronic obstructive pulmonary disease, unspecified; K21.9 Gastro-esophageal reflux disease without esophagitis; M19.90 Unspecified osteoarthritis, unspecified site; Z88.8 Allergy status to other drugs, medicaments and biological substances; Z91.040 Latex allergy status; Z79.899 Other long term (current) drug therapy; Z79.84 Long term (current) use of oral hypoglycemic drugs; Z79.4 Long term (current) use of insulin; W06.XXXA Fall from bed, initial encounter; Y93.89 Activity, other specified; Y92.128 Other place in nursing home as the place of occurrence of the external cause; Y99.8 Other external cause status

== ENCOUNTER 2020-06-06 08:07 | Inpatient (IN) | payer OTHER ==
[~2020-06-06] VITALS: Ht 180.3 cm; Wt 97.1 kg
[2020-06-06] VITALS (8 sets, daily range): BP systolic 109–154; BP diastolic 57–79
[~2020-06-06 08:07] MED LIST changes: +SEPTDS PO
[2020-06-06 08:45] LABS: HEMATOCRIT 24.8 % (42.0-52.0)
[2020-06-06 08:58] LABS: ACT PARTIAL THROMBO TIME 24.4 SECONDS (20.0-32.1)
[2020-06-06 09:02] LABS: ALBUMIN 2.9 gm/dl (3.1-4.5); ALKALINE PHOSPHATASE 53 U/L (45-117); BUN 16 mg/dl (7-24); CHLORIDE 108 mmol/L (98-107); CREATININE 0.99 mg/dL (0.70-1.30); SGOT/AST 6 IU/L (3-35); SGPT/ALT 18 U/L (12-78); SODIUM 140 mmol/L (136-145); TOTAL PROTEIN 5.9 gm/dL (6.4-8.2)
[2020-06-06] MEDS ORDERED: TYLENOL325 M2 PO (09:08)
[2020-06-06] MEDS ORDERED: LANTUS SOL100 UNIT/1 SC (09:09)
[2020-06-06] MEDS ORDERED: Nystatin Cream15 GM T (09:11)
[2020-06-06] MEDS ORDERED: NYAMYC15 GM T (09:12)
[2020-06-06] MEDS ORDERED: DAKIN'S473 ML T (09:14)
[2020-06-06] MEDS ORDERED: PERCOCET 5-3251 EACH PO (09:14)
[2020-06-06] MEDS ORDERED: NORVASC2.5 MG PO (09:16)
[2020-06-06] MEDS ORDERED: NEURONTIN100 MG PO (09:19)
[2020-06-06] MEDS ORDERED: PREDNISONE5 MG PO (09:20)
--- NOTE | 2020-06-06 09:20 | NUR ---
REQUESTED WOUND CARE ORDERS FROM WHILE VISITING PT IN ER.
[2020-06-06] MEDS ORDERED: BIOFREEZE118 ML T (09:26)
--- NOTE | 2020-06-06 09:26 | NUR ---
MED REC UPDATED, INFORMED.
--- NOTE | 2020-06-06 09:35 | NUR ---
A 80, admitted to 5E, under the services of LAMAR Sparks DO with a diagnosis of ANEMIA. Chief complaint is ABNORMAL LABS, HGB 6.5. Patient arrived via ambulance from ER. Monitor applied. Initial assessment completed. Vital signs taken and recorded. LAMAR SPARKS DO notified of admission to the unit. Orders received. See assessment for past medical history, medications and allergies. Patient and/or family oriented to unit. [facility] visitation policy reviewed. Clothing/patient valuable form completed. JENNY OLMOS
--- NOTE | 2020-06-06 11:30 | NUR ---
DR GUEVARA NOTIFIED OF PODIATRY CONSULT. WILL SEE THIS AFTERNOON.
[2020-06-06 14:02] LABS: BASO % 0.1 % (0.0-1.0); EOS % 0.3 % (1.0-4.0); HEMATOCRIT 32.2 % (42.0-52.0); LYMPH # 0.7 10*3/uL (1.3-4.4); MEAN CELL VOLUME 80.9 fl (80.0-94.0); MEAN CORPUSCULAR HGB 22.9 pg (27.0-31.0); MEAN CORPUSCULAR HGB CONC 28.3 g/dl (33.0-37.0); MEAN PLATELET VOLUME 8.4 fl (9.6-12.3); MONO # 0.4 10*3/uL (0.1-1.0); MONO % 6.1 % (3.0-9.0); NEUT # 5.9 10*3/uL (2.3-7.9); NEUT % 82.8 % (47.0-73.0); PLATELET COUNT AUTOMATED 332 10*3/uL (130-400); RED BLOOD COUNT 3.98 10*6/uL (4.50-5.90); RED CELL DISTRI WIDTH 17.7 % (0-14.5); WHITE BLOOD COUNT 7.1 10*3/uL (4.8-10.8)
--- NOTE | 2020-06-06 14:21 | NUR ---
DR CANTRELL NOTIFIED OF CONSULT.
--- NOTE | 2020-06-06 17:23 | NUR ---
SPOKE WITH DR GUEVARA ABOUT WOUND ORDERS. STATED THAT WOUND ORDERS WOULD BE GIVEN AFTER VASCULAR STUDIES ARE DONE.
[2020-06-07] VITALS: BP 138/53
[2020-06-07 06:21] LABS: BASO % 0.2 % (0.0-1.0); EOS # 0.1 10*3/uL (0.0-0.4); EOS % 1.1 % (1.0-4.0); HEMATOCRIT 30.3 % (42.0-52.0); LYMPH # 1.5 10*3/uL (1.3-4.4); MEAN CELL VOLUME 81.5 fl (80.0-94.0); MEAN CORPUSCULAR HGB 23.4 pg (27.0-31.0); MEAN CORPUSCULAR HGB CONC 28.7 g/dl (33.0-37.0); MEAN PLATELET VOLUME 8.7 fl (9.6-12.3); MONO # 0.6 10*3/uL (0.1-1.0); NEUT # 4.1 10*3/uL (2.3-7.9); NEUT % 64.9 % (47.0-73.0); PLATELET COUNT AUTOMATED 309 10*3/uL (130-400); RED BLOOD COUNT 3.72 10*6/uL (4.50-5.90); RED CELL DISTRI WIDTH 17.9 % (0-14.5); WHITE BLOOD COUNT 6.3 10*3/uL (4.8-10.8)
[2020-06-07 06:30] LABS: ACT PARTIAL THROMBO TIME 24.2 SECONDS (20.0-32.1)
[2020-06-07 06:34] LABS: CHLORIDE 103 mmol/L (98-107); POTASSIUM 3.8 mmol/L (3.5-5.1); SODIUM 140 mmol/L (136-145)
[2020-06-07 06:42] LABS: ALBUMIN 2.9 gm/dl (3.1-4.5); ALKALINE PHOSPHATASE 55 U/L (45-117); BUN 17 mg/dl (7-24); CREATININE 0.98 mg/dL (0.70-1.30); SGOT/AST 7 IU/L (3-35); SGPT/ALT 17 U/L (12-78); TOTAL PROTEIN 6.2 gm/dL (6.4-8.2)
--- NOTE | 2020-06-07 07:51 | NUR ---
PT. UNAVAILABLE OFF FLOOR FOR PROCEDURE.
[2020-06-07 08:00] VITALS: BP 136/78
--- NOTE | 2020-06-07 08:19 | NUR ---
Spoke with MRI regarding pt. Mary in MRI states that pt has neurostimulator for bladder and most likely she will not be able to scan pt. States she attempted to call pt who has the card for device and left two messages.
--- NOTE | 2020-06-07 09:00 | NUR ---
CM in to see patient. He is short term at [facility] and plans to return there upon discharge. He states he gets around in a wheelchair "because that is all they will let me do." He states he wears O2 @ 2L nc. When medically stable he will be discharged to [facility]. creamery worker following.
--- NOTE | 2020-06-07 09:19 | NUR ---
Spoke with pt who supplied model number for bladder stimulator. States it is a [employer] model 3058. states that when pt had it implanted they told her and pt that he was not to have an MRI expect of this head. Notified MRI.
--- NOTE | 2020-06-07 09:23 | NUR ---
Notified Dr. Kaufman resident with podiatry regarding pt unable to have MRI. Requests CT bl feet and ankles ordered instead without contrast. Physical therapy also requesting clarfication of weight bearing status. Dr. Kaufman states WBAT.
--- NOTE | 2020-06-07 10:14 | NUR ---
OFFICE STAFF WAS NOTIFIED OF DR. STEWART CONSULT. RESPONSE OF NOTIFICATION WAS STATES THEY WILL NOTIFY THE PHYSICAN. BELA PIERSON
--- NOTE | 2020-06-07 10:37 | NUR ---
Spoke with Dr. Chaka Kaufman he states his attending has not seen patient but likely the dressing will be handled by podiatry.
--- NOTE | 2020-06-07 11:15 | NUR ---
Occupational Therapy evaluation completed on 5 with full eval to follow. Precautions include fall risk,+2-3 transfer assist d/t knees buckling,muscle weakness, high complexity level 95328. Recommend return to nursing center/SNF. Thank you for this referral. Sydni Riggins OTR/l
--- NOTE | 2020-06-07 11:34 | NUR ---
PHYSICAL THERAPY Physical Therapy evaluation completed on 5th floor with full evaluation to follow. Recommend physical therapy per plan of care and SNF upon discharge. Thank you for this referral. Chantal Tapia PT
[2020-06-07 12:00] VITALS: BP 142/82
[2020-06-07 16:00] VITALS: BP 140/60
--- NOTE | 2020-06-07 16:27 | NUR ---
Wedge obtained for pt and placed under bl feet.
--- NOTE | 2020-06-07 19:26 | NUR ---
24 HR CHART CHECK COMPLETE.
[2020-06-07 20:00] VITALS: BP 113/61
--- NOTE | 2020-06-07 21:55 | NUR ---
PT MEDICATED WITH PRN MORPHINE FOR C/O BILAT FEET PAIN RATED A 10/10. WILL MONITOR FOR EFFECTIVENESS.
--- NOTE | 2020-06-07 22:30 | NUR ---
PT ASLEEP IN BED AT THIS TIME. PRN MORPHINE APPEARS EFFECTIVE.
[2020-06-08] VITALS: BP 151/70
[2020-06-08 06:13] LABS: BASO % 0.2 % (0.0-1.0); EOS # 0.1 10*3/uL (0.0-0.4); EOS % 1.2 % (1.0-4.0); HEMATOCRIT 28.1 % (42.0-52.0); LYMPH # 1.4 10*3/uL (1.3-4.4); LYMPH % 22.8 % (27.0-41.0); MEAN CELL VOLUME 81.4 fl (80.0-94.0); MEAN CORPUSCULAR HGB 23.5 pg (27.0-31.0); MEAN CORPUSCULAR HGB CONC 28.8 g/dl (33.0-37.0); MEAN PLATELET VOLUME 8.9 fl (9.6-12.3); MONO # 0.6 10*3/uL (0.1-1.0); MONO % 9.9 % (3.0-9.0); NEUT # 3.9 10*3/uL (2.3-7.9); NEUT % 64.9 % (47.0-73.0); PLATELET COUNT AUTOMATED 289 10*3/uL (130-400); RED BLOOD COUNT 3.45 10*6/uL (4.50-5.90); RED CELL DISTRI WIDTH 18.4 % (0-14.5); WHITE BLOOD COUNT 5.9 10*3/uL (4.8-10.8)
[2020-06-08 08:00] VITALS: BP 145/78
--- NOTE | 2020-06-08 09:00 | NUR ---
OT NOTE Pt was seen this A.M. 1:1 for 15 minute OT session. Upon arrival pt was supine in bed. Pt identified by name and and had complaints of 10/10 R foot pain. Pt presented to therapy with continuous 1L-O2 via NC which he remained on throughout the entire session. Pt transferred supine to sit EOB with CGA. While sitting EOB pt completed BUE towel exercises over all planes of motion for 2 X 10 with mod resistance to increase and restore maximum functional strength. Attempted to complete standing tasks and pt declined due to pain. Pt transferred back into bed sit to supine with Jonathan. There he was left with call light in hand, tray table in place, and bed alarm activated for safety. Continue with rec D/C plan [facility]. CHARLY Jarquin/Yosi
--- NOTE | 2020-06-08 09:36 | NUR ---
PRECERT IS REQUIRED FOR RETURN TO [facility]. [facility] FAXED UPDATES TO [facility].
--- NOTE | 2020-06-08 10:19 | NUR ---
PHYSICAL THERAPY TREATMENT TIME: IN 08:45 AM - OUT 09:00 AM 15 MINUTES TOTAL Patient presented to therapy in supine with head of bed elevated and bed alarm on. Patient reports pain in the B feet FROM THE ULCERS. PATIENT DOES NOT WANT TO WALK DUE TO THE PAIN IN THE FEET. Patient completed supine <> sitting on EOB with SBA. Patient sat on EOB with SBA. Patient performed seated bilateral LE ther ex x 15 reps each in all planes of movement including LAQs, marches, hip abduction, and pillow sqeeze for strengthening in order to improve patient's functional mobility. Patient did not stand due to bilateral foot pain. Patient transferred back to supine in bed with SBA. Patient moved up to head of bed with sheet and MAX A X 2. Patient was left in supine in bed with head of bed elevated and bed alarm on. Call light is within reach and tray table within reach. Patient was 1:1 with this CIRCUIT MANAGER for 15 minutes total. HAJA ALVAREZ CIRCUIT MANAGER
[2020-06-08 12:00] VITALS: BP 135/67
--- NOTE | 2020-06-08 12:29 | NUR ---
PRECERT HAS BEEN STARTED FOR PATIENT TO RETURN TO [facility].
--- NOTE | 2020-06-08 12:41 | NUR ---
PT REQUEST PRN PAIN MEDICATION FOR C/O ROSE 11/13
--- NOTE | 2020-06-08 13:40 | NUR ---
PT STATES ROSE HAS RESOLVED
[2020-06-08 16:00] VITALS: BP 134/71
--- NOTE | 2020-06-08 17:00 | NUR ---
SPOKE TO DR GUEVARA ABOUT DRSG ORDERS FOR TODAY. DR GUEVARA STATED TO JUST APPLY A BETADINE SOAKED 4X4 AND COVER W/ DSD AND WRAP WITH KERLIX.
[2020-06-08 20:00] VITALS: BP 148/70
--- NOTE | 2020-06-08 20:00 | NUR ---
RESTING IN BED BEING CHANGED BY PA. VOICES NO C/O AT THIS TIME; WILL CONTINUE TO MONITOR. CALL LIGHT WITHIN REACH.
--- NOTE | 2020-06-08 21:31 | NUR ---
TOOK PO MEDICATIONS WITHOUT DIFFICULTY. WENT OVER SURGERY QUESTIONNAIRE WITH PATIENT. PT. INFORMED THAT HE WOULD BE UNABLE TO EAT/DRINK ANYTHING AFTER MIDNIGHT; VERBALIZED UNDERSTANDING. VOICES NO C/O AT THIS TIME. WILL CONTINUE TO MONITOR.
[2020-06-09] VITALS (9 sets, daily range): BP systolic 118–181; BP diastolic 56–90
--- NOTE | 2020-06-09 | NUR ---
PT. MADE NPO. RESTING IN BED WITH EYES CLOSED; CALL LIGHT WITHIN REACH.
--- NOTE | 2020-06-09 04:00 | NUR ---
ASSIST UP TO BSC.
--- NOTE | 2020-06-09 04:20 | NUR ---
BATHED BY GIACOMO FOR SURGERY THIS MORNING.
--- NOTE | 2020-06-09 06:00 | NUR ---
TAKEN DOWN TO SURGERY VIA BED.
--- NOTE | 2020-06-09 08:00 | NUR ---
PATIENT IN SURGERY.
--- NOTE | 2020-06-09 09:00 | NUR ---
OT NOTE Per OTR pt is to be on hold for therapy at this time pending new weight bearing status. Will continue with POC as able. CHARLY Jarquin/Yosi
--- NOTE | 2020-06-09 09:00 | NUR ---
CM in to see patient. No new needs or request at this time. He is short term at [facility] and plans to return there upon discharge. When medically stable he will be discharged to [facility]. dust box worker following.
--- NOTE | 2020-06-09 09:45 | NUR ---
PATIENT BACK FROM SURGERY WITH WOUND VAC TO L FOOT. BILAT FEET WRAPPED AND HEEL PROTECTORS ARE IN USE.
[2020-06-09 09:49] LABS: BASO % 0.3 % (0.0-1.0); EOS # 0.1 10*3/uL (0.0-0.4); EOS % 1.3 % (1.0-4.0); HEMATOCRIT 32.5 % (42.0-52.0); LYMPH # 1.4 10*3/uL (1.3-4.4); LYMPH % 19.9 % (27.0-41.0); MEAN CELL VOLUME 81.3 fl (80.0-94.0); MEAN CORPUSCULAR HGB 23.3 pg (27.0-31.0); MEAN CORPUSCULAR HGB CONC 28.6 g/dl (33.0-37.0); MEAN PLATELET VOLUME 8.2 fl (9.6-12.3); MONO # 0.7 10*3/uL (0.1-1.0); MONO % 10.5 % (3.0-9.0); NEUT # 4.8 10*3/uL (2.3-7.9); NEUT % 67.2 % (47.0-73.0); PLATELET COUNT AUTOMATED 298 10*3/uL (130-400); RED CELL DISTRI WIDTH 19.2 % (0-14.5); WHITE BLOOD COUNT 7.1 10*3/uL (4.8-10.8)
--- NOTE | 2020-06-09 10:19 | NUR ---
MEDICATED WITH PRN NORCO PER ORDER AND REQUEST FOR FOOT PAIN BILAT.
--- NOTE | 2020-06-09 11:00 | NUR ---
MINNIE HELPED SOME.
--- NOTE | 2020-06-09 11:08 | NUR ---
OT NOTE A duplicate OT order received this date. Per order reason for consult "Post op R toe and L ankle debridement...Non-Weight Bearing...Post-op." Please see OT orders for further details. Spoke with Dr. Farooq and podiatry residents this AM at 9:30 in regards to clarification on B/L weight bearing statuses. Per Dr. Farooq, patient is LLE WBAT with cam boot donned and is RLE WBAT with the surgical shoe. Per Dr. Farooq, the patient does not have his LLE cam boot yet and is on hold until it is received. Physical therapist present for discussion. Spoke with Dr. Kaufman and asked to update OT/PT orders as per conversation. Thank you. Lu Espinoza, OTR/L
--- NOTE | 2020-06-09 11:15 | NUR ---
PHYSICAL THERAPY An OT order was received today updating new order pt post op R toe and L ankle debridement w wound vac placement at L ankle and to be NWB but not indicating one or both LE's. Spoke with Dr. Farooq and podiatry residents on patient's floor this AM at 9:30 in regarding clarification on B/L weight bearing status. Per Dr. Farooq, patient is LLE WBAT with cam boot donned and is RLE WBAT with the surgical shoe. Per Dr. Farooq, the patient does not have his LLE cam boot yet and is on hold until it is received. OT also present during conversation. Spoke with Dr. Kaufman and asked to update OT/PT orders as per conversation. Thank you. Chantal Tapia PT
--- NOTE | 2020-06-09 12:15 | NUR ---
MEDICATED WITH PRN MORPHINE PER ORDER AND REQUEST FOR FOOT PAIN.
--- NOTE | 2020-06-09 13:00 | NUR ---
MORPHINE HELPED MINIMALLY PATIENT ALREADY REQUESTING SOMETHING ELSE, WILL GIVE WHEN DUE.
--- NOTE | 2020-06-09 15:35 | NUR ---
PHYSICAL THERAPY PATIENT DECLINED TREATMENT THIS AFTERNOON DUE OT SEVERE PAIN OF 10/10 IN HIS FEET. WILL CHECK BACK WITH PATIENT TOMORROW. HAJA ALVAREZ CYBER SECURITY MANAGER
--- NOTE | 2020-06-09 20:29 | NUR ---
PT SEEN AND ASSESSED. PT POST OP TODAY FOR I&D OF BILAT LE WOUNDS. PT HAS WOUND VAC IN PLACE @ 200 MM/HG CONTINUOUS RATE TO LEFT LE WOUND. HEEL PROTECTORS TO BILAT FEET. PT GALE ANY PAIN. BS 152 AND PT REFUSES ANY COVERAGE STATING "AFRAID IT WILL DROP IT TOO LOW"
[2020-06-10] VITALS: BP 126/61
--- NOTE | 2020-06-10 00:30 | NUR ---
PT RESTING QUIETLY IN BED WITH EYES CLOSED.
--- NOTE | 2020-06-10 05:32 | NUR ---
24 HR chart check completed.
[2020-06-10 06:32] LABS: BASO % 0.1 % (0.0-1.0); EOS # 0.1 10*3/uL (0.0-0.4); HEMATOCRIT 30.4 % (42.0-52.0); LYMPH # 1.3 10*3/uL (1.3-4.4); LYMPH % 18.8 % (27.0-41.0); MEAN CELL VOLUME 80.6 fl (80.0-94.0); MEAN CORPUSCULAR HGB 23.1 pg (27.0-31.0); MEAN CORPUSCULAR HGB CONC 28.6 g/dl (33.0-37.0); MEAN PLATELET VOLUME 8.6 fl (9.6-12.3); MONO # 0.8 10*3/uL (0.1-1.0); MONO % 11.8 % (3.0-9.0); NEUT # 4.5 10*3/uL (2.3-7.9); NEUT % 67.1 % (47.0-73.0); PLATELET COUNT AUTOMATED 295 10*3/uL (130-400); RED BLOOD COUNT 3.77 10*6/uL (4.50-5.90); RED CELL DISTRI WIDTH 19.5 % (0-14.5); WHITE BLOOD COUNT 6.7 10*3/uL (4.8-10.8)
[2020-06-10 07:02] LABS: BUN 16 mg/dl (7-24); CHLORIDE 103 mmol/L (98-107); CREATININE 0.99 mg/dL (0.70-1.30); POTASSIUM 3.7 mmol/L (3.5-5.1); SODIUM 139 mmol/L (136-145)
[2020-06-10 08:00] VITALS: BP 128/62
--- NOTE | 2020-06-10 08:46 | NUR ---
MEDICATED WITH [facility] NORCO PER ORDER AND REQUEST.
--- NOTE | 2020-06-10 09:07 | NUR ---
COMMUNICATIONS ASSISTANT FAXED UPDATES TO [facility].
--- NOTE | 2020-06-10 09:10 | NUR ---
PHYSICAL THERAPY Patient seen this am 1;1 for therapy visit and was relaxing supine in bed upon therapist arrival. Patient identified by name / and presented with continuous O2-1L via NC. Patient reports B LE discomfort, while presenting with B LE terrance wrap, including L foot wound vac. Patient is WBAT on L LE with use of CAM boot, WBAT on R LE with surgical shoe, however per discussion with Nursing, Niether LE shoe was available / delivered at this time. Patient reviewed LE weight bearing precautions and agreed to supine to sit EOB transfer, MIN A x 1, tolerating approx 10 minutes static EOB sit to promote increased core strength / trunk control to improve seated upright posture. Patient able to laterl scoot to R side for pre bed positioning, SBA and returned to supine in bed with MIN A for HOB positioning. Patient remained in bed with B heel protectors, call light, tray table, telephone and bed alarm for safety. Will continue per POC as tolerated, total treatment time 14 minutes. Sampson Cheema, CONSTRUCTION PLANT OPERATOR
--- NOTE | 2020-06-10 09:30 | NUR ---
OT NOTE Pt was seen this A.M. 1:1 for 15 minute OT session. Upon arrival pt was supine in bed. Pt identified by name and and had complaints of 10/10 B foot pain. Pt presented to therapy with continuous 1L-O2 via NC and wound vac to LLE which both remained in place throughout the entire session. Pt transferred supine to sit EOB with Jonathan for assist with upper body. While sitting EOB pt completed BUE exercises over all planes with min resistance for 1 X 10 to increase and restore maximum functional strength. No standing activity was completed at this time due to pt's cam boot and surgical shoes still not being here yet. Pt transferred back into bed sit to supine with SBA and was repositioned with maxA X 2. There he was left with call light in hand, tray table in place, and bed alarm activated for safety. Continue with rec D/C plan to return to correction/SNF. CHARLY Jarquin/Yosi
--- NOTE | 2020-06-10 11:25 | NUR ---
[address]PUT[address] COURT FAXED ORDER FOR WOUND VAC TO GILDA CASTREJON IS PENDING.
[2020-06-10 12:00] VITALS: BP 145/73
[2020-06-10 12:11] LABS: ACID FAST SPEC PROCESSING Tissue Grinding (.)
[2020-06-10 16:00] VITALS: BP 142/50
[2020-06-10 20:00] VITALS: BP 117/57
[2020-06-11] VITALS: BP 129/66
--- NOTE | 2020-06-11 02:46 | NUR ---
24 HR chart check completed.
--- NOTE | 2020-06-11 05:36 | NUR ---
TYLENOL GIVEN PER ORDER FOR LOWER LEG PAIN. RATED "5".
--- NOTE | 2020-06-11 05:51 | NUR ---
UP TO BEDSIDE COMMODE WITH MAX ASSIST.
--- NOTE | 2020-06-11 06:02 | NUR ---
UP TO BEDSIDE COMMODE HAD SMALL MUSHY BROWN STOOL. FECAL OCCULT OBTAINED AND SENT TO LAB FOR TESTING.
[2020-06-11 06:08] LABS: BASO % 0.2 % (0.0-1.0); EOS # 0.1 10*3/uL (0.0-0.4); EOS % 0.8 % (1.0-4.0); LYMPH # 1.5 10*3/uL (1.3-4.4); LYMPH % 23.2 % (27.0-41.0); MEAN CELL VOLUME 81.2 fl (80.0-94.0); MEAN CORPUSCULAR HGB 23.5 pg (27.0-31.0); MEAN CORPUSCULAR HGB CONC 28.9 g/dl (33.0-37.0); MEAN PLATELET VOLUME 8.8 fl (9.6-12.3); MONO # 0.7 10*3/uL (0.1-1.0); MONO % 11.7 % (3.0-9.0); NEUT % 63.5 % (47.0-73.0); PLATELET COUNT AUTOMATED 263 10*3/uL (130-400); RED BLOOD COUNT 3.45 10*6/uL (4.50-5.90); RED CELL DISTRI WIDTH 19.8 % (0-14.5); WHITE BLOOD COUNT 6.3 10*3/uL (4.8-10.8)
[2020-06-11 06:22] LABS: BUN 15 mg/dl (7-24); CHLORIDE 104 mmol/L (98-107); CREATININE 0.96 mg/dL (0.70-1.30); POTASSIUM 3.6 mmol/L (3.5-5.1); SODIUM 140 mmol/L (136-145)
--- NOTE | 2020-06-11 06:30 | NUR ---
TYLENOL HELPING WITH PAIN PER PT.
[2020-06-11 08:00] VITALS: BP 134/56
--- NOTE | 2020-06-11 08:20 | NUR ---
PT RESTING IN BED. RESP-EASY AND REGULAR. TOLERATED ROUTINE MED WITH NO PROBLEM. NO C/O AT THIS TIME. CALL LIGHT IN REACH. SEE SHIFT ASSESSMENT.
--- NOTE | 2020-06-11 08:30 | NUR ---
CM in to see patient. No new needs or request at this time. He is short term at [facility] and plans to return there upon discharge. Awaiting precert. Precert was started 06/08. When medically stable and precert has been received he will be discharged to [facility] [facility]. apartment maintenance worker following.
--- NOTE | 2020-06-11 08:45 | NUR ---
OT NOTE Pt was seen this A.M. 1:1 for 15 minute OT session. Upon arrival pt was supine in bed. Pt identified by name and and had complaints of 8/10 B foot pain. Pt presented to therapy with continuous 1L-O2 via NC and wound vac to LLE which both remained in place throughout the entire session. Pt transferred supine to sit EOB with SBA and use of bed rail for UE support. While sitting EOB pt completed BUE towel exercises with min resistance over all planes for 1 X 10 to increase and restore maximum functional strength. Unable to complete any standing activity at this time due to pt's cam boot and surgical shoe not being in yet. Pt transferred back into bed sit to supine with SBA. There he was left with call light in hand, tray table in place, and bed alarm activated for safety. Continue with rec D/C plan to return to senior living/SNF. CHARLY Jarquin/Yosi
--- NOTE | 2020-06-11 08:48 | NUR ---
PHYSICAL THERAPY TREATMENT TIME: IN 08:32 AM - OUT 08:45 PM 13 MINUTES TOTAL Patient presented to therapy in supine in bed with head of bed elevated slightly and bed alrm on. Patient reports a 8/10 pain level in the bilateral feet. Patient gives informed consent for treatment. Patient was identified by name and on wristband. Patient performed supine <> sitting on EOB with SBA. Patient sat on EOB with SBA. PATIENT PERFORMED SEATED BILATERAL LE THER EX x 15 reps each in all planes of movement for strengthening the LEs in order to improve patient's functional mobility including LAQs, Marches. Patient sat on EOB for 8 minutes total Supervision. Patient transferred back to supine in bed with SBA. Patient scooted himself up in bed with SBA using his UEs mostly. Patient was left in supine in bed with head of bed elevated and bed alarm on. Call light within reach. Patient was 1:1 with this DATA LIBRARIAN for 13 minutes total. PATIENT DOES NOT HAVE CAM BOOT YET. CHARLY Vizcaino present as witness to this treatment. HAJA ALVAREZ DATA LIBRARIAN
[2020-06-11 12:00] VITALS: BP 130/88
--- NOTE | 2020-06-11 12:55 | NUR ---
DR. FELDMAN CALLED REGARDING PT NEEDING A MIDLINE TO GO HOME ON IV ANTIBIOTICS. NO NURSE HERE TO DO. CALLED SURGERY THEY STATE TO SEND MESSAGE AND SOMEONE MIGHT BE ABLE TO GET TO IT AFTER LUNCH.
--- NOTE | 2020-06-11 13:10 | NUR ---
RESTING IN BED. BSG-217, SEE EMAR. TOLERATED ROUTINE MED WITH NO PROBLEM. CALL LIGHT IN REACH. OXYGEN IN USE.
--- NOTE | 2020-06-11 13:26 | NUR ---
PHYSICAL THERAPY CO-SIGN I approve of the Physical Therapy notes written above. Chantal Tapia PT
--- NOTE | 2020-06-11 14:17 | NUR ---
CALLED DR. FELDMAN AWARE MIDLINE WAS PLACED IN PT BY SURGERY.
[2020-06-11] MEDS ORDERED: ERTAPENEM1 GM IV (14:23)
[2020-06-11] MEDS ORDERED: NEURONTIN100 MG PO (14:23)
[2020-06-11] MEDS ORDERED: PERCOCET 5-3251 EACH PO (14:23)
--- NOTE | 2020-06-11 14:27 | NUR ---
OCCUPATIONAL THERAPY CO-SIGN I approve of the Occupational Therapy notes written above. Shital Villagran OTR/L
--- NOTE | 2020-06-11 14:59 | NUR ---
PRECERT IS PENDING. PATIENT CANNOT DISCHARGE UNTIL PRECERT IS RETURNED. [facility] IS AWARE TO CONTACT THE FLOOR ONCE IT IS OBTAINED.
[2020-06-11 16:00] VITALS: BP 142/58
--- NOTE | 2020-06-11 16:30 | NUR ---
PT RESTING IN BED. BSG-172, SEE EMAR. TOLERATED ROUTINE MED WITH NO PROBLEM. NO C/O AT THIS TIME. CALL LIGHT IN REACH. SEE SHIFT ASSESSMENT.
[2020-06-11 20:00] VITALS: BP 146/99
[2020-06-12] VITALS: BP 129/68
--- NOTE | 2020-06-12 01:25 | NUR ---
0125- 0150 0125 BOTH PATIENT ATTENDENTS WERE IN WITH PATIENT. PATIENT UP TO BEDSIDE COMMODE. PATIENT ATTENDENT CAME TO THIS RN AND SAID "HE FELL". UPON ENTERING ROOM PATIENT ON SITTING ON FLOOR BLEEDING FROM BOTH ARMS, LARGE SKIN TEAR ON LEFT OUTER FOREARM UP PAST ELBOW, SKIN TEARS LEFT HAND BETWEEN 1ST AND 2ND KNUCKLE, SKIN TEAR NOTED ON RIGHT WRIST AREA. PER PATIENT ATTENDENTS WHEN PATIENT STOOD UP HE TRIED TO CLEAN HIS BUTTOCKS AND LOST HIS BALANCE FALLING FORWORD. ONE ATTENDENT TRIED TO HOLD PATIENT BUT HE CONTINUED TO FALL HITTING RIGHT FOREHEAD ON FLOOR. BUMP NOTED ON RIGHT FOREHEAD. NO LOC. PATIENT ALERT ORIENTED AND JOKING WITH STAFF. [address] BISHOP AND NOTIFIED HIM OF PT. FALL AND THAT HE SHOULD COME CHECK PATIENT SKIN TEARS. CALLED ADDITIONAL STAFF TO HELP PICK PATIENT UP FROM FLOOR. 0136 CALLED NURSING FIRE PREVENTION CHIEF AND NOTIFIED HER OF PT. FALL. WILL CALL FAMILY IN AM AND INSTRUCTED BY NURSING FIRE PREVENTION CHIEF. 0140 ADDITIONAL STAFF TO FLOOR AND PATIENT LIFTED BACK INTO BED. VITAL SIGNS TAKEN. BLEEDING STOPPED ON ALL SKIN TEARS. 0150 DR. BISHOP TO FLOOR AND EXAMINED PATIENT ORDERS TO BE RECIEVED.
--- NOTE | 2020-06-12 02:50 | NUR ---
0250 WOUND CARE MEASUREMENTS, PICTURES OBTAINED. WOUND CARE DONE TO ALL SKIN TEARS PER ORDER. DRESSING APPLIED TO ALL SITES. PATIENT TOLERATED WELL. HEPLOCK WAS REMOVED FROM LEFT ANTECUBITAL CATHETER INTACT. STERILE DRESSING APPLIED TO SITE. SEE DOCUMENT INTERVENTIONS FOR WOUND SITES.
--- NOTE | 2020-06-12 03:00 | NUR ---
PATIENT TRANSPORTED TO CT SCAN VIA BED WITH 2 PA'S.
--- NOTE | 2020-06-12 03:20 | NUR ---
PATIENT RETURNED TO ROOM VIA BED WITH 2 PA'S. BED ALARM ON.
--- NOTE | 2020-06-12 04:10 | NUR ---
DR. BISHOP AWARE OF CT SCAN RESULTS.
--- NOTE | 2020-06-12 05:32 | NUR ---
CALLED IN AFTER PATIENT CALLED HER. EXPLAINED TO HER WHAT HAPPEND AND PATIENTS INJURIES. SHE SAID "IT'S NOT YOUR FAULT. HE'S HAD A LOT OF FALLS. THESE THINGS HAPPEN."
--- NOTE | 2020-06-12 05:56 | NUR ---
TYLENOL GIVEN PER ORDER FOR HEADACHE RATED "5". ECCHYMOTIC AREA DEVELOPING ON RIGHT TEMPERAL AREA. SEE MAR.
--- NOTE | 2020-06-12 06:50 | NUR ---
TYLENOL HELPING A LITTLE FOR HEADACHE PER PT.
[2020-06-12 08:00] VITALS: BP 134/85
--- NOTE | 2020-06-12 11:00 | NUR ---
PRN PO KLONOPIN NOT AT ALL EFFECTIVE, PER PATIENT.
[2020-06-12 12:00] VITALS: BP 120/66
[2020-06-12 16:00] VITALS: BP 110/67
--- NOTE | 2020-06-12 19:45 | NUR ---
PATIENT ALERT TALKING ON PHONE. RIGHT UPPER AND DOWN AROUND OUTER SIDE RIGHT EYE LID ECCHYMOTIC FROM FALLING EARLIER THIS MORNING.
[2020-06-12 20:00] VITALS: BP 134/69
--- NOTE | 2020-06-12 23:56 | NUR ---
24 HR chart check completed.
[2020-06-13] VITALS: BP 116/60
[2020-06-13 06:13] LABS: BASO % 0.2 % (0.0-1.0); EOS # 0.1 10*3/uL (0.0-0.4); EOS % 1.1 % (1.0-4.0); HEMATOCRIT 28.7 % (42.0-52.0); LYMPH # 1.2 10*3/uL (1.3-4.4); LYMPH % 21.8 % (27.0-41.0); MEAN CELL VOLUME 80.2 fl (80.0-94.0); MEAN CORPUSCULAR HGB 23.2 pg (27.0-31.0); MEAN CORPUSCULAR HGB CONC 28.9 g/dl (33.0-37.0); MEAN PLATELET VOLUME 8.9 fl (9.6-12.3); MONO # 0.6 10*3/uL (0.1-1.0); MONO % 10.3 % (3.0-9.0); NEUT # 3.6 10*3/uL (2.3-7.9); PLATELET COUNT AUTOMATED 285 10*3/uL (130-400); RED BLOOD COUNT 3.58 10*6/uL (4.50-5.90); RED CELL DISTRI WIDTH 19.7 % (0-14.5); WHITE BLOOD COUNT 5.5 10*3/uL (4.8-10.8)
[2020-06-13 06:26] LABS: BUN 12 mg/dl (7-24); CHLORIDE 105 mmol/L (98-107); CREATININE 0.85 mg/dL (0.70-1.30); POTASSIUM 3.6 mmol/L (3.5-5.1); SODIUM 140 mmol/L (136-145)
[2020-06-13 08:00] VITALS: BP 123/85
[2020-06-13 12:00] VITALS: BP 114/94
[2020-06-13 16:00] VITALS: BP 132/98
[2020-06-13 20:00] VITALS: BP 151/70
[2020-06-14] VITALS: BP 131/76
--- NOTE | 2020-06-14 06:00 | NUR ---
WOUND PHOTOS TAKEN IN ANTICIPATION OF DISCHARGE. RN UNABLE TO VIEW SOME WOUNDS DUE TO DRESSINGS MANAGED BY PODIATRY/WOUND VAC.
[2020-06-14 06:20] VITALS: BP 163/98
--- NOTE | 2020-06-14 07:30 | NUR ---
PATIENT RESTING IN BED. VOICE NO CONCERS. ASSESSMENT COMPLETE. CALL LIGHT IN REACH.
--- NOTE | 2020-06-14 07:59 | NUR ---
PRECERT IS PENDING. TOP PRECIPITATOR OPERATOR HELPER NOTIFIED [facility] OF PATIENT NEEDING ERTAPENUM. TOP PRECIPITATOR OPERATOR HELPER FAXED UPDATES TO [facility].
[2020-06-14 08:00] VITALS: BP 140/77
--- NOTE | 2020-06-14 08:20 | NUR ---
OT NOTE Pt was seen this A.M. 1:1 for 15 minute OT session. Upon arrival pt was supine in bed. Pt identified by name and and had complaints of 10/10 B foot pain. Pt presented to therapy with wound vac to E which remained in place throughout the entire session. Pt transferred supine to sit EOB with SBA. While sitting EOB pt completed BUE towel exercises over all planes for 1 X 15 to increase and restore maximum functional strength. Requested for pt to faviola B socks and pt was unable resulting in maxA. Educated pt on compensatory techniques and pt was unable to complete. No standing activity was able to be completed at this time due to cam boot and surgical shoe not being here yet. Pt then transferred back into bed sit to supine with SBA. There he was left with call light in hand, tray table in place, and bed alarm activated for safety. Continue with rec D/C plan to return to retirement/SNF. CHARLY Jarquin/Yosi
--- NOTE | 2020-06-14 11:24 | NUR ---
PHYSICAL THERAPY TREATMENT TIME: IN 08:05 AM - OUT 08:22 17 MINUTES TOTAL Patient presented to therapy in supine with heal protectors on and bed alarm on with head of bed elevated. Patient reports s 7/10 pain level in the bilateral feet. Patient gives informed consent for treatment. Patient was idnetified by name and on wristband. Patient performed supine <> sit on EOB with SBA. Patient sat on EOB with SBA and NO LOB. Patient performed seated bilateral LE THER EX 2 x 10 reps each in all planes of movement including LAQs, marches, hip abduction, pillow sqeeze x 15 reps each for strengthening in order to improve patient's functional mobility. Patient DOES NOT HAVE CAM BOOT YET so no stadnign activities were initiated. Patient is WBAT to the R LE w/post op/surgical shoe and WBAT on the L LE with CAM BOOT. Patient completed sit EOB to supine in bed with SBA. Patient was able move himself up to head of bed with SBA. Patient was left in supine in bed with head of bed elevated, call light within reach and bed alarm on. Patient was 1:1 with this DIRECTOR AUTOMOTIVE for 17 minutes total. HAJA ALVAREZ DIRECTOR AUTOMOTIVE
[2020-06-14 12:00] VITALS: BP 152/71
[2020-06-14 16:00] VITALS: BP 141/62
--- NOTE | 2020-06-14 20:15 | NUR ---
PT RESTING IN BED AT THIS TIME. NO S/S OF DISTRESS NOTED. PT DENIES ANY C/O OF PAIN. RESPS EASY AND NONLABORED. BED LOW, BED ALARM ON, CALL LIGHT WITHIN REACH. WILL CONTINUE TO MONITOR.
[2020-06-15] VITALS: BP 142/79
--- NOTE | 2020-06-15 07:45 | NUR ---
Precert remains pending for [place].
[2020-06-15 08:00] VITALS: BP 156/76
--- NOTE | 2020-06-15 08:00 | NUR ---
PATIENT RESTING IN BED. ASSESSMENT COMPLETE. RESPS EASY AND REGULAR. CALL LIGHT IN REACH.
--- NOTE | 2020-06-15 08:40 | NUR ---
OT NOTE Pt was seen this A.M. for 12 minute OT session. Upon arrival pt was supine in bed. Pt identified by name and and had complaints of 10/10 B feet and all over pain. Pt declined any activity sitting EOB due to pain. Pt completed AROM over all planes while supine in bed for 1 X 10 due to also refusing any activity with resistance. Will check back a later time to attempt further acitvity within POC. Pt was left supine in bed with call light in hand, tray table in place, and bed alarm activated for safety. Continue with rec D/C plan to return to care home/SNF. CHARLY Jarquin/Yosi
--- NOTE | 2020-06-15 09:12 | NUR ---
MEDICATED WITH PRN TYLENOL FOR CO BODY ACHING ALL OVER. WILL ASSESS EFFECTIVENESS. PATIENT SITTING UP IN BED EATING BREAKFAST. CALL LIGHT IN REACH.
--- NOTE | 2020-06-15 10:02 | NUR ---
PHYSICAL THERAPY PATIENT WAS APPROACHED FOR THERAPY SESSION AT 8:33 AM AND PATIENT SAID HE WAS IN TOO MUCH PAIN TO DO THERAPY THIS AM. PATIENT ALSO SAID THAT HE WILL TRY TO DO THERAPY LATER TODAY. WILL CHECK BACK WITH PATIENT LATER TODAY. PATIENT STILL DOES NOT HAVE CAM BOOT TO ALLOW STANDIG ACTIVITIES. HAJA ALVAREZ LINUX NETWORK ADMINISTRATOR
--- NOTE | 2020-06-15 10:12 | NUR ---
TYLENOL EFFECTIVE PER PATIENT.
--- NOTE | 2020-06-15 10:54 | NUR ---
OT NOTE Pt was seen this A.M. 1:1 for 15 minute OT session. Upon arrival pt was supine in bed. Pt identified by name and and reported that he was feeling a little better than before and rated his pain all over as "it's a pushing towards a 10" on the 0-10 pain scale. Pt transferred supine to sit EOB with SBA. While sitting EOB pt completed upper body bathing with SBA after set up of water and supplies. Pt was unable to complete lower body bathing at this time due to wraps on BLE's. Pt then completed BUE towel exercises over all planes for 1 X 10 with min resistance to increase and restore maximum functional strength. Pt then transferred back into bed sit to supine with SBA. No standing activity was able to be completed at this time due to cam boot and surgical shoe still not being issued yet. Pt was left supine in bed with call light in hand, tray table in place, and bed alarm activated for safety. Continue with rec D/C plan to return to prison/SNF. CHARLY Jarquin/Yosi
--- NOTE | 2020-06-15 10:57 | NUR ---
PHYSICAL THERAPY TREATMENT TIME: IN 10:40 AM - OUT 10:58 18 MINUTES TOTAL Patient presented to therapy in supine wit hhead of bed elevated and bed alarm on wit hno IVs, no catheter and no spO2. Patimikala nash report of 10/10 pain on the bilateral feet. Patient gives inforemd consent for treatment. Patient was identified by name and on wristband. Patient performed supine <> sitting on EOB with SBA. Patient sat on EOB for 15 minutes total SBA. Patient performed seated bilateral LE ther ex 2 x 10 reps each in all planes of movement for strengthening the bilateral LEs including LAQs, marches, hip abduction and hip adduction with pillow. Patient transferred back to supine in be with SBA. Patient moved himself up in bed with SBA using his UEs to pull himself up to head of bed. Patient has NOT recieved his CAM boot as of yet and he has not recieved his surgical boot ethier. Patient cannot stand until he recieves these items. Patient was left in supine in bed with head of bed elevated, and bed alarm on. Patient's call light within reach. Patient was 1:1 with this CASINO PORTER for 18 minutes total. CHARLY HERNANDEZ present as witness to this treatment. HAJA ALVAREZ CASINO PORTER
[2020-06-15 12:00] VITALS: BP 124/59
--- NOTE | 2020-06-15 12:20 | NUR ---
CALLED IN AND WAS UPDATED ON PATIENT AND POC.
--- NOTE | 2020-06-15 12:29 | NUR ---
PRN DULCOLAX GIVEN PER PATIENT REQUEST FOR CO NO BM.
[2020-06-15 16:00] VITALS: BP 154/71
--- NOTE | 2020-06-15 17:44 | NUR ---
MEDICATED WITH PRN TYLENOL FOR CO BODY ACHES ALL OVER. WILL ASSESS EFFECTIVENESS.
--- NOTE | 2020-06-15 18:44 | NUR ---
PATIENT SLEEPING. TYLENOL APPEARS EFFECTIVE.
[2020-06-15 20:00] VITALS: BP 146/70
--- NOTE | 2020-06-15 21:21 | NUR ---
24 HR CHART CHECK COMPLETE.
[2020-06-15 22:27] VITALS: BP 152/65
--- NOTE | 2020-06-15 22:30 | NUR ---
DR BISHOP NOTIFIED OF PATIENTS CHANGE IN MENTAL STATUS AND ABNORMAL VITALS OF HR 107 AND RESPS OF 26. ORDERS RECIEVED.
--- NOTE | 2020-06-15 22:58 | NUR ---
PT MEDICATED WITH PRN TYLENOL FOR RECTAL TEMP OF 102.2 WILL MONITOR FOR EFFECTIVENESS
--- NOTE | 2020-06-15 23:11 | NUR ---
DR BISHOP TO FLOOR TO SEE PT. PT CONTINUES TO BE TACHYPNEIC, RECTAL TEMP OF 102.2
[2020-06-16] VITALS: BP 153/72
--- NOTE | 2020-06-16 01:05 | NUR ---
PT'S TEMP IS NOW 99.1. PRN TYLENOL EFFECTIVE.
--- NOTE | 2020-06-16 07:45 | NUR ---
PHYSICAL THERAPY Spoke with primary nurse Belia regarding podiatry and post ops needs for BLE. Per podiatry orders awaiting post op shoe and CAM boot after surgical procedure last week 06/09 per conversation with and . Shoe/boot still not available on 06/11 and did speak with nursing regarding contacting podiatry for further follow up of shoes. Pt still without shoe/CAM boot have spoken with nursing and no information per H&P by MD. Attempted to contact podiatry this AM by phone x 2 no one available at this time. Per conversation with nurse Celaya this AM will attempt to clarify today with podiatry. Will follow Chantal Tapia PT
--- NOTE | 2020-06-16 07:56 | NUR ---
PT RESTING QUIETLY IN BED. RESPIRATIONS EASY, REGULAR VIA 1LNC. PT ALERT AND ORIENTED X2. COOPERATIVE WITH ASSESSMENT. WOUND VAC INTACT TO LEFT FOOT. BLLE WRAPS WITH HEEL PROTECTORS NOTED. BED ALARM MAINTAINED FOR SAFETY. WILL CONTINUE TO MONITOR. CALL LIGHT WITHIN REACH.
[2020-06-16 08:00] VITALS: BP 143/68
--- NOTE | 2020-06-16 08:14 | NUR ---
TYLENOL PO GIVEN PER PRN ORDER FOR C/O GENERALIZED PAIN/DISCOMFORT. UNABLE TO RATE PAIN ON A 1/10 SCALE. WILL MONITOR EFFECTIVENESS.
--- NOTE | 2020-06-16 08:45 | NUR ---
OT NOTE Pt was seen this A.M. 1:1 for 15 minute OT session. Upon arrival pt was supine in bed. Pt identified by name and and had complaints of 10/10 b foot pain. Pt presented to therapy with continuous 1L-O2 via NC which he remained on throughout the entire session and wound vac to LLE. Pt transferred supine to sit EOB with modA X 2. While sitting EOB pt completed BUE exercises over all planes with min resistance for 1 X 10 to increase and restore maximum functional strength. Throughout entire session pt required multiple verbal prompts for command follow. Pt transferred sit to supine with modA X 2. Once return to supine in bed pt pulled out his midline, nurse notified who then came to bedside for care. Pt was left supine in bed with call light in hand, tray table in place, and bed alarm activated for safety. Continue with rec D/ Cplan to return to custodial/SNF. CHARLY Jarquin/Yosi
--- NOTE | 2020-06-16 08:48 | NUR ---
PHYSICAL THERAPY TREATMENT TIME: IN 8:32 AM - OUT 8:47 AM 15 MINUTES TOTAL Patient presented to therapy in supine with head of bed elevated and bed alarm on.
--- NOTE | 2020-06-16 08:52 | NUR ---
SURGERY CALLED REGARDING MID-LINE INSERTION. THIS NURSE SPOKE WITH AMELIA HILTON AND WILL BE ABLE TO INSERT MID-LINE SOMETIME TODAY.
--- NOTE | 2020-06-16 09:14 | NUR ---
PATIENT STATES RELIEF FROM TYLENOL. WILL CONTINUE TO MONITOR.
[2020-06-16 09:20] LABS: BASO % 0.3 % (0.0-1.0); EOS # 0.1 10*3/uL (0.0-0.4); EOS % 1.4 % (1.0-4.0); HEMATOCRIT 31.5 % (42.0-52.0); LYMPH # 1.6 10*3/uL (1.3-4.4); LYMPH % 21.5 % (27.0-41.0); MEAN CELL VOLUME 79.9 fl (80.0-94.0); MEAN CORPUSCULAR HGB 23.4 pg (27.0-31.0); MEAN CORPUSCULAR HGB CONC 29.2 g/dl (33.0-37.0); MEAN PLATELET VOLUME 8.7 fl (9.6-12.3); MONO % 13.2 % (3.0-9.0); NEUT # 4.6 10*3/uL (2.3-7.9); PLATELET COUNT AUTOMATED 301 10*3/uL (130-400); RED BLOOD COUNT 3.94 10*6/uL (4.50-5.90); WHITE BLOOD COUNT 7.3 10*3/uL (4.8-10.8)
[2020-06-16 09:35] LABS: ALBUMIN 2.3 gm/dl (3.1-4.5); ALKALINE PHOSPHATASE 67 U/L (45-117); BUN 18 mg/dl (7-24); CHLORIDE 102 mmol/L (98-107); CREATININE 0.98 mg/dL (0.70-1.30); POTASSIUM 3.4 mmol/L (3.5-5.1); SGOT/AST 15 IU/L (3-35); SGPT/ALT 21 U/L (12-78); SODIUM 138 mmol/L (136-145)
--- NOTE | 2020-06-16 10:50 | NUR ---
PHYSICAL THERAPY Spoke with from podiatry over the phone regarding patient. Per conversation last week podiatry had orders for post op shoe and CAM boot howvever, pt still does not have either item. Requested to please clarify orders if still wanting these items for pt's lower extremities/feet and to please specify which shoe or boot for each lower extremity as well as weightbearing status. Also discussed that these items are not handled by the therapy departement. Per MD will assess/discuss in rounds with attending physician today and clarify. Chantal Tapia PT
--- NOTE | 2020-06-16 11:01 | NUR ---
Spoke to PT who spoke to Dr. Kaufman, podiatry resident, regarding foot boots. Dr. Kaufman states he will clarify the foot boots order today. Awaiting response from either PT or Dr. Kaufman.
--- NOTE | 2020-06-16 11:17 | NUR ---
PRECERT IS STILL PENDING. MOLD DESIGN ENGINEER FAXED UPDATES TO [facility].
[2020-06-16 12:00] VITALS: BP 98/69
--- NOTE | 2020-06-16 12:19 | NUR ---
PHYSICAL THERAPY TREATMENT TIME: IN 08:32 AM 16 MINUTES TOTAL Patient presented to therapy in supine with head of bed elevated and bed alarm on. Patient is on 1 liters of spO2 via nasal canula. PATIENT REPORTS 5/10 PAIN IN THE BILATERAL feet. Patient gives informed consent for treatment. Patient was identified by name and on wristband. Patient supine <> sitting on EOB with MOD A X 2. Patient sat on EOB with SBA. Patient does not have CAM BOOT and surgical shoe yet. This HYDRAULIC BULL RIVETER OPERATOR talked to YOBANI KANG again about the CAM BOOT and SURGICAL SHOE the patient needs in order to initiate standing activities in therapy. Patient sat on EOB and performed seated bilateral LE ther ex 2 x 10 reps each including LAQs, Marches, hip abduction and pillow sqeezes. Patient transferred back to supine in bed from sitting EOB with SBA. Patient moved himself up in bed with use of the UEs. Patient was left in supine in beed with head of bed elevated and bed alarm on, Patient's call light within reach. Patient was 1:1 with this PTAfor 16 minutes total. HAJA monge port captain
[2020-06-16 12:30] VITALS: BP 112/64
--- NOTE | 2020-06-16 15:06 | NUR ---
OCCUPATIONAL THERAPY CO-SIGN I approve of the Occupational Therapy notes written above. VIMAL RIGGS OTR/Yosi
--- NOTE | 2020-06-16 15:33 | NUR ---
CERTIFIED REGISTERED NURSE ANESTHETIST FAXED REFERRAL TO [facility].
[2020-06-16 16:00] VITALS: BP 118/52
--- NOTE | 2020-06-16 16:24 | NUR ---
Nutritional Support Services Note: Appetite is good for meals with some flucuation. He has mutiple wounds. Dx of anemia and osteomyelitis. He receives an 1800cal diet with Glucerna OS po TID. Night snack provided. Staff to continue to encourage good po intake. No other nutrition intervention needed at this time. Will follow. April Booth Rdn LD
--- NOTE | 2020-06-16 16:25 | NUR ---
PALLIATIVE CARE NOTIFIED OF CONSULT.
[2020-06-16 20:00] VITALS: BP 103/69
--- NOTE | 2020-06-16 20:50 | NUR ---
IN TO ASSESS PATIENT. PATIENT RESTING IN BED. APPEARS SHORT OF BREATH BUT PATIENT DENIES. 1L NC INTACT. LUNGS ARE CLEAR T/O. PATIENT STATES HE'S JUST FRUSTRATED AND ANGRY HE CAN'T GET TO SLEEP RIGHT NOW. PATIENT DENIES ANY NEEDS AT THIS TIME. WOUND VAC AT 200 CONTINUOUS TO LEFT FOOT. CALL LIGHT WITHIN REACH, WILL MONITOR
--- NOTE | 2020-06-16 23:06 | NUR ---
PRN TYLENOL GIVEN FOR PT WITH RECTAL TEMP OF 100.3. PATIENT HOT TO TOUCH. PATIENT STATES HE FEELS OK. CALL LIGHT WITHIN REACH, WILL MONITOR
--- NOTE | 2020-06-16 23:15 | NUR ---
SPOKE WITH DR. BISHOP. NOTIFIED HIM THAT PATIENT SAT UP TO TAKE TYLENOL FOR A TEMP OF 100.3 RECTALLY AND HIS RIGHT EYE WAS SWOLLEN AND HE WAS TACHYPENIC. PATIENT DENIES SHORTNESS OF BREATH STILL. 1L NC INTACT. PATIENT STATES HE IS IN NO DISTRESS WHATSOEVER AND PATIENT IS ALERT AND TAKING MEDICATIONS. DR. BISHOP STATED THAT IF HE IS ALERT AND TAKING MEDICATIONS THAT HE IS BETTER THAN YESTERDAY.
[2020-06-17] VITALS: BP 107/58
--- NOTE | 2020-06-17 01:23 | NUR ---
NOTIFIED DR. BISHOP OF PATIENTS TEMP RECTALLY NOW 101.3 AFTER TYLENOL. PATIENT CONTINUES TO COMPLAIN OF JUST WANTING TO SLEEP. NOTIFIED DR. BISHOP THAT LEVJUNUIN NEEDS TO BE HUNG AND WONDERED IF HE JUST WANTED A RECHECK AFTER THE MEDICATION WAS DONE TO LIMIT WAKING THE PATIENT UP. HE STATED THAT WAS FINE
--- NOTE | 2020-06-17 03:04 | NUR ---
24 HR chart check completed.
--- NOTE | 2020-06-17 03:30 | NUR ---
PATIENTS TEMP RECTALLY IS NOW 100.0
[2020-06-17 08:00] VITALS: BP 133/89
--- NOTE | 2020-06-17 08:00 | NUR ---
PODIATRY IN TO SEE PATIENT AT THIS TIME. WOUND VAC CHANGED TO LEFT FOOT BY PODIATRY. PATIENT TOLERATED WELL. WILL MONITOR.
[2020-06-17 08:13] LABS: BASO % 0.2 % (0.0-1.0); EOS # 0.1 10*3/uL (0.0-0.4); EOS % 1.7 % (1.0-4.0); HEMATOCRIT 30.5 % (42.0-52.0); LYMPH # 0.8 10*3/uL (1.3-4.4); LYMPH % 14.6 % (27.0-41.0); MEAN CELL VOLUME 81.1 fl (80.0-94.0); MEAN CORPUSCULAR HGB 23.9 pg (27.0-31.0); MEAN CORPUSCULAR HGB CONC 29.5 g/dl (33.0-37.0); MEAN PLATELET VOLUME 8.8 fl (9.6-12.3); MONO # 0.7 10*3/uL (0.1-1.0); MONO % 11.3 % (3.0-9.0); NEUT # 4.1 10*3/uL (2.3-7.9); NEUT % 71.9 % (47.0-73.0); PLATELET COUNT AUTOMATED 269 10*3/uL (130-400); RED BLOOD COUNT 3.76 10*6/uL (4.50-5.90); RED CELL DISTRI WIDTH 19.9 % (0-14.5); WHITE BLOOD COUNT 5.8 10*3/uL (4.8-10.8)
--- NOTE | 2020-06-17 08:20 | NUR ---
PHYSICAL THERAPY Spoke with from podiatry on the floor, NIALL Deng also present during conversation. Explained situation from last week reg podiatry stating and to order post op shoe and CAM boot however never received. Per Dr Kaufman can be WBAT BLE and will obtain post op surgical shoes for BLE. Will await for shoes and proceed with standing and ambualtion activities as appropriate. Pt has been running fevers and is scheduled for a CTA of the chest. Chantal Tapia PT
[2020-06-17 08:25] LABS: BUN 14 mg/dl (7-24); CHLORIDE 106 mmol/L (98-107); CREATININE 0.81 mg/dL (0.70-1.30); POTASSIUM 3.4 mmol/L (3.5-5.1); SODIUM 140 mmol/L (136-145)
--- NOTE | 2020-06-17 09:00 | NUR ---
CM in to see patient. Podiatry resident and PT in room. No new needs or request. Awaiting precert for [place]. personal financial planner/drug abuse social worker following,
--- NOTE | 2020-06-17 09:20 | NUR ---
PHYSICAL THERAPY Per consult with supervising Therapist, patient to be on hold this am until receiving B surgical shoes and update on weight bearing status. This was in response to Therapist conversation with Podiatist and Cat Tender regarding new order for surgical shoes. Will continue per POC as able. Sampson Cheema, HOME SERVICE DEMONSTRATOR
--- NOTE | 2020-06-17 10:41 | NUR ---
AWAITING CTA. PT REMAINS NPO.
--- NOTE | 2020-06-17 11:50 | NUR ---
PT RETURNED FROM SCHEDULED CTA.
[2020-06-17 12:00] VITALS: BP 143/61
--- NOTE | 2020-06-17 12:00 | NUR ---
SHELBY FROM PALLIATIVE CARE HERE TO SEE PATIENT REGARDING CONSULT.
--- NOTE | 2020-06-17 13:50 | NUR ---
OT NOTE Prior to working with pt spoke with pt's nurse who reported that pt was okay to be seen. Pt was seen this P.M. 1:1 for 15 minute OT session. Upon arrival pt was supine in bed. Pt presented to therapy with continuous 2L-O2 via NC and wound vac to LLE which he remained on throughout the entire session. Pt transferred supine to sit EOB with SBA. While sitting EOB pt completed AROM to BUE over all planes of motion for 1 X 10 to increase and restore maximum functional use. Throughout entire session pt required constant verbal prompts for attention to task and command follow. Pt transferred back into bed sit to supine SBA. There he was left with call light in hand, tray table in place, and bed alarm activated for safety. Continue with rec D/C plan to return to fpc/SNF. CHARLY Jarquin/Yosi
--- NOTE | 2020-06-17 14:54 | NUR ---
PHYSICAL THERAPY TREATMENT TIME: IN 1:36 PM - OUT 1:50 PM 14 MINUTES Patient presented to therapy in supine with head of bed elevated and bed alarm on. Patient gives informed consent for treatment. Patient was identified by name and on wristband. Patient reports a pain level of 6/10 in the bilateral feet. Patient supine <> sitting on EOB with SBA. Patient sat on EOB with SBA. Patient completed seated bilateral LE ther ex includign LAQs, hip abduction and marches 2 x 10 reps each AROM for strengthening the LEs in order to improve patient's functional mobility. Patient still not able to stand due to not having the surgical shoes as of yet. Patient sit > supine in bed with SBA. Patient moved up to head of bed with MAX A X 2 WITH SHEET DUE TO PATIENT BEING FATIGUED. Patient was left in supine with head of bed elevated and call light within reach and bed alarm on. Patient was 1:1 with for 14 minutes total. HAJA ALVAREZ UI ARCHITECT
[2020-06-17 16:00] VITALS: BP 141/73
--- NOTE | 2020-06-17 16:52 | NUR ---
PT MEDICATED WITH PO TYLENOL PER PRN ORDER FOR C/O BILATERAL FEET PAIN. UNABLE TO RATE PAIN ON A 1/10 SCALE. WILL MONITOR EFFECTIVENESS.
[2020-06-17 20:00] VITALS: BP 94/65
--- NOTE | 2020-06-17 20:26 | NUR ---
SPOKE WITH DR. GUEVARA AT THIS TIME. NOTIFIED HIM OF PATIENT ATTEMPTING TO RIP DRESSINGS OFF OF HIS LEGS SAYING THAT THEY'RE HURTING AND THAT HE'S GETTING NO BLOOD FLOW TO HIS LEGS. DR. GUEVARA STATED IT WAS OK TO TAKE THE AMRIK WRAPS OFF OF THE LEGS AND LEAVE THE GAUZE BANDAGES ON
--- NOTE | 2020-06-17 22:00 | NUR ---
PATIENT STATES HE FEELS MUCH BETTER AFTER HAVING AMRIK WRAPS REMOVED FROM BLE.
[2020-06-18] VITALS: BP 123/50; BP 94/65
--- NOTE | 2020-06-18 02:00 | NUR ---
PATIENT SLEEPING, NO DISTRESS NOTED. CALL LIGHT WTIHIN REACH, WILL MONITOR
--- NOTE | 2020-06-18 04:50 | NUR ---
24 HR chart check completed.
[2020-06-18 05:43] LABS: BUN 12 mg/dl (7-24); CHLORIDE 109 mmol/L (98-107); CREATININE 0.83 mg/dL (0.70-1.30); POTASSIUM 3.8 mmol/L (3.5-5.1); SODIUM 140 mmol/L (136-145)
--- NOTE | 2020-06-18 06:06 | NUR ---
DR. BISHOP NOTIFIED OF CRITICAL VANCO TROUGH
--- NOTE | 2020-06-18 06:07 | NUR ---
BLOOD SUGAR TAKEN FROM [facility]. BLOOD SUGAR 123
[2020-06-18 06:31] LABS: BASO % 0.2 % (0.0-1.0); EOS # 0.1 10*3/uL (0.0-0.4); HEMATOCRIT 30.2 % (42.0-52.0); LYMPH # 0.9 10*3/uL (1.3-4.4); LYMPH % 16.5 % (27.0-41.0); MEAN CELL VOLUME 80.1 fl (80.0-94.0); MEAN CORPUSCULAR HGB 23.3 pg (27.0-31.0); MEAN CORPUSCULAR HGB CONC 29.1 g/dl (33.0-37.0); MEAN PLATELET VOLUME 9.2 fl (9.6-12.3); MONO # 0.6 10*3/uL (0.1-1.0); MONO % 11.2 % (3.0-9.0); NEUT # 3.8 10*3/uL (2.3-7.9); NEUT % 69.7 % (47.0-73.0); PLATELET COUNT AUTOMATED 324 10*3/uL (130-400); RED BLOOD COUNT 3.77 10*6/uL (4.50-5.90); RED CELL DISTRI WIDTH 19.8 % (0-14.5); WHITE BLOOD COUNT 5.4 10*3/uL (4.8-10.8)
--- NOTE | 2020-06-18 07:30 | NUR ---
TOOK OVER CARE OF PT. PT RESTING IN BED. SUPPLEMENTAL OXYGEN IN PLACE. RESPIRATIONS UNLABORED AT THIS TIME. NO DISTRESS NOTED. HOB ELEVATED. SAFETY MEASURES IN PLACE. CALL LIGHT IN REACH.
--- NOTE | 2020-06-18 07:46 | NUR ---
Notified hospitalist nurse director of the need for another COVID per [place] due to elevated temperature.
[2020-06-18 08:00] VITALS: BP 120/56
--- NOTE | 2020-06-18 08:36 | NUR ---
JOSE JUAN MESSAGED DR. FELDMAN VIA [place] ASKING FOR ANOTHER COVID TEST [facility] IS REQUESTING ON SINCE THE PATIENT SPIKED A FEVER.
--- NOTE | 2020-06-18 08:38 | NUR ---
OT NOTE Pt was seen this A.M. 1:1 for 11 minute OT session. Upon arrival pt was supine in bed. Pt identified by name and and had complaints of 10/10 pain "all over". Pt presented to therapy with continuous 2L-O2 via NC and wound vac to LLE which he remained on throughout the entire session. Pt transferred supine to sit EOB with modA X 2. While sitting EOB pt presented with P- sitting balance that required maxA to correct R lateral and retrograde LOB. Pt was able to self maintain upright posture/position for aprox 20 seconds before presenting with R lateral and retrograde LOB. Pt was then requesting to lay back into bed. Sit to supine transfer completed with SBA and was repositioned in bed with maxA X 2. There he was left with call light in hand, tray table in place, bed alarm activated, and bed rails up for safety. Continue with rec D/C plan to return to fdc/SNF. CHARLY Jarquin/Yosi
--- NOTE | 2020-06-18 08:42 | NUR ---
PHYSICAL THERAPY TREATMENT TIME; OUT 08:32 AM 12 MINUTES TOTAL Patient presented ottherapy in supine in bed with head of bed elevatd and bed alarm on. Patient gives informed consent for treatment. Patient was identified by name and on wristband. Patient is on 2 liters of spO2 VIA NASAL CANULA. Patient reports pain in the the bilateral feet. Patient performed supine <> sitting on EOB with MOD A X 2. Patient is very weak today. Patient sat on EOB with increased difficulty maintaining upright posture and getting his feet to the floor. Patient fell to the R at least 3 times while sitting on EOB requiring MAX A X 1 to correct to upright posture in sitting on EOB. Patient's core muscles have decreased strength and he cannot sit up > 20 seconds at a time. Patient performed stacie down on R side saying , he cannot do anymore. Patient was moved up to head of bed with sheet using MAX A X 2. Patient was left in supine with hhead of bed elevated and call light within reach. Patient rolled to R side berfore therapist left room. CHARLY Brown present as witness to this treatment. Patient was 1;1 with this LIVESTOCK SPECULATOR for 12 minutes total. HAJA ALVAREZ LIVESTOCK SPECULATOR
--- NOTE | 2020-06-18 09:10 | NUR ---
PHYSICAL THERAPY Post op shoes not in room spoke with Dr. Kaufman that post op shoes still not obtained, per MD they were to be brought up from ED yesterday. Per VERBAL by MD can go ahead and be WBAT BLE without post op shoes, Spoke with primary nurse Lashae harry above and fish and wildlife warden calling down to ED. Spoke again with Dr Mandeep harry fish and wildlife warden calling down to ED reg post op shoes he is to follow up with nurse regarding availability. Chantal Tapia PT
[2020-06-18 12:00] VITALS: BP 125/53
--- NOTE | 2020-06-18 12:48 | NUR ---
PHYSICAL THERAPY CO-SIGN I approve of the Physical Therapy notes written above. Chantal Tapia PT
--- NOTE | 2020-06-18 12:55 | NUR ---
PHYSICAL THERAPY CO-SIGN I approve of the Physical Therapy notes written above. Chantal Tapia PT
[2020-06-18 16:00] VITALS: BP 120/62
--- NOTE | 2020-06-18 16:00 | NUR ---
DR MONTES DE OCA THAT IT IS OKAY TO STRAIGHT CATH PT FOR UA-UC TEST.
[2020-06-18 16:57] LABS: BILIRUBIN Negative (Negative); BLOOD Negative (Negative); CLARITY Cloudy (Clear); COLOR Dark Yellow (Yellow); GLUCOSE Negative (Negative); KETONE Trace (Negative); LEUKO ESTERASE Negative (Negative); NITRITE Negative (Negative); PH 5.5 (4.5-8.0); SPECIFIC GRAVITY >= 1.030 (1.001-1.030)
--- NOTE | 2020-06-18 17:00 | NUR ---
PT STRAIGHT CATHED FOR STRAW COLOR URINE. UA-UC SENT TO LAB AT THIS TIME. PT TOLERATED WELL. WILL CONTINUE TO MONITOR. CALL LIGHT IN REACH.
[2020-06-18 17:18] LABS: BACTERIA TRACE; WBC 0-2 wbc/hpf (0-5)
[2020-06-18 20:00] VITALS: BP 132/70
--- NOTE | 2020-06-18 20:00 | NUR ---
SITTING UP IN BED CONSUMING DINNER. PLEASANT/COOPERATIVE. NO S/S OF HYPO/HYPER GLYCEMIA. TOOK PO MEDS WITHOUT DIFFICULTY. ASSESSMENT COMPLETE SEE FLOWSHEET. NO C/O VOICED. CALL LIGHT IN REACH.
[2020-06-19] VITALS: BP 128/54
[2020-06-19 07:20] LABS: BASO % 0.2 % (0.0-1.0); EOS # 0.1 10*3/uL (0.0-0.4); EOS % 1.9 % (1.0-4.0); HEMATOCRIT 29.2 % (42.0-52.0); LYMPH # 1.3 10*3/uL (1.3-4.4); MEAN CELL VOLUME 82.7 fl (80.0-94.0); MEAN CORPUSCULAR HGB 23.8 pg (27.0-31.0); MEAN CORPUSCULAR HGB CONC 28.8 g/dl (33.0-37.0); MEAN PLATELET VOLUME 8.9 fl (9.6-12.3); MONO # 0.8 10*3/uL (0.1-1.0); MONO % 14.1 % (3.0-9.0); NEUT # 3.5 10*3/uL (2.3-7.9); NEUT % 61.3 % (47.0-73.0); PLATELET COUNT AUTOMATED 347 10*3/uL (130-400); RED BLOOD COUNT 3.53 10*6/uL (4.50-5.90); WHITE BLOOD COUNT 5.7 10*3/uL (4.8-10.8)
--- NOTE | 2020-06-19 07:30 | NUR ---
PT RESTING IN BED. RESPS EASY AND NON LABORED. VSS. 3L NC INTACT. WHITE BOARD UPDATED. POC DISCUSSED W PT. A/O X3. PT DROWSY/WEAK. STATES HE IS UNABLE TO SIT UP ON HIS OWN-DR MILTON NOTIFIED. WOUND VAC INTACT@ 200 LOW CONT W MINIMAL DRAINAGE. R MIDLINE PATENT. MULTIPLE WOUNDS PRESENT ON BILAT UPPER EXTREMITIES. BILAT LOWER EXTREM WRAPPED PER PODIATRY. WILL CONTINUE TO MONITOR. CALL LIGHT WITHIN REACH. FALL AND SKIN PRECAUTIONS MAINTAINED.
[2020-06-19 07:35] LABS: BUN 13 mg/dl (7-24); CHLORIDE 109 mmol/L (98-107); CREATININE 1.02 mg/dL (0.70-1.30); POTASSIUM 3.8 mmol/L (3.5-5.1); SODIUM 140 mmol/L (136-145)
--- NOTE | 2020-06-19 08:47 | NUR ---
PRECERT HAS BEEN OBTAINED. HOWEVER, THE PATIETN COVID RESULTS MUST BE RETURNED BEFORE HE CAN GO TO [facility]. JOSE JUAN NOTIFIED DAYRON BUSTOS.
[2020-06-19 09:00] VITALS: BP 132/76
[2020-06-19 12:00] VITALS: BP 126/66
--- NOTE | 2020-06-19 12:37 | NUR ---
Patient resting quietly with no c/o discomfort. Respirations easy and regular. Vital signs stable. No overt distress. HISSOM,ELIOT
[2020-06-19 16:00] VITALS: BP 93/76
--- NOTE | 2020-06-19 17:06 | NUR ---
UPDATED ON POC. QUESTIONS ANSWERED
--- NOTE | 2020-06-19 17:34 | NUR ---
PT CHANGED,GIOVANNI CARE PROVIDED. PULLED UP IN BED AND REPOSITIONED FOR COMFORT. CURRENTLY SITTING UP IN BED WATCHING TV. CALL LIGHT WITHIN REACH. BED ALARM ON.
[2020-06-19 20:00] VITALS: BP 112/93
--- NOTE | 2020-06-19 20:00 | NUR ---
ASSESSMENT COMPLETE SEE FLOWSHEET. COOPERATIVE. NO C/O VOICED. TOOK PO MEDS WITHOUT DIFFICULTY. ALL SAFETY MEASURES IN PLACE. CALL LIGHT IN REACH.
--- NOTE | 2020-06-19 23:00 | NUR ---
LT UPPER ARM WHERE MIDLINE IS PLACE APPEARS RED, WARM AND SWOLLEN. NOTIFIED HOPITALIST AND HE SAID HE WILL COME TO EXAMINE IT.
--- NOTE | 2020-06-19 23:59 | NUR ---
CAME TO PT ROOM AND EXAMINED PT. NO NEW ORDERS AT THIS TIME. TEMP 100.9 RECTALLY. ADMINISTERED TYLENOL FOR TEMP. CHANGED DRESSING TO MIDLINE. REPOSITIONED IN AND PERICARE GIVEN.
[2020-06-20] VITALS: BP 121/68
[2020-06-20 06:10] LABS: BASO % 0.3 % (0.0-1.0); EOS # 0.1 10*3/uL (0.0-0.4); EOS % 3.1 % (1.0-4.0); HEMATOCRIT 26.1 % (42.0-52.0); LYMPH # 0.9 10*3/uL (1.3-4.4); LYMPH % 23.4 % (27.0-41.0); MEAN CELL VOLUME 80.3 fl (80.0-94.0); MEAN CORPUSCULAR HGB 23.4 pg (27.0-31.0); MEAN CORPUSCULAR HGB CONC 29.1 g/dl (33.0-37.0); MEAN PLATELET VOLUME 8.8 fl (9.6-12.3); MONO # 0.5 10*3/uL (0.1-1.0); MONO % 14.1 % (3.0-9.0); NEUT # 2.3 10*3/uL (2.3-7.9); NEUT % 58.6 % (47.0-73.0); PLATELET COUNT AUTOMATED 313 10*3/uL (130-400); RED BLOOD COUNT 3.25 10*6/uL (4.50-5.90); RED CELL DISTRI WIDTH 19.9 % (0-14.5); WHITE BLOOD COUNT 3.8 10*3/uL (4.8-10.8)
[2020-06-20 06:23] LABS: ALBUMIN 1.9 gm/dl (3.1-4.5); BUN 14 mg/dl (7-24); CHLORIDE 108 mmol/L (98-107); CREATININE 0.91 mg/dL (0.70-1.30); POTASSIUM 3.5 mmol/L (3.5-5.1); SGOT/AST 16 IU/L (3-35); SGPT/ALT 14 U/L (12-78); SODIUM 140 mmol/L (136-145)
[2020-06-20 06:25] LABS: ALKALINE PHOSPHATASE 64 U/L (45-117); TOTAL PROTEIN 5.3 gm/dL (6.4-8.2)
[2020-06-20 08:00] VITALS: BP 126/62
--- NOTE | 2020-06-20 08:01 | NUR ---
24 HR chart check completed.
--- NOTE | 2020-06-20 09:00 | NUR ---
RESTING IN BED. ORIENTED TO PERSON/PLACE. RESPIRATIONS EASY. LUNGS DIMINISHED. PULSE OX 97% 3L. NON-PROD COUGH. RIGHT ARM SLIGHTLY RED, WARM, AND EDEMATOUS - ELEVATED ON PILLOW. BLE EDEMA NOTED WITH DRESSING MAINTAINED RLE. WOUND VAC MAINTAINED LEFT FOOT. CALL LIGHT WITHIN REACH. NO VOICED COMPLAINTS. BED ALARM MAINTAINED FOR SAFETY
--- NOTE | 2020-06-20 09:30 | NUR ---
DR MILTON AND RESIDENTS HERE TO ASSESS PATIENT AND DISCUSS PLAN OF CARE. ATTEMPTED TO DRAW BC FROM MIDLINE, NO BLOOD RETURN. DR MILTON AWARE AND NEW ORDERS RECEIVED TO D/C BC
[2020-06-20 12:00] VITALS: BP 98/50
[2020-06-20 16:00] VITALS: BP 132/82
--- NOTE | 2020-06-20 16:00 | NUR ---
RESTING WITH EYES CLOSED. RESPIRATIONS EASY. VSS. WOUND VAC MAINTAINED. CALL LIGHT WITHIN REACH. BED ALARM MAINTAINED
--- NOTE | 2020-06-20 19:30 | NUR ---
PATIENT RESTING IN BED. ASSESSMENT COMPLETE. DENIES ANY NEEDS OR COMPLAINTS AT THIS TIME. 3L NC IN PLACE. PATIENT POSITIONED FOR COMFORT. CALL LIGHT IN REACH.
[2020-06-20 20:00] VITALS: BP 136/61
--- NOTE | 2020-06-20 20:24 | NUR ---
PRN TYLENOL GIVEN FOR TEMP OF 100.6. WILL CONTINUE TO MONITOR.
[2020-06-21] VITALS: BP 118/62
--- NOTE | 2020-06-21 00:36 | NUR ---
PATIENT INCONTINENT OF BLADDER AT THIS TIME. CHANGED AND REPOSITIONED WITH FLORENCIO TEJADA AT THIS TIME. DENIES ANY NEEDS. CALL LIGHT IN REACH.
--- NOTE | 2020-06-21 03:14 | NUR ---
24 HR chart check completed.
--- NOTE | 2020-06-21 06:02 | NUR ---
BP 133/70 HR:79. CHECKED BEFORE GIVEN AM METOPROLOL. PATIENT AFEBRILE AT THIS TIME AT 97.4. DENIES ANY NEEDS. CALL LIGHT IN REACH
[2020-06-21 06:34] LABS: HEMATOCRIT 26.1 % (42.0-52.0); LYMPH # 0.5 10*3/uL (1.3-4.4); LYMPH % 16.7 % (27.0-41.0); MEAN CELL VOLUME 79.1 fl (80.0-94.0); MEAN CORPUSCULAR HGB 23.6 pg (27.0-31.0); MEAN CORPUSCULAR HGB CONC 29.9 g/dl (33.0-37.0); MEAN PLATELET VOLUME 8.8 fl (9.6-12.3); MONO # 0.2 10*3/uL (0.1-1.0); MONO % 5.7 % (3.0-9.0); NEUT # 2.3 10*3/uL (2.3-7.9); NEUT % 76.9 % (47.0-73.0); PLATELET COUNT AUTOMATED 346 10*3/uL (130-400); RED CELL DISTRI WIDTH 19.3 % (0-14.5)
[2020-06-21 07:23] LABS: ALKALINE PHOSPHATASE 70 U/L (45-117); BUN 17 mg/dl (7-24); CHLORIDE 105 mmol/L (98-107); CREATININE 1.08 mg/dL (0.70-1.30); SGOT/AST 19 IU/L (3-35); SGPT/ALT 19 U/L (12-78); SODIUM 136 mmol/L (136-145); TOTAL PROTEIN 5.7 gm/dL (6.4-8.2)
--- NOTE | 2020-06-21 07:40 | NUR ---
OT NOTE Attempted to see pt this A.M. for OT session and upon arrival pt was on his breathing treatment. Will check back at a later time and continue with POC as able. CHARLY Jarquin/Yosi
--- NOTE | 2020-06-21 07:57 | NUR ---
RESPIRATORY THERAPIST ASSISTANT FAXED UPDATES TO [facility].
[2020-06-21 08:00] VITALS: BP 117/56
--- NOTE | 2020-06-21 08:00 | NUR ---
PATIENT LAYING AWAKE IN BED. NO STATED COMPLAINTS AT THIS TIME AND DENIES HAVING ANY PAIN. RESPIRATIONS ARE EASY AND REGULAR ON 3L NASAL CANNULA. NO SOB NOTED AT REST. WOUND VAC INTACT. PT PLEASANT AND COOPERATIVE WITH CARE. ABLE TO REPOSITION SELF IN BED AND IS ENCOURAGED TO DO SO. BED IN LOWEST LOCKED POSITION AND CALL LIGHT WITHIN REACH. WILL CONTINUE TO MONITOR.
--- NOTE | 2020-06-21 09:56 | NUR ---
OT NOTE Pt was seen this A.M. 1:1 for 24 minute OT session. Upon arrival pt was supine in bed. Pt identified by name and and had complaints of 8-9/10 B foot pain. Pt presented to therapy with continuous 3L-O2 via NC and wound vac to LLE which he remained on throughout the entire session. Pt transferred supine to sit EOB with maxA X 2. While sitting EOB pt initally presented with P+/F- sitting balance requiring min-modA to correct R lateral lean, pt was then able to maintain F+ sitting balance. Pt completed BUE ther ex over all planes for 1 X 10 to increase and restore maximum functional strength. Pt then transferred sit to supine with SBA however required maxA X 2 for repositioning in bed. Pt was left supine in bed with call light in hand, tray table in place, bed rails up, and bed alarm activated for safety. Continue with rec D/C plan to return to intermediate/SNF. CHARLY Jarquin/Yosi
--- NOTE | 2020-06-21 10:00 | NUR ---
Notified hospitalist patient precert is good for today only. Per hospitalist patient is not ready for discharge. When medically stable he will be discharged to [place]. fabric worker leader following.
--- NOTE | 2020-06-21 10:22 | NUR ---
PHYSICAL THERAPY TREATMENT TIME: OUT 09:55 AM 20 MINUTES TOTAL Patient presented to therapy in supine with head of bed elevated and bed alarm on. Patient has surgical shoes in room. Patient gives informed consent for treatment. Patient was identified by name and on wristband. Patient reports a 7/10 - 8/10 pain level in the bilateral feet. Patient completed supine <> sit on EOB with MAX A X 2. Patient sat on EOB with MIN A X 1 - MOD A X 1 due to a R sided lean from weakness. Patient STS from EOB with MOD A X 2 and verbal cues for hand placement. Patient stood at Walker standing tolerance 4 seperate times with 1st attempt) 30 sec, 2nd attempt) 30 sec, 3 rd attempt 40 sec and 4 th attempt) 30 sec. Patient had surgical shoes on when standing WBAT. Patient perfomed seated bilateral LE ther ex x 10 reps each including LAQs and marches for strengthening in order to improve patient's functional mobility. Patient transferred back to supine in bed with with MAX A X 2. Patient was moved up to head of bed with MAX A X 2 using sheet. Patient was left in supine in bed with head of bed elevated and bed alarm on. Patient call light within reach. Patient was 1:1 with this SOIL SPECIALIST for 20 minutes total. HAJA ALVAREZ SOIL SPECIALIST
--- NOTE | 2020-06-21 10:35 | NUR ---
DR. FRANCIS NOTIFIED OF CONSULT.
--- NOTE | 2020-06-21 11:10 | NUR ---
Per chart review, a verbal order was received 06/18/20 from Chantal Tapia LPT from Dr Kaufman for BLE WBAT. OT treatment to continue per POC with these WB orders. Sydni Riggins OTR/l
--- NOTE | 2020-06-21 11:55 | NUR ---
PRECERT HAS BEEN OBTAINED AND EXPIRES 06/22/2020.
[2020-06-21 12:00] VITALS: BP 122/62
--- NOTE | 2020-06-21 12:37 | NUR ---
PATIENT IN BED. NASAL CANNULA INTACT. NO S/S OF DISTRESS OR SOB NOTED. BED IN LOWEST LOCKED POSITION AND CALL LIGHT WITHIN REACH. WILL CONTINUE TO MONITOR.
[2020-06-21 16:00] VITALS: BP 104/48
[2020-06-21 20:00] VITALS: BP 126/60
--- NOTE | 2020-06-21 20:00 | NUR ---
RESTING IN BED WITH HOB ELEVATED TALKING ON PHONE. VOICES NO C/O AT THIS TIME; CALL LIGHT WITHIN REACH.
--- NOTE | 2020-06-21 22:00 | NUR ---
BLOOD SUGAR 143; NO COVERAGE REQUIRED.
[2020-06-22] VITALS: BP 132/66
--- NOTE | 2020-06-22 06:25 | NUR ---
BLOOD SUGAR 114; NO COVERAGE REQUIRED.
--- NOTE | 2020-06-22 07:31 | NUR ---
OT NOTE Pt was seen this A.M. 1:1 for 20 minute OT session. Upon arrival pt was supine in bed. Pt identified by name and and had complaints of "alot" of pain all over, pt did not give rating on 0-10 pain scale. Pt presented to therapy with continuous 3L-O2 via NC and wound vac to LLE which he remained on throughout the entire session. Pt transferred supine to sit EOB with maxA x 2. While sitting EOB pt completed AROM to BUE over all planes for 1 X 5 to increase and restore maximum functional use. Throughout pt required constant verbal and tactile prompts for participation and encouragement. While sitting EOB pt's B surgical shoes were donned with maxA. Pt then completed multiple sit to stand transfers from bed level with maxA X 2 for inital stand then modA X 2 for all other attempts. Challenged pt's static standing tolerance needed for increased I in self care tasks and functional transfers. Pt was able to tolerate aprox 15-20 seconds at a time before sitting due to fatigue. Pt then transferred back into bed sit to supine with Jonathan and was then repositioned with maxA X 2. There he was left with call light in hand, tray table in place, bed rails up for safety, and bed alarm activated for safety. Continue with rec D/C plan to return to retirement/ SNF. CHARLY Jarquin/Yosi
[2020-06-22 08:00] VITALS: BP 130/75
--- NOTE | 2020-06-22 08:26 | NUR ---
PHYSICAL THERAPY TREATMENT TIME: IN 07:11 AM 20 MINUTES TOTAL Patient presented to therapy in R SIDE-LYING with head of bed elevated and bed alarm on. Patient reports significant pain in the bilatera l feet. Patient has the wound drainage vac in place. Patient is WBAT on bilateral feet. Patient has bilateral surgical shoes that were put on by therapist. Patient's vitals are recorded as O2= 99%, PULSE= 83 AND B/P= 130/84. Patient performed broussard[ine to sitting on EOB with MAX A X 2. Patient sat on EOB with MIN A x 1 at first for R lateral lean and and retrogarde lean. Patient then was able to sit with CGA on EOB. Patient performed STS from EOB with MOD A X 2 with verbal cues for hand placement and locking knees into extension. Also V/Cs for pushing onto Walker with hands. Patient was able to stand for < 10 sec with X 3 with CGA X 2 - MIN A X 2. Patient was transferred back to supine in bed with MAX A X 2. Patient was moved up to head of bed with MAX A X 2 with sheet. Patient was 1:1 with this YOUTH DEVELOPMENT PROFESSIONAL for 20 minutes total. CHARLY ELIZABETH present as witness to this treatment. HAJA ALVAREZ YOUTH DEVELOPMENT PROFESSIONAL
--- NOTE | 2020-06-22 11:38 | NUR ---
TAPPET ADJUSTER FAXED REFERRAL TO [facility] FOR REVIEW.
[2020-06-22 12:00] VITALS: BP 135/64
--- NOTE | 2020-06-22 13:03 | NUR ---
SPOKE TO . SHE ASKED THAT I REINFORCE NO FAMILY VISITS WITH PATIENTS HE IS UPSET SHE CANNOT COME O SEE HIM. PATIENT WAS COMFORTABLE AND NAPPING THIS AM.
--- NOTE | 2020-06-22 15:12 | NUR ---
GUARD LIEUTENANT SPOKE WITH [facility] SHE IS LOOKING POSSIBLE PLACEMENT TOMORROW. GUARD LIEUTENANT NOTIFIED RN HOSPITALIST COORDINATOR
[2020-06-22 16:00] VITALS: BP 125/50
[2020-06-22 20:00] VITALS: BP 125/60
[2020-06-23] VITALS: BP 98/57
[2020-06-23 06:59] LABS: BASO % 0.2 % (0.0-1.0); EOS # 0.1 10*3/uL (0.0-0.4); HEMATOCRIT 26.8 % (42.0-52.0); LYMPH % 18.6 % (27.0-41.0); MEAN CELL VOLUME 80.2 fl (80.0-94.0); MEAN CORPUSCULAR HGB 23.4 pg (27.0-31.0); MEAN CORPUSCULAR HGB CONC 29.1 g/dl (33.0-37.0); MONO # 0.7 10*3/uL (0.1-1.0); MONO % 12.3 % (3.0-9.0); NEUT # 3.7 10*3/uL (2.3-7.9); NEUT % 66.5 % (47.0-73.0); PLATELET COUNT AUTOMATED 421 10*3/uL (130-400); RED BLOOD COUNT 3.34 10*6/uL (4.50-5.90); RED CELL DISTRI WIDTH 19.8 % (0-14.5); WHITE BLOOD COUNT 5.6 10*3/uL (4.8-10.8)
[2020-06-23 07:04] LABS: BUN 16 mg/dl (7-24); CHLORIDE 107 mmol/L (98-107); CREATININE 0.89 mg/dL (0.70-1.30); POTASSIUM 3.6 mmol/L (3.5-5.1); SODIUM 140 mmol/L (136-145)
--- NOTE | 2020-06-23 07:39 | NUR ---
BUSINESS PERFORMANCE MANAGER FAXED UPDATES TO [facility]. JOSE JUAN SPOKE WITH [facility]. DUE TO NEW WAIVER AUTH IS STILL GOING TO BE REQUIRED. SHE WILL SUBMIT FOR AUTH.
[2020-06-23 08:00] VITALS: BP 145/65
--- NOTE | 2020-06-23 08:00 | NUR ---
PT IS LETHARGIC AND DIFFICULT TO WAKE UP. DR. CEDILLO NOTIFIED. VITALS STABLE.
--- NOTE | 2020-06-23 08:45 | NUR ---
OT NOTE Pt was seen this A.M. 1:1 for 15 minute OT session. Upon arrival pt was supine in bed. Pt identified by name and and had complaints of 10/10 B foot pain and increased fatigue. Pt presented to therapy with continuous 3L-O2 via NC and wound vac to LLE which both remained in place throughout the entire session. Pt transferred supine to sit EOB with maxA X 2. While sitting EOB pt presented with F- sitting balance initally requiring Jonathan to correct anterior LOB, however as session progressed and he became fatigued pt required P+/P- sitting balance requiring mod-maxA to correct/maintain upright posture. Pt completed two sit to stand transfers from bed level with maxA X 2 and use of w/w for UE support. Challenged pt's static standing tolerance needed for increased I in self care tasks and functional transfers. Pt was able to tolerate aprox 10 seconds at a time before sitting due to fatigue. Pt then transferred back into bed sit to supine with maxA X 2. There he was left with call light in hand, tray table in place, bed rails up, and bed alarm activated for safety. Continue with rec D/C plan to return to residential/SNF. CHARLY Jarquin/Yosi
--- NOTE | 2020-06-23 08:53 | NUR ---
PHYSICAL THERAPY TREATMENT TIME: IN 08:35 AM 20 MINUTES TOTAL Patient presented to therapy in supine with head of bed elevated and bed alarm on. Patient reports a 10/10 pain level in the bilateral feet. Patient is on 3 liters of spO2 via nasal canula. Patient gives informed consent for treatment. Patient was identified by name and on wristband. Patient performed supine <> sit on EOB with MAX A X 2. Patient sat on EOB with MIN A X 1 to MOD A X 1. Patient STS <> EOB with MAX A X 2. Patient given verbal cues for hand placement. Patient stood x 3 seperate times with MOD A X 2 - MOD A X 2 for < 10 seconds time each. Patient is very weak and unsteady. Patient performed X 10 LAQs in sitting and was barely able to lift his LEs. Patient transferred back to supine in bed with MAX A X 2. Patient was left in supine in bed with head of bed elevated and bed alarm on. Call light within reach. Patient was 1;1 with this CORPORATE COMPLIANCE OFFICER for 20 minutes total. HAJA ALVAREZ CORPORATE COMPLIANCE OFFICER becomes
--- NOTE | 2020-06-23 09:00 | NUR ---
IN TO ROOM WITH DR. AVELAR. MEDICATIONS ADMINISTERED. PT IS LETHARGIC AND HARD TO KEEP AWAKE. VITALS STABLE. NO S/S OF DISTRESS.
[2020-06-23 10:06] LABS: ABG BASE EXCESS 2.6 mmol/L (-2.0-2.0); ARTERIAL BLOOD GAS PH 7.46 (7.35-7.45)
[2020-06-23 12:00] VITALS: BP 146/53
--- NOTE | 2020-06-23 12:56 | NUR ---
JEWEL FLAT SURFACER REACHED OUT TO PATIENTS [facility]. JEWEL FLAT SURFACER EXPLAINED THAT THE PATIENT HAS BEEN REFERRED AND ACCEPTED AT [facility]. PATIENT WAS UPSET STATING SHE WOULD LIKE THE PATIENT TO RETURN TO [facility]. JEWEL FLAT SURFACER EXPLAINED TO HER THAT [facility] IS LIKELY NOT ABLE TO HANDLE THE IVAB. JEWEL FLAT SURFACER EXPLAINED THAT [facility] IS ABLE TO. PATIENTS ASKED IF THE IVAB COULD BE SWITCHED. JEWEL FLAT SURFACER EXPLAINED THAT THIS JEWEL FLAT SURFACER WOULD ASK, BUT IT IS NOT LIKELY. PATIENTS ASKED FOR A DOCTOR TO CALL HER. JEWEL FLAT SURFACER SPOKE WITH RN HOSPITALIST COORDINATOR GUADALUPE ABOUT DR. SOTO CALLING THIS PATIENTS . JEWEL FLAT SURFACER [facility] WHO [facility]SO STATED SHE WOULD CALL THE PATIENTS .
--- NOTE | 2020-06-23 13:45 | NUR ---
CRYSTALLIZER OPERATOR [facility] SPOKE WITH THE PATIENTS WHO IS NOW AGREEABLE FOR THE PATIENT TO GO TO Somewhere.
--- NOTE | 2020-06-23 15:22 | NUR ---
PT IS LETHARGIC AND HARD TO WAKE UP. VITALS STABLE. DR. CEDILLO NOTIFIED.
[2020-06-23 16:00] VITALS: BP 149/74
--- NOTE | 2020-06-23 16:30 | NUR ---
BSG 105. NO INSULIN NEEDED PER S/S.
--- NOTE | 2020-06-23 17:10 | NUR ---
IN TO SEE PATIENT.
[2020-06-23 20:00] VITALS: BP 117/54
--- NOTE | 2020-06-23 20:09 | NUR ---
24 HR chart check completed.
--- NOTE | 2020-06-23 21:00 | NUR ---
SLEEPING, AWAKENS EASILY. RESPIRATIONS EASY. LUNGS DIMINISHED. PULSE OX 97% 2L. INFREQ COUGH. BLE EDEMA. DRESSING MAINTAINED RIGHT FOOT. WOUND VAC MAINTAINED LEFT FOOT. CALL LIGHT WITHIN REACH. NO VOICED COMPLAINTS. BED ALARM MAINTAINED FOR SAFETY
[2020-06-24] VITALS: BP 113/49
--- NOTE | 2020-06-24 | NUR ---
SLEEPING. NO DISTRESS NOTED. RESPIRATIONS EASY. VSS. CALL LIGHT WITHIN REACH. BED ALARM MAINTAINED
--- NOTE | 2020-06-24 06:00 | NUR ---
SLEPT THROUGHOUT NIGHT WITH NO DISTRESS NOTED. RESPIRATIONS EASY. CALL LIGHT WITHIN REACH. NO VOICED COMPLAINTS THIS SHIFT
[2020-06-24 06:34] LABS: BASO % 0.3 % (0.0-1.0); EOS # 0.2 10*3/uL (0.0-0.4); EOS % 3.1 % (1.0-4.0); HEMATOCRIT 29.1 % (42.0-52.0); LYMPH # 1.2 10*3/uL (1.3-4.4); LYMPH % 20.7 % (27.0-41.0); MEAN CELL VOLUME 80.4 fl (80.0-94.0); MEAN CORPUSCULAR HGB 23.2 pg (27.0-31.0); MEAN CORPUSCULAR HGB CONC 28.9 g/dl (33.0-37.0); MEAN PLATELET VOLUME 8.8 fl (9.6-12.3); MONO # 0.6 10*3/uL (0.1-1.0); MONO % 9.7 % (3.0-9.0); NEUT # 3.8 10*3/uL (2.3-7.9); NEUT % 65.7 % (47.0-73.0); PLATELET COUNT AUTOMATED 439 10*3/uL (130-400); RED BLOOD COUNT 3.62 10*6/uL (4.50-5.90); RED CELL DISTRI WIDTH 19.5 % (0-14.5); WHITE BLOOD COUNT 5.8 10*3/uL (4.8-10.8)
[2020-06-24 06:59] LABS: BUN 15 mg/dl (7-24); CHLORIDE 105 mmol/L (98-107); CREATININE 0.92 mg/dL (0.70-1.30); POTASSIUM 3.6 mmol/L (3.5-5.1); SODIUM 140 mmol/L (136-145)
[2020-06-24 08:00] VITALS: BP 124/42
--- NOTE | 2020-06-24 08:30 | NUR ---
OT NOTE Pt was seen this A.M. 1:1 for 15 minute OT session. Upon arrival pt was supine in bed. Pt was A&O X 2 to name and however not place, pt reoriented at this time. Pt presented to therapy with continuous 3L-O2 via NC and wound vac to LLE which he remained on throughout the entire session. Pt had complaints of 10/10 B foot pain. Pt transferred supine to sit EOB with maxA X 2. While sitting EOB pt presented with P- sitting balance requiring maxA to correct anterior and R lateral lean. Pt was able to tolerate sitting EOB for aprox 7 minutes before requesting to lay back into bed. Attempted to complete other tasks and pt was unable. pt trasnferred back into bed sit to supine with maxA X 2. There he was left with call light in hand, tray table in place, and bed alarm activated for safety with bed rails up. Continue with rec D/C plan to return to correction/SNF. JAYMIE Jarquin
--- NOTE | 2020-06-24 09:00 | NUR ---
Waiting on precert for [facility].
--- NOTE | 2020-06-24 09:30 | NUR ---
PT RESTING IN BED. REPOSITIONED FOR COMFORT. C/O LEFT FOOT PAIN, RATES PAIN 10 ON PAIN SCALE 0-10. MEDICATED WITH TYLENOL PO PER PRN ORDER, SEE EMAR. TOLERATED ROUTINE MED WITH NO PROBLEM. CALL LIGHT IN REACH. SEE SHIFT ASSESSMENT.
--- NOTE | 2020-06-24 09:33 | NUR ---
PHYSICAL THERAPY TREATMENT TIME: OUT 08:30 AM 15 MINUTES TOTAL Patient presented to therapy in supine with head of bed elevated and bed alarm on with 10/10 pain in the bilateral feet. Patient gives informed consent for treatment. Patient was identified by name and on wristband. Patient reports being very weak and tired. Patient's surgical shoes were put on by this NUCLEAR WORKER TECHNICIAN. Patient was on spO2 of 3 liters. Patient required MAX A X 2 supine <> sit on EOB. Patient sat on EOB MAX A X 1 to prevent FOWARD and R LATERAL LEAN. Patient was unable to stand. Patient was unable keep head up. Patient demonstrated weakness in core musculature. Patient was able to stand and maintain upright posture in sitting a few days ago but cannot do so now. Patient was MAX A X 2 back to supine in bed and moved up to head of bed with sheet with MAX A X 2. Patient was left in supine in bed with head of bed elevated, call light within reach and bed alarm on. Patient was 1:1 with this NUCLEAR WORKER TECHNICIAN for 15 minutes total. CHARLY HERNANDEZ present as witness to this treatment. HAJA ALVAREZ NUCLEAR WORKER TECHNICIAN
--- NOTE | 2020-06-24 09:50 | NUR ---
PHYSICAL THERAPY Patient initially evaluated 06/07 has had a complicated stay with fevers and lethargicness. CT chest negative Pulm Embolus COVID test negative Continue to have blood cultures tested w new onset of fungal pneumonia on 3L 02 NC. Pt continues to be WBAT per podiatry for BLE with LLE w wound vac (see initial eval) Pt has been Mod to Max assist x 2 for tranfers, Max assist for standing w FWW for less than 10 seconds. Sitting EOB Min to Mod x 1 less one minute. New Goasl 7-10 days Sit<->Supine Min x 2 Sitting EOB >5 minutes CG-Min x1 maintain head nuetral position w cues STS Mod x 2 Standing > 2 minutes w FWW Min-Mod x 2 WBAT BLE w post op shoes Supine vs Seated ex 1-2 x 10 A to AAROM Progress with activity as medically and physically appropriate Chantal Tapia PT
--- NOTE | 2020-06-24 09:50 | NUR ---
SPEECH PATHOLOGY Patient seen this am for bedside eval as per orders during breakfast meal. He was sat up nearly 90 degrees in bed. Oriented X2. He denied trouble swallowing. History significant for anemia, TIA, GERD, DM, AFIB, neuropathy. Admitted to facility for abnormal blood counts. Referred to IMAGING TECHNICIAN for difficulty swallowing. Patient identified by name and . Oral motor exam revealed mildly reduced ROM for tongue. Other oral skilsl normal in terms of strenth, coordination, and ROM for lips, jaw, palate. Volitional cough normal, vocal quality normal. He consumed entire banana, several bites of oatmeal with milk, one container of Ensure by straw, 2 small cartons of milk by straw, thin liquid water by straw and coffee by cup. No overt difficulty noted for any consistency and no coughing or other s/s of aspiration observed during meal. Mastication of solids normal. He had some difficulty reaching items on plate and required assistance from clinician. He was notably lethargic and weak throughout. He consumed several pills by mouth with thin liquid water and milk by straw. On two instances, he coughed following pill consumption with multiple successive sips of milk. He reported that he takes all his pills at once. is nurse recommended he take only a few at a time to which he agreed. Other trials with pills and liquid were normal, provided cues to take smaller sips when taking pills. Patient did not demonstrate overt difficulty swallowing during evaluation, however, it is recommended he be observed with pills and cued to take smaller and fewer sips of liquid when taking them. No therapy indicated at this time. Recommend he be upright for all meals. Further recommend he continue to be monitored for any difficulty swallowing or coughing with liquids/pills. Recommendations shared with patient's nurse who verbalized understanding. Faisal Lucero MA [facility]-IMAGING TECHNICIAN
[2020-06-24 12:00] VITALS: BP 114/48
--- NOTE | 2020-06-24 13:08 | NUR ---
DR. FRANCIS CALLED. BRONCH TOMORROW.
--- NOTE | 2020-06-24 15:30 | NUR ---
MEDICATED WITH NORCO PO PER PRN ORDER, SEE EMAR. FOR C/O LEFT FOOT PAIN, RATES PAIN 10 ON PAIN SCALE 0-10. CALL LIGHT IN REACH. MIDLINE TO R UPPER ARM REMOVED, 2X2 APPLIED. 13.3CM LONG. BSG-13. CALL LIGHT IN REACH. SEE SHIFT ASSESSMENT.
[2020-06-24 16:00] VITALS: BP 144/66
[2020-06-24 20:00] VITALS: BP 115/48
--- NOTE | 2020-06-24 20:00 | NUR ---
TELEPHONE CONSENT OBTAINED FROM ELVIA JACK FOR PATIENT TO HAVE BRONCHOSCOPY TOMORROW MORNING WITH DR. FRANCIS. VERIFIED WITH ANGIE SYKES RN
--- NOTE | 2020-06-24 20:30 | NUR ---
IN TO ASSESS PATIENT. PATIENT ALERT TO PERSON AND PLACE. 3L NC INTACT. PATIENT IS PLEASANT AND COOPERATIVE. STATES HE HAS NO DIFFICULTY BREATHING BUT AT TIMES IS TACHYPNEIC. NOTIFIED PATIENT THAT AFTER MIDNIGHT HE WOULD NOT BE ABLE TO HAVE ANYTHING BY MOUTH HE WILL BE HAVING A BRONCHOSCOPY TOMORROW. PATIENT VERBALIZED UNDERSTANDING. EDEMA NOTED TO BUE. WOUND VAC ON AT 200 MMHG OF SUCTION. CALL LIGHT WITHIN REACH, WILL MONITOR
[2020-06-25] VITALS (8 sets, daily range): BP systolic 118–151; BP diastolic 41–91
--- NOTE | 2020-06-25 00:16 | NUR ---
MEDICATED WITH PRN TYLENOL FOR CO FOOT PAIN. WILL ASSESS EFFECTIVENESS.
--- NOTE | 2020-06-25 00:54 | NUR ---
24 HR chart check completed.
--- NOTE | 2020-06-25 01:16 | NUR ---
PATIENT SLEEPING. TYLENOL APPEARS TO BE EFFECTIVE. CALL LIGHT IN REACH.
[2020-06-25 06:52] LABS: BASO % 0.1 % (0.0-1.0); EOS # 0.2 10*3/uL (0.0-0.4); EOS % 2.7 % (1.0-4.0); HEMATOCRIT 28.6 % (42.0-52.0); LYMPH # 1.3 10*3/uL (1.3-4.4); MEAN CORPUSCULAR HGB 22.9 pg (27.0-31.0); MEAN PLATELET VOLUME 8.7 fl (9.6-12.3); MONO # 0.7 10*3/uL (0.1-1.0); MONO % 10.3 % (3.0-9.0); NEUT # 4.5 10*3/uL (2.3-7.9); NEUT % 67.5 % (47.0-73.0); PLATELET COUNT AUTOMATED 449 10*3/uL (130-400); RED BLOOD COUNT 3.62 10*6/uL (4.50-5.90); RED CELL DISTRI WIDTH 19.6 % (0-14.5); WHITE BLOOD COUNT 6.7 10*3/uL (4.8-10.8)
--- NOTE | 2020-06-25 07:45 | NUR ---
OT NOTE Pt was seen this A.M. 1:1 for 15 minute OT session. Upon arrival pt was supine in bed. Pt identified by name and and had complaints of 10/10 B foot pain. Pt presented to therapy with continuous 3.5L-O2 via NC and wound vac to LLE which he remained on throughout the entire session. Pt transferred supine to sit EOB with maxA X 2. While sitting EOB challenged pt's static sitting balance and pt presented with P- sitting balance requiring maxA to correct anterior and L lateral lean. Pt was unable to pull his head up to neutral without assist and was then unable to self maintain. Pt sat EOB for aprox 7 minutes before requesting to lay back into bed. Pt transferred sit to supine with maxA X 2. There he was left with call light in hand, tray table in place, bed rails up, and bed alarm activated for safety. Continue with rec D/C plan to return to snf/SNF. CHARLY Jarquin/Yosi
--- NOTE | 2020-06-25 08:18 | NUR ---
PHYSICAL THERAPY TREATMENT TIME: OUT 07:45 AM 18 MINUTES TOTAL Patient presented to therapy in supine with head of bed elevated and bed alarm on. Patient has a wound vac in the L LE. Patient says he has pain in the Guzman LEs. Patient gives informed consent for treatment. Patient was identified by name and on wristband. Patient performed supine to sitting on EOB with MAX A X 2. Patient sat on EOB with MAX A X 1 at times for forwards lean due to poor core strength. Patient did not attempt STS from EOB due ot core and overall weakness. Patient could not maintain upright posture and could not even raise his head due to weakness. Patient sat for 8 minutes and then had ot lay back down. Patient is very fatigued. Patient is on 3.5 liters of spO2 via nasal canula. Patient was transferred back to supine in bed with MAX A X 2. Patient was left in supine in bed with head of bed elevated and bed alarm on. Patient call light within reach. Patient was 1:1 with this FOOD COUNTER WORKER for 18 minutes total. HAJA ALVAREZ FOOD COUNTER WORKER
--- NOTE | 2020-06-25 09:40 | NUR ---
Patient is scheduled for bronchoscopy today. Awaiting precert from [facility].
--- NOTE | 2020-06-25 10:39 | NUR ---
PHYSICAL THERAPY CO-SIGN I approve of the Physical Therapy notes written above. JOANNA HALL PT,DPT
[2020-06-25 12:39] LABS: BF LYMPHOCYTES 12 %; BF MACROPHAGES 12 %; BF NEUTROPHILS 76 %
--- NOTE | 2020-06-25 15:24 | NUR ---
PRECERT IS STILL PENDING. IF PRECERT RETURNS [facility] WILL THE NURSES STATION.
[2020-06-25 17:16] LABS: ABG BASE EXCESS 2.8 mmol/L (-2.0-2.0); ARTERIAL BLOOD GAS PH 7.48 (7.35-7.45)
--- NOTE | 2020-06-25 19:31 | NUR ---
PATIENT VERY LETHARGIC AFTER BRONCH TODAY. VITAL WNL, ABG, O2 WNL PHYSICIANS AWARE.
--- NOTE | 2020-06-25 21:03 | NUR ---
SPOKE WITH , ELVIA, AND UPDATED HER ABOUT CONDITION AND PLAN OF CARE. SHE WISHES SOMEONE TO CALL HER WHEN PATIENT PRECERT COMES BACK FOR [facility] AND LET HER KNOW WHAT IS GOING ON.
[2020-06-26] VITALS (10 sets, daily range): BP systolic 91–149; BP diastolic 48–82
--- NOTE | 2020-06-26 04:00 | NUR ---
RESTLESS IN BED. BATH GIVEN BEDLINENS CHANGED.
--- NOTE | 2020-06-26 05:03 | NUR ---
24 HR chart check completed.
--- NOTE | 2020-06-26 05:27 | NUR ---
AWAKE. BLOOD SUGAR OBTAINED 69 GAVE ORANGE JUICE WITH PO MEDICATIONS. PATIENT ALERT AND SPEAKING WITH NURSE PATIENT GETS SHORT OF BREATH WITH EXERTION
[2020-06-26 11:11] LABS: ARTERIAL BLOOD GAS PH 7.475 (7.35-7.45)
[2020-06-26 11:11] LABS: ORGANISM ID, MOLD Preliminary report (.)
[2020-06-26 13:08] LABS: ACID FAST SPEC PROCESSING Concentration (.)
--- NOTE | 2020-06-26 16:06 | NUR ---
pt transferred to icu due to abg's being abnormal. called report to icu nurse and informed her of the reason for the transfer and also informed her about the consult with speech due to some swallowing concerns. told her that speech would probably be to see him on sunday because they are off over the weekend.
--- NOTE | 2020-06-26 23:52 | NUR ---
Pt restless with oxygen saturations 84% on 7 liters NC. Physician notified at this time for addition morphine. Pt denies pain and repositioned.
[2020-06-27] VITALS (8 sets, daily range): BP systolic 97–142; BP diastolic 47–89
--- NOTE | 2020-06-27 01:48 | NUR ---
Left upper arm oozing moderate amount of serous drainage. Dressing applied loosely.
--- NOTE | 2020-06-27 05:16 | NUR ---
Pt more alert, but only to person. Reoriented to time and place. Lung malik coarse and diminished throughout. Oxygen saturations 84 with RR 19. Abdomem soft, hypoactive. Incontinent and changed at this time. Wound vac intact to left foot. Pt has been on NC from 6 to 8 liters.
[2020-06-27 06:01] LABS: BUN 18 mg/dl (7-24); CHLORIDE 109 mmol/L (98-107); CREATININE 0.96 mg/dL (0.70-1.30); POTASSIUM 3.9 mmol/L (3.5-5.1); SODIUM 142 mmol/L (136-145)
[2020-06-27 06:05] LABS: BASO % 0.3 % (0.0-1.0); EOS # 0.2 10*3/uL (0.0-0.4); EOS % 2.5 % (1.0-4.0); HEMATOCRIT 27.2 % (42.0-52.0); LYMPH # 1.4 10*3/uL (1.3-4.4); LYMPH % 18.7 % (27.0-41.0); MEAN CELL VOLUME 80.5 fl (80.0-94.0); MEAN CORPUSCULAR HGB 23.1 pg (27.0-31.0); MEAN CORPUSCULAR HGB CONC 28.7 g/dl (33.0-37.0); MEAN PLATELET VOLUME 8.8 fl (9.6-12.3); MONO # 0.9 10*3/uL (0.1-1.0); MONO % 11.8 % (3.0-9.0); NEUT # 4.8 10*3/uL (2.3-7.9); NEUT % 66.2 % (47.0-73.0); PLATELET COUNT AUTOMATED 465 10*3/uL (130-400); RED BLOOD COUNT 3.38 10*6/uL (4.50-5.90); RED CELL DISTRI WIDTH 19.6 % (0-14.5); WHITE BLOOD COUNT 7.3 10*3/uL (4.8-10.8)
--- NOTE | 2020-06-27 10:11 | NUR ---
Report called to 5th floor patient transfered to room 505 as comfort care under Dr. Lowe order. Vital signs stable and pt comfortable at time of transfer. Spouse and daughter present and aware of transfer. Both awaiting pt in new room.
--- NOTE | 2020-06-27 10:20 | NUR ---
Received order for [facility]. Faxed order and clinicals.
--- NOTE | 2020-06-27 10:24 | NUR ---
Contacted [facility] at [phone] and notified meat products demonstrator that i did fax the order and some clinicals for a [facility] referral. She confirmed but did not give a time they will be available. She will call back.
--- NOTE | 2020-06-27 14:21 | NUR ---
Medicated with MS 1 mg for agitation slowly through left arm PICC line. Flushed with NS.
--- NOTE | 2020-06-27 16:08 | NUR ---
Spoke with hospice nurse family signed GIP papers at [phone]
--- NOTE | 2020-06-28 18:07 | NUR ---
OCCUPATIONAL THERAPY CO-SIGN I approve of the Occupational Therapy notes written above. VIMAL RIGGS OTR/Yosi
[2020-07-26 14:12] LABS: ACID FAST CULTURE Negative (.)
[2020-08-02 16:08] LABS: ACID FAST CULTURE Negative (.)
== END 2020-06-27 16:19 | disposition hospice, home (50) | DRG 853 ==
LOC: ED 08:07 → EDHOLD 08:57 → 5E 08:57 → EDHOLD 08:57 → 5E 09:32 → ICCU 06-26 14:57 → 5E 06-27 10:24
PROVIDERS: Emergency Medicine; Family Medicine; Hospitalist; Internal Medicine; Internal Medicine Critical Care Medicine; Podiatrist; Student in an Organized Health Care Education/Training Program; ADMIT Emergency Medicine; ATTEND Emergency Medicine
PROC: 30233N1 Transfusion of Nonautologous Red Blood Cells into Peripheral Vein, Percutaneous Approach (ICD-10-PCS; 2020-06-06)
PROC: 0QBQ0ZX Excision of Right Toe Phalanx, Open Approach, Diagnostic (ICD-10-PCS; principal; 2020-06-09)
PROC: 0JBQ0ZZ Excision of Right Foot Subcutaneous Tissue and Fascia, Open Approach (ICD-10-PCS; 2020-06-09)
PROC: 0QBQ0ZZ Excision of Right Toe Phalanx, Open Approach (ICD-10-PCS; 2020-06-09)
PROC: 0JBQ0ZX Excision of Right Foot Subcutaneous Tissue and Fascia, Open Approach, Diagnostic (ICD-10-PCS; 2020-06-09)
PROC: 05HY33Z Insertion of Infusion Device into Upper Vein, Percutaneous Approach (ICD-10-PCS; 2020-06-11)
PROC: 05HC33Z Insertion of Infusion Device into Left Basilic Vein, Percutaneous Approach (ICD-10-PCS; 2020-06-16)
PROC: 05HY33Z Insertion of Infusion Device into Upper Vein, Percutaneous Approach (ICD-10-PCS; 2020-06-16)
PROC: 0BC18ZZ Extirpation of Matter from Trachea, Via Natural or Artificial Opening Endoscopic (ICD-10-PCS; 2020-06-25)
PROC: 0BC98ZZ Extirpation of Matter from Lingula Bronchus, Via Natural or Artificial Opening Endoscopic (ICD-10-PCS; 2020-06-25)
PROC: 0BC48ZZ Extirpation of Matter from Right Upper Lobe Bronchus, Via Natural or Artificial Opening Endoscopic (ICD-10-PCS; 2020-06-25)
PROC: 0BC58ZZ Extirpation of Matter from Right Middle Lobe Bronchus, Via Natural or Artificial Opening Endoscopic (ICD-10-PCS; 2020-06-25)
PROC: 0BC38ZZ Extirpation of Matter from Right Main Bronchus, Via Natural or Artificial Opening Endoscopic (ICD-10-PCS; 2020-06-25)
PROC: 0BC78ZZ Extirpation of Matter from Left Main Bronchus, Via Natural or Artificial Opening Endoscopic (ICD-10-PCS; 2020-06-25)
PROC: 0BC68ZZ Extirpation of Matter from Right Lower Lobe Bronchus, Via Natural or Artificial Opening Endoscopic (ICD-10-PCS; 2020-06-25)
PROC: 0BCB8ZZ Extirpation of Matter from Left Lower Lobe Bronchus, Via Natural or Artificial Opening Endoscopic (ICD-10-PCS; 2020-06-25)
PROC: 0B9G8ZX Drainage of Left Upper Lung Lobe, Via Natural or Artificial Opening Endoscopic, Diagnostic (ICD-10-PCS; 2020-06-25)
PROC: 0BC88ZZ Extirpation of Matter from Left Upper Lobe Bronchus, Via Natural or Artificial Opening Endoscopic (ICD-10-PCS; 2020-06-25)
DX: A41.9 Sepsis, unspecified organism (principal); J96.01 Acute respiratory failure with hypoxia; J18.9 Pneumonia, unspecified organism; M86.171 Other acute osteomyelitis, right ankle and foot; E44.0 Moderate protein-calorie malnutrition; J44.0 Chronic obstructive pulmonary disease with (acute) lower respiratory infection; I70.261 Atherosclerosis of native arteries of extremities with gangrene, right leg; L97.329 Non-pressure chronic ulcer of left ankle with unspecified severity; L03.115 Cellulitis of right lower limb; M86.671 Other chronic osteomyelitis, right ankle and foot; E11.69 Type 2 diabetes mellitus with other specified complication; E11.621 Type 2 diabetes mellitus with foot ulcer; D64.89 Other specified anemias; K21.9 Gastro-esophageal reflux disease without esophagitis; C61 Malignant neoplasm of prostate; L97.519 Non-pressure chronic ulcer of other part of right foot with unspecified severity; E11.65 Type 2 diabetes mellitus with hyperglycemia; M06.09 Rheumatoid arthritis without rheumatoid factor, multiple sites; E78.2 Mixed hyperlipidemia; E11.42 Type 2 diabetes mellitus with diabetic polyneuropathy; I48.0 Paroxysmal atrial fibrillation; Z66 Do not resuscitate; Z51.5 Encounter for palliative care; I10 Essential (primary) hypertension; S93.125A Dislocation of metatarsophalangeal joint of left lesser toe(s), initial encounter; S93.124A Dislocation of metatarsophalangeal joint of right lesser toe(s), initial encounter; Z20.828 Contact with and (suspected) exposure to other viral communicable diseases; S92.412A Displaced fracture of proximal phalanx of left great toe, initial encounter for closed fracture; X58.XXXA Exposure to other specified factors, initial encounter; B96.89 Other specified bacterial agents as the cause of diseases classified elsewhere; Y93.89 Activity, other specified; Y92.89 Other specified places as the place of occurrence of the external cause; Y99.8 Other external cause status; Z79.4 Long term (current) use of insulin; Z79.01 Long term (current) use of anticoagulants; Z88.8 Allergy status to other drugs, medicaments and biological substances; Z91.040 Latex allergy status; Z88.6 Allergy status to analgesic agent; Z86.718 Personal history of other venous thrombosis and embolism; Z87.440 Personal history of urinary (tract) infections; Z86.73 Personal history of transient ischemic attack (TIA), and cerebral infarction without residual deficits; Z91.81 History of falling; Z87.891 Personal history of nicotine dependence; Z82.49 Family history of ischemic heart disease and other diseases of the circulatory system; Z83.3 Family history of diabetes mellitus; Z80.8 Family history of malignant neoplasm of other organs or systems; Z79.899 Other long term (current) drug therapy; Z79.82 Long term (current) use of aspirin; Z79.02 Long term (current) use of antithrombotics/antiplatelets; Z68.29 Body mass index [BMI] 29.0-29.9, adult

== ENCOUNTER 2020-06-27 16:27 | Inpatient (IN) | payer OTHER ==
[~2020-06-27] VITALS: Ht 180.3 cm; Wt 97.1 kg
[2020-06-27 16:00] VITALS: BP 133/55
[~2020-06-27 16:27] MED LIST changes: +DAKIN'S473 ML T; +LANTUS SOL100 UNIT/1 SC; +NEURONTIN100 MG PO; +NYAMYC15 GM T; +Nystatin Cream15 GM T; +PERCOCET 5-3251 EACH PO; +TYLENOL325 M2 PO
[2020-06-27 20:00] VITALS: BP 122/63
[2020-06-28] VITALS: BP 115/57
[2020-06-28 08:00] VITALS: BP 95/65
[2020-06-28 12:00] VITALS: BP 87/42
[2020-06-28 16:00] VITALS: BP 83/48
[2020-06-28 20:00] VITALS: BP 84/55
[2020-06-29] VITALS: BP 75/41
== END 2020-06-29 04:48 | disposition expired | DRG 194 ==
LOC: 5E 16:27
PROVIDERS: ADMIT Emergency Medicine; ATTEND Emergency Medicine
DX: J18.9 Pneumonia, unspecified organism (principal); E44.0 Moderate protein-calorie malnutrition; R65.10 Systemic inflammatory response syndrome (SIRS) of non-infectious origin without acute organ dysfunction; J44.0 Chronic obstructive pulmonary disease with (acute) lower respiratory infection; M86.8X7 Other osteomyelitis, ankle and foot; Z51.5 Encounter for palliative care; Z66 Do not resuscitate; D64.9 Anemia, unspecified; E78.5 Hyperlipidemia, unspecified; I10 Essential (primary) hypertension; L97.529 Non-pressure chronic ulcer of other part of left foot with unspecified severity; K21.9 Gastro-esophageal reflux disease without esophagitis; M06.9 Rheumatoid arthritis, unspecified; J45.909 Unspecified asthma, uncomplicated; I48.0 Paroxysmal atrial fibrillation; E11.621 Type 2 diabetes mellitus with foot ulcer; E11.42 Type 2 diabetes mellitus with diabetic polyneuropathy; E11.69 Type 2 diabetes mellitus with other specified complication; E11.51 Type 2 diabetes mellitus with diabetic peripheral angiopathy without gangrene; Z86.718 Personal history of other venous thrombosis and embolism; Z87.891 Personal history of nicotine dependence; Z82.49 Family history of ischemic heart disease and other diseases of the circulatory system; Z91.040 Latex allergy status; Z68.29 Body mass index [BMI] 29.0-29.9, adult; Z88.8 Allergy status to other drugs, medicaments and biological substances; Z85.46 Personal history of malignant neoplasm of prostate; Z79.51 Long term (current) use of inhaled steroids; Z79.1 Long term (current) use of non-steroidal anti-inflammatories (NSAID); Z79.82 Long term (current) use of aspirin; Z79.899 Other long term (current) drug therapy; Z79.4 Long term (current) use of insulin